=== PATIENT | female | born 2000 | race Caucasian/White ===

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

== ENCOUNTER → 2022-07-07 | Outpatient (CLI) | payer MEDICAID, SELFPAY ==
[2022-07-07 10:55] LABS: Absolute Lymphocyte Count 1.72 X10^3/uL (0.83-4.51); Absolute Neutrophil Count 7.2 X10^3/uL (2.0-7.7); Basophil# 0.02 X10^3/uL; Basophil% 0.2 % (0-1); Eosinophil# 0.03 X10^3/uL; Eosinophils% 0.3 % (0-5); Hematocrit 30.9 % (37-47); Hemoglobin 9.7 g/dL (12.0-15.0); Lymphocyte # 1.72 X10^3/ul (0.83-4.51); Lymphocyte % 18.3 % (19-41); Mean Corp Hgb Conc 31.4 g/dL (32-36); Mean Corpuscular Hgb 26.8 pg (27.0-32.0); Mean Corpuscular Volume 85.4 fL (81-99); Monocyte# 0.45 X10^3/uL; Monocyte% 4.8 % (0-10); NRBC Flagged by Analyzer 0 % (0-5); Neutrophil # 7.15 X10^3/uL (2.7-7.7); Platelet Count 220 K/mm3 (150-450); RBC Distribution Width CV 13.2 % (11.6-14.6); RBC Distribution Width SD 41.4 fl (35.1-43.9); Red Blood Count 3.62 M/mm3 (4.2-5.4); White Blood Count 9.4 K/mm3 (4.4-11.0)
[2022-07-07 11:41] LABS: HIV - WCH Non-Reactive (Nonreactive); Hepatitis B Surface Antigen Non-Reactive (Nonreactive); Hepatitis C Antibody Non-Reactive (Nonreactive); Rubella IgG Reactive (Nonreactive); Syphilis Antibodies Non-reactive
[2022-07-08 19:13] LABS: V-Zoster IgG (Immunity) < 135 index (Immune >165)
== END | disposition home or self-care (01) ==
PROVIDERS: PCP Family Medicine; Visit Provider Obstetrics & Gynecology
DX: Z34.83 Encounter for supervision of other normal pregnancy, third trimester (principal)
CPT/HCPCS: 36415; 85025; 86703; 86762; 86780; 86787; 86803; 87086; 87088; 87186; 87340

== ENCOUNTER → 2022-08-03 | Outpatient (CLI) | payer MEDICAID, SELFPAY ==
[2022-08-03 13:20] LABS: Absolute Lymphocyte Count 2.24 X10^3/uL (0.83-4.51); Absolute Neutrophil Count 7.6 X10^3/uL (2.0-7.7); Basophil# 0.01 X10^3/uL; Basophil% 0.1 % (0-1); Eosinophil# 0.09 X10^3/uL; Eosinophils% 0.8 % (0-5); Hematocrit 33.2 % (37-47); Lymphocyte # 2.24 X10^3/ul (0.83-4.51); Lymphocyte % 21.2 % (19-41); Mean Corp Hgb Conc 30.1 g/dL (32-36); Mean Corpuscular Hgb 25.7 pg (27.0-32.0); Mean Corpuscular Volume 85.3 fL (81-99); Mean Platelet Vol. 9.9 fl (6.2-12.0); Monocyte# 0.63 X10^3/uL; Monocyte% 5.9 % (0-10); NRBC Flagged by Analyzer 0 % (0-5); Neutrophil # 7.55 X10^3/uL (2.7-7.7); Neutrophil % 71.3 % (47-70); Platelet Count 216 K/mm3 (150-450); RBC Distribution Width CV 13.6 % (11.6-14.6); RBC Distribution Width SD 41.5 fl (35.1-43.9); Red Blood Count 3.89 M/mm3 (4.2-5.4); White Blood Count 10.6 K/mm3 (4.4-11.0)
[2022-08-03 14:36] LABS: Syphilis Antibodies Non-reactive
== END | disposition home or self-care (01) ==
LOC: WOBLAB 12:24
PROVIDERS: PCP Family Medicine; Visit Provider Obstetrics & Gynecology
DX: Z34.83 Encounter for supervision of other normal pregnancy, third trimester (principal); Z36.85 Encounter for antenatal screening for Streptococcus B
CPT/HCPCS: 36415; 85025; 86780; 87081

== ENCOUNTER 2022-08-19 15:16 | Inpatient (IN) | payer MEDICAID, SELFPAY ==
[2022-08-19] VITALS (41 sets, daily range): BP systolic 101–132; BP diastolic 56–81; PULSE 58–91; RESP 18; TEMP 36.6–37.2; O2SAT 93–100; BMI 27.2
[2022-08-19 11:48] LABS: ROM Internal Control Test YES-OK TO RESULT pt. (Internal QC); ROM Patient Test Negative (Negative)
[2022-08-19 12:47] LABS: ROM Internal Control Test YES-OK TO RESULT pt. (Internal QC); ROM Patient Test Negative (Negative)
[2022-08-19] MEDS: LACTATED RINGERS 500 ML 999 ML IV (15:40)
[2022-08-19] MEDS: Lactated Ringers 1,000 ML 200 ML IV (16:12)
[2022-08-19 16:15] LABS: Absolute Lymphocyte Count 2.31 X10^3/uL (0.83-4.51); Absolute Neutrophil Count 8.2 X10^3/uL (2.0-7.7); Basophil# 0.01 X10^3/uL; Basophil% 0.1 % (0-1); Eosinophil# 0.07 X10^3/uL; Eosinophils% 0.6 % (0-5); Hemoglobin 9.7 g/dL (12.0-15.0); Lymphocyte # 2.31 X10^3/ul (0.83-4.51); Lymphocyte % 20.5 % (19-41); Mean Corp Hgb Conc 31.3 g/dL (32-36); Mean Corpuscular Hgb 25.7 pg (27.0-32.0); Mean Corpuscular Volume 82.2 fL (81-99); Mean Platelet Vol. 10.2 fl (6.2-12.0); Monocyte# 0.67 X10^3/uL; NRBC Flagged by Analyzer 0 % (0-5); Neutrophil # 8.15 X10^3/uL (2.7-7.7); Neutrophil % 72.4 % (47-70); Platelet Count 197 K/mm3 (150-450); RBC Distribution Width CV 13.6 % (11.6-14.6); RBC Distribution Width SD 40.9 fl (35.1-43.9); Red Blood Count 3.77 M/mm3 (4.2-5.4); White Blood Count 11.3 K/mm3 (4.4-11.0)
[2022-08-19 16:46] LABS: Syphilis Antibodies Non-reactive
[2022-08-19] MEDS: Ondansetron 4 MG/2 ML Vial IV (16:50)
[2022-08-19] MEDS: fentaNYL-bupivacaine (epidural) 100 ML BAG EPIDURAL (17:00)
--- NOTE | 2022-08-19 17:30 | HP.PCM.OB_ITS ---
History and Physical Date of Admission: 08/19/22 Chief complaint: Contractions History present illness: 21-year-old at 38 weeks and 4 days with YESSENIA 08/29/2022 arrives with contractions and leakage of fluid. Denies headache, vision changes, chest pain, shortness of breath, nausea vomit, right upper quadrant pain. Patient states go od movement. Obstetric history: G1: SAB G2: 39-week male G3: 41-week female G4: Current Past medical history: None Medications: vitamin Allergies: Penicillin Past surgical history: Cholecystectomy, tonsils and adenoids Social history: 1 pack/day smoker, denies alcohol or drug use Family history: Denies history DVT or PE Review of systems: Besides above pertinent positives a full review of systems was performed and found to be negative Physical exam: Vitals: Blood pressure 125/81 pulse 78 SPO2 100% on room air General: Normal-appearing no acute distress HEENT: Normocephalic/atraumatic no cervical lymphadenopathy Cardiac/respiratory: No use accessory muscles, nonlabored breathing Abdomen: Soft, nontender, gravid Pelvic exam: Cervical exam 7-8/80/-1. AROM clear fluid Extremities: No peripheral edema normal peripheral pulses Psych: Normal affect and demeanor nonpressured speech Labs: White blood cell count 11.3 hemoglobin 9.7 hematocrit 31% platelets 197. RPR nonreactive. Blood type AB+ antibody negative. ROM negative Assessment and plan: 21-year-old G4, P2 at 38 weeks and 4 days called by nursing with leakage of fluid initial ROM negative. After ROM test came back called by nursing with again leakage of more fluid ROM test again sent and again negative. Intermittently was checked with cramping and contractions noted to have advanced cervical dilation to be in labor admitted to labor and delivery. Patient was seen and examined as above with above cervix and AROM for clear fluid Admit labor and delivery Routine orders GBS negative
[2022-08-19] MEDS: Oxytocin 15 Units/NS 250ml 15 UNITS/250 ML IV.SOLN 83 UNITS IV (18:03)
[2022-08-19] MEDS: Oxytocin 10 UNITS/ML Vial IM (18:06)
--- NOTE | 2022-08-19 18:17 | EX.PCM.OBRPT ---
Vaginal Delivery Findings Description of Procedure: Normal spontaneous vaginal delivery of a viable male , vertex FRANCIS. Head and shoulders delivered with ease. Cord clamped and cut. Baby handed off to patient. Placenta delivered via cord traction and fundal massage intact. First-degree midline perineal laceration noted and repaired in typical fashion. IM Pitocin and IV Pitocin given per protocol. EBL 250 cc Apgars 9/9
[2022-08-19] MEDS: Acetaminophen 500 MG Tablet 1000 MG PO (23:40)
[2022-08-20 04:52] VITALS: BP 107/66; PULSE 70; RESP 18
[2022-08-20 06:39] LABS: Chlamydia Trachomatis by PCR Negative (Negative); Neisserai gonorrhoeae by PCR Negative (Negative); Probe Check PASS; Sample Adequacy Control PASS; Specimen Processing Control PASS
--- NOTE | 2022-08-20 08:05 | PN.OBGYN_ITS ---
Subjective Subjective No overnight complaint Objective Data Objective Data Vital Signs: Vital Signs Temp Pulse Resp BP Pulse Ox O2 Del Method 98.9 F 70 18 107/66 99 Room Air 08/19/22 23:31 08/20/22 04:52 08/20/22 04:52 08/20/22 04:52 08/19/22 19:22 08/20/22 04:52 Oxygen Delivery Method Room Air Weight: 158 lb 11.725 oz Body Mass Index (BMI) 27.2 Intake & Output: Intake and Output for Last 24 Hours 08/18/22 08/19/22 08/20/22 23:59 23:59 23:59 Intake Total 1390 / 1390 Output Total 750 / 750 Balance 640 / 640 Lab / Micro Data Result Diagrams: 08/19/22 15:40 Labs: Laboratory Results - last 24 hr 08/19/22 11:15: Vag Amniotic Fld Detect Negative 08/19/22 12:20: Vag Amniotic Fld Detect Negative 08/19/22 15:40: WBC 11.3 H, RBC 3.77 L, Hgb 9.7 L, Hct 31.0 L, MCV 82.2, MCH 25.7 L, MCHC 31.3 L, RDW Std Deviation 40.9, RDW Coeff of Shoaib 13.6, Plt Count 197, MPV 10.2, Immature Gran % (Auto) 0.400, Neut % (Auto) 72.4 H, Lymph % (Auto) 20.5, [place] % (Auto) 6.0, Eos % (Auto) 0.6, Baso % (Auto) 0.1, Absolute Neuts (auto) 8.2 H, Absolute Lymphs (auto) 2.31, Nucleated RBC % 0 08/19/22 15:40: Blood Type AB POSITIVE, Antibody Screen NEGATIVE 08/19/22 15:40: Syphilis Total Ab Non-reactive 08/19/22 23:25: Chlam trachomat DNA PCR Negative, N.gonorrhoeae DNA (PCR) N egative Physical Exam Const alert, oriented x3, no apparent distress, average body habitus, healthy appearing and well nourished HEENT normocephalic and moist oral mucous membranes Eyes PERRL Neck full ROM Resp normal respiratory effort, no retractions and no use of accessory muscles GI GI Narrative: Soft, nontender, uterus firm and below umbilicus Extremity normal to inspection, full ROM and no clubbing, cyanosis or edema Neuro moves all extremities and no focal motor deficits Psych mental status grossly normal, affect normal, speech normal and activity/motor behavior normal Assessment & Plan (1) (spontaneous vaginal delivery): PLAN: day 1. Breast-feeding. Pain well controlled. 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
--- NOTE | 2022-08-20 08:05 | DCINST_ITS ---
Discharge Instructions Diet Discharge Diet: No restrictions Activity Discharge Activity: Return to Normal Activity, May Drive and May Shower May resume sexual activity in: 4-6 weeks Weight Bearing Status: Weight bearing as tolerated Dressing / Incision Call your doctor if your incision/area has: Continuous Slow Oozing and Foul Smelling Discharge Call your doctor if you observe: Fever of 101 or Higher, Shortness of breath and Chest pain Follow Up Care Please Follow Up With: Eduardo Mascorro MD When: 4 to 6 weeks Test Results: Test results from this visit will be discussed in further detail at your follow- up appointment, if applicable. Discharge Plan Admission Admit Date/Time: 08/19/22 15:16 Attending Provider: Eduardo Mascorro Primary Care Provider: Jerald Sierra Discharge Orders/Prescriptions Prescriptions: No Action ondansetron HCl 4 mg tablet 4 mg PO PRN PRN (Reason: Nausea) 1 tab PO/SL DAILY iron 325 mg PO/SL DAILY Referrals / Follow Up: Jerald Sierra MD [Primary Care Provider] - Disposition Discharge Orders: Discharge Patient (Routine); Ordered 08/20/22 Ordered By: Dr. Eduardo Mascorro
[2022-08-20] MEDS: Acetaminophen 500 MG Tablet 1000 MG PO (08:20)
[2022-08-20 09:00] VITALS: BP 118/72; PULSE 66; RESP 14; TEMP 36.8
[2022-08-20 12:30] VITALS: BP 120/69; PULSE 70; RESP 16; TEMP 37
[2022-08-20 18:00] VITALS: BP 130/70; PULSE 70; RESP 16; TEMP 36.6
--- NOTE | 2022-08-20 18:30 | CASEMGMT ---
Social Work Assessment Labor and Delivery Unit Date of Referral: 08.19.22 Time of Referral: 1912 Referred By: Dr. Eduardo Mascorro Date of Intervention: 08.20.22 Time of Intervention: 1829 Reason for Referral: 21 year old teen mom, resources, late PNC History obtained from: Medical records, mother of baby (MOB) Sugey Helm, and father of baby (FOB) Justyn Medina was present for part of conversation. Household composition: MOB and FOB report to live together, along with 2 older children. Infant will reside in this residence. Home is reported as safe and adequate. Patient's parent/guardian status: MOB is a 21 year old single female, involved with the FOB Justyn (7.29.97) for the las 7 years. During private conversation with MOB, the MOB denies any form of abuse in this relationship. MOB and FOB have 3 children: Nithin (age 2), Samara (age 1, 1.26.22), and Don (3.9.23). Medical History: LILI is G4, P2 to 3 after delivering Don. care was late, starting at 36 weeks. MOB reports late care due to not thinking was so far along, believing self to be in the early 20's when started care. MOB was in the first year of after Samara and had miscalculated her period. delivered fullterm at 7 pounds. Apgars 9 an d9. Educational Status: High school, no diploma. Denies any issues with reading, writing, or learning. Financial Status: MOB and FOB report both have jobs. 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 LILI works at an [employer] along with her father. MOB and FOB reports to be doing fine with finances at this time. Infant Supplies: MOB and FOB report to have all necessary supplies to care for Don including safe sleep space, car seat, clothing, diapers, wipes. Plan on breast feeding, but at home pumping and feeding with a bottle. Childcare/Caregiver(s): MOB, FOB, and then for babysitting MOB's mother. Transportation: MOB and FOB both reports to drive. and deny and concerns. Programs/Agencies Involved: Medicaid through [place]. Deny any WIC, HMG, or desire for such. Deny any needs for social service supports in the community. Children Services/Legal Issues: MOB denies and current or past CSB or legal involvement. Behavioral Health Issues: Mental Health History: LILI reports some PPD after her older children, but not much and nothing that stopped MOB from taking care of daily life. No medications or counseling. [place] screen completed with a score of 1 for not very often blaming self unnecessarily when things went wrong. Substance Use History: MOB denies any history. Family History: None reported. Drug Screens: No drug screens for mom. Due to late care at 36 weeks, per protocol, screening done on baby. Urine is negative and meconium is pending. Family/Social Stressors: Unplanned , with both MOB and FOB reporting initial shock and uncertainty on how felt about . Parent did come to accept that would be having a 3rd child and are intent on parenting. MOB and FOB reports to be happy about the baby now. MOB and FOB now have 3 children, 2 and under. Support Systems: MOB reports her mother if primary support to help with children, as well as MOB's primary emotional support. MOB's father and the FOB are also supports. Depression/Shaken Baby/Safe Sleeping: Information reviewed. MOB and FOB aware of safe sleeping and shaken baby syndrome. Reviewed depression and anxiety, risk and that both mothers and father are at risk. ASSESSMENT: Met with MOB and FOB in room, introducing to self and social work role. This scenario writer familiar with family from prior delivery at [facility]. MOB and FOB cooperative, pleasant, and willing to speak to social contact worker. Parents reports to have adequate housing, no concerns with utilities, food, transportation, or any interpersonal safety. Reports to have needed supplies to care for baby and support from MOB's parents. FOB does get to take some time off of work to help. MOB denies any current concerns with PPD or PPA and reports would speak to her mother if symptoms arise and/or become distressing. MOB declines referrals to HMG or WIC but accepted resource list of resources for [facility], as well as packet of information on depression and anxiety. PLAN: MOB and infant to discharge home when ready. Resources provided for home going. No other services requested or indicated. -ISAC Preciado, JACQUELIN
== END 2022-08-20 19:00 | disposition home or self-care (01) | DRG 560 ==
LOC: WPOUT 15:16 → WP 15:18
PROVIDERS: Admitting Provider Obstetrics & Gynecology; PCP Family Medicine; Referring Provider Obstetrics & Gynecology; Visit Provider Obstetrics & Gynecology
DX: O70.0 First degree perineal laceration during delivery (principal); Z37.0 Single live birth; F17.210 Nicotine dependence, cigarettes, uncomplicated; O99.334 Smoking (tobacco) complicating childbirth; Z3A.38 38 weeks gestation of pregnancy
CPT/HCPCS: 59025; 59050; 84112; 85025; 86780; 86850; 86900; 86901; 87491; 87591; 99221; 99406; J7120; G0378; J2405

== ENCOUNTER 2024-12-26 07:10 | Inpatient (IN) | payer MEDICAID, SELFPAY ==
[2024-12-26] VITALS (68 sets, daily range): BP systolic 99–146; BP diastolic 55–79; PULSE 67–97; RESP 15–18; TEMP 36.2–36.9; O2SAT 87–100; BMI 35.5
--- OUTSIDE RECORDS SUMMARY | 2024-12-26 07:01 | XMS RPT_ITS | CCD ---
Author Organization [facility] Care Team Providers Care Fermenter Name Role Phone JERALD SANCHEZ Consulting Unavailable JERALD SANCHEZ Referring Unavailable LUZ ELENA SAMUELS CNM Admitting Unavailable LUZ ELENA SAMUELS CNM Primary Care Unavailable LUZ ELENA SAMUELS CNM Attending Unavailable PROVIDER, UNKNOWN Consulting Unavailable PROVIDER, UNKNOWN Consulting Unavailable PROVIDER, UNKNOWN Consulting Unavailable Jerald Sanchez Primary Care Unavailable Eduardo Samuels Referring Unavailable Eduardo Samuels Attending Unavailable Eduardo Samuels Admitting Unavailable Jerald Sanchez Primary Care Unavailable Eduardo Samuels Attending Unavailable Jerald Sanchez Primary Care Unavailable Eduardo Samuels Attending Unavailable Jerald Sanchez MD Unavailable Psychology Provider Unavailable Unavailable Physical Therapy Provider Unavailable Shaka Sandoval MD, Sherrie Jhaveri Unavailable Jaylen PRICEN, Radha Unavailable Winston COLON, Ankur Marie Unavailable Manfred PRICEN, Michelle Jhaveri Unavailable Unavailable Waldo GALVEZ, Kitty C Unavailable Unavailable Gogoi (scribe), Hemanta Unavailable Unavaila jose Hernandez LPN, Maricruz Unavailable Unavailable Albert FAYE, Gerry Baldwin Unavailable Luz Elena Little PA-C Unavailable King TRISTONC, Ruben Norwood Unavailable [phone] Luz Elena Baltazar RN Unavailable Unavaila jose Walker LPN, Leelee Unavailable Unavailable Alma Samuels RN Unavailable Pineda SEAY, Fatuma Pelaez Unavailable Unavailable Filiberto PRICEN, Nicole K Unavailable Shaka Coley PA-C, Prema Marie Unavailable Mark (Scribe)Toan Unavailable Unavailab Khadra Mondragon Unavailable Richert INVESTMENT RECOVERY TECHNICIAN, Nusrat L Unavailable Unavailab le Isis INVESTMENT RECOVERY TECHNICIAN, Sherrie Forte Unavailable Unavailab le [place] INVESTMENT RECOVERY TECHNICIAN, Willow Genao Unavailable Unavailab le Vess INVESTMENT RECOVERY TECHNICIAN, Junshakila L Unavailable Unavailable Wedelvin INVESTMENT RECOVERY TECHNICIAN, Tana Unavailable Unavailabl e Unavailable Unavailable Jerald Sanchez MD Primary Care Provider JERALD SANCHEZ Primary Care Unavailable PARIS, GIN Referring Unavailable [facility] Primary Care Unavailable PARIS, GIN Referring Unavailable [facility] Primary Care Unavailable PARIS, GIN Referring Unavailable SHAILA BUTLER Attending Unavailable [facility] Primary Care Unavailable PARIS, GIN Attending Unavailable [facility] Primary Care Unavailable PARIS, GIN Attending Unavailable [facility] Primary Care Unavailable PARIS, GIN Referring Unavailable [facility] Primary Care Unavailable PARIS, GIN Referring Unavailable PARIS, GIN Attending Unavailable [facility] Primary Care Unavailable PARIS, GIN Attending Unavailable [facility] Primary Care Unavailable PARIS, GIN Referring Unavailable [facility] Primary Care Unavailable ROSIE HENLEY Attending Unavailable [facility] Primary Care Unavailable [facility] Primary Care Unavailable PARIS, GIN Referring Unavailable [facility] Primary Care Unavailable PARIS, GIN Referring Unavailable [facility] Primary Care [facility]available [facility] Primary Care Unavailable [facility] Primary Care Unavailable PARIS, GIN Referring Unavailable [facility] Primary Care Unavailable PARIS, GIN Referring Unavailable MALA KINGSTON Attending Unavailable [facility] Primary Care Unavailable PARIS, GIN Referring Unavailable PARIS, GIN Attending Unavailable [facility] Primary Care Unavailable ROSIE HENLEY Referring Unavailable [facility] Primary Care Unavailable TANA KRAMER Attending Unavailable [facility] Primary Care Unavailable BROOKEADELAIDA CARR Referring Unavailable JESSE HERNANDEZ Attending Unavail able [facility] Primary Care Unavailable BROOKE, ADELAIDA Referring Unavailable [facility] Primary Care Unavailable MIR DE JESUS Attending Unavailable [facility] Primary Care Unavailable MIR DE JESUS Attending Unavailable Allergies Allergy Classification Reported Allergen(s) Allergy Type Date of Onset Reaction(s) Facility (20 sources) Ibuprofen; Translations: [IBUPROFEN] Drug Allergy 0 Hives, Swelling, Anaphylaxis [facility] (7 sources) Penicillins; Translations: [PENICILLINS] Allergy to substance 0 Diarrhea [facility] (1 source) Ibuprofen Drug Allergy 2 [facility] (1 source) Penicillins Drug allergy (disorder) 3 [facility] (5 sources) Penicillin V Drug Allergy Vomiting [facility] (3 sources) Penicillins Drug Intolerance 0 Diarrhea [facility] (20 sources) traMADol; Translations: [TRAMADOL] Drug Allergy 0 Mental Status Change [facility] (20 sources) Penicillins Drug Intolerance 0 Diarrhea [facility] Medications Current Medications Medication Drug Class(es) Dates Sig (Normalized) Sig (Original) acetaminophen 500 mg oral tablet (20 sources) acetaminophen (TYLENOL ORAL) Take 500 mg by mouth as needed. Active aspirin 81 mg delayed release oral tablet (20 sources) Platelet Aggregation Inhibitor, Nonsteroidal Anti-inflammatory Drug Start: 07-16-2024 take 2 tablets by mouth once daily aspirin, enteric coated (ASPIRIN, ENTERIC COATED) 81 mg EC tablet Take 2 tablets by mouth once daily. 60 tablet 5 07/16/2024 Active End: 07-16-2024 take 1 tablet by mouth once daily BABY ASPIRIN ORAL Take 1 tablet by mouth once daily. 07/16/2024 Discontinued Blood-Glucose Meter (2 sources) Start: 10-15-2024 End: 10-16-2024 Blood-Glucose Meter Use as directed to check glucose levels up to seven times daily. 1 each 10/15/2024 10/16/2024 Active ferrous sulfate 325 mg delayed release oral tablet (9 sources) take 1 tablet by mouth every other day ferrous sulfate 325 mg (65 mg iron) EC tablet Take 325 mg by mouth every other day. Active Iron (1 source) Start: 08-19-2022 take 325 mg by mouth once daily iron Active 325 MG SL/PO DAILY August 19, 2022 12:00am ondansetron 4 mg oral tablet (2 sources) Serotonin-3 Receptor Antagonist Start: 07-08-2021 Ondansetron Hcl Active 4 MG PO NEEDED July 08, 2021 12:00am (2 sources) Start: 07-08-2021 take 1 tablet by mouth once daily Active 1 TABLET SL/PO DAILY July 08, 2021 12:00am vit/iron fum/folic ac ( PLUS/IRON ORAL) (20 sources) vit/iro n fum/folic ac ( PLUS/IRON ORAL) Take by mouth once daily. Active Completed/Discontinued Medications Medication Drug Class(es) Dates Sig (Normalized) Sig (Original) amoxicillin 500 mg oral tablet (15 sources) Penicillin-class Antibacterial Start: 03-02-2016 End: 03-12-2016 take 1 tablet by mouth three times daily Amoxicillin 500 MG Oral Tablet ; 1 Tab three times daily for 10 days Quantity: 30 {Tablet} Refills: 0 Ordered: 02-Apr-2016 MD Jerald Sanchez Start: 02-Mar-2016 End: 12-Mar-2016 Status: Inactive Start: 05-29-2012 End: 06-08-2012 take 1 capsule by mouth three times daily AMOXICILLIN, 500MG (Oral Capsule) ; 1 (one) Capsule three times daily for 10 days Quantity: 30 {Capsule} Refills: 0 Ordered: 29-May-2012 MD Sherrie Sandoval Start: 29-May-2012 End: 08-Jun-2012 Status: Inactive Start: 10-15-2011 End: 10-25-2011 take 5 mL by mouth three times daily AMOXICILLIN, 400MG/5ML (Oral Suspension Reconstituted) ; 5 Milliliter three times daily for 10 days Quantity: 150 {Milliliter} Refills: 0 Ordered: 15-Oct-2011 MD Sherrie Sandoval Start: 15-Oct-2011 End: 25-Oct-2011 Status: Inactive Comments: please include measuring device Comment on above: please include measu ring device amoxicillin 875 mg / clavulanate 125 mg oral tablet (5 sources) Penicillin-class Antibacterial Start: 08-10-19 19 End: 08-21-19 19 take 1 tablet by mouth twice daily at mealtime Augmentin 875-125 MG Oral Tablet ; 1 Tab two times daily for 10 days Quantity: 20 {Tablet} Refills: 0 Ordered: 10-Aug-2018 DARLENE Little Start: 10-Aug-2018 End: 20-Aug-2018 Status: Inactive Comments: Take with food Comment on above: Take with food azithromycin 40 mg/ml oral suspension (5 sources) Macrolide Antimicrobial Start: 08-15-19 13 End: 08-20-19 13 AZITHROMYCIN, 200MG/5ML (Oral Suspension Reconstituted) ; 12 Milliliter today, then 6 milliliters daily for 4 days for 5 days Quantity: 36 {Milliliter} Refills: 0 Ordered: 14-Aug-2012 MD Sherrie Sandoval Start: 14-Aug-2012 End: 19-Aug-2012 Status: Inactive Comments: please include measuring device Comment on above: please include measu ring device cephalexin 500 mg oral capsule (20 sources) Cephalosporin Antibacterial Start: 02-15-20 End: 02-29-20 take 2 capsules by mouth twice daily Cephalexin 500 MG Oral Capsule ; 2 (two) Capsule bid for 14 days Quantity: 28 {Capsule} Refills: 0 Ordered: 14-Feb-2019 MD Jerald Sanchez Start: 14-Feb-2019 End: 28-Feb-2019 Status: Inactive Start: 04-21-2015 End: 04-28-2015 take 1 capsule by mouth three times daily CEPHALEXIN, 500MG (Oral Capsule) ; 1 (one) Capsule three times daily for 7 days Quantity: 21 {Capsule} Refills: 0 Ordered: 21-Apr-2015 MD Sherrie Sandoval Start: 21-Apr-2015 End: 28-Apr-2015 Status: Inactive Start: 04-21-2010 End: 05-01-2010 CEPHALEXIN, 250MG/5ML (Oral Suspension Reconstituted) ; 2 (two) teaspoon(s) three times daily for 10 days Quantity: 300 {Milliliter} Refills: 0 Ordered: 21-Apr-2010 MD Sherrie Sandoval Start: 21-Apr-2010 End: 01-May-2010 Status: Inactive take 1 capsule by [facility] twice daily KEFLEX, 500MG (Oral Capsule) ; 1 two times daily (500 MG) Status: Inactive Comments: given at ER on 04/20/15 Comment on above: given at ER on cetirizine hydrochloride 10 mg oral tablet (10 sources) Histamine-1 Receptor Antagonist Start: 03-02-2017 End: 04-12-2018 take 1 tablet by mouth once daily as needed ZyrTEC Allergy 10 MG Oral Tablet ; 1 (one) Tablet Tablet qd for 0 days Quantity: 30 {Tablet} Refills: 3 Ordered: 12-Apr-2018 LENNY York Start: 02-Mar-2017 End: 12-Apr-2018 Status: Inactive Comments: takes as needed Start: 02-25-2016 End: 05-20-2016 take 1 tablet by mouth once daily Cetirizine HCl 10 MG Oral Tablet ; 1 (one) Tablet Tablet daily for 0 days Quantity: 30 {Tablet} Refills: 0 Ordered: 20-May-2016 DAWOOD Baltazar Start: 25-Feb-2016 End: 20-May-2016 Status: Inactive Comment on above: takes as needed FLUoxetine 10 mg oral capsule (5 sources) Serotonin Reuptake Inhibitor Start: 10-10-19 14 End: 03-29-20 14 take 1 capsule by mouth once daily FLUOXETINE HCL, 10MG (Oral Capsule) ; 1 (one) Capsule daily for 0 days Quantity: 30 {Capsule} Refills: 2 Ordered: 29-Mar-2014 LENNY York Start: 09-Oct-2013 End: 29-Mar-2014 Status: Discontinued fluticasone propionate 0.05 mg/actuat metered dose nasal spray (5 sources) Corticosteroid Start: 07-15-19 End: 08-15-19 Fluticasone Propionate 50 MCG/ACT Nasal Suspension ; 2 (two) sprays each nostril daily, no longer than 2 months for 30 days Quantity: 1 {Bottle} Refills: 0 Ordered: 15-Jul-2016 DAYNE Espinoza Start: 15-Jul-2016 End: 14-Aug-2016 Status: Inactive 10 ml iron sucrose 20 mg/ml injection (2 sources) Parenteral Iron Replacement Start: 10-27-19 End: 10-27-19 200 mg, INTRAVENOUS, ONCE, 1 dose, On Tue10/26/24 at 1100, May administer up to 200 mg via IV push over 5-10 minutes. Please conduct a 30 minute post-dose observation. Start: 10-24-2024 End: 10-24-2024 200 mg, INTRAVENOUS, ONCE, 1 dose, On Tue10/24/24 at 1530, May administer up to 200 mg via IV push over 5-10 minutes. Please conduct a 30 minute post-dose observation. 1 ml medroxyPROGESTERone acetate 150 mg/ml injection (6 sources) Progestin Start: 04-23-2020 End: 07-16-2024 medroxyPROGESTERone (DEPO-PROVERA) 150 mg/mL injection Inject 1 mL intramuscularly every 12 weeks. 1 Vial 3 04/23/2020 07/16/2024 Discontinued (Course of therapy completed) Start: 12-15-2016 End: 03-02-2017 Depo-Provera 150 MG/ML Intra muscular Suspension ; 1 (one) dose IM for 0 days Quantity: 1 {Dose_Pack} Refills: 0 Ordered: 02-Mar-2017 LENNY Hernandez Start: 15-Dec-2016 End: 02-Mar-2017 Status: Inactive ofloxacin 3 mg/ml otic solution (5 sources) Quinolone Antimicrobial Start: 12-22-2014 End: 12-29-2014 OFLOXACIN, 0.3% (Otic Solution) ; 10 drops once daily to affected ear for 7 days Quantity: 5 {Milliliter} Refills: 0 Ordered: 22-Dec-2014 MD Gerry Price Start: 22-Dec-2014 End: 29-Dec-2014 Status: Inactive oseltamivir 75 mg oral capsule (5 sources) Neuraminidase Inhibitor Start: 09-03-2016 End: 09-08-2016 take 1 capsule by mouth twice daily Tamiflu 75 MG Oral Capsule ; 1 (one) Capsule twice daily for 5 days Quantity: 10 {Capsule} Refills: 0 Ordered: 03-Sep-2016 MD Jerald Sanchez Start: 03-Sep-2016 End: 08-Sep-2016 Status: Inactive penicillin v potassium 500 mg oral tablet (5 sources) Start: 06-01-2018 End: 06-11-2018 take 1 tablet by mouth twice daily Penicillin V Potassium 500 MG Oral Tablet ; 1 (one) Tablet two times daily for 10 days Quantity: 20 {Tablet} Refills: 0 Ordered: 01-Jun-2018 LENNY De Los Santos Start: 01-Jun-2018 End: 11-Jun-2018 Status: Inactive raNITIdine 150 mg oral capsule (10 sources) Histamine-2 Receptor Antagonist Start: 04-19-2013 End: 05-21-2013 take 1 capsule by mouth once daily RANITIDINE HCL, 150MG (Oral Capsule) ; 1 Capsule daily for 0 days Quantity: 30 {Capsule} Refills: 1 Ordered: 19-Apr-2013 MD Sherrie Sandoval Start: 19-Apr-2013 End: 21-May-2013 Status: Discontinued Start: 07-10-2010 End: 04-22-2011 RANITIDINE HCL, 75MG/5ML (Or al Syrup) ; 1 teaspoon(s) two times daily for 0 days Quantity: 300 {Milliliter} Refills: 0 Ordered: 22-Apr-2011 MD Sherrie Sandoval Start: 10-Jul-2010 End: 22-Apr-2011 Status: Inactive sulfacetamide sodium 100 mg/ml ophthalmic solution (5 sources) Sulfonamide Antibacterial Start: 04-02-2016 End: 05-20-2016 Bleph-10 10 % Ophthalmic Solution ; 1-2 drops four times daily to both eyes for 0 days Quantity: 5 {Milliliter} Refills: 0 Ordered: 20-May-2016 DAWOOD Baltazar Luz Elena A Start: 02-Apr-2016 End: 20-May-2016 Status: Inactive sulfamethoxazole 800 mg / trimethoprim 160 mg oral tablet (10 sources) Dihydrofolate Reductase Inhibitor Antibacterial, Sulfonamide Antimicrobial Start: 04-12-2018 End: 08-09-2018 take 1 tablet by mouth twice daily Sulfamethoxazole- Trimethoprim 800-160 MG Oral Tablet ; 1 (one) Tablet bid for 0 days Quantity: 10 {Tablet} Refills: 0 Ordered: 09-Aug-2018 DAWOOD Sung Fatuma Benigno Start: 12-Apr-2018 End: 09-Aug-2018 Status: Inactive Start: 06-18-2011 End: 06-25-2011 take 1 tablet by mouth twice daily SULFAMETHOXAZOLE-TMP DS, 800-160MG (Oral Tablet) ; 1 Tablet two times daily for 7 days Quantity: 14 {Tablet} Refills: 0 Ordered: 18-Jun-2011 DAWOOD Samuels Start: 18-Jun-2011 End: 25-Jun-2011 Status: Inactive Problems Active Problems Problem Classification Problem Date Documented Date Episodic/Chronic Abdominal pain (20 sources) Acute abdominal pain; Translations: [Unspecified abdominal pain] 09-07-2018 Episodic Acute bronchitis (15 sources) Acute bronchitis; Translations: [Acute bronchitis, unspecified] 08-14-2012 Episodic Adjustment disorders (20 sources) Mixed anxiety and depressive disorder; Translations: [Adjustment disorder with mixed anxiety and depressed mood] 03-18-2022 Chronic Administrative/social admission (5 sources) Issue of repeat prescriptions 05-23-2012 Episodic Allergic reactions (20 sources) Environmental allergy; Translations: [Other allergy status, other than to drugs and biological substances] Onset: 12-04-2024 03-18-2022 Episodic Anxiety disorders (5 sources) Irritability and anger; Translations: [Irritability and anger] 04-29-2011 Episodic Conditions associated with dizziness or vertigo (5 sources) Dizziness; Translations: [Dizziness and giddiness] 09-18-2015 Episodic Contraceptive and procreative management (16 sources) Patient encounter status; Translations: [Encounter for other general counseling and advice on contraception] 09-07-2018 Episodic Deficiency and other anemia (1 source) Iron deficiency anemia, unspecified; Translations: [Maternal iron deficiency anemia complicating , third trimester (HCC)] Onset: 10-09-2024 Episodic Diabetes or abnormal glucose tolerance complicating ; childbirth; or the puerperium (20 sources) Impaired glucose tolerance in ; Translations: [Abnormal glucose complicating ] Onset: 10-05-2024 Resolved: 10-19-2024 10-05-2024 Episodic Disorders of teeth and jaw (15 sources) Infection of tooth; Translations: [Periapical abscess without sinus] 02-14-2019 Episodic Comment on above: parents are trying t o get her in to a dentist but they ahve [place] and local dental care is very limited Esophageal disorders (10 sources) Gastroesophageal reflux disease; Translations: [Gastro-esophageal reflux disease without esophagitis] 03-18-2022 Chronic Gastritis and duodenitis (5 sources) Viral gastritis; Translations: [Gastritis, unspecified, without bleeding] 05-20-2016 Episodic Genitourinary symptoms and ill-defined conditions (10 sources) Dysuria; Translations: [Dysuria] 04-12-2018 Episodic Immunizations and screening for infectious disease (20 sources) Exposure to streptococcal pharyngitis; Translations: [Contact with and (suspected) exposure to other bacterial communicable diseases] Onset: 10-05-2024 08-10-2018 Episodic Inflammation; infection of eye (except that caused by tuberculosis or sexually transmitteddisease) (5 sources) Conjunctivitis; Translations: [Unspecified conjunctivitis] 04-02-2016 Episodic Influenza (5 sources) Influenza; Translations: [Influenza due to unidentified influenza virus with other respiratory manifestations] 09-03-2016 Episodic Intestinal infection (10 sources) Viral gastroenteritis; Translations: [Viral intestinal infection, unspecified] 03-29-2014 Episodic Mood disorders (5 sources) Depressive disorder; Translations: [Depressive disorder, not elsewhere classified] 10-04-2011 Chronic Noninfectious gastroenteritis (5 sources) Gastroenteritis; Translations: [Noninfective gastroenteritis and colitis, unspecified] 04-13-2013 Episodic Other aftercare (5 sources) Drug indicated; Translations: [Other manager intermediate (current) drug therapy] 10-15-2011 Episodic Other complications of ; puerperium affecting management of mother (1 source) Central nervous system malformation in fetus affecting obstetrical care; Translations: [Choroid plexus cyst of fetus affecting care of mother, antepartum, single or unspecified fetus] 08-06-2024 Episodic Other complications of (20 sources) Anemia in mother complicating , childbirth AND/OR puerperium; Translations: [Anemia complicating , third trimester] Onset: 10-09-2024 10-09-2024 Chronic Other complications of (20 sources) Anemia of ; Translations: [Anemia complicating , third trimester] Onset: 10-05-2024 10-09-2024 Chronic Other complications of (2 sources) Anemia complicating , third trimester; Translations: [Anemia during in third trimester (HCC)] Onset: 10-09-2024 Chronic Other complications of (1 source) A/N care: poor obstetric history; Translations: [Supervision of with other poor reproductive or obstetric history, third trimester] 12-04-2024 Episodic Other complications of (2 sources) Supervision of high risk , unspecified, third trimester; Translations: [Encounter for supervision of high risk in third trimester, antepartum (HCC)] Onset: 10-19-2024 Episodic Other complications of (1 source) Supervision of high risk , unspecified, second trimester; Translations: [Supervision of high risk in second trimester (HCC)] Onset: 10-05-2024 Episodic Other complications of (1 source) Supervision of elderly multigravida, second trimester; Translations: [Multigravida of advanced maternal age in second trimester (HCC)] Onset: 10-05-2024 Episodic Other connective tissue disease (10 sources) Pain in left lower limb; Translations: [Pain in left leg] 03-18-2022 Episodic Other ear and sense organ disorders (5 sources) Otitis externa; Translations: [Unspecified otitis externa, unspecified ear] 12-22-2014 Chronic Other injuries and conditions due to external causes (5 sources) Shoulder and upper arm injury 04-22-2011 Episodic Other nutritional; endocrine; and metabolic disorders (10 sources) Overweight in childhood; Translations: [Body mass index (BMI) pediatric, 85th percentile to less than 95th percentile for age] 09-07-2018 Episodic Other nutritional; endocrine; and metabolic disorders (20 sources) Childhood obesity; Translations: [Body Mass Index, pediatric, greater than or equal to 95th percentile for age] 03-18-2022 Episodic Other screening for suspected conditions (not mental disorders or infectious disease) (4 sources) Cancer cervix screening status; Translations: [Encounter for screening for malignant neoplasm of cervix] Onset: 09-07-2024 07-16-2024 Episodic Other upper respiratory infections (5 sources) Sinusitis; Translations: [Chronic sinusitis, unspecified] 07-15-2016 Chronic Other upper respiratory infections (20 sources) Acute pharyngitis; Translations: [Acute pharyngitis, unspecified] 04-02-2016 Episodic Otitis media and related conditions (10 sources) Acute suppurative otitis media without spontaneous rupture of ear drum; Translations: [Acute suppurative otitis media without spontaneous rupture of ear drum, bilateral] 08-10-2018 Episodic Prolonged (2 sources) Gestation period, 41 weeks; Translations: [Post-term ] 07-08-2021 Episodic Residual codes; unclassified (10 sources) Tobacco user; Translations: [Tobacco use] 03-18-2022 Episodic Residual codes; unclassified (10 sources) Influenza vaccination declined; Translations: [Immunization not carried out because of patient refusal] 09-07-2018 Episodic Residual codes; unclassified (5 sources) Color finding; Translations: [Pallor] 02-25-2016 Episodic Residual codes; unclassified (1 source) Gestation period, 19 weeks; Translations: [19 weeks gestation of ] 08-06-2024 Episodic Residual codes; unclassified (1 source) Gestation period, 20 weeks; Translations: [20 weeks gestation of ] 08-09-2024 Episodic Residual codes; unclassified (2 sources) Gestation period, 23 weeks; Translations: [23 weeks gestation of ] 09-07-2024 Episodic Residual codes; unclassified (1 source) Gestation period, 29 weeks; Translations: [29 weeks gestation of ] 10-19-2024 Episodic Residual codes; unclassified (1 source) Gestation period, 32 weeks; Translations: [32 weeks gestation of ] 11-06-2024 Episodic Residual codes; unclassified (1 source) Gestation period, 33 weeks; Translations: [33 weeks gestation of ] 11-14-2024 Episodic Residual codes; unclassified (1 source) Gestation period, 36 weeks; Translations: [36 weeks gestation of ] 12-04-2024 Episodic Residual codes; unclassified (1 source) Gestation period, 37 weeks; Translations: [37 weeks gestation of ] 12-13-2024 Episodic Residual codes; unclassified (1 source) Gestation period, 38 weeks; Translations: [38 weeks gestation of ] 12-17-2024 Episodic Residual codes; unclassified (1 source) Gestation period, 39 weeks; Translations: [39 weeks gestation of ] 12-24-2024 Episodic Residual codes; unclassified (1 source) 39 weeks gestation of ; Translations: [39 weeks gestation of (HCC)] Onset: 12-24-2024 Episodic Residual codes; unclassified (1 source) 38 weeks gestation of ; Translations: [38 weeks gestation of (HCC)] Onset: 12-17-2024 Episodic Residual codes; unclassified (1 source) 37 weeks gestation of ; Translations: [37 weeks gestation of (HCC)] Onset: 12-13-2024 Episodic Residual codes; unclassified (1 source) 36 weeks gestation of ; Translations: [36 weeks gestation of (HCC)] Onset: 12-04-2024 Episodic Residual codes; unclassified (1 source) 33 weeks gestation of ; Translations: [33 weeks gestation of (HCC)] Onset: 11-14-2024 Episodic Residual codes; unclassified (1 source) 32 weeks gestation of ; Translations: [32 weeks gestation of (HCC)] Onset: 11-06-2024 Episodic Residual codes; unclassified (1 source) 31 weeks gestation of ; Translations: [31 weeks gestation of (HCC)] Onset: 11-02-2024 Episodic Residual codes; unclassified (1 source) 29 weeks gestation of ; Translations: [29 weeks gestation of (HCC)] Onset: 10-19-2024 Episodic Residual codes; unclassified (1 source) 23 weeks gestation of ; Translations: [23 weeks gestation of (HCC)] Onset: 10-05-2024 Episodic Residual codes; unclassified (1 source) 27 weeks gestation of ; Translations: [27 weeks gestation of ([facility])] Onset: 10-05-2024 Episodic Skin and subcutaneous tissue infections (5 sources) Cellulitis of right ankle; Translations: [Cellulitis of right lower limb] 04-21-2015 Episodic Sprains and strains (10 sources) Shoulder strain; Translations: [Strain of unspecified muscle, fascia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 History of gestational hypertension [Z87.59] 07/16/2024 Abnormal glucose in , antepartum (HCC)*10/05/2024 10/19/2024 Anemia during in third trimester (HCC*10/05/2024 Maternal iron deficiency anemia complicating pr*10/09/2024 Diet controlled gestational diabetes mellitus (*10/15/2024 Encounter Status:Closed by TAMRA MUNOZ on 10/25/24 [facility] Nurse Visit (DEMBHT) SUGEY HELM ([id number]) 4 F Date Time Provider Department 10/18/24 8:00 AM FRANCISCA GROVE During your visit today, we recorded the following information about you: Francisca Grove, RN 10/18/2024 9:01 AM Signed DIABETES SELF-MANAGEMENT EDUCATION AND SUPPORT Location: [place] Type of visit: Virtual (with video) individual I have communicated my name and active licensure. The patient's identity and physical location were verified at the time of this visit. Either the patient or their legal advertising representative has been informed of the risks and benefits of -- and alternatives to -- treatment through a remote evaluation and consents to proceed with the evaluation remotely. 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 Patient states he/she is located at home/work and is the [facility] for duration of this visit. Types of DSMES: Initial/Comprehensive (add to or update ADA spreadsheet) PATIENT'S MAIN CONCERN TODAY: gestational diabetes new diagnosis Support person present for education today: none Cognitive ability: Alert and oriented Motivation to learn: Interested Learning barriers identified by educator: none Method of instruction: written, verbal, and demonstration INTERVENTIONS/TOPICS COVERED: -Diabetes Pathophysiology: gestational diabetes basics -Monitoring: A1c meaning and target <7%, BG targets, rationale for HGM, sharps disposal, testing frequency, and using a home glucose monitor -Healthy Eating: impact of carbs on BG, Plate Method, basic carb counting, foods with carbs, portion sizes, fiber, reading food labels, recommendation for 15-30mg snacks, 30 carb breakfast, 45-60 carbs lunch/dinner, eating out, and carb counting tools (books, Internet, smartphone apps) Patient does not read food labels or count carbs. Focused on plate method, more non starchy veggies, always a protein at meals and snacks with carbs, limit carbs to serving sizes per gestational diabetes booklet. See sample menus and snack list for ideas. 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 Suggested switch to decaf and/or eliminating caffeine for remainder of due to possible impact on elevating blood sugars -Medications: medication safety/timing, medication side effects, insulin storage, site selection/rotation, pen injection instruction, sharps disposal, reviewed home DM meds, taught new DM meds as noted, basal insulin, and injectable insulin discussed: NPH Insulin -Physical Activity: benefits of exercise, impact of exercise on BG, and types of exercise -Acute Complications: hypoglycemia s/sx/tx, hyperglycemia s/sx/tx, and traveling with diabetes -Chronic Complications: importance of BG control to reduce risks and risks to mom and baby with elevated blood sugars during -Healthy Coping and Support: impact of stress on BG, stress management techniques, and benefits of a support system, types of support (ex:family, friends, support groups, diabetes groups on social media) DIABETES ASSESSMENT: Referring Physician: Adelaida Castillo Previous Diabetes Education? No What are you hoping to gain from this visit? What to eat for diabetes in In your words, what is gestational diabetes? Diabetes in and leaves after What concerns you about having gestational diabetes? How to follow diet and size of baby Diabetes History: Type of Diabetes: Gestational ( diabetes in ) How far along is your ? Weeks: 29 Does anyone in your family have diabetes? 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 never How often does someone help you read your pill bottles? never How often does someone have to help you take care of your diabetes? 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 Walk outside Do any of the following things get in the way of managing your diabetes? No self-identified issues Health History: Do you use tobacco? Yes, How much? 6 cigarettes per day Patient aware of risks of smoking during Do you use alcohol? No In the past 12 months have you had any: Hospital Admissions: No ER Visits: No Primary Care Visits: No What are your general feelings about you overall health? Good Medical Issues/Complications: see below To whom are (more content not included)... Normal [facility] GLUCOSE GESTATIONAL, 1 HOURo n 10-12-2024 Glucose 1 Hr post Unsp challenge [Mass/Vol] 196 mg/dL High 74-179 [facility] Comment on above: Order Comment: Ronni alfaro Type: BLOOD SPECIMEN [facility] Address: [address] [place] [address] Result Comment: [facility] Congress of Obstetricians and Gynecologists (Janay/Jeremiah) guidelines state gestational diabetes mellitus is present when 2 or more of the plasma glucose concentrations meet or exceed the following levels: fastin mg/dl, 1 hr: 180 mg/dl, 2 hr: 155 mg/dl, and 3 hr: 140 mg/dl. Performed By: #### 5 0190-8, 2276-4 #### [facility] CLIA [id number] [address] [place] [address] [place] GLUCOSE GESTATIONAL, 2 HOURo n 10-12-2024 Glucose 2 Hr post Unsp challenge [Mass/Vol] 176 mg/dL High 74-154 [facility] Comment on above: Order Comment: Ronni alfaro Type: BLOOD SPECIMENOrdering Facility: [facility] Address: [address] [place] [address] Result Comment: [facility] Congress of Obstetricians and Gynecologists (Janay/Jeremiah) guidelines state gestational diabetes mellitus is present when 2 or more of the plasma glucose concentrations meet or exceed the following levels: fastin mg/dl, 1 hr: 180 mg/dl, 2 hr: 155 mg/dl, and 3 hr: 140 mg/dl. Performed By: #### G TGST2 ####[facility] [id number] [place] [address] [place] GLUCOSE GESTATIONAL, 3 HOURo n 10-12-2024 Glucose 3 Hr post Unsp challenge [Mass/Vol] 113 mg/dL Normal 74-139 [facility] Comment on above: Order Comment: Ronni alfaro Type: BLOOD SPECIMEN [facility] Address: [address] [place] [address] Result Comment: [facility] Congress of Obstetricians and Gynecologists (Gustafson/Jeremiah) guidelines state gestational diabetes mellitus is present when 2 or more of the plasma glucose concentrations meet or exceed the following levels: fastin mg/dl, 1 hr: 180 mg/dl, 2 hr: 155 mg/dl, and 3 hr: 140 mg/dl. Performed By: #### R UBIGG #### [facility] CLIA [id number] [address] [place] [address] GLUCOSE GESTATIONAL, FASTING on 10-12-2024 Glucose post fast [Mass/Vol] 83 mg/dL Normal 74-94 [facility] Comment on above: Order Comment: Ronni alfaro Type: BLOOD SPECIMEN [facility]: [facility] Address: [address] [place] [address] Result Comment: [facility] Congress of Obstetricians and Gynecologists ([facility]) guidelines state gestational diabetes mellitus is present when 2 or more of the plasma glucose concentrations meet or exceed the following levels: fastin mg/dl, 1 hr: 180 mg/dl, 2 hr: 155 mg/dl, and 3 hr: 140 mg/dl. Performed By: #### R UBIGG #### [facility] CLIA [id number] [address] [place] [address] OF [place] CNPEvelyn 10-11-2024 CNPN Telephone (INTMMN) SUGEY HELM ([id number]) 4 F Date Time Provider Department 10/11/24 ROBERTO IGLESIAS INTMANASA During your visit today, we recorded the following information about you: Roberto Iglesias, RN 10/11/2024 1:27 PM Signed Josué tx plan signed and PA approved. Trini Henriquez 10/11/2024 1:45 PM Signed Please review and advise Margoth Driver 10/11/2024 2:14 PM Signed Lvm for pt to call back ans schedule. Trini Gunn 10/11/2024 2:36 PM Signed Patient returned the call and scheduled. Start email sent. Trini Henriquez Allergies As of Date: 10/11/2024 Noted Allergy Reaction IBUPROFEN 03/07/2020 4 - Hives 7 - Swelling 10 - Anaphylaxis PENICILLINS 11/13/2019 6 - Diarrhea TRAMADOL 11/13/2019 1 - Mental Status Change Date Reviewed: 10/09/2024 Reviewed by: Trini Dover PA-C - Fully Assessed Reason for Visit: Hematology [Other] Prescriptions as of 10/11/2024 - aspirin, enteric coated (ASPIRIN, ENTERIC COATED) 81 mg EC tablet Take 2 tablets by mouth once daily. - vit/iron fum/folic ac ( PLUS/IRON ORAL) Take by mouth once daily. - acetaminophen (TYLENOL ORAL) Take 500 mg by mouth as needed. Problem List As Of Date 10/11/2024 Noted Resolved Supervision of other high risk pregnancies, uns*03/07/2020 Encounter for induction of labor [Z34.90] 03/07/2020 03/10/2020 Gestational hypertension [O13.9] 03/07/2020 07/16/2024 History of intrauterine , currently *03/07/2020 care insufficient [O09.30] 03/07/2020 Tobacco use during , antepartum [O99.3*07/16/2024 History of delivery of macrosomal infant [Z87.5*07/16/2024 Poor dental hygiene [Z91.89] 07/16/2024 Late care [O09.30] 07/16/2024 History of gestational hypertension [Z87.59] 07/16/2024 Abnormal glucose in , antepartum (HCC)*10/05/2024 Anemia during in third trimester (HCC*10/05/2024 Maternal iron deficiency anemia complicating pr*10/09/2024 Encounter Status:Closed by ROBERTO US on 10/11/24 Normal [facility] CBC W Auto Differential pane l (Bld)on 10-05-2024 Basophils (Bld) [#/Vol] 10*3/uL Normal <0.11 [facility] Comment on above: Order Comment: Speci men Type: BLOOD SPECIMENOrdering Facility: [facility] Address: [address] [place] [address] Performed By: #### 5 7021-8 ####[facility] MILLTOWNCLIA [id number] [place] [address] [place] Basophils/100 WBC (Bld) 0.2 % Normal C [facility] Comment on above: Order Comment: Speci men Type: BLOOD SPECIMENOrdering Facility: [facility] Address: [address] [place] [address] Performed By: #### 5 7021-8 ####[facility] BEACHANALIA [id number] [place] [address] [place] Differential cell count method Nom (Bld) Auto Normal [facility] Comment on above: Order Comment: Speci men Type: BLOOD SPECIMENOrdering Facility: [facility] Address: [address] [place] [address] Performed By: #### 5 7021-8 ####[facility] MILLTOWNCLIA [id number] [place] [address] [place] Eosinophils (Bld) [#/Vol] 0.08 10*3/uL Normal <0.46 [facility] Comment on above: Order Comment: Speci men Type: BLOOD SPECIMENOrdering Facility: [facility] Address: [address] [place] [address] Performed By: #### 5 7021-8 ####[facility] [id number] [place] [address] [place] Eosinophils/100 WBC (Bld) 0.7 % Normal [facility] Comment on above: Order Comment: Speci men Type: BLOOD SPECIMENOrdering Facility: [facility] Address: [address] [place] [address] Performed By: #### 5 7021-8 ####[facility] [id number] [place] [address] [place] Erythrocyte distribution width (RBC) [Ratio] 12.3 % Normal 11.5-15.0 [facility] Comment on above: Order Comment: Speci men Type: BLOOD SPECIMENOrdering Facility: [facility] Address: [address] [place] [address] Performed By: #### 5 7021-8 ####[facility] [id number] [place] [address] [place] Hematocrit (Bld) [Volume fraction] 29.9 % Low 36.0-46.0 [facility] Comment on above: Order Comment: Speci men Type: BLOOD SPECIMENOrdering Facility: [facility] Address: [address] [place] [address] Performed By: #### 5 7021-8 ####[facility] [id number] [place] [address] [place] Hemoglobin (Bld) [Mass/Vol] 9.8 g/dL Low 11.5-15.5 [facility] Comment on above: Order Comment: Speci men Type: BLOOD SPECIMENOrdering Facility: [facility] Address: [address] [place] [address] Performed By: #### 5 7021-8 ####[facility] BEACHNCLI [id number] [place] [address] [place] Immature granulocytes (Bld) [#/Vol] 0.06 10*3/uL Normal <0.10 [facility] Comment on above: Order Comment: Speci men Type: BLOOD SPECIMENOrdering Facility: [facility] Address: [address] [place] [address] Performed By: #### 5 7021-8 ####[facility]NCINTER[facility] [id number] [place] [address] [place] Immature granulocytes/100 WBC (Bld) 0.6 % Normal [facility] Comment on above: Order Comment: Speci men Type: BLOOD SPECIMENOrdering Facility: [facility] Address: [address] [place] [address] Performed By: #### 5 7021-8 ####[facility] [id number] [place] [address] [place] Lymphocytes (Bld) [#/Vol] 1.67 10*3/uL Normal 1.00-4.00 [facility] Comment on above: Order Comment: Speci men Type: BLOOD SPECIMENOrdering Facility: [facility] Address: [address] [place] [address] Performed By: #### 5 7021-8 ####[facility] [id number] [address] [place] Lymphocytes/100 WBC (Bld) 15.5 % Normal [facility] Comment on above: Order Comment: Speci men Type: BLOOD SPECIMENOrdering Facility: [facility] Address: [address] [place] [address] Performed By: #### 5 7021-8 ####[facility] [id number] [place] [address] [place] MCH (RBC) [Entitic mass] 27.7 pg Normal 26.0-34.0 [facility] Comment on above: Order Comment: Speci men Type: BLOOD SPECIMENOrdering Facility: [facility] Address: [address] [place] [address] Performed By: #### 5 7021-8 ####[facility] TACONCLIA [id number] [place] [address] [place] MCHC (RBC) [Mass/Vol] 32.8 g/dL Normal 30.5-36.0 [facility] Comment on above: Order Comment: Speci men Type: BLOOD SPECIMENOrdering Facility: [facility] Address: [address] [place] [address] Performed By: #### 5 7021-8 ####[facility] ESEQUIELMOUNT JACKSONNCLIA [id number] [place] [address] [place] MCV (RBC) [Entitic vol] 84.5 fL Normal 80.0-100.0 C [facility] Comment on above: Order Comment: Speci men Type: BLOOD SPECIMENOrdering Facility: [facility] Address: [address] [place] [address] Performed By: #### 5 7021-8 ####[facility] ESEQUIELMOUNT JACKSONNCLAYLAA [id number] [place] [address] [place] Monocytes (Bld) [#/Vol] 0.52 10*3/uL Normal <0.87 [facility] Comment on above: Order Comment: Speci men Type: BLOOD SPECIMENOrdering Facility: [facility] Address: [address] [place] [address] Performed By: #### 5 7021-8 ####[facility] ESEQUIELMOUNT JACKSONNCLIA [id number] [place] [address] [place] Monocytes/100 WBC (Bld) 4.8 % Normal C [facility] Comment on above: Order Comment: Speci men Type: BLOOD SPECIMENOrdering Facility: [facility] Address: [address] [place] [address] Performed By: #### 5 7021-8 ####[facility] BEACHNCLIA [id number] [place] [address] [place] Neutrophils (Bld) [#/Vol] 8.41 10*3/uL High 1.45-7.50 [facility] Comment on above: Order Comment: Speci men Type: BLOOD SPECIMENOrdering Facility: [facility] Address: [address] [place] [address] Performed By: #### 5 7021-8 ####[facility] [id number] [place] [address] [place] Neutrophils/100 WBC (Bld) 78.2 % Normal [facility] Comment on above: Order Comment: Speci men Type: BLOOD SPECIMENOrdering Facility: [facility] Address: [address] [place] [address] Performed By: #### 5 7021-8 ####[facility] [id number] [place] [address] [place] Nucleated RBC (Bld) [#/Vol] 10*3/uL Normal <0.01 [facility] Comment on above: Order Comment: Speci men Type: BLOOD SPECIMENOrdering Facility: [facility] Address: [address] [place] [address] Performed By: #### 5 7021-8 ####[facility] [id number] [place] [address] [place] Nucleated RBC/100 WBC (Bld) [Ratio] 0.0 /100 WBC Normal [facility] Comment on above: Order Comment: Speci men Type: BLOOD SPECIMENOrdering Facility: [facility] Address: [address] [place] [address] Performed By: #### 5 7021-8 ####[facility] BEACHNCLI [id number] [place] [address] [place] Platelet mean volume (Bld) [Entitic vol] 9.7 fL Normal 9.0-12.7 [facility] Comment on above: Order Comment: Speci men Type: BLOOD SPECIMENOrdering Facility: [facility] Address: [address] [place] [address] Performed By: #### 5 7021-8 ####[facility] BEACHNCLIA [id number] [place] [address] [place] Platelets (Bld) [#/Vol] 220 10*3/uL Normal 150-400 [facility] Comment on above: Order Comment: Speci men Type: BLOOD SPECIMENOrdering Facility: [facility] Address: [address] [place] [address] Performed By: #### 5 7021-8 ####[facility] BEACHNCA [id number] [place] [address] [place] RBC (Bld) [#/Vol] 3.54 10*6/uL Low 3.90-5.20 [facility] Comment on above: Order Comment: Speci men Type: BLOOD SPECIMENOrdering Facility: [facility] Address: [address] [place] [address] Performed By: #### 5 7021-8 ####[facility] BEACHNCA [id number] [place] [address] [place] WBC (Bld) [#/Vol] 10.76 10*3/uL Normal 3.70-11.00 [facility] Comment on above: Order Comment: Speci men Type: BLOOD SPECIMENOrdering Facility: [facility] Address: [address] [place] [address] Performed By: #### 5 7021-8 ####[facility] BEACHNCLIA [id number] [place] [address] [place] Ferritin SerPl-mCncon 2024 Ferritin [Mass/Vol] 8.9 ng/mL Low 14.7-205.1 [facility] Comment on above: Order Comment: Speci men Type: BLOOD SPECIMENOrdering Facility: [facility] [facility] Address: [address] [place] [address] Performed By: #### 5 0190-8, 2275-09 ####[facility] LABCLIA [id number] [address] [address] [place] GESTATIONAL GLUCOSE SCREEN, 1-HOUR, 50 GRAM, NON-FASTINGon 10-05-2024 Glucose [Mass/Vol] 137 mg/dL High 74-134 [facility] Comment on above: Order Comment: Speci men Type: BLOOD SPECIMENOrdering Facility: [facility] Address: [address] [place] [address] Result Comment: [facility] Congress of Obstetricians and Gynecologists (Janay/Jeremiah) guidelines state a gestational diabetes mellitus positive screen is made, in women not previously diagnosed with overt diabetes, when the 1 hr plasma glucose level is equal to or above 140 mg/dL. The [facility] Casualty Underwriter and [facility] [place] recommends a 135 mg/dL cutoff. Performed By: #### G LTGST ####[facility] [id number] [place] [address] [place] Iron and Iron binding capaci ty panelon 10-05-2024 Iron [Mass/Vol] 30 ug/dL Low 41-186 [facility] Comment on above: Order Comment: Speci men Type: BLOOD SPECIMENOrdering Facility: [facility] Address: [address] [place] [address] Performed By: #### 5 0190-8, 2275-09 ####[facility] LABCLIA [id number] [place] [id number] [place] Iron binding capacity [Mass/Vol] >530 High 232-386 [facility] Comment on above: Order Comment: Speci men Type: BLOOD SPECIMENOrdering Facility: [facility] Address: [address] [place] [address] Performed By: #### 5 0190-8, 4 ####[facility] LABIA [id number] [place] [address] [place] Iron/TIBC [Molar ratio] <5.7 Low 15.0-57.0 C [facility] Comment on above: Order Comment: Speci men Type: BLOOD SPECIMENOrdering Facility: [facility] Address: [address] [place] [address] Performed By: #### 5 0190-8, 2276-4 ####[facility] LABIA [id number] [address] [place] Reagin and Treponema pallidu m IgG and IgM [Interp]on 10-05-2024 T. pallidum IgG+IgM IA Ql (S) Non-Reactive Normal Nonreactive [facility] Comment on above: Order Comment: [facility] Type: BLOOD SPECIMENOrdering Facility: [facility] Address: [address] [place] [address] Performed By: #### 7 3752-8 ####[facility] [id number] [address] [place] Reagin+T pallidum IgG+IgM Se rPl-Impon 10-05-2024 Reagin and Treponema pallidum IgG and IgM [Interp] Cannot exclude recent Treponemal infection if specimen collected within 7-10 days after appearance of suspect lesions or 2-3 weeks after an exposure. Clinical correlation is required. Normal [facility] Comment on above: Order Comment: Speci men Type: BLOOD SPECIMENOrdering Facility: [facility] Address: [address] [place] [address] Performed By: #### 7 3752-8 ####[facility] [id number] [place] [id number] [place] CNPEvelyn 09-14-2024 CNPN Telephone ([id number]) VOLODYMYRSUGEY Reanna ([id number]) 4 F Date Time Provider Department 09/14/24 TANA SAEED [id number] During your visit today, we recorded the following information about you: Tana Saeed RN 09/14/2024 9:34 AM Signed 2nd risk assessment form submitted 09/14/2024. Tana Saeed RN Allergies As of Date: 09/14/2024 Noted Allergy Reaction IBUPROFEN 03/07/2020 4 - Hives 7 - Swelling 10 - Anaphylaxis PENICILLINS 11/13/2019 6 - Diarrhea TRAMADOL 11/13/2019 1 - Mental Status Change Date Reviewed: 09/07/2024 Reviewed by: Monty Carolina MA - Fully Assessed Reason for Visit: [employer] - Other [3602] Cmt: REGINA Prescriptions as of 09/14/2024 - aspirin, enteric coated (ASPIRIN, ENTERIC COATED) 81 mg EC tablet Take 2 tablets by mouth once daily. - vit/iron fum/folic ac ( PLUS/IRON ORAL) Take by mouth once daily. - acetaminophen (TYLENOL ORAL) Take 500 mg by mouth as needed. Problem List As Of Date 09/14/2024 Noted Resolved Supervision of other high risk pregnancies, uns*03/07/2020 Encounter for induction of labor [Z34.90] 03/07/2020 03/10/2020 Gestational hypertension [O13.9] 03/07/2020 07/16/2024 History of intrauterine , currently *03/07/2020 care insufficient [O09.30] 03/07/2020 Tobacco use during , antepartum [O99.3*07/16/2024 History of delivery of macrosomal infant [Z87.5*07/16/2024 Poor dental hygiene [Z91.89] 07/16/2024 Late care [O09.30] 07/16/2024 History of gestational hypertension [Z87.59] 07/16/2024 Encounter Status:Closed by TANA SAEED on 09/14/24 Normal [facility] Examination level ultrasound on 09-07-2024 [facility] Radiology Study observation (narrative) Frankieromy gabriella [facility] Sgaar 08-06-2024 [place] Telephone (OBGYWM) SUGEY HELM ([id number]) 4 F Date Time Provider Department 08/06/24 [place] During your visit today, we recorded the following information about you: Tamra Munoz RN 08/06/2024 9:05 AM Signed Breast pump order received from dakick. To CHIN to sign. DAWOOD Vance Jennifer, RN 08/09/2024 2:32 PM Signed Faxed. Tana Garcia RN Allergies As of Date: 08/06/2024 Noted Allergy Reaction IBUPROFEN 03/07/2020 4 - Hives 7 - Swelling 10 - Anaphylaxis PENICILLINS 11/13/2019 6 - Diarrhea TRAMADOL 11/13/2019 1 - Mental Status Change Date Reviewed: 08/06/2024 Reviewed by: Leelee Navarrete MA - Fully Assessed Reason for Visit: Breast Pump [Other] Prescriptions as of 08/09/2024 - aspirin, enteric coated (ASPIRIN, ENTERIC COATED) 81 mg EC tablet Take 2 tablets by mouth once daily. - vit/iron fum/folic ac ( PLUS/IRON ORAL) Take by mouth once daily. - acetaminophen (TYLENOL ORAL) Take 500 mg by mouth as needed. Problem List As Of Date 08/06/2024 Noted Resolved Supervision of other high risk pregnancies, uns*03/07/2020 Encounter for induction of labor [Z34.90] 03/07/2020 03/10/2020 Gestational hypertension [O13.9] 03/07/2020 07/16/2024 History of intrauterine , currently *03/07/2020 care insufficient [O09.30] 03/07/2020 Tobacco use during , antepartum [O99.3*07/16/2024 History of delivery of macrosomal infant [Z87.5*07/16/2024 Poor dental hygiene [Z91.89] 07/16/2024 Late care [O09.30] 07/16/2024 History of gestational hypertension [Z87.59] 07/16/2024 Encounter Status:Closed by TANA GARCIA on 08/09/24 [facility] Examination level ultrasound on 08-06-2024 Indication Detailed anatomic survey. Estimation of gestational age Impression REMOTE READ The patient is referred for a detailed anatomic survey in the setting of incidentally noted choroid plexus cysts. - Single, live, intrauterine . - biometry is consistent with YESSENIA 12/30/24. - No malformations were visualized on a detailed anatomic survey, although some anatomical structures were suboptimally seen as detailed below. - The amniotic fluid volume is normal amount. - The placenta is posterior, fundal. - The Transabdominal cervical length measures 40.8 mm with no evidence of funneling or other dynamic changes. - Not all structural malformations can be detected by ultrasound examination. Ultrasound Consultation choroid plexus cysts were identified. While choroid plexus cysts have been associated with aneuploidy, predominantly trisomy 18, in the absence of additional sonographic findings, this is considered a normal variant and does not increase the risk of trisomy 18 above the maternal age or serum screen related risk. Choroid plexus cysts are present in up to 3.6% of all fetuses in the second trimester. Choroid plexus cysts have no clinical significance related to brain development or function. In the context of negative NIPT and normal ultrasound no specific follow up is indicated. Recommendations Return in 2-4 weeks to complete anatomic survey Recommend repeating biometry in 4 weeks due to late assignment of YESSENIA Maternal Assessment Height 160 cm Height (ft) 5 ft Height (in) 3 in Physical Exam Initial weight (lb) 150 lb Initial BMI 26.57 kg/m Method Transabdominal ultrasound examination. View: Suboptimal view: limited by position Do . Number of fetuses: 1 Dating LMP on: 03/16/2024 Cycle: LMP date uncertain GA by LMP 20 w + 3 d YESSENIA by LMP: 12/21/2024 Ultrasound examination on: 08/06/2024 GA by U/S based upon: AC, BPD, Femur, HC GA by U/S 19 w + 1 d YESSENIA by U/S: 12/30/2024 Assigned: based on ultrasound (AC, BPD, Femur, HC), selected on 08/06/2024 Assigned GA 19 w + 1 d Assigned YESSENIA: 12/30/2024 General Evaluation Cardiac activity present. FHR 146 bpm. movements: present. Presentation: breech Placenta: Placental site: posterior, fundal. Umbilical cord: Cord vessels: 3 vessel cord. Insertion site: normal insertion Amniotic fluid: Amount of AF: normal amount. MVP 4.8 cm Growth Overview Exam date GA BPD (mm) HC (mm) AC (mm) FL (mm) HL (mm) EFW (g) 08/06/2024 19w 1d 41 21% 155.2 27% 163.6 97% 26.5 22% 26.4 22% 306 75% Biometry Standard BPD 41.0 mm 18w 3d 21% Hadlock OFD 55.5 mm 18w 3d 33% Nicolaides HC 155.2 mm 18w 2d 27% Daniel Cerebellum tr 19.1 mm 18w 4d 20% Hill Nuchal fold 5.2 mm AC 163.6 mm 21w 3d 97% Hadlock Femur 26.5 mm 18w 1d 22% Daniel Humerus 26.4 mm 18w 2d 22% Daniel EFW 306 g 19w 4d 75% Hadlock EFW (lb) 0 lb EFW (oz) 11 oz EFW by: Hadlock (HC-AC-FL) Extended Tibia 24.0 mm 18w 4d 30% Daniel Fibula 23.3 mm 18w 1d 24% Daniel Radius 23.9 mm 19w 0d 44% Daniel Ulna 24.5 mm 26% Ramirez Resource Manager 4.6 mm CM 6.3 mm 90% Nicolaides Extremities / Bony Struc FL / HC 0.17 13% Hadlock Other Structures FHR 146 bpm Anatomy Cranium: normal Lateral ventricles: normal Choroid plexus: abnormal Midline falx: normal Cavum septi pellucidi: normal Cerebellum: normal Cisterna magna: normal Head / Neck Rt choroid plexus: abnormal Rt choroid plexus: cyst Lt choroid plexus: abnormal Lt choroid plexus: cyst Vermis: normal Neck: suboptimally visualized Nuchal fold: normal Lips: normal Profile: suboptimally visualized Nose: normal Face Maxilla: suboptimally visualized Mandible: suboptimally visualized Orbits: normal Lens: suboptimally visualized 4-chamber view: normal RVOT view: suboptimally visualized LVOT view: suboptimally visualized 3-vessel view: normal 2-matyrb-ttoxbja view: suboptimally visualized Heart / Thorax Situs: situs solitus (normal) Aortic arch view: normal SVC: normal IVC: normal Cardiac axis: normal Rt lung: normal Lt lung: normal Diaphragm: normal Cord insertion: normal Stomach: normal Kidneys: normal Bladder: normal Genitals: normal Abdomen Abdom. wall: normal Cervical spine: normal Thoracic spine: normal Lumbar spine: normal Sacral spine: normal Arms: normal Legs: normal Rt upper arm: normal Rt forearm: normal Rt hand: normal Rt fingers: normal Lt upper arm: normal Lt forearm: normal Lt hand: normal Lt fingers: normal Rt upper leg: normal Rt lower leg: normal Rt foot: normal Lt upper leg: normal Lt lower leg: normal Lt foot: normal sex: male sex: normal W (more content not included)... MATERNAL MEDICINE [facility] Radiology Study observation (narrative) [facility] CNCOon 07-25-2024 CNCO Letter Text Normal [facility] CNPNon 07-18-2024 CNPN Telephone ([facility]) SUGEY HELM ([id number]) 4 F Date Time Provider Department 07/18/24 [place] [facility] During your visit today, we recorded the following information about you: Maya Mejia RN 07/18/2024 9:22 AM Signed 1st risk assessment form submitted 07/18/24 Maya Mejia RN Allergies As of Date: 07/18/2024 Noted Allergy Reaction IBUPROFEN 03/07/2020 4 - Hives 7 - Swelling 10 - Anaphylaxis PENICILLINS 11/13/2019 6 - Diarrhea TRAMADOL 11/13/2019 1 - Mental Status Change Date Reviewed: 07/16/2024 Reviewed by: Monty Carolina MA - Fully Assessed Reason for Visit: PRAF [4193] Prescriptions as of 07/18/2024 - aspirin, enteric coated (ASPIRIN, ENTERIC COATED) 81 mg EC tablet Take 2 tablets by mouth once daily. - vit/iron fum/folic ac ( PLUS/IRON ORAL) Take by mouth once daily. - acetaminophen (TYLENOL ORAL) Take 500 mg by mouth as needed. Problem List As Of Date 07/18/2024 Noted Resolved Supervision of other high risk pregnancies, uns*03/07/2020 Encounter for induction of labor [Z34.90] 03/07/2020 03/10/2020 Gestational hypertension [O13.9] 03/07/2020 07/16/2024 History of intrauterine , currently *03/07/2020 care insufficient [O09.30] 03/07/2020 Tobacco use during , antepartum [O99.3*07/16/2024 History of delivery of macrosomal infant [Z87.5*07/16/2024 Poor dental hygiene [Z91.89] 07/16/2024 Late care [O09.30] 07/16/2024 History of gestational hypertension [Z87.59] 07/16/2024 Encounter Status:Closed by MAYA MEJIA on 07/18/24 Normal [facility] BACTERIAL VAGINOSIS NAATon 0 07-16-2024 Lactobacillus crispatus+gasseri+queen ii + Gardnerella vaginalis + Atopobium vaginae rRNA DEANNA+probe Ql (Vag fld) Not detected Normal Not detected [facility] Comment on above: Order Comment: Speci men Type: BLOOD SPECIMEN [facility] Address: [address] [place] [address] Performed By: #### 5 0190-8, 2276-4 #### [facility] CLIA [id number] [address] [place] [address] [place] [address] [place] Bacteria Ur Culton 5 Bacteria identified Cx Nom (U) ORGANISM ID: 1 50,000-<100,000 CFU/ml Normal urogenital linda Normal [facility] Comment on above: Performed By: #### 6 30-4 ####[facility] LABCLIA [id number] [place] [address] [place] C. trachomatis+N. gonorrhoea e DNA DEANNA+probe Ql (Unsp spec)on 07-16-2024 C. trachomatis rRNA DEANNA+probe Ql (Unsp spec) Not detected Normal Not detected [facility] Comment on above: Order Comment: Speci men Type: BLOOD SPECIMEN [facility] Address: [address] [place] [address] Performed By: #### 5 0190-8, 2276-4 #### [facility] CLIA [id number] [address] [place] [address] [place] N. gonorrhoeae rRNA DEANNA+probe Ql (Unsp spec) Not detected Normal Not detected [facility] Comment on above: Order Comment: Speci men Type: BLOOD SPECIMEN [facility] Address: [address] [place] [address] Performed By: #### 5 0190-8, 2276-4 #### [facility] CLIA [id number] [address] [place] [address] [place] HARMAN/TRICHOMONAS NAATon 0 07-16-2024 C. glabrata RNA DEANNA+probe Ql (Vag fld) Not detected Normal Not detected [facility] Comment on above: Order Comment: Speci men Type: BLOOD SPECIMEN [facility] Address: [address] [place] [address] Performed By: #### 5 0190-8, 2276-4 #### [facility] CLIA [id number] [address] [place] [address] [place] Harman sp DNA DEANNA+probe Ql (Vag fld) Not detected Normal Not detected [facility] Comment on above: Order Comment: Speci men Type: BLOOD SPECIMEN [facility] Address: [address] [place] [address] Result Comment: The Harman species group target includes C. albicans, C. tropicalis, C. parapsilosis, and C. dubliniensis. Performed By: #### 5 0190-8, 2275-4 #### [facility] CLIA [id number] [address] [place] [address] [place] T. vaginalis DNA DEANNA+probe Ql (Unsp spec) Not detected Normal Not detected [facility] Comment on above: Order Comment: Speci men Type: BLOOD SPECIMEN [facility] Address: [address] [place] [address] Performed By: #### 5 0190-8, 2275-09 #### [facility] CLIA [id number] [address] [place] [address] [place] CBC W Auto Differential pane l (Bld)on 07-16-2024 Basophils (Bld) [#/Vol] 10*3/uL Normal <0.11 C [facility] Comment on above: Order Comment: Speci men Type: BLOOD SPECIMEN [facility] Address: [address] [place] [address] Performed By: #### 5 0190-8, 2275-09 #### [facility] CLIA [id number] [address] [place] [address] [place] Basophils/100 WBC (Bld) 0.2 % Normal C [facility] Comment on above: Order Comment: Speci men Type: BLOOD SPECIMEN [facility] Address: [address] [place] [address] Performed By: #### 5 0190-8, 2275-09 #### [facility] CLIA [id number] [address] [place] [address] [place] Differential cell count method Nom (Bld) Auto Normal [facility] Comment on above: Order Comment: Speci men Type: BLOOD SPECIMEN [facility] Address: [address] [place] [address] Performed By: #### 5 0190-8, 2275- #### [facility] CLIA [id number] [address] [place] [address] [place] Eosinophils (Bld) [#/Vol] 0.09 10*3/uL Normal <0.46 [facility] Comment on above: Order Comment: Speci men Type: BLOOD SPECIMEN [facility] Address: [address] [place] [address] Performed By: #### 5 0190-8, 2275-09 #### [facility] CLIA [id number] [address] [place] [address] [place] Eosinophils/100 WBC (Bld) 1.0 % Normal [facility] Comment on above: Order Comment: Speci men Type: BLOOD SPECIMEN [facility] Address: [address] [place] [address] Performed By: #### 5 0190-8, 2275-09 #### [facility] CLIA [id number] [address] [place] [address] [place] Erythrocyte distribution width (RBC) [Ratio] 11.7 % Normal 11.5-15.0 [facility] Comment on above: Order Comment: Speci men Type: BLOOD SPECIMEN [facility] Address: [address] [place] [address] Performed By: #### 5 0190-8, 2275-09 #### [facility] CLIA [id number] [address] [place] [address] [place] Hematocrit (Bld) [Volume fraction] 34.9 % Low 36.0-46.0 [facility] Comment on above: Order Comment: Speci men Type: BLOOD SPECIMEN [facility] Address: [address] [place] [address] Performed By: #### 5 0190-8, 2275- #### [facility] CLIA [id number] [address] [place] [address] [place] Hemoglobin (Bld) [Mass/Vol] 12.0 g/dL Normal 11.5-15.5 [facility] Comment on above: Order Comment: Speci men Type: BLOOD SPECIMEN [facility] Address: [address] [place] [address] Performed By: #### 5 0190-8, 2275-4 #### [facility] CLIA [id number] [address] [place] [address] [place] Immature granulocytes (Bld) [#/Vol] 0.03 10*3/uL Normal <0.10 [facility] Comment on above: Order Comment: Speci men Type: BLOOD SPECIMEN [facility] Address: [address] [place] [address] Performed By: #### 5 0190-8, 2275-4 #### [facility] CLIA [id number] [address] [place] [address] [place] Immature granulocytes/100 WBC (Bld) 0.3 % Normal [facility] Comment on above: Order Comment: Speci men Type: BLOOD SPECIMEN [facility] Address: [address] [place] [address] Performed By: #### 5 0190-8, 2275-4 #### [facility] CLIA [id number] [address] [place] [address] [place] Lymphocytes (Bld) [#/Vol] 1.74 10*3/uL Normal 1.00-4.00 [facility] Comment on above: Order Comment: Speci men Type: BLOOD SPECIMEN [facility] Address: [address] [place] [address] Performed By: #### 5 0190-8, 2275- #### [facility] CLIA [id number] [address] [place] [address] [place] Lymphocytes/100 WBC (Bld) 20.0 % Normal [facility] Comment on above: Order Comment: Speci men Type: BLOOD SPECIMEN [facility] Address: [address] [place] [address] Performed By: #### 5 0190-8, 2275-09 #### [facility] CLIA [id number] [address] [place] [address] [place] MCH (RBC) [Entitic mass] 30.0 pg Normal 26.0-34.0 [facility] Comment on above: Order Comment: Speci men Type: BLOOD SPECIMEN [facility] Address: [address] [place] [address] Performed By: #### 5 0190-8, 2275-09 #### [facility] CLIA [id number] [address] [place] [address] [place] MCHC (RBC) [Mass/Vol] 34.4 g/dL Normal 30.5-36.0 [facility] Comment on above: Order Comment: Speci men Type: BLOOD SPECIMEN [facility] Address: [address] [place] [address] Performed By: #### 5 0190-8, 2275-09 #### [facility] CLIA [id number] [address] [place] [address] [place] MCV (RBC) [Entitic vol] 87.3 fL Normal 80.0-100.0 C [facility] Comment on above: Order Comment: Speci men Type: BLOOD SPECIMEN [facility] Address: [address] [place] [address] Performed By: #### 5 0190-8, 2275-09 #### [facility] CLIA [id number] [address] [place] [address] [place] Monocytes (Bld) [#/Vol] 0.51 10*3/uL Normal <0.87 [facility] Comment on above: Order Comment: Speci men Type: BLOOD SPECIMEN [facility] Address: [address] [place] [address] Performed By: #### 5 0190-8, 2275-4 #### [facility] CLIA [id number] [address] [place] [address] [place] Monocytes/100 WBC (Bld) 5.9 % Normal [facility] Comment on above: Order Comment: Speci men Type: BLOOD SPECIMEN [facility] Address: [address] [place] [address] Performed By: #### 5 0190-8, 2275- #### [facility] CLIA [id number] [address] [place] [address] [place] Neutrophils (Bld) [#/Vol] 6.31 10*3/uL Normal 1.45-7.50 [facility] Comment on above: Order Comment: Speci men Type: BLOOD SPECIMEN [facility] Address: [address] [place] [address] Performed By: #### 5 0190-8, 2275-09 #### [facility] CLIA [id number] [address] [place] [address] [place] Neutrophils/100 WBC (Bld) 72.6 % Normal [facility] Comment on above: Order Comment: Speci men Type: BLOOD SPECIMEN [facility] Address: [address] [place] [address] Performed By: #### 5 0190-8, 2275-09 #### [facility] CLIA [id number] [address] [place] [address] [place] Nucleated RBC (Bld) [#/Vol] 10*3/uL Normal <0.01 [facility] Comment on above: Order Comment: Speci men Type: BLOOD SPECIMEN [facility] Address: [address] [place] [address] Performed By: #### 5 0190-8, 2275- #### [facility] CLIA [id number] [address] [place] [address] [place] Nucleated RBC/100 WBC (Bld) [Ratio] 0.0 /100 WBC Normal [facility] Comment on above: Order Comment: Speci men Type: BLOOD SPECIMEN [facility] Address: [address] [place] [address] Performed By: #### 5 0190-8, 2275-09 #### [facility] CLIA [id number] [address] [place] [address] [place] Platelet mean volume (Bld) [Entitic vol] 9.1 fL Normal 9.0-12.7 [facility] Comment on above: Order Comment: Speci men Type: BLOOD SPECIMEN Ordering Facility: [facility] Address: [address] [place] [address] Performed By: #### 5 0190-8, 2275-09 #### [facility] CLIA [id number] [address] [place] [address] [place] Platelets (Bld) [#/Vol] 206 10*3/uL Normal 150-400 [facility] Comment on above: Order Comment: Speci men Type: BLOOD SPECIMEN Ordering Facility: [facility] Address: [address] [place] [address] Performed By: #### 5 0190-8, 2275-09 #### [facility] CLIA [id number] [address] [place] [address] [place] RBC (Bld) [#/Vol] 4.00 10*6/uL Normal 3.90-5.20 [facility] Comment on above: Order Comment: Speci men Type: BLOOD SPECIMEN Ordering Facility: [facility] Address: [address] [place] [address] Performed By: #### 5 0190-8, 2275- #### [facility] CLIA [id number] [address] [place] [address] [place] WBC (Bld) [#/Vol] 8.70 10*3/uL Normal 3.70-11.00 [facility] Comment on above: Order Comment: Speci men Type: BLOOD SPECIMEN [facility]ing Facility: [facility] Address: [address] [place] [address] Performed By: #### 5 0190-8, 2276-4 #### [facility] CLIA [id number] [address] [place] [address] OF [facility] Comprehensive metabolic 2000 panelOrdered By: Tenisha Arreaga on 07-16-2024 Albumin [Mass/Vol] 4.0 g/dL 3.9 - 4.9 g/dL [facility] ALP [Catalytic activity/Vol] 55 U/L 34 - 123 U/L [facility] ALT [Catalytic activity/Vol] 7 U/L 7 - 38 U/L [facility] Anion gap [Moles/Vol] 7 mmol/L Low 8 - 15 mmol/L [facility] AST [Catalytic activity/Vol] 10 U/L Low 13 - 35 U/L [facility] Bilirubin [Mass/Vol] mg/dL Low 0.2 - 1 .3 mg/dL [facility] Calcium [Mass/Vol] 8.9 mg/dL 8.5 - 10. 2 mg/dL [facility] Chloride [Moles/Vol] 104 mmol/L 98 - 10 7 mmol/L [facility] CO2 [Moles/Vol] 24 mmol/L 22 - 30 mmol/L [facility] Creatinine [Mass/Vol] 0.42 mg/dL Low 0.58 - 0.96 mg/dL [facility] GFR/1.73 sq M.predicted among non-blacks MDRD (S/P/Bld) [Vol rate/Area] 143 mL/min/{1.73_m2} - PINF [facility] Comment on above: Estimated Glomerular Filtration Rate (eGFR) is calculated using the 2020 CKD-EPI creatinine equation. This equation utilizes serum creatinine, sex, and age as parameters. The creatinine assay has traceable calibration to isotope dilution-mass spectrometry. Refer to KDIGO guidelines for clinical interpretation. In patients with unstable renal function, e.g. those with acute kidney injury, the eGFR may not accurately reflect actual GFR. Glucose [Mass/Vol] 85 mg/dL 74 - 99 mg/dL [facility] Comment on above: The [place] Diabete s Association (ADA) provides guidance for cutoff values for fasting glucose and random glucose. The ADA defines fasting as no caloric intake for at least 8 hours. Fasting plasma glucose results between 100 to 125 mg/dL indicate increased risk for diabetes (prediabetes). Fasting plasma glucose results greater than or equal to 126 mg/dL meet the criteria for diagnosis of diabetes. In the absence of unequivocal hyperglycemia, results should be confirmed by repeat testing. In a patient with classic symptoms of hyperglycemia or hyperglycemic crisis, random plasma glucose results greater than or equal to 200 mg/dL meet the criteria for diagnosis of diabetes. Reference: Standards of Medical Care in Diabetes 2016, [place] Diabetes Association. Diabetes Care. 2016.39(Suppl 1). Interpretation and review of laboratory results Abnormal [facility] Potassium [Moles/Vol] 4.0 mmol/L 3.7 - 5.1 mmol/L [facility] Protein [Mass/Vol] 6.5 g/dL 6.3 - 8.0 g/dL [facility] Sodium [Moles/Vol] 135 mmol/L Low 136 - 144 mmol/L [facility] Urea nitrogen [Mass/Vol] 4 mg/dL Low 7 - 21 mg/d L [facility] Comprehensive metabolic 2000 panelon 07-16-2024 Albumin [Mass/Vol] 4.0 g/dL Normal 3.9-4.9 [facility] Comment on above: Order Comment: Ronni alfaro Type: BLOOD SPECIMEN Ordering [facility]: [facility] Address: [address] [place] [address] Performed By: #### R UBIGG #### [facility] CLIA [id number] [address] [place] [address] [place] ALP [Catalytic activity/Vol] 55 U/L Normal 34-123 [facility] Comment on above: Order Comment: Sabrinai angelina Type: BLOOD SPECIMEN Ordering Facility: [facility] Address: [address] [place] [address] Performed By: #### R UBIGG #### [facility] CLIA [id number] [address] [place] [address] [place] ALT [Catalytic activity/Vol] 7 U/L Normal 7-38 [facility] Comment on above: Order Comment: Speci men Type: BLOOD SPECIMEN Ordering Facility: [facility] Address: [address] [place] [address] Performed By: #### R UBIGG #### [facility] CLIA [id number] [address] [place] [address] [place] Anion gap [Moles/Vol] 7 mmol/L Low 8-15 [facility] Comment on above: Order Comment: Speci men Type: BLOOD SPECIMEN [facility]ing [facility] Address: [address] [place] [address] Performed By: #### R UBIGG #### [facility] CLIA [id number] [address] [place] [address] [place] AST [Catalytic activity/Vol] 10 U/L Low 13-35 [facility] Comment on above: Order Comment: Speci men Type: BLOOD SPECIMEN Ordering Facility: [facility] Address: [address] [place] [address] Performed By: #### R UBIGG #### [facility] CLIA [id number] [address] [place] [address] [place] Bilirubin [Mass/Vol] mg/dL Low 0.2-1.3 [facility] Comment on above: Order Comment: Speci men Type: BLOOD SPECIMEN Ordering [facility] Address: [address] [place] [address] Performed By: #### R UBIGG #### [facility] CLIA [id number] [address] [place] [address] [place] Calcium [Mass/Vol] 8.9 mg/dL Normal 8.5-10.2 [facility] Comment on above: Order Comment: Speci men Type: BLOOD SPECIMEN Ordering [facility] Address: [address] [place] [address] Performed By: #### R UBIGG #### [facility] CLIA [id number] [address] [place] [address] [place] Chloride [Moles/Vol] 104 mmol/L Normal 98-107 [facility] Comment on above: Order Comment: Speci men Type: BLOOD SPECIMEN [facility]ing [facility] Address: [address] [place] [address] Performed By: #### R UBIGG #### [facility] CLIA [id number] [address] [place] [address] [place] CO2 [Moles/Vol] 24 mmol/L Normal 22-30 [facility] Comment on above: Order Comment: Speci men Type: BLOOD SPECIMEN Ordering Facility: [facility] Address: [address] [place] [address] Performed By: #### R UBIGG #### [facility] CLIA [id number] [address] [place] [address] [place] Creatinine [Mass/Vol] 0.42 mg/dL Low 0.58-0.96 [facility] Comment on above: Order Comment: Speci men Type: BLOOD SPECIMEN Ordering [facility] Address: [address] [place] [address] Performed By: #### R UBIGG #### [facility] CLIA [id number] [address] [place] [address] [place] Creatinine and Glomerular filtration rate.predicted panel (S/P/Bld) 143 mL/min/1.73m??? Normal >=60 [facility] Comment on above: Order Comment: Speci men Type: BLOOD SPECIMEN Ordering Facility: [facility] Address: [address] [place] [address] Result Comment: Nancy mated Glomerular Filtration Rate (eGFR) is calculated using the 2020 CKD-EPI creatinine equation. This equation utilizes serum creatinine, sex, and age as parameters. The creatinine assay has traceable calibration to isotope dilution-mass spectrometry. Refer to KDIGO guidelines for clinical interpretation. In patients with unstable renal function, e.g. those with acute kidney injury, the eGFR may not accurately reflect actual GFR. Performed By: #### R UBIGG #### [facility] CLIA [id number] [address] [place] [address] [place] Glucose [Mass/Vol] 85 mg/dL Normal 74-99 [facility] Comment on above: Order Comment: Ronni alfaro Type: BLOOD SPECIMEN Ordering Facility: [facility] Address: [address] [place] [address] Result Comment: The [place] Diabetes Association (ADA) provides guidance for cutoff values for fasting glucose and random glucose. The ADA defines fasting as no caloric intake for at least 8 hours. Fasting plasma glucose results between 100 to 125 mg/dL indicate increased risk for diabetes (prediabetes). Fasting plasma glucose results greater than or equal to 126 mg/dL meet the criteria for diagnosis of diabetes. In the absence of unequivocal hyperglycemia, results should be confirmed by repeat testing. In a patient with classic symptoms of hyperglycemia or hyperglycemic crisis, random plasma glucose results greater than or equal to 200 mg/dL meet the criteria for diagnosis of diabetes. Reference: Standards of Medical Care in Diabetes 2016, [place] Diabetes Association. Diabetes Care. 2016.39(Suppl 1). Performed By: #### R UBIGG #### [facility] CLIA [id number] [address] [place] [address] [place] Potassium [Moles/Vol] 4.0 mmol/L Normal 3.7-5.1 [facility] Comment on above: Order Comment: Ronni alfaro Type: BLOOD SPECIMEN Ordering Facility: [facility] Address: [address] [place] [address] Performed By: #### R UBIGG #### [facility] CLIA [id number] [address] [place] [address] [place] Protein [Mass/Vol] 6.5 g/dL Normal 6.3-8.0 [facility] Comment on above: Order Comment: Speci men Type: BLOOD SPECIMEN [facility]ing [facility] Address: [address] [place] [address] Performed By: #### R UBIGG #### [facility] CLIA [id number] [address] [place] [address] [place] Sodium [Moles/Vol] 135 mmol/L Low 136-144 [facility] Comment on above: Order Comment: Speci men Type: BLOOD SPECIMEN [facility] Address: [address] [place] [address] Performed By: #### R UBIGG #### [facility] CLIA [id number] [address] [place] [address] [place] Urea nitrogen [Mass/Vol] 4 mg/dL Low 7-21 [facility] Comment on above: Order Comment: Speci men Type: BLOOD SPECIMEN [facility] Address: [address] [place] [address] Performed By: #### R UBIGG #### [facility] CLIA [id number] [address] [place] [address] [place] HBV surface Ag Ql (S)on Interpretation and review of laboratory results Normal [facility] HBV surface Ag Ser Qlon HBV surface Ag Ql (S) Negative Normal Negative [facility] Comment on above: Order Comment: Speci men Type: BLOOD SPECIMENOrdering Facility: [facility] Address: [address] [place] [address] Performed By: #### 3 1201-7, 85229-8, 5195-3 ####[facility] [id number] [place] [address] [place] HCV Ab Ql (S)on 07-16-2024 Interpretation and review of laboratory results Normal [facility] HCV Ab Ser Qlon 07-16-2024 HCV Ab Ql (S) Negative Normal Negative [facility] Comment on above: Order Comment: Speci men Type: BLOOD SPECIMEN [facility] Address: [address] [place] [address] Result Comment: The result suggests no evidence of active infection with Hepatitis C virus. Should recent infection be suspected, repeat testing may be considered 4-6 weeks after this draw. Performed By: #### 5 0190-8, 2276-4 #### [facility] CLIA [id number] [address] [place] [address] [place] HEPATITIS B SURFACE ANTIGENo n 07-16-2024 HBV surface Ag Ql (S) Negative Negative [facility] HEPATITIS C ANTIBODY IA WITH CONFIRMATIONon 07-16-2024 HCV Ab Ql (S) Negative Negative [facility] Comment on above: The result suggests no evidence of active infection with Hepatitis C virus. Should recent infection be suspected, repeat testing may be considered 4-6 weeks after this draw. HIGH RISK HUMAN PAPILLOMA SHEREEN (HPV), PCR FOR DETECTION AND GENOTYPINGon 07-16-2024 HPV 16 Ag Ql (Unsp spec) Not detected Normal Not detec lesly [facility] Comment on above: Order Comment: Speci men Type: FLUID SPECIMENOrdering Facility: [facility] Address: [address] [place] [address] Performed By: #### H PVHRT ####[facility] [id number] [place] [address] [place] HPV 18 Ag Ql (Unsp spec) Not detected Normal Not detec lesly [facility] Comment on above: Order Comment: Speci men Type: FLUID SPECIMENOrdering Facility: [facility] Address: [address] [place] [address] Performed By: #### H PVHRT ####[facility] [id number] [place] [address] [place] HPV 31+33+35+39+45+51+52+56+ 58+59+66+68 DNA DEANNA+probe Ql (Cvx) Not detected Normal Not detected [facility] Comment on above: Order Comment: Speci men Type: FLUID SPECIMENOrdering Facility: [facility] Address: [address] [place] [address] Result Comment: High Risk HPV Other Type includes HPV types 31, 33, 35, 39, 45, 51, 52, 56, 58, 59, 66 and 68. Performed By: #### H PVHRT ####[facility] [id number] [place] [address] [place] HIV 1+2 Ab IA Qlon 5 HIV 1 and 2 Ab IA.rapid Nom (S/P/Bld) [facility] Comment on above: Test not indicated. HIV 1+2 Ab+HIV1 p24 Ag IA Ql Non-Reactive Nonreactive [facility] HIV immunoassay testing algorithm interpretation (S/P/Bld) [Interp] [facility] Comment on above: No evidence of HIV-1 or HIV-2 infection. Should recent infection be suspected, repeat testing may be considered 2-3 weeks after this draw. [place] Rev. Code 3701.243(E): This information has been disclosed to you from confidential records protected from disclosure by state law. You shall make no further disclosure of this information without the specific, written, and informed release of the individual to whom it pertains or as otherwise permitted by state law. A general authorization for the release of medical or other information is not sufficient for the purpose of the release of HIV test results or diagnoses. [facility] HIV 1 and 2 Ab IA.rapid Nom (S/P/Bld) Normal [facility] Comment on above: Order Comment: Speci men Type: BLOOD SPECIMENOrdering Facility: [facility] Address: [address] [place] [address] Result Comment: Test not indicated. Performed By: #### 3 1201-7, 63770-5, 5195-3 ####[facility] [id number] [place] [address] [place] HIV 1+2 Ab+HIV1 p24 Ag IA Ql Non-Reactive Normal Nonreactive [facility] Comment on above: Order Comment: Speci men Type: BLOOD SPECIMENOrdering Facility: [facility] Address: [address] [place] [address] Performed By: #### 3 1201-7, 34769-6, 5195-3 ####[facility] [id number] [place] [address] [place] HIV immunoassay testing algorithm interpretation (S/P/Bld) [Interp] Normal [facility] Comment on above: Order Comment: Speci men Type: BLOOD SPECIMENOrdering Facility: [facility] Address: [address] [place] [address] Result Comment: No e vidence of HIV-1 or HIV-2 infection. Should recent infection be suspected, repeat testing may be considered 2-3 weeks after this draw. [place] Rev. Code 3701.243(E): This information has been disclosed to you from confidential records protected from disclosure by state law. ???You shall make no further disclosure of this information without the specific, written, and informed release of the individual to whom it pertains or as otherwise permitted by state law. A general authorization for the release of medical or other information is not sufficient for the purpose of the release of HIV test results or diagnoses. Performed By: #### 3 1201-7, 84362-7, 5195-3 ####[facility] [id number] [place] [address] [place] HbA1c (Bld)on 07-16-2024 Average glucose Estimated from glycated hemoglobin (Bld) [Mass/Vol] 91 mg/dL Normal [facility] Comment on above: Order Comment: Speci men Type: BLOOD SPECIMEN [facility] Address: [address] [place] [address] Result Comment: eAG: (Estimated average glucose) is a calculated value from HgbA1c and is advertising representative of the average blood glucose level in the last 2-3 month period. Performed By: #### 5 0190-8, 2276-4 #### [facility] CLIA [id number] [address] [place] [address] [place] HbA1c (Bld) [Mass fraction] 4.8 % Normal 4.3-5.6 [facility] Comment on above: Order Comment: Speci angelina Type: BLOOD SPECIMEN [facility] Address: [address] [place] [address] Result Comment: Tasha [place] Diabetes Association guidelines indicate that patients with HgbA1c in the range 5.7-6.4% are at increased risk for development of diabetes, and intervention by lifestyle modification may be beneficial. HgbA1c greater or equal to 6.5% is considered diagnostic of diabetes. Performed By: #### 5 0190-8, 2276-4 #### [facility] CLIA [id number] [address] [place] [address] [place] [id number] PLUSon 07-16-2024 Cell-free DNA./Cell-free DNA.total Dosage of chromosome-specific cfDNA (cfDNA) [Molar fraction] 21% Normal [facility] Comment on above: Order Comment: Ronni men Type: BLOOD SPECIMENOrdering Facility: [facility] Address: [address] [place] [address] Performed By: #### M AT21 ####[facility] [id number] [place] [address] Chr 13+18+21+X+Y aneuploidy Dosage of chromosome-specific cfDNA Ql (cfDNA) Negative Normal [facility] Comment on above: Order Comment: Ronni alfaro Type: BLOOD SPECIMENOrdering Facility: [facility] Address: [address] [place] [address] Performed By: #### M AT21 ####[facility] [id number] [place] [address] Chr 21 trisomy Dosage of chromosome-specific cfDNA Ql (cfDNA) Negative Normal [facility] Comment on above: Order Comment: Ronni alfaro Type: BLOOD SPECIMENOrdering Facility: [facility] Address: [address] [place] [address] Performed By: #### M AT21 ####[facility] [id number] [place] [address] Chr X and Y aneuploidy risk Sequencing Ql (cfDNA) [Interp] Not detected Normal [facility] Comment on above: Order Comment: Speci men Type: BLOOD SPECIMENOrdering Facility: [facility] Address: [address] [place] [address] Result Comment: Not Detected Not Detected Performed By: #### M AT21 ####[facility] [id number] [place] [id number] Citation Joe (Reference lab test) Comment Normal [facility] Comment on above: Order Comment: Speci men Type: BLOOD SPECIMENOrdering Facility: [facility] Address: [address] [place] [address] Result Comment: 1. P adry FINNEY, et al. Betty Med. 2012;14(3):296-305. 2. Jackie MARS et al. Prenat Diag. 2013;33(6):591-597. 3. Sigifredo C, et al. Clin Chem. 2015 Apr;61(4):608-616. 4. Amelie FINNEY et al. Betty Med. 2011;13(11):913-920. 5. ACOG/SM[facility] Practice Bulletin No. 226, Mar 2020. Performed By: #### M AT21 ####[facility] [id number] [place] [address] Gestational age Estimated from conception date Do Normal [facility] Comment on above: Order Comment: Speci men Type: BLOOD SPECIMENOrdering Facility: [facility] Address: [address] [place] [address] Performed By: #### M AT21 ####[facility] [id number] [place] [address] GESTATIONALAGE AGE > OR = 9W Yes Normal [facility] Comment on above: Order Comment: Speci men Type: BLOOD SPECIMENOrdering Facility: [facility] Address: [address] [place] [address] Performed By: #### M AT21 ####[facility] [id number] [place] [address] Laboratory comment Joe (Report) Comment Normal [facility] Comment on above: Order Comment: Ronni alfaro Type: BLOOD SPECIMENOrdering Facility: [facility] Address: [address] [place] [address] Result Comment: The MaterniT(R) 21 PLUS laboratory-developed test (LDT) analyzes circulating cell-free DNA from a maternal blood sample. This test is used for screening purposes and not diagnostic. Clinical correlation is recommended. Validation data on twin pregnancies is limited and the ability of this test to detect aneuploidy in higher multiple gestations has not yet been validated. Performed By: #### M AT21 ####[facility] [id number] [place] [address] community service organization director name Nom (Provider) Comment Normal [facility] Comment on above: Order Comment: Ronni alfaro Type: BLOOD SPECIMENOrdering Facility: [facility] Address: [address] [place] [address] Result Comment: This specimen showed an expected representation of chromosome 21, 18 and 13 material. Clinical correlation is suggested. Comment Aime Pradhan MD, PhD, Director, [facility] Performed By: #### M AT21 ####[facility] [id number] [place] [address] LIMITATIONS OF THE TEST Comment Normal [facility] Comment on above: Order Comment: Ronni alfaro Type: BLOOD SPECIMENOrdering Facility: [facility] Address: [address] [place] [address] Result Comment: Genoveva jhaveri the results of these tests are highly reliable, discordant results, including inaccurate sex prediction, may occur due to placental, maternal, or mosaicism or neoplasm; vanishing twin; prior maternal organ transplant; or other causes. These tests are screening tests and not diagnostic; they do not replace the accuracy and precision of diagnosis with CVS or amniocentesis. A patient with a positive test result should be referred for genetic counseling and offered invasive diagnosis for confirmation of test results.[5] The results of this testing, including the benefits and limitations, should be discussed with a qualified healthcare provider. management decisions, including termination of the , should not be based on the results of these tests alone. The healthcare provider is responsible for the use of this information in the management of their patient. Sex chromosomal aneuploidies are not reportable for known multiple gestations. A negative result does not ensure an unaffected nor does it exclude the possibility of other chromosomal abnormalities or defects which are not a part of these tests. An uninformative result may be reported, the causes of which may include, but are not limited to, insufficient sequencing coverage, noise or artifacts in the region, amplification or sequencing bias, or insufficient fraction. These tests are not intended to identify pregnancies at risk for neural tube defects or ventral wall defects. Testing for whole chromosome abnormalities (including sex chromosomes) and for subchromosomal abnormalities could lead to the potential discovery of both and maternal genomic abnormalities that could have major, minor, or no, clinical significance. Evaluating the significance of a positive or a non-reportable result may involve both invasive testing and additional studies on the mother. Such investigations may lead to a diagnosis of maternal chromosomal or subchromosomal abnormalities, which on occasion may be associated with benign or malignant maternal neoplasms. These tests may not accurately identify triploidy, balanced rearrangements, or the precise location of subchromosomal duplications or deletions; these may be detected by diagnosis with CVS or amniocentesis. The ability to report results may be impacted by maternal BMI, maternal weight, maternal systemic lupus erythematosus (SLE) and/or by certain pharmaceutical agents such as low molecular weight heparin (for example: Lovenox(R), Xaparin(R), Clexane(R) and Fragmin(R)). Performed By: #### M AT21 ####Diagnostic Bioch[employer]IA [id number] [place] [address] Monosomy X risk Dosage of chromosome-specific cfDNA Ql (Plasma cell-free+WBC DNA) [Interp] Not detected Normal [facility] Comment on above: Order Comment: Speci men Type: BLOOD SPECIMENOrdering Facility: [facility] Address: [address] [place] [address] Performed By: #### M AT21 ####[employer] LABCLIA [id number] [place] [address] NEGATIVE PREDICTIVE VALUE Note Normal [facility] Comment on above: Order Comment: Speci men Type: BLOOD SPECIMENOrdering Facility: [facility] Address: [address] [place] [address] Result Comment: The Negative Predictive Value (NPV) for trisomy 21, 18, and 13 is greater than 99%. The NPV for SCA and ESS cannot be calculated as SCA and ESS are only reported when an abnormality is detected. Performed By: #### M AT21 ####[facility] [id number] [place] [address] PERFORMANCE CHARACTERISTICS Note Normal [facility] Comment on above: Order Comment: Ronni alfaro Type: BLOOD SPECIMENOrdering Facility: [facility] Address: [address] [place] [address] Result Comment: ! Sex ! Accuracy: 99.4% ! ! ! ! Region (associated syndrome) ! Est. Sens# ! Est. Spec ! ! ! ! Trisomy 21 (Down Syndrome) ! 99.1% ! 99.9% ! ! ! ! Trisomy 18 (Baptiste Syndrome) ! >99.9% ! 99.6% ! ! ! ! Trisomy 13 (Patau Syndrome) ! 91.7% ! 99.7% ! ! ! ! Sex Chromosome Aneuploidies## ! 96.2% ! 99.7% ! ! ! * As reported in [facility] database nstd37 [https://www.ncbi.nlm.nih.gov/dbvar/studies/nstd37/ ] # Estimated Sensitivity. Sensitivity estimated across the observed size distribution of each syndrome [per [facility] database nstd37] and across the range of fractions observed in routine clinical NIPT. Actual sensitivity can also be influenced by other factors such as the size of the event, total sequence counts, amplification bias, or sequence bias. ## Do gestation only. Performed By: #### M AT21 ####[facility] [employer] [id number] [place] [address] POSITIVE PREDICTIVE VALUE N/A Normal [facility] Comment on above: Order Comment: Ronni alfaro Type: BLOOD SPECIMENOrdering Facility: [facility] Address: [address] [place] [address] Performed By: #### M AT21 ####[employer] LABCLIA [id number] [place] [address] Reference Lab Test Method Comment Normal [facility] Comment on above: Order Comment: Ronni alfaro Type: BLOOD SPECIMENOrdering Facility: [facility] Address: [address] [place] [address] Result Comment: See Notes Circulating cell-free DNA was purified from the plasma component of maternal blood. The extracted DNA was then converted into a genomic DNA library for aneuploidy analysis of chromosomes 21, 18, and 13 via next generation sequencing.[1] Optional findings based on the test order include sex chromosome aneuploidy (SCA)[2], and enhanced sequencing series (ESS)[3], which will only be reported on as an additional finding when an abnormality is detected. SCA testing includes information on X and Y representation, while ESS testing includes deletions in selected regions (22q, 15q, 11q, 8q, 5p, 4p, 1p) and trisomy of chromosomes 16 and 22. Performed By: #### M AT21 ####[employer] LABCLIA [id number] [place] [address] Service comment (Unsp spec) [Interp] Comment Normal [facility] Comment on above: Order Comment: Speci men Type: BLOOD SPECIMENOrdering Facility: [facility] Address: [address] [place] [address] Result Comment: See Notes [employer]. is a subsidiary of [employer], using the brand [facility] [facility]. This test was developed and its performance characteristics determined by [facility]. It has not been cleared or approved by the Food and Drug Administration. This laboratory is certified under the Clinical Laboratory Improvement Amendments (CLIA) as qualified to perform high complexity clinical laboratory testing and accredited by the [employer] ([employer]). If there is future clinical need for adding MaterniT GENOME testing, this specimen will be available until term. [facility] samples will not be retained beyond 60 days. [facility] patients will have to send a new sample for re-sequencing ([facility] Test Code: 132446). Performed By: #### M AT21 ####[employer] LABCLIA [id number] [place] [address] Sex Dosage of chromosome-specific cfDNA Nom (cfDNA) Comment Normal [facility] Comment on above: Order Comment: Speci men Type: BLOOD SPECIMENOrdering Facility: [facility] Address: [address] [place] [address] Result Comment: Cons istent with Male Performed By: #### M AT21 ####[employer] LABCLIA [id number] [place] [address] Test performance information Joe (Unsp spec) Comment Normal [facility] Comment on above: Order Comment: Sabrinai angelina Type: BLOOD SPECIMENOrdering Facility: [facility] Address: [address] [place] [address] Result Comment: The performance characteristics of the MaterniT(R) 21 PLUS laboratory-developed test (LDT) have been determined in a clinical validation study with women at increased risk for chromosomal aneuploidy.[1-4] Performed By: #### M AT21 ####[employer] LABCLIA [id number] [place] [address] Trisomy 13 risk Dosage of chromosome-specific cfDNA Ql (cfDNA) [Interp] Negative Normal [facility] Comment on above: Order Comment: Sabrinai angelina Type: BLOOD SPECIMENOrdering Facility: [facility] Address: [address] [place] [address] Performed By: #### M AT21 ####[employer] LABCLIA [id number] [place] [address] Trisomy 18 risk Dosage of chromosome-specific cfDNA Ql (Plasma cell-free+WBC DNA) [Interp] Negative Normal [facility] Comment on above: Order Comment: Ronni alfaro Type: BLOOD SPECIMENOrdering Facility: [facility] Address: [address] [place] [address] Performed By: #### M AT21 ####[employer] LABCLIA [id number] [place] [address] No Panel InformationOrdered By: Tenisha Arreaga on 07-16-2024 [facility] PAP TESTon 07-16-2024 ADEQUACY Satisfactory for interpretation. Normal [facility] Comment on above: Order Comment: Sabrinai angelina Type: BLOOD SPECIMEN [facility] Address: [address] [place] [address] Performed By: #### R UBIGG #### [facility] CLIA [id number] [address] [place] [address] [place] [address] [place] CASE REPORT Normal [facility] Comment on above: Order Comment: Speci men Type: BLOOD SPECIMEN [facility] Address: [address] [place] [address] Result Comment: Gyne cologic Cytology Report Case: [id number] Authorizing Provider: Gin Paris APRN.CNM Collected: 07/16/2024 09:43 AM Ordering Location: OB/Gynecology Received: 07/16/2024 12:00 PM First Screen: Clement, [place], [place], ASCP Pathologist: Marisa Ambrosio MD Specimen: Pap Test, ThinPrep, Cervix Performed By: #### R UBIGG #### [facility] CLIA [id number] [address] [place] [address] [place] CLINICAL HISTORY, CYTOLOGY, PRINCIPAL ARCHAEOLOGIST Routine Exam Normal [facility] Comment on above: Order Comment: Speci men Type: BLOOD SPECIMEN [facility] Address: [address] [place] [address] Performed By: #### R UBIGG #### [facility] CLIA [id number] [address] [place] [address] [place] FINAL PERFORMING LAB Normal [facility] Comment on above: Order Comment: Speci men Type: BLOOD SPECIMEN [facility] Address: [address] [place] [address] Result Comment: Tech nical component, elevated work platform operator screening performed at [facility], [address] [place] [address] CLIA# [id number] Diagnostic interpretation performed at [facility], [address] [place] [address] CLIA# [id number] Leather Currier: Khushbu Leonard M.D. Performed By: #### R UBIGG #### [facility] CLIA [id number] [address] [place] [address] [place] INTERPRETATION, CYTOLOGY, PRINCIPAL ARCHAEOLOGIST Abnormal [facility] Comment on above: Order Comment: Speci men Type: BLOOD SPECIMEN [facility] Address: [address] [place] [address] Result Comment: Atyp ical squamous cells of undetermined significance (ASC-US). at 0907 EST Performed By: #### R UBIGG #### [facility] CLIA [id number] [address] [place] [address] [place] LMP 03/16/2024 Normal [facility] Comment on above: Order Comment: Speci men Type: BLOOD SPECIMEN [facility] Address: [address] [place] [address] Performed By: #### R UBIGG #### [facility] CLIA [id number] [address] [place] [address] [place] PAP DISCLAIMER COMMENT The Pap Smear is a screening test for cervical cancer. False negative results occur with all screening tests, emphasizing the need for rescreening at recommended intervals, and clinical correlation. Normal [facility] Comment on above: Order Comment: Speci men Type: BLOOD SPECIMEN [facility] Address: [address] [place] [address] Performed By: #### R UBIGG #### [facility] CLIA [id number] [address] [place] [address] [place] PAP GENERAL CATEGORIZATION Epithelial Cell Abnormality Normal [facility] Comment on above: Order Comment: Speci men Type: BLOOD SPECIMEN [facility] Address: [address] [place] [address] Performed By: #### R UBIGG #### [facility] CLIA [id number] [address] [place] [address] [place] PAP PROMOTIONS FIRM ACCOUNTS MANAGER COMMENT This specimen has be en analyzed by the ThinPrep Imaging System, an automated imaging and review system, which assists the laboratory in evaluating cells on ThinPrep Pap tests. Following automated imaging, selected sharma from every slide are reviewed by a elevated work platform operator. Normal [facility] Comment on above: Order Comment: Speci men Type: BLOOD SPECIMEN [facility] Address: [address] [place] [address] Performed By: #### R UBIGG #### [facility] CLIA [id number] [address] [place] [address] [place] Prot/Creat Uron 07-16-2024 Protein/Creatinine (U) [Mass ratio] 0.13 mg/mg Normal <0.15 [facility] Comment on above: Order Comment: Speci men Type: URINE SPECIMENOrdering Facility: [facility] Address: [address] [place] [address] Result Comment: Adul t Proteinuria Categories: <0.15 mg/mg is considered normal to mildly increased 0.15 - 0.50 mg/mg is considered moderately increased >0.50 mg/mg is considered severely increased KDIGO. (2013). KDIGO 2012 Clinical Practice Guideline for the Evaluation and Management of Chronic Kidney Disease. Official Journal of the International Society of Nephrology, 3(1), 1-150. Performed By: #### 2 890-2 ####[facility] LABCLIA [id number] [place] [address] [place] Protein/Creatinine (U) [Mass ratio]on 07-16-2024 Creatinine (U) [Mass/Vol] 162.2 mg/dL Normal 20.0-300.0 [facility] Comment on above: Order Comment: Speci men Type: URINE SPECIMENOrdering Facility: [facility] Address: [address] [place] [address] Performed By: #### 2 890-2 ####[facility] LABCLIA [id number] [place] [address] [place] Protein (U) [Mass/Vol] 21 mg/dL High 0-20 [facility] Comment on above: Order Comment: Speci men Type: URINE SPECIMENOrdering Facility: [facility] Address: [address] [place] [address] Performed By: #### 2 890-2 ####[facility] LABCLIA [id number] [place] [address] [place] RUBELLA IGG ANTIBODYon 07-16 RUBELLA IGG AB, QUAL Positive Normal Positive [facility] Comment on above: Order Comment: Speci men Type: BLOOD SPECIMEN [facility] Address: [address] [place] [address] Result Comment: The result suggests recent or past exposure to Rubella virus or history of Rubella vaccination. Positive result may also be seen due to presence of passively-transferred antibodies. Please correlate with patient's history. Performed By: #### R UBIGG #### [facility] CLIA [id number] [address] [place] [address] [place] Reagin and Treponema pallidu m IgG and IgM [Interp]on 07-16-2024 T. pallidum IgG+IgM IA Ql (S) Non-Reactive Nonreactive [facility] T. pallidum IgG+IgM IA Ql (S) Non-Reactive Normal Nonreactive [facility] Comment on above: Order Comment: Speci men Type: BLOOD SPECIMENOrdering Facility: [facility] Address: [address] [place] [address] Performed By: #### 3 1201-7, 67681-2, 5195-3 ####[facility] LABCLIA [id number] [place] [address] [place] Reagin+T pallidum IgG+IgM Se rPl-Impon 07-16-2024 Reagin and Treponema pallidum IgG and IgM [Interp] Cannot exclude recent Treponemal infection if specimen collected within 7-10 days after appearance of suspect lesions or 2-3 weeks after an exposure. Clinical correlation is required. Normal [facility] Comment on above: Order Comment: Speci men Type: BLOOD SPECIMENOrdering Facility: [facility] Address: [address] [place] [address] Performed By: #### 3 1201-7, 10093-9, 5195-3 ####[facility] LABCLIA [id number] [place] [address] [place] SYPHILIS TREPONEMAL W/REFLEX on 07-16-2024 Reagin and Treponema pallidum IgG and IgM [Interp] Cannot exclude recent Treponemal infection if specimen collected within 7-10 days after appearance of suspect lesions or 2-3 weeks after an exposure. Clinical correlation is required. [facility] TYPE + SCREEN PRENATALon ABO AB Normal [facility] Comment on above: Order Comment: Speci men Type: BLOOD SPECIMEN [facility] Address: [address] [place] [address] Performed By: #### R UBIGG #### [facility] CLIA [id number] [address] [place] [address] [place] Rh Nom (Bld) Positive Normal [facility] Comment on above: Order Comment: Speci men Type: BLOOD SPECIMEN [facility] Address: [address] [place] [address] Performed By: #### R UBIGG #### [facility] CLIA [id number] [address] [place] [address] [place] TYPE AND SCREEN EXPIRATION 07/19/2024 23:59 Normal [facility] Comment on above: Order Comment: Speci men Type: BLOOD SPECIMEN [facility] Address: [address] [place] [address] Performed By: #### R UBIGG #### [facility] CLIA [id number] [address] [place] [address] [place] URIC ACIDon 07-16-2024 Urate [Mass/Vol] 3.0 mg/dL 2.5 - 6.6 mg/dL [facility] Urate SerPl-mCncon Urate [Mass/Vol] 3.0 mg/dL Normal 2.5-6.6 [facility] Comment on above: Order Comment: Speci men Type: BLOOD SPECIMEN [facility] Address: [address] [place] [address] Performed By: #### R UBIGG #### [facility] CLIA [id number] [address] [facility] [place] [address] [place] Urate [Mass/Vol]on 5 Interpretation and review of laboratory results Normal [facility] CT/NG [facility] BY PCRon 3 CT by PCR Negative Normal Negative [facility] Comment on above: Performed By: #### L 8200.1999 ####[facility] [address] [facility] [place], [place], [address] NG by PCR Negative Normal Negative [facility] Comment on above: Performed By: #### L 8200.1999 ####[facility] [address] [facility] [place], [place], [address] Discharge Instructionon 08-11 Discharge Instruction [facility] Medical Records Department [address] [place] [address] Instructions for Home/Discharge Instructions 08/20/22 0805 MR#: [id number] Acct: [id number] Name: SUGEY HELM Rep #: [id number] : 2000 21 From: Eduardo Samuels MD PCP: Dr. Jerald Sanchez MD Status:ADM IN Discharge Instructions Diet Discharge Diet: No restrictions Activity Discharge Activity: Return to Normal Activity, May Drive and May Shower May resume sexual activity in: 4-6 weeks Weight Bearing Status: Weight bearing as tolerated Dressing / Incision Call your doctor if your incision/area has: Continuous Slow Oozing and Foul Smelling Discharge Call your doctor if you observe: Fever of 101 or Higher, Shortness of breath and Chest pain Follow Up Care Please Follow Up With: Eduardo Samuels MD When: 4 to 6 weeks Test Results: Test results from this visit will be discussed in further detail at your follow-up appointment, if applicable. Discharge Plan Admission Admit Date/Time: 08/19/22 15:16 Attending Provider: Eduardo Samuels Primary Care Provider: Jerald Sanchez Discharge Orders/Prescriptions Prescriptions: No Action ondansetron HCl 4 mg tablet 4 mg PO PRN PRN (Reason: Nausea) 1 tab PO/SL DAILY iron 325 mg PO/SL DAILY Referrals / Follow Up: Jerald Sanchez MD [Primary Care Provider] - Disposition Discharge Orders: Discharge Patient (Routine); Ordered 08/20/22 Ordered By: Dr. Eduardo Samuels 08/20/22 0805 Eduardo Samuels MD CC: Dr. Jerald Sanchez MD Signed Normal [facility] (ROM) Rupture Of Membraneson 08-19-2022 ROM Negative Normal Negative [facility] Comment on above: Result Comment: Amni otic fluid not present indicates No Rupture of Membranes at time of specimen collection. Performed By: #### L 205.1000 ####[facility] [address] [facility]. [place], [place], [id number] ROM Negative Normal Negative [facility] Comment on above: Result Comment: Amni otic fluid not present indicates No Rupture of Membranes at time of specimen collection. Performed By: #### L 205.1000 ####[facility] [address] [place], [place], [id number] Absolute lymphocyte countOrd ered By: Dr. Samuels on 08-19-2022 Lymphocytes Auto (Unsp spec) [#/Vol] 2.31 10*3/uL 0.83-4.51 [facility] Basophil percentageOrdered B y: Dr. Samuels on 08-19-2022 C. trachomatis DNA DEANNA+probe Ql (Unsp spec) Negative Negative [facility] Basophils/100 WBC (Bld) 0.1 % 0-1 [facility] Eosinophils/100 WBC (Bld) 0.6 % 0-5 [facility] Neutrophils (Bld) [#/Vol] 8.2 10*3/uL 2.0-7.7 [facility] Neutrophils/100 WBC (Bld) 72.4 % 47-70 [facility] WBC (Bld) [#/Vol] 11.3 10*3/uL 4.4-11.0 [facility] Blood erythrocytes count (nu mber/volume)Ordered By: Dr. Samuels on 08-19-2022 RBC (Bld) [#/Vol] 3.77 10*6/uL 4.2-5.4 [facility] Blood hemoglobin measurement (mass/volume)Ordered By: Dr. Samuels on 08-19-2022 Hemoglobin (Bld) [Mass/Vol] 9.7 g/dL 12.0-15.0 [facility] Blood lymphocytes/100 leukoc ytesOrdered By: Dr. Samuels on 08-19-2022 Lymphocytes/100 WBC (Bld) 20.5 % 19-41 [facility] Blood monocytes/100 leukocyt esOrdered By: Dr. Samuels on 08-19-2022 Monocytes/100 WBC (Bld) 6.0 % 0-10 [facility] Blood platelet mean volumeOr dered By: Dr. Samuels on 08-19-2022 Platelet mean volume (Bld) [Entitic vol] 10.2 fL 6.2-12.0 [facility] CBC W/Diff, Automatedon 03-0 Absolute Lymph 2.31 X10 3/uL Normal 0.83-4.51 [facility] Comment on above: Performed By: #### Maritza TS, L100.0100 ####[facility] [address] [place], [address] Absolute Neut 8.2 X10 3/uL High 2.0-7.7 [facility] Comment on above: Performed By: #### Maritza TS, L100.0100 ####[facility] [address] [place], [address] Basophils/100 WBC (Bld) 0.1 % Normal 0-1 [facility] Comment on above: Performed By: #### Maritza TS, L100.0100 ####[facility] [address] [place], [address] Eosinophils/100 WBC (Bld) 0.6 % Normal 0-5 [facility] Comment on above: Performed By: #### Maritza TS, L100.0100 ####[facility] [address] [place], [address] Erythrocyte distribution width (RBC) [Ratio] 13.6 % Normal 11.6-14.6 [facility] Comment on above: Performed By: #### Maritza LANDIN, L100.0100 ####[facility] [address] [place], [address] Hematocrit (Bld) [Volume fraction] 31.0 % Low 37-47 [facility] Comment on above: Performed By: #### Maritza LANDIN, L100.0100 ####[facility] [address] [place], [address] Hemoglobin (Bld) [Mass/Vol] 9.7 g/dL Low 12.0-15.0 [facility] Comment on above: Performed By: #### Maritza LANDIN, L100.0100 ####[facility] [address] [place], [address] IG% 0.400 Normal 0.0-0.9 [facility] Comment on above: Result Comment: IG% - Immature Granulocytes (promyelocytes, myelocytes and metamyelocytes) > 1% indicates that a LEFT SHIFT is Present. Performed By: #### Maritza LANDIN, L100.0100 ####[facility] [address] [place], [address] Lymphocytes/100 WBC (Bld) 20.5 % Normal 19-41 [facility] Comment on above: Performed By: #### Maritza LANDIN, L100.0100 ####[facility] [address] [place], [address] MCH (RBC) [Entitic mass] 25.7 pg Low 27.0-32.0 [facility] Comment on above: Performed By: #### Maritza LANDIN, L100.0100 ####[facility] [address] [place], [address] MCHC (RBC) [Mass/Vol] 31.3 g/dL Low 32-36 [facility] Comment on above: Performed By: #### Maritza LANDIN, L100.0100 ####[facility] [address] [place], [address] MCV (RBC) [Entitic vol] 82.2 fL Normal 81-99 [facility] Comment on above: Performed By: #### Maritza LANDIN, L100.0100 ####[facility] [address] [place], [address] Monocytes/100 WBC (Bld) 6.0 % Normal 0-10 [facility] Comment on above: Performed By: #### Maritza LANDIN, L100.0100 ####[facility] [address] [place], [address] Neutrophils/100 WBC (Bld) 72.4 % High 47-70 [facility] Comment on above: Performed By: #### Maritza LANDIN, L100.0100 ####[facility] [address] [place], [address] Nucleated RBC (Bld) [#/Vol] 0 10*3/uL Normal 0-5 [facility] Comment on above: Performed By: #### Maritza LANDIN, L100.0100 ####[facility] [address] [place], [address] Platelet mean volume (Bld) [Entitic vol] 10.2 fL Normal 6.2-12.0 [facility] Comment on above: Performed By: #### Maritza LANDIN, L100.0100 ####[facility] [address] [place], [address] Platelets (Bld) [#/Vol] 197 10*3/uL Normal 150-450 [facility] Comment on above: Performed By: #### Maritza LANDIN, L100.0100 ####[facility] [address] [place], [address] RBC (Bld) [#/Vol] 3.77 10*6/uL Low 4.2-5.4 [facility] Comment on above: Performed By: #### B TS, L100.0100 ####[facility] [address] [place], [address] RDW SD 40.9 fl Normal 35.1-43.9 [facility] Comment on above: Performed By: #### B TS, L100.0100 ####[facility] [address] [place], [address] WBC (Bld) [#/Vol] 11.3 10*3/uL High 4.4-11.0 [facility] Comment on above: Performed By: #### B TS, L100.0100 ####[facility] [address] [place], [address] Determination of erythrocyte mean corpuscular volume (MCV)Ordered By: Dr. Samuels on 08-19-2022 MCV (RBC) [Entitic vol] 82.2 fL 81-99 [facility] H AND P Exam - OB/GYNon 03-0 H&P Exam - DICTAPHONE TECHNICIAN [facility] Medical Records Department [address] [facility] [place] [address] H P Exam - DICTAPHONE TECHNICIAN 08/19/22 1730 MR#: [id number] Acct: [id number] Name: SUGEY HELM Rep #: [id number] : 2000 21 From: Eduardo Samuels MD PCP: Dr. Jerald Sanchez MD Status:ADM IN Location: KL815-0 History and Physical Date of Admission: 08/19/22 Chief complaint: Contractions History present illness: 21-year-old at 38 weeks and 4 days with YESSENIA 08/29/2022 arrives with contractions and leakage of fluid. Denies headache, vision changes, chest pain, shortness of breath, nausea vomit, right upper quadrant pain. Patient states good movement. Obstetric history: G1: SAB G2: 39-week male G3: 41-week female G4: Current Past medical history: None Medications: vitamin Allergies: Penicillin Past surgical history: Cholecystectomy, tonsils and adenoids Social history: 1 pack/day smoker, denies alcohol or drug use Family history: Denies history DVT or PE Review of systems: Besides above pertinent positives a full review of systems was performed and found to be negative Physical exam: Vitals: Blood pressure 125/81 pulse 78 SPO2 100% on room air General: Normal-appearing no acute distress HEENT: Normocephalic/atraumat ic no cervical lymphadenopathy Cardiac/respiratory: No use accessory muscles, nonlabored breathing Abdomen: Soft, nontender, gravid Pelvic exam: Cervical exam 7-8//-1. AROM clear fluid Extremities: No peripheral edema normal peripheral pulses Psych: Normal affect and demeanor nonpressured speech Labs: White blood cell count 11.3 hemoglobin 9.7 hematocrit 31% platelets 197. RPR nonreactive. Blood type AB+ antibody negative. ROM negative Assessment and plan: 21-year-old G4, P2 at 38 weeks and 4 days called by nursing with leakage of fluid initial ROM negative. After ROM test came back called by nursing with again leakage of more fluid ROM test again sent and again negative. Intermittently was checked with cramping and contractions noted to have advanced cervical dilation to be in labor admitted to labor and delivery. Patient was seen and examined as above with above cervix and AROM for clear fluid Admit labor and delivery Routine orders GBS negative 08/19/221733 Cosigner Signature (if applicable): CC: Dr. Eduardo Samuels MD; Dr. Jerald Sanchez MD Signed Normal [facility] Hematocrit Auto (Bld) [Volum e fraction]Ordered By: Dr. Samuels on 08-19-2022 Hematocrit (Bld) [Volume fraction] 31.0 % 37-47 [facility] L509.8000on 08-19-2022 Syphilis Abs Non-Reactive Normal [facility] Comment on above: Performed By: #### L 509.8000 #### [facility] [place], [address] Laboratory - Hematology and Cell countsOrdered By: Dr. Samuels on 08-19-2022 Erythrocyte distribution width (RBC) [Entitic vol] 40.9 fL 35.1-43.9 [facility] Erythrocyte distribution width (RBC) [Ratio] 13.6 % 11.6-14.6 [facility] Immature granulocytes/100 WBC (Bld) 0.400 % 0.0-0.9 [facility] Comment on above: IG% - Immature Granu locytes (promyelocytes, myelocytes and metamyelocytes) > 1% indicates that a LEFT SHIFT is Present. MCH (RBC) [Entitic mass] 25.7 pg 27.0-32.0 [facility] Nucleated RBC/100 WBC (Bld) [Ratio] 0 % 0-5 [facility] MCHC Auto (RBC) [Mass/Vol]Or dered By: Dr. Samuels on 08-19-2022 MCHC (RBC) [Mass/Vol] 31.3 g/dL 32-36 [facility] Neisseria gonorrhoeae detect ion by PCROrdered By: Dr. Samuels on 08-19-2022 N. gonorrhoeae DNA DEANNA+probe Ql (Cervical mucus) Negative Negative [facility] No Panel InformationOrdered By: Dr. Samuels on 08-19-2022 Vaginal Amniotic Fluid Detection Negative Negative [facility] Comment on above: Amniotic fluid not p resent indicates No Rupture of FetalMembranes at time of specimen collection. Operative Reporton Operative Report [facility] Medical Records Department [address] [place] [address] Operative Report 08/19/22 181 MR#: [id number] Acct: [id number] Name: SUGEY HELM Rep #: [id number] : 2000 21 From: Eduardo Samuels MD PCP: Dr. Jerald Sanchez MD Status:ADM IN Location: [id number] Vaginal Delivery Findings Description of Procedure: Normal spontaneous vaginal delivery of a viable male , vertex FRANCIS. Head and shoulders delivered with ease. Cord clamped and cut. Baby handed off to patient. Placenta delivered via cord traction and fundal massage intact. First-degree midline perineal laceration noted and repaired in typical fashion. IM Pitocin and IV Pitocin given per protocol. EBL 250 cc Apgars 9/9 08/19/22 1818 Cosigner Signature (if applicable): CC: Dr. Eduardo Samuels MD; Dr. Jerald Sanchez MD Signed Normal [facility] Platelets bldOrdered By: Dr. Samuels on 08-19-2022 Platelets (Bld) [#/Vol] 197 10*3/uL 150-450 [facility] Serum Treponema species anti body detectionOrdered By: Dr. Samuels on 08-19-2022 Treponema sp Ab Ql (S) Non-Reactive [facility] Type AND Screenon 08-19-2022 Ab SCREEN GEL Negative Normal [facility] Comment on above: Order Comment: Labor Performed By: #### B TS, L100.0100 ####[facility] [address] [place], [address] ABO and Rh group Nom (Bld) Blood group AB Rh(D) positive Normal [facility] Comment on above: Order Comment: Labor Performed By: #### B TS, L100.0100 ####[facility] [address] [place], [address] No Panel InformationOrdered By: Dr. Samuels on 08-05-2022 Group B Streptococcus Culture Group B Beta Streptococcus is not isolated. [facility] Rule out Beta Strep (Grp. B) on 08-05-2022 MILY Group B Beta Streptococcus is not isolated. Normal [facility] Comment on above: Performed By: #### M 100.3400 #### [facility] [address] [place], [address] Absolute lymphocyte countOrd ered By: Dr. Samuels on 08-03-2022 Lymphocytes Auto (Unsp spec) [#/Vol] 2.24 10*3/uL 0.83-4.51 [facility] Basophil percentageOrdered B y: Dr. Samuels on 08-03-2022 Basophils/100 WBC (Bld) 0.1 % 0-1 [facility] Eosinophils/100 WBC (Bld) 0.8 % 0-5 [facility] Neutrophils (Bld) [#/Vol] 7.6 10*3/uL 2.0-7.7 [facility] Neutrophils/100 WBC (Bld) 71.3 % 47-70 [facility] WBC (Bld) [#/Vol] 10.6 10*3/uL 4.4-11.0 [facility] Blood erythrocytes count (nu mber/volume)Ordered By: Dr. Samuels on 08-03-2022 RBC (Bld) [#/Vol] 3.89 10*6/uL 4.2-5.4 [facility] Blood hemoglobin measurement (mass/volume)Ordered By: Dr. Samuels on 08-03-2022 Hemoglobin (Bld) [Mass/Vol] 10.0 g/dL 12.0-15.0 [facility] Blood lymphocytes/100 leukoc ytesOrdered By: Dr. Samuels on 08-03-2022 Lymphocytes/100 WBC (Bld) 21.2 % 19-41 [facility] Blood monocytes/100 leukocyt esOrdered By: Dr. Samuels on 08-03-2022 Monocytes/100 WBC (Bld) 5.9 % 0-10 [facility] Blood platelet mean volumeOr dered By: Dr. Samuels on 08-03-2022 Platelet mean volume (Bld) [Entitic vol] 9.9 fL 6.2-12.0 [facility] CBC W/Diff, Automatedon - Absolute Lymph 2.24 X10 3/uL Normal 0.83-4.51 [facility] Comment on above: Performed By: #### L 509.8000, L100.0100 ####[facility] [address] [facility] [place], [address] Absolute Neut 7.6 X10 3/uL Normal 2.0-7.7 [facility] Comment on above: Performed By: #### L 509.8000, L100.0100 ####[facility] [address] [place], [address] Basophils/100 WBC (Bld) 0.1 % Normal 0-1 [facility] Comment on above: Performed By: #### L 509.8000, L100.0100 ####[facility] [address] [place], [address] Eosinophils/100 WBC (Bld) 0.8 % Normal 0-5 [facility] Comment on above: Performed By: #### L 509.8000, L100.0100 ####[facility] [address] [place], [address] Erythrocyte distribution width (RBC) [Ratio] 13.6 % Normal 11.6-14.6 [facility] Comment on above: Performed By: #### L 509.8000, L100.0100 ####[facility] [address] [place], [address] Hematocrit (Bld) [Volume fraction] 33.2 % Low 37-47 [facility] Comment on above: Performed By: #### L 509.8000, L100.0100 ####[facility] [address] [place], [address] Hemoglobin (Bld) [Mass/Vol] 10.0 g/dL Low 12.0-15.0 [facility] Comment on above: Performed By: #### L 509.8000, L100.0100 ####[facility] [address] [place], [address] IG% 0.700 Normal 0.0-0.9 [facility] Comment on above: Result Comment: IG% - Immature Granulocytes (promyelocytes, myelocytes and metamyelocytes) > 1% indicates that a LEFT SHIFT is Present. Performed By: #### L 509.8000, L100.0100 ####[facility] [address] [place], [address] Lymphocytes/100 WBC (Bld) 21.2 % Normal 19-41 [facility] Comment on above: Performed By: #### L 509.8000, L100.0100 ####[facility] [address] [place], [address] MCH (RBC) [Entitic mass] 25.7 pg Low 27.0-32.0 [facility] Comment on above: Performed By: #### L 509.8000, L100.0100 ####[facility] [address] [place], [address] MCHC (RBC) [Mass/Vol] 30.1 g/dL Low 32-36 [facility] Comment on above: Performed By: #### L 509.8000, L100.0100 ####[facility] [address] [place], [address] MCV (RBC) [Entitic vol] 85.3 fL Normal 81-99 [facility] Comment on above: Performed By: #### L 509.8000, L100.0100 ####[facility] [address] [place], [address] Monocytes/100 WBC (Bld) 5.9 % Normal 0-10 [facility] Comment on above: Performed By: #### L 509.8000, L100.0100 ####[facility] [address] [place], [address] Neutrophils/100 WBC (Bld) 71.3 % High 47-70 [facility] Comment on above: Performed By: #### L 509.8000, L100.0100 ####[facility] [address] [place], [address] Nucleated RBC (Bld) [#/Vol] 0 10*3/uL Normal 0-5 [facility] Comment on above: Performed By: #### L 509.8000, L100.0100 ####[facility] [address] [place], [address] Platelet mean volume (Bld) [Entitic vol] 9.9 fL Normal 6.2-12.0 [facility] Comment on above: Performed By: #### L 509.8000, L100.0100 ####[facility] [address] [place], [address] Platelets (Bld) [#/Vol] 216 10*3/uL Normal 150-450 [facility] Comment on above: Performed By: #### L 509.8000, L100.0100 ####[facility] [address] [place], [address] RBC (Bld) [#/Vol] 3.89 10*6/uL Low 4.2-5.4 [facility] Comment on above: Performed By: #### L 509.8000, L100.0100 ####[facility] [address] [place], [address] RDW SD 41.5 fl Normal 35.1-43.9 [facility] Comment on above: Performed By: #### L 509.8000, L100.0100 ####[facility] [address] [place], [address] WBC (Bld) [#/Vol] 10.6 10*3/uL Normal 4.4-11.0 [facility] Comment on above: Performed By: #### L 509.8000, L100.0100 ####[facility] [address] [place], [address] Determination of erythrocyte mean corpuscular volume (MCV)Ordered By: Dr. Samuels on 08-03-2022 MCV (RBC) [Entitic vol] 85.3 fL 81-99 [facility] Hematocrit Auto (Bld) [Volum e fraction]Ordered By: Dr. Samuels on 08-03-2022 Hematocrit (Bld) [Volume fraction] 33.2 % 37-47 [facility] L509.8000on 08-03-2022 Syphilis Abs Non-Reactive Normal [facility] Comment on above: Performed By: #### L 509.8000, L100.0100 ####[facility] [address] [place], [address] Laboratory - Hematology and Cell countsOrdered By: Dr. Samuels on 08-03-2022 Erythrocyte distribution width (RBC) [Entitic vol] 41.5 fL 35.1-43.9 [facility] Erythrocyte distribution width (RBC) [Ratio] 13.6 % 11.6-14.6 [facility] Immature granulocytes/100 WBC (Bld) 0.700 % 0.0-0.9 [facility] Comment on above: IG% - Immature Granu locytes (promyelocytes, myelocytes and metamyelocytes) > 1% indicates that a LEFT SHIFT is Present. MCH (RBC) [Entitic mass] 25.7 pg 27.0-32.0 [facility] Nucleated RBC/100 WBC (Bld) [Ratio] 0 % 0-5 [facility] MCHC Auto (RBC) [Mass/Vol]Or dered By: Dr. Samuels on 08-03-2022 MCHC (RBC) [Mass/Vol] 30.1 g/dL 32-36 [facility] Platelets bldOrdered By: Dr. Samuels on 08-03-2022 Platelets (Bld) [#/Vol] 216 10*3/uL 150-450 [facility] Serum Treponema species anti body detectionOrdered By: Dr. Samuels on 08-03-2022 Treponema sp Ab Ql (S) Non-Reactive [facility] Culture, urineOrdered By: Dr Ashlee Samuels on 07-09-2022 Bacteria identified Cx Nom (U) Presumptive E. coli [facility] Urine Cultureon 07-09-2022 URC Presumptive E. coli Thatcher Count >100,000 Presumptive E. coli: REACTION Ampicillin Islt FELICIA <=2 S Ampicillin+Sulbac Islt FELICIA <=2 S ceFAZolin Islt FELICIA <=4 S Cefepime Islt FELICIA <=0.12 S cefTRIAXone Islt FELICIA <=0.25 S Ciprofloxacin Islt FELICIA <=0.25 S Ertapenem Islt FELICIA <=0.12 S B-Lactamase Extended Susc Islt NEG Gentamicin Islt FELICIA <=1 S Imipenem Islt FELICIA <=0.25 S levoFLOXacin Islt FELICIA <=0.12 S Nitrofurantoin Islt FELICIA <=16 S Pip+Tazo Islt FELICIA <=4 S Tobramycin Islt FELICIA <=1 S TMP SMX Islt FELICIA <=20 S Normal [facility] Comment on above: Performed By: #### M 100.2200, L100.0100, L3400.0000, L509.4005, BPNTSNC, L3890.6100, L3890.6300, L509.8000, L3890.6005 ####[facility] [address] [facility] [place], [place], [id number] V-Zoster IgG (Immunity)on V ZOSTER IgG < 135 Low Immune >165 [facility] Comment on above: Result Comment: Nega tive <135 Equivocal 135 - 165 Positive >165 A positive result generally indicates exposure to the pathogen or administration of specific immunoglobulins, but it is not indication of active infection or stage of disease. Performed at: [facility] [id number] [employer] Teacher: Moses Portillo PhD, Phone: [phone] Performed By: #### M 100.2200, L100.0100, L3400.0000, L509.4005, BPNTSNC, L3890.6100, L3890.6300, L509.8000, L3890.6005 ####[facility] [address] [facility] [place], [place], [id number] Absolute lymphocyte countOrd ered By: Dr. Samuels on 07-07-2022 Lymphocytes Auto (Unsp spec) [#/Vol] 1.72 10*3/uL 0.83-4.51 [facility] Basophil percentageOrdered B y: Dr. Samuels on 07-07-2022 Basophils/100 WBC (Bld) 0.2 % 0-1 [facility] Eosinophils/100 WBC (Bld) 0.3 % 0-5 [facility] Neutrophils (Bld) [#/Vol] 7.2 10*3/uL 2.0-7.7 [facility] Neutrophils/100 WBC (Bld) 76.0 % 47-70 [facility] WBC (Bld) [#/Vol] 9.4 10*3/uL 4.4-11.[address] [facility] Blood erythrocytes count (nu mber/volume)Ordered By: Dr. Samuels on 07-07-2022 RBC (Bld) [#/Vol] 3.62 10*6/uL 4.2-5.4 [facility] Blood hemoglobin measurement (mass/volume)Ordered By: Dr. Samuels on 07-07-2022 Hemoglobin (Bld) [Mass/Vol] 9.7 g/dL 12.0-15.0 [facility] Blood lymphocytes/100 leukoc ytesOrdered By: Dr. Samuels on 07-07-2022 Lymphocytes/100 WBC (Bld) 18.3 % 19-41 [facility] Blood monocytes/100 leukocyt esOrdered By: Dr. Samuels on 07-07-2022 Monocytes/100 WBC (Bld) 4.8 % 0-10 [facility] Blood platelet mean volumeOr dered By: Dr. Samuels on 07-07-2022 Platelet mean volume (Bld) [Entitic vol] 10.0 fL 6.2-12.0 [facility] CBC W/Diff, Automatedon 06-14 Absolute Lymph 1.72 X10 3/uL Normal 0.83-4.51 [facility] Comment on above: Performed By: #### M 100.2200, L100.0100, L3400.0000, L509.4005, BPNTSNC, L3890.6100, L3890.6300, L509.8000, L3890.6005 #### [facility] [address] [place], [address] Absolute Neut 7.2 X10 3/uL Normal 2.0-7.7 [facility] Comment on above: Performed By: #### M 100.2200, L100.0100, L3400.0000, L509.4005, BPNTSNC, L3890.6100, L3890.6300, L509.8000, L3890.6005 #### [facility] [address] [place], [address] Basophils/100 WBC (Bld) 0.2 % Normal 0-1 [facility] Comment on above: Performed By: #### M 100.2200, L100.0100, L3400.0000, L509.4005, BPNTSNC, L3890.6100, L3890.6300, L509.8000, L3890.6005 #### [facility] [address] [place], [address] Eosinophils/100 WBC (Bld) 0.3 % Normal 0-5 [facility] Comment on above: Performed By: #### M 100.2200, L100.0100, L3400.0000, L509.4005, BPNTSNC, L3890.6100, L3890.6300, L509.8000, L3890.6005 #### [facility] [address] [place], [address] Erythrocyte distribution width (RBC) [Ratio] 13.2 % Normal 11.6-14.6 [facility] Comment on above: Performed By: #### M 100.2200, L100.0100, L3400.0000, L509.4005, BPNTSNC, L3890.6100, L3890.6300, L509.8000, L3890.6005 #### [facility] [address] [place], [address] Hematocrit (Bld) [Volume fraction] 30.9 % Low 37-47 [facility] Comment on above: Performed By: #### M 100.2200, L100.0100, L3400.0000, L509.4005, BPNTSNC, L3890.6100, L3890.6300, L509.8000, L3890.6005 #### [facility] [address] [place], [address] Hemoglobin (Bld) [Mass/Vol] 9.7 g/dL Low 12.0-15.0 [facility] Comment on above: Performed By: #### M 100.2200, L100.0100, L3400.0000, L509.4005, BPNTSNC, L3890.6100, L3890.6300, L509.8000, L3890.6005 #### [facility] [address] [place], [address] IG% 0.400 Normal 0.0-0.9 [facility] Comment on above: Result Comment: IG% - Immature Granulocytes (promyelocytes, myelocytes and metamyelocytes) > 1% indicates that a LEFT SHIFT is Present. Performed By: #### M 100.2200, L100.0100, L3400.0000, L509.4005, BPNTSNC, L3890.6100, L3890.6300, L509.8000, L3890.6005 #### [facility] [address] [place], [address] Lymphocytes/100 WBC (Bld) 18.3 % Low 19-41 [facility] Comment on above: Performed By: #### M 100.2200, L100.0100, L3400.0000, L509.4005, BPNTSNC, L3890.6100, L3890.6300, L509.8000, L3890.6005 #### [facility] [address] [place], [address] MCH (RBC) [Entitic mass] 26.8 pg Low 27.0-32.0 [facility] Comment on above: Performed By: #### M 100.2200, L100.0100, L3400.0000, L509.4005, BPNTSNC, L3890.6100, L3890.6300, L509.8000, L3890.6005 #### [facility] [address] [place], [address] MCHC (RBC) [Mass/Vol] 31.4 g/dL Low 32-36 [facility] Comment on above: Performed By: #### M 100.2200, L100.0100, L3400.0000, L509.4005, BPNTSNC, L3890.6100, L3890.6300, L509.8000, L3890.6005 #### [facility] [address] [place], [address] MCV (RBC) [Entitic vol] 85.4 fL Normal 81-99 [facility] Comment on above: Performed By: #### M 100.2200, L100.0100, L3400.0000, L509.4005, BPNTSNC, L3890.6100, L3890.6300, L509.8000, L3890.6005 #### [facility] [address] [place], [address] Monocytes/100 WBC (Bld) 4.8 % Normal 0-10 [facility] Comment on above: Performed By: #### M 100.2200, L100.0100, L3400.0000, L509.4005, BPNTSNC, L3890.6100, L3890.6300, L509.8000, L3890.6005 #### [facility] [address] [place], [address] Neutrophils/100 WBC (Bld) 76.0 % High 47-70 [facility] Comment on above: Performed By: #### M 100.2200, L100.0100, L3400.0000, L509.4005, BPNTSNC, L3890.6100, L3890.6300, L509.8000, L3890.6005 #### [facility] [address] [place], [address] Nucleated RBC (Bld) [#/Vol] 0 10*3/uL Normal 0-5 [facility] Comment on above: Performed By: #### M 100.2200, L100.0100, L3400.0000, L509.4005, BPNTSNC, L3890.6100, L3890.6300, L509.8000, L3890.6005 #### [facility] [address] [place], [address] Platelet mean volume (Bld) [Entitic vol] 10.0 fL Normal 6.2-12.0 [facility] Comment on above: Performed By: #### M 100.2200, L100.0100, L3400.0000, L509.4005, BPNTSNC, L3890.6100, L3890.6300, L509.8000, L3890.6005 #### [facility] [address] [place], [address] Platelets (Bld) [#/Vol] 220 10*3/uL Normal 150-450 [facility] Comment on above: Performed By: #### M 100.2200, L100.0100, L3400.0000, L509.4005, BPNTSNC, L3890.6100, L3890.6300, L509.8000, L3890.6005 #### [facility] [address] [place], [address] RBC (Bld) [#/Vol] 3.62 10*6/uL Low 4.2-5.4 [facility] Comment on above: Performed By: #### M 100.2200, L100.0100, L3400.0000, L509.4005, BPNTSNC, L3890.6100, L3890.6300, L509.8000, L3890.6005 #### [facility] [address] [place], [address] RDW SD 41.4 fl Normal 35.1-43.9 [facility] Comment on above: Performed By: #### M 100.2200, L100.0100, L3400.0000, L509.4005, BPNTSNC, L3890.6100, L3890.6300, L509.8000, L3890.6005 #### [facility] [address] [place], [address] WBC (Bld) [#/Vol] 9.4 10*3/uL Normal 4.4-11.[address] [facility] Comment on above: Performed By: #### M 100.2200, L100.0100, L3400.0000, L509.4005, BPNTSNC, L3890.6100, L3890.6300, L509.8000, L3890.6005 #### [facility] [address] [place], [address] Determination of erythrocyte mean corpuscular volume (MCV)Ordered By: Dr. Samuels on 07-07-2022 MCV (RBC) [Entitic vol] 85.4 fL 81-99 [facility] HIV - WCHon 07-07-2022 HIV Non-Reactive Normal Nonreactive [facility] Comment on above: Performed By: #### M 100.2200, L100.0100, L3400.0000, L509.4005, BPNTSNC, L3890.6100, L3890.6300, L509.8000, L3890.6005 #### [facility] [address] [facility] [place], [place], [id number] HIV 1 and HIV-2 antibody ass ay with HIV-1 p24 antigen detectionOrdered By: Dr. Samuels on 07-07-2022 HIV 1+2 Ab+HIV1 p24 Ag IA Ql Non-[facility] Hematocrit Auto (Bld) [Volum e fraction]Ordered By: Dr. Samuels on 07-07-2022 Hematocrit (Bld) [Volume fraction] 30.9 % 37-47 [facility] Hepatitis B Surface Antigeno n 07-07-2022 HEP B Surf Ag Non-Reactive Normal [facility] Comment on above: Performed By: #### M 100.2200, L100.0100, L3400.0000, L509.4005, BPNTSNC, L3890.6100, L3890.6300, L509.8000, L3890.6005 #### [facility] [address] [place], [address] Hepatitis C Antibodyon 07-07 Hepatitis C Ab Non-Reactive Normal Nonreactive [facility] Comment on above: Result Comment: Non Reactive: < 0.8 Equivocal: >/= 0.8 to < 1.0 Reactive: >/= 1.0 The CDC recommends that a reactive/equivocal HCV antibody result be followed up by the HCV Nucleic Acid Amplification test (296596) Performed By: #### M 100.2200, L100.0100, L3400.0000, L509.4005, BPNTSNC, L3890.6100, L3890.6300, L509.8000, L3890.6005 ####[facility] [address] [facility] [place], [address] L509.8000on 07-07-2022 Syphilis Abs Non-Reactive Normal [facility] Comment on above: Performed By: #### M 100.2200, L100.0100, L3400.0000, L509.4005, BPNTSNC, L3890.6100, L3890.6300, L509.8000, L3890.6005 #### [facility] [address] [facility] [place], [address] Laboratory - Hematology and Cell countsOrdered By: Dr. Samuels on 07-07-2022 Erythrocyte distribution width (RBC) [Entitic vol] 41.4 fL 35.1-43.9 [facility] Erythrocyte distribution width (RBC) [Ratio] 13.2 % 11.6-14.6 [facility] Immature granulocytes/100 WBC (Bld) 0.400 % 0.0-0.9 [facility] Comment on above: IG% - Immature Granu locytes (promyelocytes, myelocytes and metamyelocytes) > 1% indicates that a LEFT SHIFT is Present. MCH (RBC) [Entitic mass] 26.8 pg 27.0-32.0 [facility] Nucleated RBC/100 WBC (Bld) [Ratio] 0 % 0-5 [facility] MCHC Auto (RBC) [Mass/Vol]Or dered By: Dr. Samuels on 07-07-2022 MCHC (RBC) [Mass/Vol] 31.4 g/dL 32-36 [facility] No Panel InformationOrdered By: Dr. Samuels on 07-07-2022 Hepatitis B Surface Antigen Non-Reactive Nonreactive [facility] Hepatitis C Antibody Non-Reactive Nonreactive [facility] Comment on above: Non Reactive: < 0.8 Equivocal: >/= 0.8 to < 1.0 Reactive: >/= 1.0The CDC recommends that a reactive/equivocal HCV antibody result be followed up by the HCV Nucleic Acid Amplificationtest (451280) Rubella IgG Antibody Reactive Nonreactive [facility] Comment on above: Antibody Results Int erpretation of Immune Status Non Reactive Presumed Non-Immune Equivocal Equivocal Reactive Presumed Immune Platelets bldOrdered By: Dr. Samuels on 07-07-2022 Platelets (Bld) [#/Vol] 220 10*3/uL 150-450 [facility] T AND S-No Charge w /PNPon 07-07-2022 Ab SCREEN GEL Negative Normal [facility] Comment on above: Order Comment: PNN Performed By: #### M 100.2200, L100.0100, L3400.0000, L509.4005, BPNTSNC, L3890.6100, L3890.6300, L509.8000, L3890.6005 ####[facility] [address] [place], [place], [id number] ABO and Rh group Nom (Bld) Blood group AB Rh(D) positive Normal [facility] Comment on above: Order Comment: PNN Performed By: #### M 100.2200, L100.0100, L3400.0000, L509.4005, BPNTSNC, L3890.6100, L3890.6300, L509.8000, L3890.6005 ####[facility] [address] [place], [address] Rubella IgGon 07-07-2022 Rubella IgG Reactive Normal [facility] Comment on above: Result Comment: Anti body Results Interpretation of Immune Status Non Reactive Presumed Non-Immune Equivocal Equivocal Reactive Presumed Immune Performed By: #### M 100.2200, L100.0100, L3400.0000, L509.4005, BPNTSNC, L3890.6100, L3890.6300, L509.8000, L3890.6005 #### [facility] [place], [address] Serum Treponema species anti body detectionOrdered By: Dr. Samuels on 07-07-2022 Treponema sp Ab Ql (S) Non-Reactive [facility] Serum Varicella zoster virus IgG antibody assay by immunoassay (units/volume)Ordered By: Dr. Samuels on 07-07-2022 VZV IgG IA Qn (S) < 135 index Immune >165 [facility] Comment on above: Negative <135 Equivo rose mary 135 - 165 Positive >165A positive result generally indicates exposure to thepathogen or administration of specific immunoglobulins,but it is not indication of active infection or stageof disease.Performed at: [address] [id number] Director: Moses Portillo PhD, Phone: [phone] [facility] 05-26-2020 [facility] HNO ID: [id number] Author: Jerome Bekc (Rt) Service: Radiology Author Type: Toddler Caregiver Type: Allied Health Filed: 05/26/2020 6:56 PM Note Text: Radiology Service Progress Note PATIENT NAME: Sugey Helm DATE OF SERVICE: May 26, 2020 TIME: 6:56 PM PATIENT IDENTITY VERIFICATION COMPLETED USING TWO (2) IDENTIFIERS: Name and Date of confirmed by patient verbally and Name and Date of confirmed by identification band. FALL SCREENING: Has the patient had 2 falls in the last year or 1 fall with injury or currently using an Ambulatory Assistive Device (Walker, Cane, Wheelchair, Crutches, etc.)? Emergency Room Patient: Screened in ED PATIENT GENDER DATA: Female. status: Unknown status: N/A PATIENT RELEVANT IMPLANT DATA REVIEWED: Not Applicable RADIOLOGY DEPARTMENT: Ultrasound PERIPHERAL IV DATA: Not applicable SIGNED BY: Madonna Arshad RDMS May 26, 2020 6:56 PM [facility] APTTon 05-26-2020 aPTT Coag (Bld) [Time] 24.2 s Normal 23.0-32.4 [facility] Comment on above: Result Comment: Unfr actionated Heparin Therapeutic Ranges: Standard Heparin Nomogram: 53 to 78 seconds (anti-Xa level of 0.3 to 0.7 U/ml) Low Dose/ACS Nomogram: 49 to 67 seconds (anti-Xa level of 0.2 to 0.5 U/ml) Stroke Treatment Nomogram: 49 to 67 seconds (anti-Xa level of 0.2 to 0.5 U/ml) Note: The APTT therapeutic range has been determined for the current lot of laboratory APTT reagent in use throughout the [facility]. Performed By: #### A CETM, PTT, PT, CMP, LIPA, CBCDIF #### [facility] [address] [facility] [phone] Acetaminophenon 05-26-2020 Acetaminophen [Mass/Vol] <5 Low 10-30 [facility] Comment on above: Result Comment: Toxi c > 150 ug/mL 4 hours post ingestion The Farhat Aldana nomogram can be used to estimate the probability of hepatotoxicity via the relationship of plasma acetaminophen concentration to the post ingestion interval. (Marina. Pediatrics. 1975. 55:871 to 876 and Farhat et al. Arch Mathematical Engineering Technician Med. 1981. 141:380 to 385). Reference ranges and high/low indicator flags are provided as general guidelines only. The treating physician must determine appropriate target levels/dosing based on the specific clinical situation. Performed By: #### A CETM, PTT, PT, CMP, LIPA, CBCDIF #### [facility] [address] [place] [address] CBC W Auto Diff Bld[place] 2019 Basophils (Bld) [#/Vol] 10*3/uL Normal <0.11 [facility] Comment on above: Order Comment: Speci men Type: BLOOD SPECIMEN Performed By: #### 5 7021-8 ####[facility] [place] LABCLIA [id number] [place] [address] [place] [facility] Basophils/100 WBC (Bld) 0.2 % Normal [facility] Comment on above: Order Comment: Speci men Type: BLOOD SPECIMEN Performed By: #### 5 7021-8 ####[facility] LABCLIA [id number] [place] [address] [facility] Differential cell count method Nom (Bld) Auto Normal [facility] Comment on above: Order Comment: Speci men Type: BLOOD SPECIMEN Performed By: #### 5 7021-8 ####[facility] [place] LABCLIA [id number] [place] [address] [place] [address] [facility] Eosinophils (Bld) [#/Vol] 10*3/uL Normal <0.46 [facility] Comment on above: Order Comment: Speci men Type: BLOOD SPECIMEN Performed By: #### 5 7021-8 ####[facility] [place] LABCLIA [id number] [place] [address] [place] [address] [facility] Eosinophils/100 WBC (Bld) 0.2 % Normal [facility] Comment on above: Order Comment: Speci men Type: BLOOD SPECIMEN Performed By: #### 5 7021-8 ####[facility] [place] [facility]IA [id number] [place] [address] [facility] Erythrocyte distribution width (RBC) [Ratio] 16.4 % High 11.5-15.0 [facility] Comment on above: Order Comment: Speci men Type: BLOOD SPECIMEN Performed By: #### 5 7021-8 ####[facility] [place] LABCLIA [id number] [place] [address] [facility] Hematocrit (Bld) [Volume fraction] 39.0 % Normal 36.0-46.0 [facility] Comment on above: Order Comment: Speci men Type: BLOOD SPECIMEN Performed By: #### 5 7021-8 ####[facility] [place] LABCLIA [id number] [place] [address] [place] Hemoglobin (Bld) [Mass/Vol] 13.0 g/dL Normal 11.5-15.5 [facility] Comment on above: Order Comment: Speci men Type: BLOOD SPECIMEN Performed By: #### 5 7021-8 ####[facility] [place] LABCLIA [id number] [place] [address] [place] Lymphocytes (Bld) [#/Vol] 1.06 10*3/uL Normal 1.00-4.00 [facility] Comment on above: Order Comment: Speci men Type: BLOOD SPECIMEN Performed By: #### 5 7021-8 ####[facility] [place] LABCLIA [id number] [place] [address] [facility] Lymphocytes/100 WBC (Bld) 10.7 % Normal [facility] Comment on above: Order Comment: Speci men Type: BLOOD SPECIMEN Performed By: #### 5 7021-8 ####[facility] [place] LABCLIA [id number] [place] [address] [facility] MCH (RBC) [Entitic mass] 27.4 pg Normal 26.0-34.0 [facility] Comment on above: Order Comment: Speci men Type: BLOOD SPECIMEN Performed By: #### 5 7021-8 ####[facility] [place] LABCLIA [id number] [place] [address] [facility] MCHC (RBC) [Mass/Vol] 33.3 g/dL Normal 30.5-36.0 [facility] Comment on above: Order Comment: Speci men Type: BLOOD SPECIMEN Performed By: #### 5 7021-8 ####[facility] [place] LABCLIA [id number] [place] [address] [facility] [place] MCV (RBC) [Entitic vol] 82.3 fL Normal 80.0-100.0 [facility] Comment on above: Order Comment: Speci men Type: BLOOD SPECIMEN Performed By: #### 5 7021-8 ####[facility] [place] LABCLIA [id number] [place] [address] [facility] [place] Monocytes (Bld) [#/Vol] 0.68 10*3/uL Normal <0.87 [facility] Comment on above: Order Comment: Speci men Type: BLOOD SPECIMEN Performed By: #### 5 7021-8 ####[facility] [place] LABCLIA [id number] [place] [address] [place] Monocytes/100 WBC (Bld) 6.9 % Normal [facility] Comment on above: Order Comment: Speci men Type: BLOOD SPECIMEN Performed By: #### 5 7021-8 ####[facility] [place] [facility]IA [id number] [place] [address] [place] Neutrophils (Bld) [#/Vol] 8.10 10*3/uL High 1.45-7.50 [facility] Comment on above: Order Comment: Speci men Type: BLOOD SPECIMEN Performed By: #### 5 7021-8 ####[facility] [place] [facility]IA [id number] [place] [address] [place] Neutrophils/100 WBC (Bld) 82.0 % Normal [facility] Comment on above: Order Comment: Speci men Type: BLOOD SPECIMEN Performed By: #### 5 7021-8 ####[facility] [place] LABCLIA [id number] [place] [address] [place] Platelet mean volume (Bld) [Entitic vol] 9.7 fL Normal 9.0-12.7 [facility] Comment on above: Order Comment: Speci men Type: BLOOD SPECIMEN Performed By: #### 5 7021-8 ####[facility] [place] [facility]CLIA [id number] [place] [address] [place] Platelets (Bld) [#/Vol] 311 10*3/uL Normal 150-400 [facility] Comment on above: Order Comment: Speci men Type: BLOOD SPECIMEN Performed By: #### 5 7021-8 ####[facility] [place] LABCLIA [id number] [place] [address] [place] RBC (Bld) [#/Vol] 4.74 10*6/uL Normal 3.90-5.20 [facility] Comment on above: Order Comment: Speci men Type: BLOOD SPECIMEN Performed By: #### 5 7021-8 ####[facility] [place] LABCLIA [id number] [place] [address] [place] WBC (Bld) [#/Vol] 9.88 10*3/uL Normal 3.70-11.00 [facility] Comment on above: Order Comment: Speci men Type: BLOOD SPECIMEN Performed By: #### 5 7021-8 ####[facility] [id number] [place] [address] [place] CBC and Differentialon 05-26 Abs Baso 0.03 k/uL Normal <0.11 [facility] Comment on above: Performed By: #### A CETM, PTT, PT, CMP, LIPA, CBCDIF #### [facility] [address] [place] [address] Abs Telfair 0.99 k/uL High <0.87 [facility] Comment on above: Performed By: #### A CETM, PTT, PT, CMP, LIPA, CBCDIF #### [facility] [address] [place] [address] Abs Neut 7.82 k/uL High 1.45-7.50 [facility] Comment on above: Performed By: #### A CETM, PTT, PT, CMP, LIPA, CBCDIF #### [facility] [address] [place] [address] Absolute nRBC <0.01 Normal <0.01 [facility] Comment on above: Performed By: #### A CETM, PTT, PT, CMP, LIPA, CBCDIF #### [facility] [address] [place] [address] Basophils/100 WBC (Bld) 0.3 % Normal [facility] Comment on above: Performed By: #### A CETM, PTT, PT, CMP, LIPA, CBCDIF #### [facility] [address] [place] [address] DTYPE Auto Diff Normal [facility] Comment on above: Performed By: #### A CETM, PTT, PT, CMP, LIPA, CBCDIF #### [facility] [address] [place] [address] Eosinophils (Bld) [#/Vol] 0.05 10*3/uL Normal <0.46 [facility] Comment on above: Performed By: #### A CETM, PTT, PT, CMP, LIPA, CBCDIF #### [facility] [address] [address] Eosinophils/100 WBC (Bld) 0.4 % Normal [facility] Comment on above: Performed By: #### A CETM, PTT, PT, CMP, LIPA, CBCDIF #### [facility] [address] [place] [address] Erythrocyte distribution width (RBC) [Ratio] 16.4 % High 11.5-15.0 [facility] Comment on above: Performed By: #### A CETM, PTT, PT, CMP, LIPA, CBCDIF #### [facility] [address] [place] [address] Hematocrit (Bld) [Volume fraction] 39.7 % Normal 36.0-46.0 [facility] Comment on above: Performed By: #### A CETM, PTT, PT, CMP, LIPA, CBCDIF #### [facility] [address] [place] [address] Hemoglobin (Bld) [Mass/Vol] 12.9 g/dL Normal 11.5-15.5 [facility] Comment on above: Performed By: #### A CETM, PTT, PT, CMP, LIPA, CBCDIF #### [facility] [address] [place], [place] [address] Lymphocytes (Bld) [#/Vol] 2.53 10*3/uL Normal 1.00-4.00 [facility] Comment on above: Performed By: #### A CETM, PTT, PT, CMP, LIPA, CBCDIF #### [facility] [address] [place], [place] [id number] Lymphocytes/100 WBC (Bld) 22.2 % Normal [facility] Comment on above: Performed By: #### A CETM, PTT, PT, CMP, LIPA, CBCDIF #### [facility] [address] [place] [address] MCH (RBC) [Entitic mass] 27.4 pG Normal 26.0-34.0 [facility] Comment on above: Performed By: #### A CETM, PTT, PT, CMP, LIPA, CBCDIF #### [facility] [address] [address] MCHC (RBC) [Mass/Vol] 32.5 g/dL Normal 30.5-36.0 [facility] Comment on above: Performed By: #### A CETM, PTT, PT, CMP, LIPA, CBCDIF #### [facility] [address] [address] MCV (RBC) [Entitic vol] 84.3 fL Normal 80.0-100.0 [facility] Comment on above: Performed By: #### A CETM, PTT, PT, CMP, LIPA, CBCDIF #### [facility] [address] [place] [address] Monocytes/100 WBC (Bld) 8.7 % Normal [facility] Comment on above: Performed By: #### A CETM, PTT, PT, CMP, LIPA, CBCDIF #### [facility] [address] [place] [address] Neutrophils/100 WBC (Bld) 68.4 % Normal [facility] Comment on above: Performed By: #### A CETM, PTT, PT, CMP, LIPA, CBCDIF #### [facility] [address] [place] [address] NRBCs 0.0 /100 WBC Normal 0 [facility] Comment on above: Performed By: #### A CETM, PTT, PT, CMP, LIPA, CBCDIF #### [facility] [address] [address] Platelet mean volume (Bld) [Entitic vol] 9.0 fL Normal 9.0-12.7 [facility] Comment on above: Performed By: #### A CETM, PTT, PT, CMP, LIPA, CBCDIF #### [facility] [address] [place] [address] Platelets (Bld) [#/Vol] 326 10*3/uL Normal 150-400 [facility] Comment on above: Performed By: #### A CETM, PTT, PT, CMP, LIPA, CBCDIF #### [facility] [address] [facility] [phone] RBC (Bld) [#/Vol] 4.71 10*6/uL Normal 3.90-5.20 [facility] Comment on above: Performed By: #### A CETM, PTT, PT, CMP, LIPA, CBCDIF #### [facility] [address] [facility] [phone] WBC (Bld) [#/Vol] 11.42 10*3/uL High 3.70-11.00 [facility] Comment on above: Performed By: #### A CETM, PTT, PT, CMP, LIPA, CBCDIF #### [facility] [address] [facility] [phone] Comp Metab 2000 Pnl SerPlon 05-26-2020 Albumin [Mass/Vol] 4.7 g/dL High 3.2-4.5 [facility] Comment on above: Order Comment: Speci men Type: BLOOD SPECIMEN Result Comment: Refe rence ranges for this patient's age group have not been established. These reference ranges reflect verified or established ranges for the adult population. Interpret these ranges with caution using the clinical context and additional reference resources. Performed By: #### 2 4323-8, 3040-3 #### [facility] CLIA [id number] [address] [place] [address] [place] ALP [Catalytic activity/Vol] 196 U/L High 45-87 [facility] Comment on above: Order Comment: Speci men Type: BLOOD SPECIMEN Result Comment: Refe rence ranges were not locally established for this patient's age group. The normal values are based on the following source: Rosa MP, Tita AH, et al. CLSI based transference of the CALIPER database of pediatric reference intervals from [place] to [place], Ortho, Romel, and Siemens Clinical Chemistry Assays: Direct validation using reference samples from the CALIPER cohort. Clin Biochem. Performed By: #### 2 4323-8, 3040-3 #### [facility] CLIA [id number] [address] [place] [address] [place] ALT With P-5'-P [Catalytic activity/Vol] 632 U/L High 7-38 [facility] Comment on above: Order Comment: Speci men Type: BLOOD SPECIMEN Result Comment: Refe rence ranges for this patient's age group have not been established. These reference ranges reflect verified or established ranges for the adult population. Interpret these ranges with caution using the clinical context and additional reference resources. Performed By: #### 2 4323-8, 3040-3 #### [facility] CLIA [id number] [address] [place] [address] [place] [facility] Anion gap [Moles/Vol] 11 mmol/L Normal 9-18 [facility] Comment on above: Order Comment: Speci men Type: BLOOD SPECIMEN Result Comment: Refe rence ranges for this patient's age group have not been established. These reference ranges reflect verified or established ranges for the adult population. Interpret these ranges with caution using the clinical context and additional reference resources. Performed By: #### 2 4323-8, 3039-3 #### [facility] CLIA [id number] [address] [place] [address] [place] [facility] AST With P-5'-P [Catalytic activity/Vol] 93 U/L High 13-35 [facility] Comment on above: Order Comment: Speci men Type: BLOOD SPECIMEN Result Comment: Refe rence ranges for this patient's age group have not been established. These reference ranges reflect verified or established ranges for the adult population. Interpret these ranges with caution using the clinical context and additional reference resources. Performed By: #### 2 4323-8, 0-3 #### [facility] [place] [facility] CLIA [id number] [address] [place] [address] [place] Bilirubin [Mass/Vol] 3.2 mg/dL High 0.2-1.3 [facility] Comment on above: Order Comment: Speci men Type: BLOOD SPECIMEN Result Comment: Refe rence ranges for this patient's age group have not been established. These reference ranges reflect verified or established ranges for the adult population. Interpret these ranges with caution using the clinical context and additional reference resources. Performed By: #### 2 4323-8, 0-3 #### [facility] CLIA [id number] [address] [place] [address] [place] Calcium [Mass/Vol] 9.7 mg/dL Normal 8.4-10.2 [facility] Comment on above: Order Comment: Speci men Type: BLOOD SPECIMEN Performed By: #### 2 4323-8, 3040-3 #### [facility] CLIA [id number] [address] [place] [address] [place] Chloride [Moles/Vol] 104 mmol/L Normal 97-105 [facility] Comment on above: Order Comment: Speci men Type: BLOOD SPECIMEN Result Comment: Refe rence ranges for this patient's age group have not been established. These reference ranges reflect verified or established ranges for the adult population. Interpret these ranges with caution using the clinical context and additional reference resources. Performed By: #### 2 4323-8, 0-3 #### [facility] CLIA [id number] [address] [place] [address] [place] CO2 [Moles/Vol] 23 mmol/L Normal 22-30 [facility] Comment on above: Order Comment: Speci men Type: BLOOD SPECIMEN Result Comment: Refe rence ranges for this patient's age group have not been established. These reference ranges reflect verified or established ranges for the adult population. Interpret these ranges with caution using the clinical context and additional reference resources. Performed By: #### 2 4323-8, 0-3 #### [facility] CLIA [id number] [address] [place] [address] [place] Creatinine [Mass/Vol] 0.67 mg/dL Normal 0.58-0.96 [facility] Comment on above: Order Comment: Speci men Type: BLOOD SPECIMEN Result Comment: Refe rence ranges for this patient's age group have not been established. These reference ranges reflect verified or established ranges for the adult population. Interpret these ranges with caution using the clinical context and additional reference resources. Performed By: #### 2 4323-8, 3040-3 #### [facility] CLIA [id number] [address] [place] [address] [place] GFR/1.73 sq M predicted among non-blacks MDRD (S/P/Bld) [Vol rate/Area] 0.62 mL/min/{1.73_m2} Normal [facility] Comment on above: Order Comment: Ronni alfaro Type: BLOOD SPECIMEN Result Comment: GFR (Estimated GFR) Units of measure: mL/min/1.73 meters squared eGFR in pediatric patients is derived from the 4 variable Grove equation for glomerular filtration rate (GFR) based on a stable serum creatinine, gender, age, and height. The creatinine assay has been calibrated to be traceable to IDMS. TO CALCULATE THE PATIENT'S ESTIMATED GFR: Multiply the GFR Pediatric Factor by the patient's height (centimeters). An eGFR <60 mL/min/1.73m2 for >3 months is consistent with chronic kidney disease. Refer to KDOQI guidelines for clinical interpretation. Performed By: #### 2 4323-8, 3040-3 #### [facility] CLIA [id number] [address] [place] [address] [place] Glucose [Mass/Vol] 99 mg/dL Normal 74-99 [facility] Comment on above: Order Comment: Ronni alfaro Type: BLOOD SPECIMEN Result Comment: The [place] Diabetes Association (ADA) provides guidance for cutoff values for fasting glucose and random glucose. The ADA defines fasting as no caloric intake for at least 8 hours. Fasting plasma glucose results between 100 to 125 mg/dL indicate increased risk for diabetes (prediabetes). Fasting plasma glucose results greater than or equal to 126 mg/dL meet the criteria for diagnosis of diabetes. In the absence of unequivocal hyperglycemia, results should be confirmed by repeat testing. In a patient with classic symptoms of hyperglycemia or hyperglycemic crisis, random plasma glucose results greater than or equal to 200 mg/dL meet the criteria for diagnosis of diabetes. Reference: Standards of Medical Care in Diabetes 2016, [place] Diabetes Association. Diabetes Care. 2016.39(Suppl 1). Reference ranges for this patient's age group have not been established. These reference ranges reflect verified or established ranges for the adult population. Interpret these ranges with caution using the clinical context and additional reference resources. Performed By: #### 2 4323-8, 3040-3 #### [facility] CLIA [id number] [address] [place] [address] [place] Potassium [Moles/Vol] 3.9 mmol/L Normal 3.7-5.1 [facility] Comment on above: Order Comment: Speci men Type: BLOOD SPECIMEN Result Comment: Refe rence ranges for this patient's age group have not been established. These reference ranges reflect verified or established ranges for the adult population. Interpret these ranges with caution using the clinical context and additional reference resources. Performed By: #### 2 4323-8, 3040-3 #### [facility] CLIA [id number] [address] [place] [address] [place] Protein [Mass/Vol] 7.4 g/dL Normal 6.4-8.3 [facility] Comment on above: Order Comment: Speci men Type: BLOOD SPECIMEN Result Comment: Note that results are flagged as abnormal based on ADULT reference ranges, rather than age-specific ranges for the pediatric population. Lab-specific normal ranges have not been determined for this patient's age group. Published reference range data, shown in the table below, may contribute to proper clinical interpretation. Age Reference Range Units 0-12 months 4.9-7.3 g/dL 1-5 years 6.2-8.0 g/dL 6-10 years 6.6-8.6 g/dL 11-14 years 6.4-8.5 g/dL 15-17 years 6.4-8.3 g/dL Reference: Jim BARAKAT, [place] I, Jun M, et al. [facility] Initiative on Reference Interval Database(CALIPER): pediatric reference intervals for an integrated clinical chemistry and immunoassay analyzer, [place] AQUARIUM TANK ATTENDANT [id number]. Clin Biochem 2009;42:885-891. Performed By: #### 2 4323-8, 0-3 #### [facility] CLIA [id number] [address] [place] [address] [place] Sodium [Moles/Vol] 138 mmol/L Normal 136-144 [facility] Comment on above: Order Comment: Speci men Type: BLOOD SPECIMEN Result Comment: Refe rence ranges for this patient's age group have not been established. These reference ranges reflect verified or established ranges for the adult population. Interpret these ranges with caution using the clinical context and additional reference resources. Performed By: #### 2 4323-8, 3040-3 #### [facility] CLIA [id number] [address] [place] [address] [facility] Urea nitrogen [Mass/Vol] 5 mg/dL Normal 5-18 [facility] Comment on above: Order Comment: Speci men Type: BLOOD SPECIMEN Performed By: #### 2 4323-8, 3040-3 #### [facility] CLIA [id number] [address] [place] [address] [facility] Comp Metabolic Panelon 05-26 Albumin [Mass/Vol] 4.9 g/dL High 3.2-4.5 [facility] Comment on above: Result Comment: Refe rence ranges were not locally established for this patient's age group. The normal values are based on the following source: Albumin (Gen. 2) (package insert v 10.0 Latvian). [facility], [place], [place], August 2014. Performed By: #### A CETM, PTT, PT, CMP, LIPA, CBCDIF #### [facility] [address] [place] [address] ALP [Catalytic activity/Vol] 194 U/L High 45-87 [facility] Comment on above: Result Comment: Refe rence ranges were not locally established for this patient's age group. The normal values are based on the following source: Rosa MP, Tita AH, et al. CLSI based transference of the CALIPER database of pediatric reference intervals from [place] to [place], [facility], [facility], and [employer] Clinical Chemistry Assays: Direct validation using reference samples from the CALIPER cohort. Clin Biochem. Performed By: #### A CETM, PTT, PT, CMP, LIPA, CBCDIF #### [facility] [address] [facility] [phone] ALT [Catalytic activity/Vol] 626 U/L High 7-38 [facility] Comment on above: Performed By: #### A CETM, PTT, PT, CMP, LIPA, CBCDIF #### [facility] [address] [facility] [phone] Anion gap [Moles/Vol] 14 mmol/L Normal 9-18 [facility] Comment on above: Performed By: #### A CETM, PTT, PT, CMP, LIPA, CBCDIF #### [facility] [address] [facility] [phone] AST [Catalytic activity/Vol] 92 U/L High 13-35 [facility] Comment on above: Performed By: #### A CETM, PTT, PT, CMP, LIPA, CBCDIF #### [facility] [address] [facility] [phone] Bilirubin [Mass/Vol] 3.7 mg/dL High 0.2-1.3 [facility] Comment on above: Result Comment: (NOT E) Reference ranges for this patient's age group have not been established. These reference ranges reflect verified or established ranges for the adult population. Interpret these ranges with caution using the clinical context and additional reference resources. Performed By: #### A CETM, PTT, PT, CMP, LIPA, CBCDIF #### [facility] [address] [facility] [phone] Calcium [Mass/Vol] 9.8 mg/dL Normal 8.4-10.2 [facility] Comment on above: Result Comment: Refe rence ranges were not locally established for this patient's age group. The normal values are based on the following source: Calcium (Gen. 2) (package insert v3.0 [place]ian). [facility], [place], [place], March 2013. Performed By: #### A CETM, PTT, PT, CMP, LIPA, CBCDIF #### [facility] [address] [facility] [phone] Chloride [Moles/Vol] 103 mmol/L Normal 97-105 [facility] Comment on above: Performed By: #### A CETM, PTT, PT, CMP, LIPA, CBCDIF #### [facility] [address] [facility] [phone] CO2 [Moles/Vol] 23 mmol/L Normal 22-30 [facility] Comment on above: Performed By: #### A CETM, PTT, PT, CMP, LIPA, CBCDIF #### [facility] [address] [facility] [phone] Creatinine [Mass/Vol] 0.69 mg/dL Normal 0.58-0.96 [facility] Comment on above: Performed By: #### A CETM, PTT, PT, CMP, LIPA, CBCDIF #### [facility] [address] [facility] [phone] Glucose [Mass/Vol] 95 mg/dL Normal 74-99 [facility] Comment on above: Result Comment: Refe rence ranges for this patient's age group have not been established. These reference ranges reflect verified or established ranges for the adult population. Interpret these ranges with caution using the clinical context and additional reference resources. The [place] Diabetes Association (ADA) provides guidance for cutoff values for fasting glucose and random glucose. The ADA defines fasting as no caloric intake for at least 8 hours. Fasting plasma glucose results between 100 to 125 mg/dL indicate increased risk for diabetes (prediabetes). Fasting plasma glucose results greater than or equal to 126 mg/dL meet the criteria for diagnosis of diabetes. In the absence of unequivocal hyperglycemia, results should be confirmed by repeat testing. In a patient with classic symptoms of hyperglycemia or hyperglycemic crisis, random plasma glucose results greater than or equal to 200 mg/dL meet the criteria for diagnosis of diabetes. Reference: Standards of Medical Care in Diabetes 2016, [place] Diabetes Association. Diabetes Care. 2016.39(Suppl 1). Performed By: #### A CETM, PTT, PT, CMP, LIPA, CBCDIF #### [facility] [address] [facility] [phone] Potassium [Moles/Vol] 3.8 mmol/L Normal 3.7-5.1 [facility] Comment on above: Performed By: #### A CETM, PTT, PT, CMP, LIPA, CBCDIF #### [facility] [address] [facility] [phone] Protein [Mass/Vol] 7.7 g/dL Normal 6.3-8.0 [facility] Comment on above: Result Comment: Refe rence ranges for this patient's age group have not been established. These reference ranges reflect verified or established ranges for the adult population. Interpret these ranges with caution using the clinical context and additional reference resources. Performed By: #### A CETM, PTT, PT, CMP, LIPA, CBCDIF #### [facility] [address] [facility] [phone] Sodium [Moles/Vol] 140 mmol/L Normal 136-144 [facility] Comment on above: Performed By: #### A CETM, PTT, PT, CMP, LIPA, CBCDIF #### [facility] [address] [facility] [phone] Urea nitrogen [Mass/Vol] 5 mg/dL Normal 5-18 [facility] Comment on above: Result Comment: Refe rence ranges were not locally established for this patient's age group. The normal values are based on the following source: Urea/BUN (package insert v7.0 Latvian). [facility], [place], [place], May 2015. Performed By: #### A CETM, PTT, PT, CMP, LIPA, CBCDIF #### [facility] [address] [facility] [phone] ED NOTEon 05-26-2020 ED NOTE HNO ID: [id number] Author: Jovan EwingRn) DAWOOD Acuna Service: Nursing Author Type: Registered Nurse Type: ED Notes Filed: 05/27/2020 1:21 AM Note Text: Report called to DAWOOD Tapia at [facility] at this time. Discussed patients pain with Dr. Almeida. Patient to be medicated for pain with morphine and for nausea with zofran IV prior to discharge. [facility] ED NOTE HNO ID: [id number] Author: Tiera EwingRn) DAWOOD Izquierdo Service: ? Author Type: Registered Nurse Type: ED Notes Filed: 05/26/2020 6:29 PM Note Text: Ultrasound at bedside [facility] ED NOTE HNO ID: [id number] Author: Maritza EwingRn) Ayden RN Service: Nursing Author Type: Registered Nurse Type: ED Notes Filed: 05/26/2020 6:23 PM Note Text: Changed into gown. [facility] ED NOTE HNO ID: [id number] Author: Maritza EwingRn) Ayden RN Service: Nursing Author Type: Registered Nurse Type: ED Notes Filed: 05/26/2020 6:18 PM Note Text: JAMES Licona at . [facility] ED NOTE HNO ID: [id number] Author: Maritza EwingRn) DAWOOD Hensley Service: Nursing Author Type: Registered Nurse Type: ED Notes Filed: 05/26/2020 6:05 PM Note Text: Patient was seen at [place] today for worsening RUQ pain. Needing to be ruled out for gallbladder. Ultrasound is needed. Pain is controlled at 3/10 since she rec'd dilaudid at [place]. [facility] ED PROV NOTEon 05-26-2020 ED PROV NOTE HNO ID: [id number] Author: Prema Almeida MD Service: ? Author Type: Physician Type: ED Provider Notes Filed: 05/26/2020 11:31 PM Note Text: ED Provider Note Patient Name: Sugey Helm SERVICE DATE: 05/26/20 History Patient presents with: Abdominal Pain: ruq pain, seen at [place], needs ultrasound 19 year old female, with a history of HTN, presents with RUQ abdominal pain and back pain. States for the last 3 weeks she has been having RUQ abd pain, back pain. associated nausea and vomiting. It is worsened with eating. Without diarrhea. Without bloody emesis. Denies fever or chills. No history of abdominal problems or surgeries. She had vaginal delivery 3 months ago without complication. History provided by: Patient and relative PAST MEDICAL HISTORY Diagnosis Date - Hypertension PAST SURGICAL HISTORY Procedure Laterality Date - DENTAL SURGERY HX around 4-5 years of age - TONSILLECTOMY HX FAMILY HISTORY Problem Relation Age of Onset - None No Family History no mental retardation or defects Social History Tobacco Use - Smoking status: Current Every Day Smoker Packs/day: 0.50 - Smokeless tobacco: Never Used Substance and Sexual Activity - Alcohol use: Not Currently - Drug use: Not Currently - Sexual activity: Yes Partners: Male control/protection: Injection ALLERGIES Allergen Reactions - Ibuprofen Hives, Swelling, Anaphylaxis - Penicillins Diarrhea - Tramadol Mental Status Change Review of Systems Constitutional: Negative for chills and fever. HENT: Negative. Eyes: Negative for photophobia and visual disturbance. Respiratory: Negative for cough and shortness of breath. Cardiovascular: Negative for chest pain. Gastrointestinal: Positive for abdominal pain, nausea and vomiting. Negative for constipation and diarrhea. Genitourinary: Negative for difficulty urinating and dysuria. Musculoskeletal: Positive for back pain. Skin: Negative for rash and wound. Neurological: Negative for dizziness, weakness, light-headedness, numbness and headaches. Hematological: Negative. Psychiatric/Behavioral : Negative. Physical Exam BP 128/77 Pulse 89 Temp (Src) 98.3 (Oral) Resp 16 Wt 179 lb (81.2kg) SpO2 100% LMP 05/17/2020 O2 Therapy: Room Air Physical Exam Vitals and nursing note reviewed. Constitutional: General: She is not in acute distress. Appearance: Normal appearance. She is not ill-appearing or toxic-appearing. Comments: Pleasant female in NAD HENT: Head: Normocephalic and atraumatic. Nose: Nose normal. Mouth/Throat: Mouth: Mucous membranes are moist. Pharynx: Oropharynx is clear. Eyes: General: Scleral icterus present. Extraocular Movements: Extraocular movements intact. Cardiovascular: Rate and Rhythm: Normal rate and regular rhythm. Pulmonary: Effort: Pulmonary effort is normal. No respiratory distress. Breath sounds: Normal breath sounds. No wheezing. Abdominal: Palpations: Abdomen is soft. Tenderness: There is abdominal tenderness (RUQ). There is guarding. Musculoskeletal: General: Normal range of motion. Cervical back: Normal range of motion and neck supple. Skin: General: Skin is warm. Neurological: General: No focal deficit present. Mental Status: She is alert and oriented to person, place, and time. Cranial Nerves: No cranial nerve deficit. Psychiatric: Mood and Affect: Mood normal. Diagnostic Testing ED Labs Ordered and Reviewed ACETAMINOPHEN/TYLENO - Abnormal; Notable for the following components: Result Value Ref Range Acetaminophen <5 (*) 10 - 30 ug/mL All other components within normal limits CBC + DIFF - Abnormal; Notable for the following components: WBC 11.42 (*) 3.70 - 11.00 k/uL RDW-CV 16.4 (*) 11.5 - 15.0 % Abs Neut (ANC) 7.82 (*) 1.45 - 7.50 k/uL Abs [place]air 0.99 (*) <0.87 k/uL All other components within normal limits COMP METABOLIC PANEL - Abnormal; Notable for the following components: Albumin 4.9 (*) 3.2 - 4.5 g/dL Bilirubin, Total 3.7 (*) 0.2 - 1.3 mg/dL Alkaline Phosphatase 194 (*) 45 - 87 U/L AST 92 (*) 13 - 35 U/L ALT 626 (*) 7 - 38 U/L All other components within normal limits PROTHROMBIN TIME/PT ACTIVATED PTT LIPASE BLD US ABD RT UPPER QUADRANT Final Result IMPRESSION: Cholelithiasis with mildly distended gallbladder. Dilated common bile duct, measures 10 mm. MRCP is recommended to rule out distal common bile duct stones. Cloth Grader: NADIYA Transcribe Date/Time: May 26 2020 7:02P Dictated by : VENKATA ASHRAF DO This examination was interpreted and the report reviewed and electronically signed by: JENNY SMITH MD on May 26 2020 7:10PM EST Procedures ED Course / Clinical Impression Clinical Impressions as of May 26 1929 Elevated LFTs RUQ abdominal pain Scleral icterus MDM / Disposition / Plan Patient presents to the ED with RUQ abdominal pain and elevated LFTs noted at [facility]. On exam, she appears to not feel well. Abdomen tender to RUQ. Noted to have scleral icterus. VS stable. White count of 11, elevated LFTs diffusely. US is concerning for cholelithiasis with distended gallbladder and CBD of 1.0 cm. Radiologist recommending MRCP for CBD stone. She will be transferred to [facility] (family choice). I spoke with Dr. Lanier at [facility] ED who will accept patient and decide where to go from there, Gen Surg vs GI. She is stable at this time and updated on plan. She is wanting to smoke, I explained she cannot. Offered nicotine patch which she declines. The patient was TRANSFERRED to: [facility] Condition at time of disposition: stable SIGNATURE: DARLENE Cole (Pa) 05/26/202040 Attending Note I have personally performed a face to face assessment of the patient and have reviewed the PA/[employer]IA FOOD SERVER note. My wood findings include: History is patient is a 19-year-old female coming in with right upper quadrant abdominal pain. Patient had a vaginal delivery 3 months ago. She states she has had pain on and off since. She has some nausea and vomiting and the pain she does feel is worse after eating. She was seen in [facility] emergency department found to have elevated LFTs recommend to come here for ultrasound. Patient states she does take Tylenol for pain usually 2 at a time occasionally does take it at 4 5 hours but then there is days where she does not take any Tylenol. Exam is patient is sitting in the bed moderately uncomfortable. Right upper quadrant tenderness no rebounding or guarding Assessment/Plan are patient had basic labs white blood cell count was 11 bilirubin is elevated 3.7 AST is 92 ALT 626 and alk phos is 194. Ultrasound of the right upper quadrant was obtained showing cholelithiasis with mildly distended gallbladder and dilated common bile duct measures 10 mm. MRCP is recommended to rule out distal common bile duct stone. Since the patient is 19 family is requesting transfer to [facility] with [facility] for transfer. Other additions or changes: None Signature: Prema Almeida MD Date: 05/26/2020 Time: 11:29 PM Prema Almeida MD 05/26/20 8851 Normal [facility] HCG Preg Ur Qlon 05-26-2020 HCG ( test) Ql (U) Negative Normal Negative [facility] Comment on above: Order Comment: Speci men Type: URINE SPECIMEN Result Comment: This test is intended to aid in the early detection of . Very dilute urine samples, as indicated by a low specific gravity, may not contain advertising representative levels of hCG. This test detects intact hCG only. This test does not reliably detect hCG degradation products, including free-beta subunit and beta-core fragment. Therefore, this test may show reduced reactivity in urine after 8 weeks gestation. A number of conditions other than , including trophoblastic disease and certain non-trophoblastic neoplasms cause elevated levels of hCG. As with any assay employing mouse antibodies, the possibility exists for interference by human anti-mouse antibodies (HAMA) in the specimen. The test provides a presumptive diagnosis for . Performed By: #### 2 106-3 #### [facility] CLIA [id number] [address] [place] [address] [place] Lipaseon 05-26-2020 Lipase [Catalytic activity/Vol] 32 U/L Normal [facility] Comment on above: Performed By: #### A CETM, PTT, PT, CMP, LIPA, CBCDIF #### [facility] [address] [facility] [phone] Lipase SerPl-cCncon 05-26-20 20 Lipase [Catalytic activity/Vol] 24 U/L Normal [facility] Comment on above: Order Comment: Speci men Type: BLOOD SPECIMEN Result Comment: Refe rence ranges for this patient's age group have not been established. These reference ranges reflect verified or established ranges for the adult population. Interpret these ranges with caution using the clinical context and additional reference resources. Performed By: #### 2 4323-8, 3040-3 #### [facility] CLIA [id number] [address] [place] [address] [facility] Protimeon 05-26-2020 PT Coag (PPP) [Time] 10.9 s Normal 9.7-13.0 [facility] Comment on above: Performed By: #### A CETM, PTT, PT, CMP, LIPA, CBCDIF #### [facility] [address] [place] [address] PT Coag (PPP) [Time] 1.0 s Normal 0.9-1.3 [facility] Comment on above: Result Comment: Juli min K Antagonist (VKA) Therapeutic Range: INR 2 to 3 (Target INR of 2.5) Note: For patients treated with VKA drugs, such as warfarin, the [place] [employer] 2012 Guideline recommends a therapeutic INR range of 2 to 3 (target INR of 2.5). This recommendation includes high-risk patients with antiphospholipid syndrome with previous arterial or venous thromboembolism, current-generation mechanical or bioprosthetic aortic heart valve replacement. Note: Patients with mechanical aortic valve replacement and additional risk factors for thromboembolic events (atrial fibrillation, previous thromboembolism, LV dysfunction, hypercoagulable conditions) or an older generation mechanical AVR (i.e., ball in-Cage) or any mechanical MVR should have a INR therapeutic range of 2.5 to 3.5 (target INR of 3). Prudence GH, et al. Chest 2012, 141:7S-47S Guido RA, et al. JAC 2017, 70: 252-289 Performed By: #### A CETM, PTT, PT, CMP, LIPA, CBCDIF #### [facility] [address] [facility] [phone] SARS-CoV-2 RNA Resp Ql DEANNA+p robeon 05-26-2020 SARS-CoV-2 RNA Resp Ql DEANNA+probe COVID 19 RESULT: SARS-CoV-2 (Agent of COVID-19) Not Detected by PCR. candice SARS-CoV-2 AND Influenza A/B Nucleic Acid Test for use on the candice Eufemia System*_[employer]EUA This test has been authorized by the FDA under an Emergency Use Authorization (EUA). Normal [facility] Comment on above: Performed By: #### 9 4500-6 ####[facility] [place] LABCLIA [id number] [place] [address] [place] US ABD RIGHT UPPER QUADRANTo n 05-26-2020 US ABD RIGHT UPPER QUADRANT * * *Final Report* * * DATE OF EXAM: May 26 2020 6:59PM HAILE 1032 - US ABD RIGHT UPPER QUADRANT / PROCEDURE REASON: RUQ abdominal pain * * * * Physician Interpretation * * * * EXAMINATION: RIGHT UPPER QUADRANT ULTRASOUND CLINICAL HISTORY: Right upper quadrant pain TECHNIQUE: Sonography of the right upper quadrant was performed. Images were obtained and stored in a permanent archive. MQ: URUQ_2 COMPARISON: None. RESULT: Pancreas: Normal sonographic appearance. Portions obscured: tail Liver: Echotexture: Normal, homogeneous. Echogenicity: Normal Surface contour: Smooth Lesions: None. Biliary: No intrahepatic biliary duct dilation. CBD: 1.0 cm at the hilum and 0.7 cm distally. No stones are identified. Gallbladder: Appears distended measuring 14 x 3 x 3.1 cm -Contents: Cholelithiasis -Wall: Gallbladder wall thickening present -Other: No pericholecystic fluid. Right Kidney: No hydronephrosis. Ascites: None. IMPRESSION: Cholelithiasis with mildly distended gallbladder. Dilated common bile duct, measures 10 mm. MRCP is recommended to rule out distal common bile duct stones. Cloth Grader: PSCB Transcribe Date/Time: May 26 2020 7:02P Dictated by : VENKATA ASHRAF DO This examination was interpreted and the report reviewed and electronically signed by: JENNY SMITH MD on May 26 2020 7:10PM EST [id number] Normal [facility] Urinalysis complete pnl Uron 05-26-2020 Bilirubin Ql (U) 3+ Abnormal Negative [facility] Comment on above: Order Comment: Speci men Type: URINE SPECIMEN Result Comment: Sugg est correlation with clinical findings and serum bilirubin if clinically indicated. Performed By: #### 2 4356-8 ####[facility] [place] LABCLIA [id number] [place] [address] [facility] Clarity (Unsp spec) Slightly Cloudy Abnormal Clear [facility] Comment on above: Order Comment: Speci men Type: URINE SPECIMEN Performed By: #### 2 4356-8 ####[facility] [place] LABCLIA [id number] [place] [address] [facility] Color (U) Yellow Normal Yellow [facility] Comment on above: Order Comment: Speci men Type: URINE SPECIMEN Result Comment: Dark Performed By: #### 2 4356-8 ####[facility] [place] [facility]CLIA [id number] [place] [address] [facility] Epithelial cells LM.HPF (Urine sed) [#/Area] Few Normal [facility] Comment on above: Order Comment: Speci men Type: URINE SPECIMEN Performed By: #### 2 4356-8 ####[facility] [place] LABCLIA [id number] [place] [address] [facility] Glucose Test strip (U) [Mass/Vol] Negative Normal Negative [facility] Comment on above: Order Comment: Speci men Type: URINE SPECIMEN Performed By: #### 2 4356-8 ####[facility] [place] [facility]CLIA [id number] [place] [address] [place] Hemoglobin Ql (U) Negative Normal Negative [facility] Comment on above: Order Comment: Speci men Type: URINE SPECIMEN Performed By: #### 2 4356-8 ####[facility] [place] LABCLIA [id number] [place] [address] [facility] Ketones Ql (U) Trace Abnormal Negative [facility] Comment on above: Order Comment: Speci men Type: URINE SPECIMEN Performed By: #### 2 4356-8 ####[facility] [place] [facility]CLIA [id number] [place] [address] [place] Leukocyte esterase Test strip Ql (U) Negative Normal Negative [facility] Comment on above: Order Comment: Speci men Type: URINE SPECIMEN Performed By: #### 2 4356-8 ####[facility] [place] LABCLIA [id number] [place] [address] [facility] Nitrite Ql (U) Negative Normal Negative [facility] Comment on above: Order Comment: Speci men Type: URINE SPECIMEN Performed By: #### 2 4356-8 ####[facility] [place] LABCLIA [id number] [place] [address] [place] [facility] pH (U) 7.0 [pH] Normal 5.0-8.0 [facility] Comment on above: Order Comment: Speci men Type: URINE SPECIMEN Performed By: #### 2 4356-8 ####[facility] [place] LABCLIA [id number] [place] [address] [place] Protein (U) [Mass/Vol] Negative Normal Negative [facility] Comment on above: Order Comment: Speci men Type: URINE SPECIMEN Performed By: #### 2 4356-8 ####[facility] [place] [facility]CLIA [id number] [place] [address] [place] RBC LM.HPF (Urine sed) [#/Area] 0-3 /HPF Normal 0-3 /HPF [facility] Comment on above: Order Comment: Speci men Type: URINE SPECIMEN Performed By: #### 2 4356-8 ####[facility] [place] LABCLIA [id number] [place] [address] [place] Specific gravity (U) [Rel density] 1.015 Normal 1.005-1.030 [facility] Comment on above: Order Comment: Speci men Type: URINE SPECIMEN Performed By: #### 2 4356-8 ####[facility] [place] LABCLIA [id number] [place] [address] [facility] Urobilinogen Test strip Ql (U) 0.2 EU/dL Normal 0.2-1.0 EU/dL [facility] Comment on above: Order Comment: Speci men Type: URINE SPECIMEN Performed By: #### 2 4356-8 ####[facility] [place] LABCLIA [id number] [place] [address] [facility] WBC LM.HPF (Urine sed) [#/Area] 0-5 /HPF Normal 0-5 /HPF [facility] Comment on above: Order Comment: Speci men Type: URINE SPECIMEN Performed By: #### 2 4356-8 ####[facility] [place] LABCLIA [id number] [place] [address] [facility] PROGRESSon 03-10-2020 PROGRESS HNO ID: [id number] Author: [facility]) [place] Ángel Tang Service: Obstetrics Author Type: Operations Recruiter Type: Progress Notes Filed: 03/10/2020 9:21 AM Note Text: OBSTETRICS PROGRESS NOTE SERVICE DATE: March 10, 2020 SERVICE TIME: 919 ASSESSMENT: 19 year old female who is Day #2 status post Vaginal, Spontaneous delivery with male . Doing well. Discharge home today. All questions addressed and answered. Will continue with home BP monitoring PLAN: Routine care. Encourage patient to use pain meds. . Control: Depoprovera Discharge today. Discharge instructions given to patient regarding pelvic rest, bathing, stairs, walking, lifting, driving, and follow-up. Patient expresses understanding. Plan of care discussed with: Provider, Patient and Family/Significant Other: fob. From resident note PPBC: declines ? Tobacco use disorder - smokes between 1/2 PPD to 1 PPD - not experiencing sx of withdrawal - smoking cessation provided again and pt remains motivated to quit ? GHTN - diagnosed prior to admission - denies DUBON, visual changes, CP, SOB, RUQ pain - normotensive overnight ? Teen - pt 19, FOB 23 - reports partner is supportive and that she feels safe at home - SW reached out to [facility] and the current plan is that they will follow family at home after discharge SUBJECTIVE: Patient has no current complaints. Tolerating PO intake. Urinating without difficulty. Passing flatus. Pain well controlled with current regimen. Lochia decreasing. Ambulating without difficulty. OBJECTIVE: PHYSICAL EXAM: Heart: RR Lungs: clear to auscultation Breasts: Nipples intact Abdomen: Soft Bowel sounds present Non-distended Perineum: healing Extremities: No calf tenderness and No edema LAST VITALS: Pulse BP Resp O2 Sat Temp Pain 96 130/76 18 100 % 36.7 ?C (98.1 ?F) 1 Avg Min Max Vitals (last 12 hours) Flowsheet Row Name Average Min Max BP: Systolic 130 130 130 BP: Diastolic 76 76 76 Temp 36.7 ?C (98.1 ?F) 36.7 ?C (98.1 ?F) 36.7 ?C (98.1 ?F) Pulse 96 96 96 Resp 18 18 18 SpO2 100 % 100 % 100 % HT/WT/BMI: Height Weight BMI 162.6 cm (5' 4) 89.4 kg (197 lb) 33.81 LABS ABO/RH: 11/13/2019: AB POSTIVE 03/07/2020: AB; Positive RUBELLA: 11/13/2019: 21.60 Index Value 01/09/2020: Immune HANDH: Hematocrit (%) Date Value 03/07/2020 34.3 HGB (g/dL) Date Value 03/07/2020 11.3 Diagnostic tests reviewed for today's visit: Most recent labs SIGNATURE: Fatuma Dunbar APRN.CNM PATIENT NAME: Sugey Helm DATE: March 10, 2020 TIME: 9:17 AM Normal [facility] PROGRESS HNO ID: [id number] Author: Araceli Talbot Service: Obstetrics Author Type: Resident Type: Progress Notes Filed: 03/10/2020 6:38 AM Note Text: OBSTETRICS PROGRESS NOTE SERVICE DATE: March 10, 2020 SERVICE TIME: 6:37 AM ASSESSMENT: 19 year old female who is Day #2 status post Vaginal, Spontaneous delivery with male . PLAN: 1. Routine Care - baby boy, circ complete - patient now supplementing with formula and taking a break from pumpin/breast feeding due to breast discomfort, saw pt yesterday, pt states at home she might try to breast feed/pump, education provided - Rh +, Rhogam not indicated - PPBC: declines 2. Tobacco use disorder - smokes between 1/2 PPD to 1 PPD - not experiencing sx of withdrawal - smoking cessation provided again and pt remains motivated to quit 3. GHTN - diagnosed prior to admission - denies DUBON, visual changes, CP, SOB, RUQ pain - normotensive overnight 4. Teen - pt 19, FOB 23 - reports partner is supportive and that she feels safe at home - SW reached out to [facility] and the current plan is that they will follow family at home after discharge 5. Dispo: D/C per attending SUBJECTIVE: Patient has no current complaints. Tolerating PO intake. Urinating without difficulty. Passing flatus. Pain well controlled with current regimen. Lochia decreasing. Ambulating without difficulty. OBJECTIVE: PHYSICAL EXAM: Heart: RR, S1, S2 Lungs: clear to auscultation Abdomen: Soft Fundus firm below umbilicus Non-distended Extremities: Edema equal bilaterally LAST VITALS: Pulse BP Resp O2 Sat Temp Pain 96 130/76 18 100 % 36.7 ?C (98.1 ?F) 0 Avg Min Max Vitals (last 12 hours) Flowsheet Row Name Average Min Max BP: Systolic 130 130 130 BP: Diastolic 76 76 76 Temp 36.7 ?C (98.1 ?F) 36.7 ?C (98.1 ?F) 36.7 ?C (98.1 ?F) Pulse 96 96 96 Resp 18 18 18 SpO2 100 % 100 % 100 % HT/WT/BMI: Height Weight BMI 162.6 cm (5' 4) 89.4 kg (197 lb) 33.81 LABS ABO/RH: 11/13/2019: AB POSTIVE 03/07/2020: AB; Positive RUBELLA: 11/13/2019: 21.60 Index Value 01/09/2020: Immune HANDH: Hematocrit (%) Date Value 03/07/2020 34.3 HGB (g/dL) Date Value 03/07/2020 11.3 Diagnostic tests reviewed for today's visit: Most recent labs and imaging results. SIGNATURE: Araceli Talbot DO PATIENT NAME: Sugey Helm DATE: March 10, 2020 TIME: 4:59 AM Normal [facility] ANES INTRAOPon 03-09-2020 ANES INTRAOP HNO ID: [id number] Author: Herbert Pyle Crna) Matt Service: Anesthesiology Author Type: Nurse Veneer Manufacturer Type: Anesthesia IntraOp Filed: 03/09/2020 6:34 AM Note Text: Attestation signed by Steve Whitfield at 03/12/2020 10:11 AM This note reviewed. Concur with cessation of peripartum epidural analgesia. Findings noted. ANALGESIA PROGRESS RECORD CATHETER REMOVAL/END OF CASE SERVICE DATE: 03/09/2020 REMOVAL DATE AND TIME: see nursing note DELIVERY DATE AND TIME: 03/08/2020 at 12:45 PM CATHETER REMOVAL: Catheter Removal: Epidural catheter pulled intact, no apparent complications. SIGNATURE: Vincent Gutierrez APRN.CRNA PATIENT NAME: Sugey Helm DATE: March 09, 2020 TIME: 6:33 AM PAGER/CONTACT #: [facility] ANES Jabari 03-09-2020 ANES POST HNO ID: [id number] Author: Luz Elena Ramos (Aprn Crna) Service: Anesthesiology Author Type: Nurse Veneer Manufacturer Type: Anesthesia PostOp Filed: 03/09/2020 7:16 AM Note Text: POST ANESTHESIA EVALUATION NOTE SERVICE DATE: 03/09/2020 SERVICE TIME: 7:16 AM : 2002 Vitals: 03/07/20 2204 03/08/20 0903 03/08/20 1605 03/08/20 2325 Temp: 36.6 ?C (97.9 ?F) 36.8 ?C (98.2 ?F) 36.8 ?C (98.2 ?F) 36.9 ?C (98.4 ?F) 03/08/20 1502 03/08/20 1517 03/08/20 1605 03/08/20 232 BP: 121/58 118/62 105/64 113/62 03/08/20 1502 03/08/20 1517 03/08/20 1605 03/08/20 232 Pulse: 99 97 75 100 03/07/20 2204 03/07/20 2251 03/08/20 1605 03/08/20 232 Resp: 16 16 18 20 03/07/20 1805 03/08/20 0126 03/08/20 16003/08/20 232 SpO2: 99% 98% 96% 97% Validated Vital Signs: Yes POST ANES STATUS: No apparent anesthetic complications. The patient is appropriately hydrated with stable respiratory and cardiovascular status. Patient has safe and adequate airway control. The patient has appropriate pain relief and no significant post operative nausea or vomiting. The patient has achieved baseline mental status. Intra-Operative Events: No Significant Anesthesia Events Further assessment by Anesthesia Service: None Other Remarks: SIGNATURE: Luz Elena Ramos APRN.CRNA PATIENT NAME: Sugey Helm DATE: March 09, 2020 TIME: 7:16 AM PAGER/CONTACT #: [facility] CASE MANAGEMon 03-09-2020 CASE MANAGEM HNO ID: [id number] Author: VISHNU López (Lisw) Service: Social Work Author Type: Pigment Supplier Type: Care Mgt Progress Note Filed: 03/09/2020 2:07 PM Note Text: CARE MANAGEMENT PROGRESS NOTE SERVICE DATE: 03/09/2020 SERVICE TIME: 2:05 PM LOS: 2 days ... Followed up with [facility]'s [facility]. Plan is that [facility] will follow family at home.Notified of intended Discharge. SIGNATURE: VISHNU López PATIENT NAME: Sugey Helm DATE: March 09, 2020 TIME: 2:05 PM PAGER/CONTACT #: [phone] [facility] PROGRESSon 03-09-2020 PROGRESS HNO ID: [id number] Author: Araceli Talbot Service: Obstetrics Author Type: Resident Type: Progress Notes Filed: 03/09/2020 7:30 AM Note Text: Attestation signed by José Miguel Hernandez at 03/09/2020 7:34 AM Attending Note I personally saw and examined the patient. I reviewed the resident's note. I agree with the resident's assessment and plan unless otherwise noted. Signature: José Miguel Hernandez, DO OBSTETRICS PROGRESS NOTE SERVICE DATE: March 09, 2020 SERVICE TIME: 439 ASSESSMENT: 19 year old female who is Day #1 status post Vaginal, Spontaneous delivery with male . PLAN: 1. Routine Care - baby boy, desires circ today - patient attempting to breast feed/pump but is feeling frustrated, discouraged, and experiencing breast tenderness, she is requesting formula supplementation at this time - Rh +, Rhogam not indicated - PPBC: declines 2. Tobacco use disorder - pt smokes 1/2 PPD- 1 PPD during - denies current withdrawal symptoms, denies desire for nicotine patch - has tried nicotine patch in the past and resulted in rash - smoking cessation counseling provided and patient motivated to quit 3. GHTN - diagnosed prior to admission - CBC: Hgb 11.3, Plt: 325 - CMP: not ordered on admission - asymptomatic overnight 4. Teen - reports partner supportive, and at bedside - social work assessment: Due to the patient being 19 years old and her significant other being 23 a referral was made to [facility] who reports they will be up to hospital in morning to see the patient due to her age to see if they can assist with resources 5. Dispo: D/C per attending SUBJECTIVE: Patient has no current complaints. Tolerating PO intake. Urinating without difficulty. Has not yet passed flatus. Pain well controlled with current regimen. Lochia decreasing. Ambulating without difficulty. OBJECTIVE: PHYSICAL EXAM: Heart: RR, S1, S2 Lungs: clear to auscultation Abdomen: Soft Fundus firm below umbilicus Non-distended Extremities: Edema equal bilaterally LAST VITALS: Pulse BP Resp O2 Sat Temp Pain 100 113/62 20 97 % 36.9 ?C (98.4 ?F) 3 Avg Min Max Vitals (last 12 hours) Flowsheet Row Name Average Min Max BP: Systolic 113 113 113 BP: Diastolic 62 62 62 Temp 36.9 ?C (98.4 ?F) 36.9 ?C (98.4 ?F) 36.9 ?C (98.4 ?F) Pulse 100 100 100 Resp 20 20 20 SpO2 97 % 97 % 97 % HT/WT/BMI: Height Weight BMI 162.6 cm (5' 4) 89.4 kg (197 lb) 33.81 LABS ABO/RH: 11/13/2019: AB POSTIVE 03/07/2020: AB; Positive RUBELLA: 11/13/2019: 21.60 Index Value 01/09/2020: Immune HANDH: Hematocrit (%) Date Value 03/07/2020 34.3 HGB (g/dL) Date Value 03/07/2020 11.3 Diagnostic tests reviewed for today's visit: Most recent labs and imaging results. SIGNATURE: Araceli Talbot DO PATIENT NAME: Sugey Helm DATE: March 09, 2020 TIME: 4:35 AM Normal [facility] ANES INTRAOPon 03-08-2020 ANES INTRAOP HNO ID: [id number] Author: Herbert Gutierrez (Aprn Crna) Service: Anesthesiology Author Type: Nurse Veneer Manufacturer Type: Anesthesia IntraOp Filed: 03/08/2020 7:48 AM Note Text: Attestation signed by Steve Whitfield at 03/12/2020 10:14 AM This note reviewed. Findings noted. Concur with intervention. 8 ml .25% bupiv via epidural for pain. [facility] ANES PREOPon 03-08-2020 ANES PREOP HNO ID: [id number] Author: Cornelius Connell (Aprn Crna) Service: Anesthesiology Author Type: Nurse Veneer Manufacturer Type: Anesthesia PreOp Filed: 03/08/2020 1:51 AM Note Text: Attestation signed by Raffaele Snyder at 03/10/2020 10:26 AM Agree OB ANESTHESIA PRE-PROCEDURE ASSESSMENT SERVICE DATE: 03/08/2020 SERVICE TIME: 1:50 AM Estimated body mass index is 33.81 kg/m? as calculated from the following: Height as of this encounter: 162.6 cm (5' 4). Weight as of this encounter: 89.4 kg (197 lb). ASA Class: 2 Adequate NPO Status: Yes ALLERGIES Allergen Reactions - Ibuprofen Hives, Swelling, Anaphylaxis - Penicillins Diarrhea - Tramadol Mental Status Change Airway Assessment: MP 2; Neck ROM: Full ROM without neurologic symptoms; Airway Evaluation: No significant abnormalities Dentition: Teeth intact Symptoms of Sleep Apnea: Denies Hematocrit Date Value Ref Range Status 03/07/2020 34.3 34.1 - 44.9 % Final Platelet Count Date Value Ref Range Status 03/07/2020 325 150 - 400 thou/cmm Final Vitals: 03/08/20 0129 03/08/20 0131 03/08/20 0133 03/08/20 0135 BP: 116/73 121/70 105/63 101/58 Pulse: 81 90 80 76 Resp: Temp: TempSrc: SpO2: Weight: Height: Previous Anesthesia: No history of adverse event Family history of anesthetic problems: None Additional Physical Exam: Lungs: Clear to auscultation. Breath Sounds Equal: Yes Cardiac: Regular rhythm Additional Pertinent Findings: None OBSTETRIC HISTORY: ACTIVE PROBLEM LIST Teen Encounter for Induction of Labor Gestational Hypertension History of Intrauterine , Currently Care Insufficient Previous OB Anesthetic: None Past Obstetric History: None Current Obstetric Problems/ Important Considerations: None GERD: GERD well controlled with no positional symptoms Anesthetic Risks, Benefits, Alternatives, Personnel and Consent Discussed. Separate Consent Signed at this Interview: Yes Blood Products: Not anticipated for this procedure ANESTHETIC PLAN: Neuraxial Block for Labor Pain Management Plan: Parenteral or Oral [facility] Chart Review ACTIVE PROBLEM LIST Teen Encounter for Induction of Labor Gestational Hypertension History of Intrauterine , Currently Care Insufficient PAST MEDICAL HISTORY Diagnosis Date - Hypertension No past surgical history on file. FAMILY HISTORY Problem Relation Age of Onset - None No Family History no mental retardation or defects Social History Tobacco Use - Smoking status: Current Every Day Smoker - Smokeless tobacco: Never Used Substance Use Topics - Alcohol use: Not Currently - Drug use: Not Currently - BABY ASPIRIN ORAL, Take 1 tablet by mouth once daily., Disp: , Rfl: , Unknown at Unknown time - Miscellaneous Medical Supply (BLOOD PRESSURE CUFF), 1 Each once daily., Disp: 1 Each, Rfl: 0, Unknown at Unknown time - vit/iron fum/folic ac ( PLUS/IRON ORAL), Take by mouth once daily., Disp: , Rfl: , Unknown at Unknown time - acetaminophen (TYLENOL ORAL), Take 500 mg by mouth as needed., Disp: , Rfl: , Unknown at Unknown time Inpatient medications reviewed in [facility]. I have interviewed and examined the patient. I have reviewed the medical record , pertinent consults and/or the pre-anesthesia evaluation, pertinent labs, and test results. Significant changes in the patient's condition since the History and Physical, not otherwise documented in primary service progress notes: No This contains updated information obtained within 48 hours of Surgery/Procedure. SIGNATURE: Cornelius Connell APRN.CRNA PATIENT NAME: Sugey Helm DATE: March 08, 2020 TIME: 1:49 AM : 2000 Normal [facility] Blood Gas Cord (venous)on Base Excess -2.7 mmol/L Normal -6.0-2.[address] [facility] Comment on above: Performed By: #### C BGV #### [place] [address] HCO3 Cord Blood 22.7 mmol/L Normal 20.0-28.[address] [facility] Comment on above: Performed By: #### C BGV #### [place] [address] O2% Sat Cord Blood 63.70 % Normal 16.40-83.[address] [facility] Comment on above: Performed By: #### C BGV #### [facility] [address] [place] [address] PCO2 Cord Blood 43.6 mm Hg Normal 30.0-63.[address] [facility] Comment on above: Performed By: #### C BGV #### [facility] [address] [place], [place] [address] pH Cord Blood 7.337 Normal 7.220-7.[address] [facility] Comment on above: Performed By: #### C BGV #### [facility] [address] [place], [place] [address] PO2 Cord Blood 30.2 mm Hg Normal 12.0-43.[address] [facility] Comment on above: Performed By: #### C BGV #### [place] [address] CASE MANAGEMon 03-08-2020 CASE MANAGEM HNO ID: [id number] Author: Gurjit Posada (Sw) Service: Care Management Author Type: Pigment Supplier Type: Care Mgt Progress Note Filed: 03/08/2020 11:28 PM Note Text: SOCIAL WORK INITIAL ASSESSMENT SERVICE DATE: 03/08/2020 SERVICE TIME: 9:01 PM : 2000 Delivery Mode: Vaginal Weight: 8 lb 2.7 oz Gestational Age: 39w0d MOTHER Name: Sugey Helm Age: 17 Marital Status: Significant Other Name: Justyn Medina , Involved: Yes, MOTHER'S MEDICAL HISTORY Care: late care after 20 weeks Control Discussed: Encouraged patient to discuss with Provider. MENTAL HEALTH/SUBSTANCE ABUSE HISTORY None LIVING SITUATION Home: Lives with Significant Other in a two bedroom apartment Social Supports: Family Support Insurance/Community Resources Currently in Place: Medicaid, WIC (Women, Infants AND Children) Employment/School: n/a Youth Services Librarian Arrangements: No additional Youth Services Librarian needed PLAN/REFERRALS/INFORMA TION PROVIDED: Refer to Department of Children AND Family Services. Social Work to remain available as needed. This worker's name and phone number given and resources given as needed. SIGNATURE: SANTANA Ramirez PATIENT NAME: Sugey Helm DATE: March 08, 2020 TIME: 11:25 PM PAGER/CONTACT #: [phone] [facility] CASE MGT INIT Janie 2019 CASE MGT INIT SREEDHAR HNO ID: [id number] Author: Gurjit Posada (Sw) Service: Care Management Author Type: Pigment Supplier Type: Care Mgt Initial Assessment Filed: 03/08/2020 11:22 PM Note Text: CARE MANAGEMENT: ASSESSMENT AND DISCHARGE PLAN SERVICE DATE: March 08, 2020 SERVICE TIME: 9:00 Pm PRIMARY CARE PHYSICIAN: Jerald Sanchez MD ADMISSION STATUS: Inpatient Needs Prior to Discharge: Ready for Discharge MEDICAL: [facility] MEDICAID Patient/Space Planner Stated Goals: Other Goal Health Insurance: [facility];Medicaid Health Issues Impacting Discharge Plan: None Last Discharge Date: N/A Is this Within the Past 30 days? Last discharge within 30 days: No Advance Directive: Current Advance Directive: None Server Administrator Attempted to Assist with AD Completion: Yes Action: Education Provided Health LiteracyHow often do you need to have someone help you when you read instructions, pamphlets, or other written material from your doctor or pharmacy? : 1 - Never How confident are you filling out medical forms by yourself?: 1 - Extremely If Patient scores > 3 on either question, the following interventions were put into place:: Use of plain language and active listening with Patient and family;Teach back methods employed to ensure comprehension;Patient did not score > 3 on either question.;Sit with Patient;Use concrete and specific phrases, avoid medical jargon;Gave Patient the opportunity to ask questions Baseline Mental Status Prior to this Illness what was the patient's Baseline Mental Status?: Alert AND Oriented Prior to this illness, has anyone described the patient having any of the following behaviors?: Not Applicable Relationship of the informant to the patient:: Self Functional Status: Independent Does Patient Currently Receive Any Community Services or Home Care?: None Equipment Prior to Admission: None SOCIAL: Living Arrangements: Home Lives With: Other: See Comment(significant other) Financial Resources: Not ApplicablePrimary Contact: No emergency contact information on file. Supportive Patient Contact:: Yes Social Needs Food insecurity Worry: Never true Inability: Never true Resources Needed: No Social Needs Financial resource strain: Not hard at all Social Needs Transportation needs Medical: No Non-medical: No Caregiver AssessmentCaregiver is ready, willing and able to meet the patient's needs as recommended by the inter-professional team:: No Caregiver needed Does the patient have an acute stroke diagnosis, or has the patient had a stroke during this admission?: No Patient's transition needs and plan for meeting these needs: home with self care Patient's perception of need for this admission: give Medication Adherance I am convinced of the importance of my prescription medication: 0 - Agree Completely I worry that my prescription medication will do more harm than good to me : 0 - Disagree Completely I feel financially burdened by my [id number] expenses for my prescription medication:: 0 - Disagree Completely Risk Score: 0 Patient is categorized as: Low risk < 2 Are you interested in bedside delivery of your medications? No Is Patient Psychosocially Complex?: Yes, refer to Social Work ASSESSMENT AND PLAN: Medical Needs: Medical Needs: None Psychosocial Needs: Psychosocial Needs: None FREEDOM OF CHOICE EXPLAINED: [place] of Choice Given: No Reason Not Given: No placements necessary POTENTIAL TRANSITION PLANS Help Me Grow;Home pending medical team recommendation Functional Status: Baseline resides with her significant other Justyn Medina (23) in an [address] ([address] [place] [address] [place] [address]) for last couple of weeks. The patient and her significant other report no needs and concerns at this time. DME: none AD: none ER: Significant other- Justyn Medina ([phone]) and mother- Dinah Helm Pharmacy: none yet PCP: Jerald Sanchez The patient got care at 20 weeks and had late care due to COVID19. The patient reports she has no concerns and feels safe at home. Due to the patient being 19 years old and her significant other being 23 a referral was made to [facility] who reports they will be up to hospital in morning to see the patient due to her age to see if they can assist with resources. The patient reports this is her second and first child. The patient keep reporting they have everything needed. Social work will follow appropriately. SIGNATURE: SANTANA Ramirez PATIENT NAME: Sugey Helm DATE: March 08, 2020 TIME: 11:15 PM PAGER/CONTACT #: [phone] [facility] LD NOTEon 03-08-2020 LD NOTE HNO ID: [id number] Author: Araceli Talbot Service: Obstetrics Author Type: Resident Type: LANDD Delivery Note Filed: 03/08/2020 1:38 PM Note Text: Attestation signed by Vasu Pacheco at 03/08/2020 3:12 PM I was present for the critical and wood portions of the surgery and I was immediately available to provide assistance. OBSTETRICS DELIVERY SUMMARY - VAGINAL DELIVERY Gestational Age at Delivery: 39w1d Service Date: 03/08/2020 Service Time: 1:19 PM Rashel Helm [[id number]] Labor Events Rupture Date: 03/08/20 Rupture Time: 409 Rupture Type: AROM Fluid Color: Clear Fluid Odor: No Odor Induction: Yes Induction Method: Cervical Ripening Balloon (CRB), Oxytocin, AROM Episiotomy/Laceration: Episiotomy: None Lacerations: 2nd Perineal Repair Completed: Yes Sutures Used: 3-0 Rapid Absorbable Delivery Blood Loss: Calculated Blood Loss (mL): 155 Total Delivery Blood Loss (mL): 155 Date and Time of : Date of : 03/08/20 Time of : 1245 Delivery Information: Primary Reason for Delivery : Hypertension Additional Clinicial Indicator(s) for delivery: N/A Delivery type: Vaginal, Spontaneous Presentation: Vertex Shoulder Dystocia Present: Yes Anterior Shoulder: right Gentle Attempt at Traction, Assisted by Maternal Expulsive Forces: Yes First Maneuver: Walter maneuver, suprapubic pressure Time Performed: 03/08/2020 12:44 PM Performed By: Sands Vacuum Used: No Forceps Used: No Presentation AND Position Presentation: Vertex Position: FRANCIS Cord: Complications: None Delayed Cord Clamping: Less than 30 sec Placenta: Delivered: 03/08/2020 12:49 PM Removal: Spontaneous Appearance: Intact Anesthesia: Method: Epidural Measurements, Apgars: Weight: 8 lb 2.7 oz Weight (gms): 3705 g One Minute : 8 Five Minute : 9 Code Callaway Called: No Clinical Course: ? Sugey Helm is a 19 year old year old female who presented to [facility] with Estimated Date of Delivery: 03/14/20 at 39w0d for IOL for GHTN. Her course was complicated by teen status, late to care, hx of IUFD at 37 weeks, tobacco use disorder. The patient was GBS negative. ? Labor Course: ? At the time of presentation the patient was found to be 1.5cm dilated, 70% effaced, and at -2 station. She had a christianson balloon placed and was started on pitocin for induction. She then received an epidural for maternal analgesia and amniotomy was performed for clear fluid. She then progressed to complete cervical dilation with the vertex at +1 station. She then began to push. ? As the vertex was , the patient was prepped and draped in a normal sterile fashion in the dorsal lithotomy position. The vertex delivered over an intact perineum from the occiput anterior position which restituted to the maternal left. After delivery of the head, an anterior shoulder dystocia was noted. The team was alerted and the patient was placed into Walter position. Suprapubic pressure was applied while the patient was pushing and gentle downward traction was applied to the vertex. The anterior shoulder then delivered without difficulty and the posterior shoulder was then delivered without difficulty followed by the remainder of the infant's body. The was not crying immediately after delivery and the cord was then doubly clamped and cut and the infant was brought to the warmer. The baby shortly after stimulation was vigorously crying and moving both arms without difficulty. APGARs were 8 and 9 at 1 and 5 minutes. The baby was then passed over to mom for skin to skin. The placenta delivered spontaneously. pitocin was then started. ? Vaginal exploration revealed second degree laceration that was repaired in the usual fashion with 3-0 Vicryl Rapide. Cervical exploration revealed no lacerations. Excellent hemostasis was noted. The patient tolerated the procedure well without complications. All needle, sponge and instrument counts were correct x2. A digital sweep of the vaginal canal was performed by the Attending and it was ascertained that no instruments or other foreign bodies are retained within the cavity. Sponge, lap, and needle counts were correct times two. Mother and baby are stable and bonding and skin to skin. Baby is in mother's arms. SIGNATURE: Araceli Talbot DO PATIENT NAME: Sugey Helm DATE: March 08, 2020 TIME: 1:19 PM 0832 Normal [facility] PROCEDUREon 03-08-2020 PROCEDURE HNO ID: [id number] Author: Cornelius Connell (Aprn Crna) Service: Anesthesiology Author Type: Nurse Veneer Manufacturer Type: Procedures Filed: 03/08/2020 1:54 AM Note Text: Attestation signed by Raffaele Snyder at 03/10/2020 10:25 AM Agree with procedure OB ANESTHESIA PROCEDURE: EPIDURAL LABOR PCEA ANALGESIA PROCEDURE DATE: 03/08/2020 PROCEDURE START TIME: 119 The patient was placed in a sitting position. Timeout was performed and informed consent confirmed (see nurse's documentation). Using sterile technique, the patient's back was prepped and draped. Skin site was infiltrated with local anesthetic. Beginning Pain Score: 9 out of 10 VItals: Last Pulse 03/08/20 : 76 Last BP 03/08/20 : 101/58 Needle: 17 gauge Tuohy Depth of Needle: 7 cm Depth of Catheter at Skin: 12 cm Cm of Catheter in Epidural Space: 5 cm Interspace: approximately L4-L5 Number of Attempts: 2 Wet Tap Complication: No Dural Puncture Epidural: No Loss of Resistance: Saline Parasthesias: None Time Amt Medication Pulse B.P. Comments Catheter TEST 0126 3 cc 1.5% Lidocaine with 1:200,000 Epinephrine 77 119/74 Negative Catheter BOLUS 0128 10 cc 0.125% Bupivacaine and 5mcg/ml Fentanyl plus 1.25 mcg/ml Epinephrine INFUSION 0132 Continous Infusion 10 mL/hr PCEA: Bolus 5 mL, Lockout 15 mins 0.0625% Bupivacaine and 2 mcg/mL Fentanyl plus 1.25 mcg/ml Epinephrine 80 105/63 Patient comfortable able to flex knees Patient comfortable able to move legs Bolus Fluids Pain Score After Treatment: 1 out of 10 See nurses' documentation for additional vitals. SIGNATURE: Cornelius Connell APRN.CRNA PATIENT NAME: Sugey Helm DATE: March 08, 2020 TIME: 1:51 AM PAGER/CONTACT #: [phone] [facility] PROGRESSon 03-08-2020 PROGRESS HNO ID: [id number] Author: Jocelyn Hartmann MD Service: Obstetrics Author Type: Resident Type: Progress Notes Filed: 03/08/2020 11:43 AM Note Text: Pt feeling more pressure. Cervix 10/100/0. Dr. Sands updated and on LANDD. Will start pushing. SIGNATURE: Jocelyn Hartmann MD, PGY2 PATIENT NAME: Sugey Helm DATE: March 08, 2020 TIME: 11:43 AM PAGER/CONTACT #: [phone] [facility] PROGRESS HNO ID: [id number] Author: Araceli Talbot Service: Obstetrics Author Type: Resident Type: Progress Notes Filed: 03/08/2020 11:41 AM Note Text: S: patient without complaints O: BP 100/59 Pulse 76 Temp 36.8 ?C (98.2 ?F) (Temporal) Resp 16 Ht 162.6 cm (5' 4) Wt 89.4 kg (197 lb) LMP 07/02/2019 SpO2 98% BMI 33.81 kg/m? FHT: 120/moderate/+accels/i solated prolonged decel Albert Lea: ctx q1-3 mins Cat II FHT, overall reassuring with moderate variability and accelerations A/P: 19 year old @?39w1d?IOL GHTN vs CHTN, IUFD ? Active Hospital Problems Diagnosis Date Noted - Encounter for induction of labor 03/07/2020 Overview Note: -IOL GHTN vs CHTN, h/o IUFD -GBS neg -s/p FB (in for <1 hour) -Pit per protocol -Epi in place -AROM at 0410 clear fluid -Growth US at 33w3d EFW 5lb, 66% - Teen 03/07/2020 Overview Note: -Consent done over the phone with patient's mother, Dinah Helm -Care management consult placed - Gestational hypertension 03/07/2020 Overview Note: -Had a history of gestational hypertension in previous -Pressures in the office have been normal to mild range -Was on baby ASA -BP on admission normal -If BP persistently mild, consider labs - History of intrauterine , currently 03/07/2020 Overview Note: -History of IUFD at 37 weeks, delivered vaginally -No autopsy per patient - care insufficient 03/07/2020 Overview Note: -Late to care -First OB appointment after 20 weeks SIGNATURE: Araceli Talbot DO PATIENT NAME: Sugey Helm DATE: 03/08/2020 TIME: 11:39 AM PAGER/CONTACT #: [phone] [facility] PROGRESS HNO ID: [id number] Author: Patricia Sharpe MD Service: Obstetrics Author Type: Resident Type: Progress Notes Filed: 03/08/2020 9:53 AM Note Text: In to examine patient for recurrent late decelerations for 25 minutes. She has been repositioned, IVF bolus has been given. SVE now . Patient making cervical change, and so category II FHT protocol has been reset. Acceleration with scalp stimulation. Overall with moderate variability. Discussed with Dr. Sands. Patricia Sharpe, Casualty Underwriter PGY-3 PG #: [id number] 03/08/2020 9:52 AM [facility] PROGRESS HNO ID: [id number] Author: Araceli Talbot Service: Obstetrics Author Type: Resident Type: Progress Notes Filed: 03/08/2020 9:25 AM Note Text: S: patient without complaints O: BP 120/72 Pulse 83 Temp 36.6 ?C (97.9 ?F) (Oral) Resp 16 Ht 162.6 cm (5' 4) Wt 89.4 kg (197 lb) LMP 07/02/2019 SpO2 98% BMI 33.81 kg/m? FHT: 125/moderate/+accels/+ recurrent late decels Albert Lea: ctx q1-3mins Cat II FHT, overall reassuring with moderate variability and accelerations A/P: 19 year old @?39w1d?IOL GHTN vs CHTN, IUFD Active Hospital Problems Diagnosis Date Noted - Encounter for induction of labor 03/07/2020 Overview Note: -IOL GHTN vs CHTN, h/o IUFD -GBS neg -s/p FB (in for <1 hour) -Pit per protocol -Epi in place -AROM at 0410 clear fluid -Growth US at 33w3d EFW 5lb, 66% - Teen 03/07/2020 Overview Note: -Consent done over the phone with patient's mother, Dinah Helm -Care management consult placed - Gestational hypertension 03/07/2020 Overview Note: -Had a history of gestational hypertension in previous -Pressures in the office have been normal to mild range -Was on baby ASA -BP on admission normal -If BP persistently mild, consider labs - History of intrauterine , currently 03/07/2020 Overview Note: -History of IUFD at 37 weeks, delivered vaginally -No autopsy per patient - care insufficient 03/07/2020 Overview Note: -Late to care -First OB appointment after 20 weeks SIGNATURE: Araceli Talbot DO PATIENT NAME: Sugey Helm DATE: 03/08/2020 TIME: 9:23 AM PAGER/CONTACT #: [phone] [facility] PROGRESS HNO ID: [id number] Author: Jocelyn Hartmann MD Service: Obstetrics Author Type: Resident Type: Progress Notes Filed: 03/08/2020 8:58 AM Note Text: OB Progress Note Service Date: March 08, 2020 Service Time: 8:52 AM S: comfortable with epidural O: Vitals: Status: 03/08/20 0732 03/08/20 0747 03/08/20 0803 03/08/20 0818 BP: 106/54 101/55 100/53 110/67 Pulse: 75 74 77 82 Resp: Temp: TempSrc: SpO2: Weight: Height: CERVICAL EXAM: Last Exam Notes: Dilation: 4.5 (03/08/20 0809 : Araceli Talbot) Effacement (%): 70 (03/08/20 08 : Araceli (Yuniel Talbot) Station: -2 (03/08/20808 : Araceli Talbot) Presentation: (not recorded) MEMBRANES: Status: Membrane Status: Artificial (03/08/20414 : Radha (Res) Esme) Rupture Date: 03/08/20 (03/08/20414 : Radha (Res) Esme) Rupture Time: 041 (03/08/20414 : Radha (Res) Esme) Amniotic Fluid Color: Clear (03/08/20 0415 : Radha (Res) Esme) Amniotic Fluid Amount: Large (03/08/20 0415 : Radha (Res) Victoria) FHT: 120-130/mod shoaib/+accels/+ recurrent late decels for 30 min TOCO: q1-3min Cat II FHT: pt being repositioned and IVF bolus running A/P: 19 year old EGA:39w1d. Admitted for IOL for h/o IUFD. Active Hospital Problems Diagnosis Date Noted - Encounter for induction of labor 03/07/2020 -IOL GHTN vs CHTN, h/o IUFD -GBS neg -s/p FB (in for <1 hour) -Pit per protocol -Epi in place -AROM at 0410 clear fluid -Growth US at 33w3d EFW 5lb, 66% - Gestational hypertension 03/07/2020 -Had a history of gestational hypertension in previous -Pressures in the office have been normal to mild range -Was on baby ASA -BP on admission normal -If BP persistently mild, consider labs -last BP 110/67 SIGNATURE: Jocelyn Hartmann MD PATIENT NAME: Sugey Helm DATE: March 08, 2020 TIME: 8:52 AM PAGER/CONTACT #: [phone] [facility] PROGRESS HNO ID: [id number] Author: Araceli Talbot Service: Obstetrics Author Type: Resident Type: Progress Notes Filed: 03/08/2020 6:54 AM Note Text: S: patient without complaints O: BP 124/73 Pulse 94 Temp 36.6 ?C (97.9 ?F) (Oral) Resp 16 Ht 162.6 cm (5' 4) Wt 89.4 kg (197 lb) LMP 07/02/2019 SpO2 98% BMI 33.81 kg/m? FHT: 120/moderate/+accels Albert Lea: ctx q1-4mins Cat I FHT A/P: 19 year old @ 39w1d IOL GHTN vs CHTN, IUFD Active Hospital Problems Diagnosis Date Noted - Encounter for induction of labor 03/07/2020 Overview Note: -IOL GHTN vs CHTN, h/o IUFD -GBS neg -s/p FB (in for <1 hour) -Pit per protocol -Epi in place -AROM at 0410 clear fluid -Growth US at 33w3d EFW 5lb, 66% - Teen 03/07/2020 Overview Note: -Consent done over the phone with patient's mother, Dinah Helm -Care management consult placed - Gestational hypertension 03/07/2020 Overview Note: -Had a history of gestational hypertension in previous -Pressures in the office have been normal to mild range -Was on baby ASA -BP on admission normal -If BP persistently mild, consider labs - History of intrauterine , currently 03/07/2020 Overview Note: -History of IUFD at 37 weeks, delivered vaginally -No autopsy per patient - care insufficient 03/07/2020 Overview Note: -Late to care -First OB appointment after 20 weeks SIGNATURE: Araceli Talbot DO PATIENT NAME: Sugey Helm DATE: 03/08/2020 TIME: 6:53 AM PAGER/CONTACT #: [phone] [facility] PROGRESS HNO ID: [id number] Author: Roberto Verdin) Kody Service: Obstetrics Author Type: Resident Type: Progress Notes Filed: 03/08/2020 4:48 AM Note Text: S: Patient is comfortable with epidural. O: BP 120/60 Pulse 74 Temp 36.6 ?C (97.9 ?F) (Oral) Resp 16 Ht 162.6 cm (5' 4) Wt 89.4 kg (197 lb) LMP 07/02/2019 SpO2 98% BMI 33.81 kg/m? FHT: 125-130/mod/+accels/-d ecels Albert Lea: q2-5min Cat I 03/07/20195303/07/20203303/07/20 2326 03/08/20 0415 Dilation: 1.5 3 3 4 Effacement (%): 70 70 70 70 Station: -2 -2 -2 -2 A/P: 19 year old @ 39w1d IOL GHTN vs CHTN, IUFD Active Hospital Problems Diagnosis Date Noted - Encounter for induction of labor 03/07/2020 Overview Note: -IOL GHTN vs CHTN, h/o IUFD -GBS neg -s/p FB (in for <1 hour) -Pit per protocol -Epi in place -AROM at 0410 clear fluid -Growth US at 33w3d EFW 5lb, 66% - Teen 03/07/2020 Overview Note: -Consent done over the phone with patient's mother, Dinah Helm -Care management consult placed - Gestational hypertension 03/07/2020 Overview Note: -Had a history of gestational hypertension in previous -Pressures in the office have been normal to mild range -Was on baby ASA -BP on admission normal -If BP persistently mild, consider labs - History of intrauterine , currently 03/07/2020 Overview Note: -History of IUFD at 37 weeks, delivered vaginally -No autopsy per patient - care insufficient 03/07/2020 Overview Note: -Late to care -First OB appointment after 20 weeks Robreto Gates DO DICTAPHONE TECHNICIAN PGY-1 Pager #: [phone] March 08, 2020 4:47 AM Normal [facility] PROGRESS HNO ID: [id number] Author: Radha Victoria Service: Obstetrics Author Type: Resident Type: Progress Notes Filed: 03/08/2020 4:17 AM Note Text: Pt comfortable with epidural. BP 103/53 Pulse 73 Temp 36.6 ?C (97.9 ?F) (Oral) Resp 16 Ht 162.6 cm (5' 4) Wt 89.4 kg (197 lb) LMP 07/02/2019 SpO2 98% BMI 33.81 kg/m? FHT: 125/mod/+accels/neg decels Albert Lea: q3-5 mins Cat I FHT 19 yo @ 39+1 IOL h/o IUFD Active Hospital Problems Diagnosis Date Noted - Encounter for induction of labor 03/07/2020 -IOL GHTN vs CHTN, h/o IUFD -GBS neg -s/p FB (in for <1 hour) -Pit per protocol -Epi in place -AROM at 0410 clear fluid -Growth US at 33w3d EFW 5lb, 66% - Teen 03/07/2020 -Consent done over the phone with patient's mother, Dinah Volodymyr -Care management consult placed - Gestational hypertension 03/07/2020 -Had a history of gestational hypertension in previous -Pressures in the office have been normal to mild range -Was on baby ASA -BP on admission normal -If BP persistently mild, consider labs - History of intrauterine , currently 03/07/2020 -History of IUFD at 37 weeks, delivered vaginally -No autopsy per patient - care insufficient 03/07/2020 -Late to care -First OB appointment after 20 weeks AROM Performed this exam for large volume of clear fluid at 0410. Pt tolerated well. Cat I FHT prior to and following procedure. vertex well engaged prior to and following procedure. SVE: /-2. Dr. Sands updated. Radha Victoria, PGY-4 Obstetrics and Gynecology Pager 03/08/2020 4:17 AM Normal [facility] PROGRESS HNO ID: [id number] Author: Roberto Verdin) Kody Service: Obstetrics Author Type: Resident Type: Progress Notes Filed: 03/08/2020 2:32 AM Note Text: S: Patient is comfortable with epidural. O: BP 102/65 Pulse 70 Temp 36.6 ?C (97.9 ?F) (Oral) Resp 16 Ht 162.6 cm (5' 4) Wt 89.4 kg (197 lb) LMP 07/02/2019 SpO2 98% BMI 33.81 kg/m? FHT: 125-130/mod/+accels/-d ecels Albert Lea: q2-4min Cat I 03/07/20 1852 03/07/204 03/07/204 03/07/20 2326 Dilation: 1.5 1.5 3 3 Effacement (%): 70 70 70 70 Station: -2 -2 -2 -2 A/P: 19 year old @ 39w1d IOL GHTN vs CHTN, h/o IUFD Active Hospital Problems Diagnosis Date Noted - Encounter for induction of labor 03/07/2020 Overview Note: -IOL GHTN vs CHTN, h/o IUFD -GBS neg -s/p FB (in for <1 hour) -Pit per protocol -Epi in place -AROM prn -Growth US at 33w3d EFW 5lb, 66% - Teen 03/07/2020 Overview Note: -Consent done over the phone with patient's mother, Dinahricha Helm -Care management consult placed - Gestational hypertension 03/07/2020 Overview Note: -Had a history of gestational hypertension in previous -Pressures in the office have been normal to mild range -Was on baby ASA -BP on admission normal -If BP persistently mild, consider labs - History of intrauterine , currently 03/07/2020 Overview Note: -History of IUFD at 37 weeks, delivered vaginally -No autopsy per patient - care insufficient 03/07/2020 Overview Note: -Late to care -First OB appointment after 20 weeks Roberto Gates DO DICTAPHONE TECHNICIAN PGY-1 Pager #: [phone] March 08, 2020 2:29 AM Normal [facility] PROGRESS HNO ID: [id number] Author: Roberto (Eze) Kody Service: Obstetrics Author Type: Resident Type: Progress Notes Filed: 03/08/2020 12:07 AM Note Text: S: Patient is tolerating contractions. O: BP 119/74 Pulse 80 Temp 36.6 ?C (97.9 ?F) (Oral) Resp 16 Ht 162.6 cm (5' 4) Wt 89.4 kg (197 lb) LMP 07/02/2019 SpO2 99% BMI 33.81 kg/m? FHT: 120/mod/+accels/-decel s Albert Lea: q2min Cat I 03/07/20 1852 03/07/204 03/07/20203303/07/20 2326 Dilation: 1.5 1.5 3 3 Effacement (%): 70 70 70 70 Station: -2 -2 -2 -2 A/P: 19 year old @ 39w1d IOL CHTN vs GHTN Active Hospital Problems Diagnosis Date Noted - Encounter for induction of labor 03/07/2020 Overview Note: -IOL GHTN -GBS neg -s/p FB (in for <1 hour) -Pit per protocol -Epi prn -AROM prn -Growth US at 33w3d EFW 5lb, 66% - Gestational hypertension 03/07/2020 Overview Note: -Had a history of gestational hypertension in previous -Pressures in the office have been normal to mild range -Was on baby ASA -BP on admission normal -If BP persistently mild, consider labs Roberto Gates DO DICTAPHONE TECHNICIAN PGY-1 Pager #: [phone] March 08, 2020 12:05 AM Normal [facility] PROGRESS HNO ID: [id number] Author: Radha Victoria Service: Obstetrics Author Type: Resident Type: Progress Notes Filed: 03/07/2020 11:27 PM Note Text: Pt resting. BP 119/74 Pulse 80 Temp 36.6 ?C (97.9 ?F) (Oral) Resp 16 Ht 162.6 cm (5' 4) Wt 89.4 kg (197 lb) LMP 07/02/2019 SpO2 99% BMI 33.81 kg/m? FHT: 110/min to mod/+accels/neg decels Albert Lea: q2 mins Cat I FHT SVE: 370/-2 19 yo @ 39+0 IOL suspect CHTN/H/o IUFD Active Hospital Problems Diagnosis Date Noted - Encounter for induction of labor 03/07/2020 -IOL GHTN -GBS neg -s/p FB (in for <1 hour) -Pit per protocol -Epi prn -AROM prn -Growth US at 33w3d EFW 5lb, 66% - Teen 03/07/2020 -Consent done over the phone with patient's mother, Dinah Helm -Care management consult placed - Gestational hypertension 03/07/2020 -Had a history of gestational hypertension in previous -Pressures in the office have been normal to mild range -Was on baby ASA -BP on admission normal -If BP persistently mild, consider labs - History of intrauterine , currently 03/07/2020 -History of IUFD at 37 weeks, delivered vaginally -No autopsy per patient - care insufficient 03/07/2020 -Late to care -First OB appointment at 26 weeks Cont current mgmt. Will cont pitocin. Radha Victoria, PGY-4 Obstetrics and Gynecology Pager 03/07/2020 11:23 PM [facility] HISTORY PHYSICALon 0 HISTORY PHYSICAL HNO ID: [id number] Author: Roberto Gates Service: Obstetrics Author Type: Resident Type: HANDP Filed: 03/07/2020 11:27 PM Note Text: Attestation signed by Vasu Pacheco at 03/08/2020 2:28 AM Attending Note I personally saw and examined the patient. I reviewed the resident's note. I agree with the resident's assessment and plan unless otherwise noted. Signature: Vasu Pacheco MD Date: 03/08/2020 Time: 2:28 AM OBSTETRICS HISTORY AND PHYSICAL SERVICE DATE: March 07, 2020 SERVICE TIME: 6:51 PM Subjective Patient's stated reason for arrival: induction of labor CHIEF COMPLAINT: Induction of Labor HISTORY OF THE PRESENT ILLNESS: The patient is a 19 year old female, , who is at 39w0d with an YESSENIA of 03/14/2020, by Ultrasound dating method. Patient is here for induction for gestational hypertension. She is GBS negative. For her gestational hypertension she was taking baby ASA. Other complications include this being a teen , late to care, and history of intrauterine demise at 37 weeks. She endorses good movements. She denies leakage of fluid or vaginal bleeding. She denies HSV or MRSA infection. She reports smoking 1/2 ppd. She denies alcohol or drug use. Growth at 33w3d showed EFW of 5lb, 66%. POST DELIVERY CONTRACEPTION: Discussed post-delivery contraception options. Patient received written information about post-delivery contraception options. Patient does not desire post-delivery contraception. HISTORY REVIEW PAST MEDICAL HISTORY Diagnosis Date - Hypertension No past surgical history on file. FAMILY HISTORY Problem Relation Age of Onset - None No Family History no mental retardation or defects Social History Tobacco Use - Smoking status: Current Every Day Smoker - Smokeless tobacco: Never Used Substance Use Topics - Alcohol use: Not Currently - Drug use: Not Currently Obstetric History T0 L0 SAB1 TAB0 Ectopic0 Multiple0 Live Births0 Comment: Chemical Name of Baby 1: Not recorded Date: Not recorded GA: Not recorded Delivery: Not recorded Apgar1: Not recorded Apgar5: Not recorded Living: Not recorded Name of Baby 2: Not recorded Date: Not recorded GA: Not recorded Delivery: Not recorded Apgar1: Not recorded Apgar5: Not recorded Living: Not recorded There are no active non-hospital problems to display for this patient. ALLERGIES Allergen Reactions - Ibuprofen Hives, Swelling, Anaphylaxis - Penicillins Diarrhea - Tramadol Mental Status Change Prior to Admission Medications Prescriptions Last Dose Informant Patient Reported? Taking? BABY ASPIRIN ORAL Unknown at Unknown time Patient Yes No Sig: Take 1 tablet by mouth once daily. Miscellaneous Medical Supply (BLOOD PRESSURE CUFF) Unknown at Unknown time No No Si Each once daily. acetaminophen (TYLENOL ORAL) Unknown at Unknown time Patient Yes No Sig: Take 500 mg by mouth as needed. vit/iron fum/folic ac ( PLUS/IRON ORAL) Unknown at Unknown time Patient Yes No Sig: Take by mouth once daily. Facility-Administered Medications: None REVIEW OF SYSTEMS: The remainder of the review of systems is negative. Objective LAST VITALS: Pulse BP Resp O2 Sat Temp Pain 89 111/73 18 99 % 36.5 ?C (97.7 ?F) 0 HT/WT/BMI: Height Weight BMI 162.6 cm (5' 4) 89.4 kg (197 lb) 33.81 PHYSICAL EXAM: General: WD, WN HEENT: NC/AT, sclera white Lungs: clear Heart: RR, S1, S2 Abdomen: soft, nontender Uterus: soft, NT Extremities: no edema DTRs: Not checked FHT: 130 bpm (03/07/201829 : Fanny (Rn) Jaxon RN)[address] Spec Exam: (not done) CERVICAL EXAM: Dilation: 1.5 (03/07/201851 : Roberto Gates) cm Station: -2 (03/07/201851 : Roberto Gates) Effacement: 70 (03/07/201851 : Roberto Gates) % Position: Mid Presentation: Cephalic Pelvimetry: Pelvimetry clinically assessed as adequate MONITORING/ASSESSMENT: Baseline: 135 Variability: Moderate (6-25 bpm) Accelerations: Present Decelerations: Early Contractions: Regular Frequency: Every 1-2 minutes NST Interpretation: Category I EFW: 33w3d EFW 5lb based on last ultrasound. ULTRASOUND: US findings: Head position: Cephalic, HR: 135, Placental location: Posterior fundal, Amniotic Fluid: DVP 5.1cm LABS Diagnostic tests reviewed for today's visit: Most recent labs and imaging results. Assessment/Plan 19 year old EGA:39w0d. IOL GHTN Active Hospital Problems Diagnosis Date Noted - Encounter for induction of labor 03/07/2020 Overview Note: -IOL GHTN -GBS neg -FB soon -Pit per protocol -Epi prn -AROM prn -Growth US at 33w3d EFW 5lb, 66% - Teen 03/07/2020 Overview Note: -Consent done over the phone with patient's mother, Dinah Helm -Care management consult placed - Gestational hypertension 03/07/2020 Overview Note: -Had a history of gestational hypertension in previous -Pressures in the office have been normal to mild range -Was on baby ASA -BP on admission normal - History of intrauterine , currently 03/07/2020 Overview Note: -History of IUFD at 37 weeks, delivered vaginally -No autopsy per patient - care insufficient 03/07/2020 Overview Note: -Late to care -First OB appointment after 20 weeks Plan of care discussed with Dr. Sands. SIGNATURE: Roberto Gates DO PATIENT NAME: Sugey Helm DATE: March 07, 2020 TIME: 6:51 PM PAGER/CONTACT #: [phone] Normal [facility] Hemogramon 03-07-2020 Erythrocyte distribution width (RBC) [Ratio] 13.7 % Normal 11.5-15.[address] [facility] Comment on above: Performed By: #### C BC1 #### [address] [address] Hematocrit (Bld) [Volume fraction] 34.3 % Normal 34.1-44.[address] [facility] Comment on above: Performed By: #### C BC1 #### [address] [address] Hemoglobin (Bld) [Mass/Vol] 11.3 g/dL Low 11.5-15.[address] [facility] Comment on above: Performed By: #### C BC1 #### [facility] [address] [address] MCH (RBC) [Entitic mass] 26.3 pg Normal 26.0-34.[address] [facility] Comment on above: Performed By: #### C BC1 #### [facility] [address] [address] MCHC (RBC) [Mass/Vol] 32.9 % Normal 30.5-36.0 [facility] Comment on above: Performed By: #### C BC1 #### [facility] [address] [address] MCV (RBC) [Entitic vol] 79.8 fL Low 80.0-100.0 [facility] Comment on above: Performed By: #### C BC1 #### [facility] [address] [address] Platelet mean volume (Bld) [Entitic vol] 11.6 fL Normal 9.0-12.[address] [facility] Comment on above: Performed By: #### C BC1 #### [facility] [address] [address] Platelets (Bld) [#/Vol] 325 thou/cmm Normal 150-[address] [facility] Comment on above: Performed By: #### C BC1 #### [facility] [address] [address] RBC (Bld) [#/Vol] 4.30 mil/cmm Normal 3.90-5.[address] [facility] Comment on above: Performed By: #### C BC1 #### [facility] [address] [address] RDW SD 39.5 fl Normal 37.0-50.[address] [facility] Comment on above: Performed By: #### C BC1 #### [facility] [address] [address] WBC (Bld) [#/Vol] 16.30 thou/cmm High 3.70-11.00 [facility] Comment on above: Performed By: #### C BC1 #### [facility] [address] [address] PROGRESSon 03-07-2020 PROGRESS HNO ID: [id number] Author: Roberto Gates Service: Obstetrics Author Type: Resident Type: Progress Notes Filed: 03/07/2020 10:00 PM Note Text: S: Patient is tolerating contractions better after removal of christianson balloon. O: BP 111/73 Pulse 89 Temp 36.5 ?C (97.7 ?F) (Temporal) Resp 18 Ht 162.6 cm (5' 4) Wt 89.4 kg (197 lb) LMP 07/02/2019 SpO2 99% BMI 33.81 kg/m? FHT: 135/mod/+accels/-decel s [place]: q2-4min Cat I 03/07/20 1852 03/07/20195303/07/202033 Dilation: 1.5 1.5 3 Effacement (%): 70 70 70 Station: -2 -2 -2 A/P: 19 year old @ 39w0d IOL GHTN Active Hospital Problems Diagnosis Date Noted - Encounter for induction of labor 03/07/2020 Overview Note: -IOL GHTN -GBS neg -Pit per protocol -Epi prn -AROM prn -s/p FB -Growth US at 33w3d EFW 5lb, 66% - Gestational hypertension 03/07/2020 Overview Note: -Had a history of gestational hypertension in previous -Pressures in the office have been normal to mild range -Was on baby ASA -BP on admission normal -If BP persistently mild, consider labs Roberto Gates, DO DICTAPHONE TECHNICIAN PGY-1 Pager #: [phone] March 07, 2020 9:58 PM Normal [facility] PROGRESS HNO ID: [id number] Author: Radha Victoria Service: Obstetrics Author Type: Resident Type: Progress Notes Filed: 03/07/2020 10:00 PM Note Text: In to evaluate patient for increased pain. Pt is requesting removal of FB. She requested pain medication and was given Tylenol and morphine. Allergies were confirmed with the patient and she requested to receive morphine for pain control. The patient reported uncontrolled pain with medication. The FB was removed per patient request. Prior to removal, pain was 10/10. Following FB removal, pt reports pain as 3-4/10. Cervix 3/70/-2. Cont pitocin. Radha Victoria, PGY-4 Obstetrics and Gynecology Pager 03/07/2020 10:00 PM Normal [facility] Rapid, COVID 19on 03-07-2020 Rapid, COVID 19 Negative Normal Negative [facility] Comment on above: Result Comment: This test has been authorized by the FDA under an Emergency Use Authorization (EUA). Performed By: #### R COVD #### [place] [address] Type and Screenon 03-07-2020 ABO group Nom (Bld) AB Normal [facility] Comment on above: Performed By: #### T &S #### [place] [address] Comment See Below [facility] Comment on above: Result Comment: Scre en &/or Xmatch expires in 3 days at 12 midnight. Redraw patient at that time. Performed By: #### T &S #### [place] [address] RH Type Positive Normal [facility] Comment on above: Performed By: #### T &S #### [place] [address] CNOVon 01-28-2020 CNOV Office Visit (AGMFM) SUGEY HELM ([id number]) 4 F Date Time Provider Department 01/28/20 2:45 PM US RM2 [employer] [facility] AGM[facility] During your visit today, we recorded the following information about you: Referring Provider: SANFORD YOST JR [[id number]] Allergies As of Date: 01/28/2020 Noted Allergy Reaction PENICILLINS 11/13/2019 6 - Diarrhea TRAMADOL 11/13/2019 1 - Mental Status Change Date Reviewed: 01/23/2020 Reviewed by: Trini Alba Ma - Fully Assessed Reason for Visit: Us Procedure [4086] Visit Diagnosis:Maternal hypertension in third trimester [O16.3] Prescriptions as of 01/28/2020 Sig: BLOOD PRESSURE CUFF 1 Each once daily. PLUS/IRON ORAL Take by mouth once daily. TYLENOL ORAL Take 500 mg by mouth as neede* Problem List As Of Date: 01/28/2020 (None) Encounter Status:Closed by ASHANTI BENSON RDMS on 01/28/20 Normal [facility] Type and Scr,Elli 11-12 ABO/RH(D) AB POSTIVE Normal [facility] Comment on above: Performed By: #### T SPN #### [facility] [address] [facility] [phone] Laboratory - Chemistry and C hemistry - challengeon 09-07-2018 Beta HCG ( test) Ql Negative Normal [employer]. Bilirubin Ql (U) Negative Normal [employer] Calcium [Mass/Vol] 10.1 mg/dL Normal 8.9 - 10. 4 mg/dL [employer], [employer] Chloride [Moles/Vol] 105 mmol/L Normal 98 - 11 0 mmol/L [employer], [employer] CO2 [Moles/Vol] 26 mmol/L Normal 20 - 32 mmol/L [employer], [employer]. Creatinine [Mass/Vol] 0.80 mg/dL Normal 0.40 - 1.00 mg/dL [employer], [employer] GFR/1.73 sq M.predicted among blacks MDRD (S/P/Bld) [Vol rate/Area] SEE NOTE Normal [employer] GFR/1.73 sq M.predicted MDRD (S/P/Bld) [Vol rate/Area] SEE NOTE Normal [facility].; [facility] Glucose [Mass/Vol] 78 mg/dL Normal 65 - 99 mg/dL [facility].; [facility] Ketones Ql (U) Negative Normal [facility].; [facility], [facility] pH (U) 7.0 [pH] Normal [facility].; [facility], [facility] Potassium [Moles/Vol] 4.0 mmol/L Normal 3.8 - 5.1 mmol/L [facility]; [facility], [facility] Sodium [Moles/Vol] 139 mmol/L Normal 135 - 146 mmol/L [facility]; [facility], [facility] Specific gravity (U) [Rel density] 1.015 Normal [facility]; [facility] Urea nitrogen [Mass/Vol] 8 mg/dL Normal 7 - 20 mg/d L [facility]; [facility], [facility] Urea nitrogen/Creatinine [Mass ratio] 10.4 mg/mg Normal [facility]; [place] [facility] Urobilinogen Qn (U) 0.2 mg/dL Normal [facility]; [facility] Laboratory - Hematology and Cell countson 09-07-2018 Basophils (Bld) [#/Vol] 20 {Cells}/uL Normal 0 - 200 {Cells}/uL [facility].; [facility] Basophils/100 WBC (Bld) 0 % Normal 0 - 1 % H [facility]; [facility] Eosinophils (Bld) [#/Vol] 90 {Cells}/uL Normal 15 - 500 {Cells}/uL [facility].; [facility] Eosinophils/100 WBC (Bld) 1 % Normal 0 - 4 % [facility]; [facility] Erythrocyte distribution width (RBC) [Ratio] 13.6 % Normal 11.0 - 15.0 % [facility].; [place] [facility] Hematocrit (Bld) [Volume fraction] 41.2 % Normal 34.0 - 46.0 % [facility].; [facility], [facility]. Hemoglobin (Bld) [Mass/Vol] 13.3 g/dL Normal 11.5 - 15.3 g/dL [facility].; [facility], [facility]. Hemoglobin Ql (U) Negative Normal [facility].; [facility], [facility] Lymphocytes (Bld) [#/Vol] 2240 {Cells}/uL Normal 1200 - 5200 {Cells}/uL [facility].; [facility], [facility]. Lymphocytes/100 WBC (Bld) 20 % Normal 16 - 53 % [facility].; [facility], [facility]. MCH (RBC) [Entitic mass] 26.8 pg Normal 25. 0 - 35.0 PG [facility].; [facility], [facility]. MCHC (RBC) [Mass/Vol] 32.2 g/dL Normal 31.0 - 36.0 g/dL [facility].; [place] [facility], [facility]. MCV (RBC) [Entitic vol] 83.2 fL Normal 78.0 - 98.0 fL [facility].; [facility], [facility]. Monocytes (Bld) [#/Vol] 650 {Cells}/uL Normal 20 0 - 900 {Cells}/uL [facility].; [place] [facility], [facility]. Monocytes/100 WBC (Bld) 6 % Normal 4 - 12 % H [facility].; [facility], [facility]. Neutrophils (Bld) [#/Vol] 8130 {Cells}/uL Abnormal 1800 - 8000 {Cells}/uL [facility].; [place] [facility], [facility]. Neutrophils/100 WBC (Bld) 73 % Normal 33 - 75 % [facility].; [place] [facility], [facility]. Platelet mean volume (Bld) [Entitic vol] 8.6 fL Normal 7.5 - 12.5 fL [facility].; [facility], [facility]. Platelets (Bld) [#/Vol] 315 10*3/uL Normal 140 - 400 10*3/uL [facility].; [place] [employer], [facility]. RBC (Bld) [#/Vol] 4.96 10*6/uL Normal 3.80 - 5.1 0 10*6/uL [employer] WBC (Bld) [#/Vol] 11.1 10*3/uL Normal 4.5 - 13.0 10*3/uL [employer] Laboratory - Microbiology an d Antimicrobial susceptibilityon 09-07-2018 Bacteria identified Cx Nom (U) SEE NOTE Normal [employer]. Laboratory - Specimen inform ationon 09-07-2018 Appearance (U) clear Normal [employer]; [employer]. Color (U) yellow Normal [employer]; [employer] Specimen source Nom (Unsp spec) URINE-CLEAN CATCH Normal [employer]; [employer]. Laboratory - Urinalysison Glucose Test strip (U) [Mass/Vol] Negative Normal [employer]. Leukocyte esterase Test strip Ql (U) Negative Normal [employer]. Nitrite Ql (U) Negative Normal [employer]. Protein Ql (U) Negative Normal [employer] [employer] Laboratory - Chemistry and C hemistry - challengeon 04-12-2018 Bilirubin Ql (U) Negative Normal [employer]. Ketones Ql (U) Negative Normal [employer] pH (U) 6.5 [pH] Normal [employer]. Specific gravity (U) [Rel density] 1.020 Normal [employer]; [employer] Urobilinogen Qn (U) 0.2 mg/dL Normal [place] [facility] [employer]. Laboratory - Hematology and Cell countson 04-12-2018 Hemoglobin Ql (U) large Abnormal [employer]. Laboratory - Microbiology an d Antimicrobial susceptibilityon 04-12-2018 Bacteria identified Cx Nom (Unsp spec) SEE NOTE Normal [employer]; [employer]. Laboratory - Specimen inform ationon 04-12-2018 Appearance (U) clear Normal [employer]; [employer]. Color (U) yellow Normal [employer]; [employer] Specimen source Nom (Unsp spec) URINE-NOT GIVEN Normal [employer]; [employer]. Laboratory - Urinalysison Glucose Test strip (U) [Mass/Vol] Negative Normal [employer]; [employer]. Leukocyte esterase Test strip Ql (U) large Abnormal [employer]; [employer]. Nitrite Ql (U) Negative Normal [employer]; [employer] Protein Ql (U) 100 mg/dL Abnormal [employer]; [employer]. Laboratory - Microbiology an d Antimicrobial susceptibilityon 07-15-2016 S. pyogenes Ag EIA Ql (Throat) Negative Normal [employer]; [employer]. Laboratory - Chemistry and C hemistry - challengeon 06-18-2016 Bilirubin Ql (U) Negative Normal [employer]; [employer]. Ketones Ql (U) Negative Normal [employer] pH (U) 5.5 [pH] Normal [employer]; [employer]. Specific gravity (U) [Rel density] >= 1.030 Normal [employer]; [employer]. Urobilinogen Qn (U) 0.2 mg/dL Normal [employer]; [employer] Laboratory - Hematology and Cell countson 06-18-2016 Hemoglobin Ql (U) Negative Normal [employer]; [employer]. Laboratory - Specimen inform ationon 06-18-2016 Appearance (U) Clear Normal [employer]; [employer] Color (U) Yellow Normal [employer]; [employer] Laboratory - Urinalysison Glucose Test strip (U) [Mass/Vol] Negative Normal [employer]. Leukocyte esterase Test strip Ql (U) Negative Normal [employer]. Nitrite Ql (U) Negative Normal [employer]. Protein Ql (U) 30 mg/dL Abnormal [employer]. Laboratory - Microbiology an d Antimicrobial susceptibilityon 04-02-2016 S. pyogenes Ag EIA Ql (Throat) Negative Normal [employer].; [employer]. Laboratory - Chemistry and C hemistry - challengeon 02-25-2016 Bilirubin Ql (U) Negative Normal [employer]. Ketones Ql (U) Negative Normal [employer] pH (U) 7.0 [pH] Normal [employer]. Specific gravity (U) [Rel density] 1.020 Normal [employer]; [employer] Urobilinogen Qn (U) 0.2 mg/dL Normal [facility] [employer] Laboratory - Hematology and Cell countson 02-25-2016 Hemoglobin (Bld) [Mass/Vol] 12.2 g/dL Normal 11.5 - 14.2 g/dL [employer].; [employer]. Hemoglobin Ql (U) Moderate Abnormal [employer]. Laboratory - Specimen inform ationon 02-25-2016 Appearance (U) clear Normal [employer]; [employer] Color (U) yellow Normal [employer] Laboratory - Urinalysison Glucose Test strip (U) [Mass/Vol] Negative Normal [employer]. Leukocyte esterase Test strip Ql (U) Negative Normal [employer] Nitrite Ql (U) Negative Normal [facility]; [facility] Protein Ql (U) Negative Normal [facility]; [facility] Laboratory - Microbiology an d Antimicrobial susceptibilityon 02-15-2014 S. pyogenes Ag EIA Ql (Throat) Negative Normal [facility]; [facility] Laboratory - Microbiology an d Antimicrobial susceptibilityon 10-09-2013 S. pyogenes Ag EIA Ql (Throat) Positive Abnormal [facility]; [facility] Laboratory - Chemistry and C hemistry - challengeon 04-19-2013 Albumin [Mass/Vol] 4.8 g/dL Abnormal 2.90 - 4. 20 g/dL [facility]; [facility], [facility] Albumin [Mass/Vol] 2.3 g/dL Abnormal 0.90 - 1.60 [facility]; [facility] ALP [Catalytic activity/Vol] 281 U/L Normal 51 - 332 U/L [facility]; [facility], [facility]. ALT [Catalytic activity/Vol] 40 U/L Abnormal 8 - 20 U/L [facility]; [facility], [facility]. AST [Catalytic activity/Vol] 26 U/L Normal 0 - 37 U/L [facility]; [facility], [facility]. Bilirubin [Mass/Vol] 0.1 mg/dL Normal 0.0 - 1 .50 mg/dL [facility].; [facility] Calcium [Mass/Vol] 9.5 mg/dL Normal 8.60 - 10 .20 mg/dL [facility].; [facility], [facility]. Chloride [Moles/Vol] 103 mmol/L Normal 102 - 1 12 mmol/L [facility].; [facility], [facility]. CO2 [Moles/Vol] 26.0 mmol/L Normal 13.0 - 29.0 mmol/L [facility].; [facility], [facility] Comprehensive metabolic 2000 panel CMP with eGFR Normal [facility]; [facility], [facility] Creatinine [Mass/Vol] 0.6 mg/dL Normal 0.60 - 1.0 mg/dL [facility].; [facility], [facility]. GFR/1.73 sq M.predicted among blacks MDRD (S/P/Bld) [Vol rate/Area] mL/min/{1.73_m2} Normal 60 - 999 {ML/MINUTE} [facility], [facility].; [facility], [facility]. GFR/1.73 sq M.predicted MDRD (S/P/Bld) [Vol rate/Area] mL/min/{1.73_m2} Normal 60 - 999 {ML/MINUTE} [facility], [facility].; [place] [employer] [facility], [facility]. Globulin (S) [Mass/Vol] 2.1 g/dL Normal 1.50 - 3.80 g/dL [facility].; [place] [employer] [facility], [facility]. Glucose [Mass/Vol] 79 mg/dL Normal 74 - 106 mg/dL [facility], [facility].; [place] [employer] [facility], [facility]. Potassium [Moles/Vol] 4.0 mmol/L Normal 3.30 - 4.60 mmol/L [facility].; [place] [employer] [facility], [facility]. Protein [Mass/Vol] 6.9 g/dL Normal 5.70 - 8. 0 g/dL [facility].; [place] [employer], [facility]. Sodium [Moles/Vol] 138 mmol/L Normal 136 - 145 mmol/L [facility], [facility].; [place] [employer], [facility]. Urea nitrogen [Mass/Vol] 13 mg/dL Normal 6 - 20 mg/d L [facility].; [place] [employer] [facility], [facility]. Urea nitrogen/Creatinine [Mass ratio] 22 {ratio} Normal 0 - 30 {ratio} [facility].; [place] [email or web address] [facility]. Laboratory - Hematology and Cell countson 04-19-2013 Basophils (Bld) [#/Vol] 0.00 {3/UL} Normal 0.00 - 0.10 {3/UL} [facility].; [place] [employer] Basophils/100 WBC (Bld) 0.2 % Normal 0.0 - 2.0 % [facility].; [place] [employer], [employer]. CBC W Auto Differential panel (Bld) CBC Normal [facility].; [facility], [facility]. Eosinophils (Bld) [#/Vol] 0.30 {3/UL} Normal 0.00 - 0.50 {3/UL} [facility], [facility].; [facility], [facility]. Eosinophils/100 WBC (Bld) 3.0 % Normal 0.0 - 7.0 % [facility], [facility].; [facility], [facility] Erythrocyte distribution width (RBC) [Ratio] 13.0 % Normal 12.0 - 15.60 % [facility].; [facility], [facility] Hematocrit (Bld) [Volume fraction] 39.9 % Normal 34.0 - 44.0 % [facility], [facility].; [facility], [facility] Hemoglobin (Bld) [Mass/Vol] 13.4 g/dL Normal 11.50 - 14.20 g/dL [facility], [facility].; [facility], [facility] Lymphocytes (Bld) [#/Vol] 3.60 {3/UL} Abnormal 0.80 - 2.80 {3/UL} [facility].; [facility], [facility]. Lymphocytes/100 WBC (Bld) 39.7 % Normal 20.0 - 45.0 % [facility], [facility].; [facility], [facility]. MCH (RBC) [Entitic mass] 28 pg Normal 27 - 33 pg [facility].; [facility], [facility]. MCHC (RBC) [Mass/Vol] 34 {X10_3} Normal 32 - 3 6 {X10_3} [facility], [facility].; [facility], [facility]. MCV (RBC) [Entitic vol] 84 fL Normal 80 - 99 fL H [facility].; [facility], [facility] Monocytes (Bld) [#/Vol] 0.70 {3/UL} Normal 0.20 - 1.00 {3/UL} [facility], [facility].; [facility], [facility]. Monocytes/100 WBC (Bld) 7.6 % Normal 0.0 - 10.0 % [facility], [facility].; [facility], [facility] Morphology Joe (Bld) [Interp] N/A Normal [employer].; [employer]. Neutrophils (Bld) [#/Vol] 4.50 {3/UL} Normal 1.50 - 7.10 {3/UL} [employer]. Neutrophils/100 WBC (Bld) 49.5 % Normal 46.0 - 76.0 % [employer].; [employer]. Platelet mean volume (Bld) [Entitic vol] 8.1 fL Normal 6.60 - 10.50 fL [employer].; [employer]. Platelets (Bld) [#/Vol] 271 {3/UL} Normal 150 - 450 {3/UL} [employer]. RBC (Bld) [#/Vol] 4.76 {6/UL} Normal 4.10 - 5.3 0 {6/UL} [employer]. WBC (Bld) [#/Vol] 9.2 {3/UL} Normal 4.50 - 10. 80 {3/UL} [employer]. No Panel Informationon 04-19 AGE 12 {years} Normal [employer]. MANUAL DIFF N/A Normal [employer] [employer]. Laboratory - Chemistry and C hemistry - challengeon 04-13-2013 Bilirubin Ql (U) Negative Normal [employer]. Ketones Ql (U) Negative Normal [employer] [employer]. pH (U) 6.5 [pH] Normal [employer]. Specific gravity (U) [Rel density] >=1.030 Normal [employer] [employer]. Laboratory - Hematology and Cell countson 04-13-2013 Hemoglobin Ql (U) Negative Normal [employer]. Laboratory - Specimen inform ationon 04-13-2013 Appearance (U) clear Normal [employer]. Color (U) yellow Normal [place] [employer].; [employer]. Laboratory - Urinalysison Glucose Test strip (U) [Mass/Vol] Negative Normal [place] [employer].; [employer]. Leukocyte esterase Test strip Ql (U) Negative Normal [place] [employer].; [employer], [employer]. Nitrite Ql (U) Negative Normal [employer].; [employer]. Protein Ql (U) Negative Normal [employer].; [employer]. No Panel Informationon 04-13 UA - UROBILINOGEN 0.2 mg/dL Normal [employer].; [employer]. Laboratory - Chemistry and C hemistry - challengeon 10-17-2012 Bilirubin Ql (U) Negative Normal [employer].; [employer]. Ketones Ql (U) Negative Normal [employer].; [employer]. pH (U) 5.5 [pH] Normal 4.6 - 8.0 [employer].; [employer]. Specific gravity (U) [Rel density] >1.030 Normal 1.001 - 1.025 [employer].; [employer]. Laboratory - Hematology and Cell countson 10-17-2012 Hemoglobin Ql (U) trace, non-hemolyzed Abnormal [employer].; [employer]. Laboratory - Specimen inform ationon 10-17-2012 Appearance (U) clear Normal [employer].; [employer]. Color (U) yellow Normal [employer].; [employer]. Laboratory - Urinalysison Glucose Test strip (U) [Mass/Vol] Negative Normal [employer].; [employer]. Leukocyte esterase Test strip Ql (U) trace Normal [employer], [employer]. Nitrite Ql (U) Negative Normal [employer].; [employer], [employer]. Protein Ql (U) Negative Normal [employer].; [employer]. No Panel Informationon 10-17 UA - UROBILINOGEN 0.2 mg/dL Normal [place] [employer]; [employer]. Laboratory - Chemistry and C hemistry - challengeon 10-04-2011 Bilirubin Ql (U) Negative Normal [employer].; [employer]. Ketones Ql (U) Negative Normal [employer].; [employer]. pH (U) 5.5 [pH] Normal 4.6 - 8.0 [employer]; [employer] Specific gravity (U) [Rel density] >1.030 Normal 1.001 - 1.025 [employer]; [employer]. Laboratory - Hematology and Cell countson 10-04-2011 Hemoglobin Ql (U) trace, non-hemolyzed Abnormal [employer]; [employer] Laboratory - Microbiology an d Antimicrobial susceptibilityon 10-04-2011 Bacteria identified Cx Nom (U) SEE NOTE Normal [employer]; [employer]. Laboratory - Specimen inform ationon 10-04-2011 Appearance (U) clear Normal [employer]; [employer] Color (U) yellow Normal [employer]; [employer]. Specimen source Nom (Unsp spec) URINE Normal [place] [employer]; [employer]. Laboratory - Urinalysison Glucose Test strip (U) [Mass/Vol] Negative Normal [employer]; [employer]. Leukocyte esterase Test strip Ql (U) small Abnormal [employer].; [employer]. Nitrite Ql (U) Negative Normal [employer]; [employer]. Protein Ql (U) Negative Normal [employer].; [employer]. No Panel Informationon 10-03 UA - UROBILINOGEN 0.2 mg/dL Normal [employer].; [employer]. Laboratory - Chemistry and C hemistry - challengeon 08-02-2011 Bilirubin Ql (U) Negative Normal [employer]; [employer]. Ketones Ql (U) Negative Normal [employer].; [employer]. pH (U) 7.0 [pH] Normal 4.6 - 8.0 [employer].; [employer]. Specific gravity (U) [Rel density] 1.020 Normal 1.001 - 1.025 [place] [employer].; [employer]. Laboratory - Hematology and Cell countson 08-02-2011 Hemoglobin Ql (U) Negative Normal [employer].; [employer]. Laboratory - Microbiology an d Antimicrobial susceptibilityon 08-02-2011 Bacteria identified Cx Nom (U) SEE NOTE Normal [employer].; [employer]. Laboratory - Specimen inform ationon 08-02-2011 Appearance (U) Clear Normal [place] [employer].; [employer] Color (U) yellow Normal [employer]; [employer] Specimen source Nom (Unsp spec) URINE Normal [employer].; [employer]. Laboratory - Urinalysison Glucose Test strip (U) [Mass/Vol] Negative Normal [employer].; [employer]. Leukocyte esterase Test strip Ql (U) small Abnormal [employer].; [employer]. Nitrite Ql (U) Negative Normal [employer].; [employer]. Protein Ql (U) 30mg/dl Normal [employer].; [employer]. No Panel Informationon 08-02 UA - UROBILINOGEN 0.2 mg/dL Normal [employer].; [employer]. Laboratory - Chemistry and C hemistry - challengeon 06-18-2011 Bilirubin Ql (U) Negative Normal [employer].; [employer]. Ketones Ql (U) Negative Normal [employer].; [employer]. pH (U) 5.0 [pH] Normal 4.6 - 8.0 [employer].; [employer]. Specific gravity (U) [Rel density] 1.030 Abnormal 1.001 - 1.025 [place] [employer].; [employer] Laboratory - Hematology and Cell countson 06-18-2011 Hemoglobin Ql (U) trace, non-hemolyzed Abnormal [employer]; [employer] Laboratory - Microbiology an d Antimicrobial susceptibilityon 06-18-2011 Bacteria identified Cx Nom (U) SEE NOTE Normal [place] [employer].; [employer] Laboratory - Specimen inform ationon 06-18-2011 Appearance (U) clear Normal [employer]; [employer] Color (U) yellow Normal [employer]; [employer] Specimen source Nom (Unsp spec) URINE-URINE Normal [employer]; [employer] Laboratory - Urinalysison Glucose Test strip (U) [Mass/Vol] Negative Normal [employer]; [employer]. Leukocyte esterase Test strip Ql (U) small Abnormal [employer]; [employer]. Nitrite Ql (U) Negative Normal [employer]; [employer] Protein Ql (U) Negative Normal [employer]; [employer] No Panel Informationon 06-18 UA - UROBILINOGEN 0.2 mg/dL Normal [employer]; [employer]. Laboratory - Chemistry and C hemistry - challengeon 06-15-2011 Albumin [Mass/Vol] 5.2 g/dL Abnormal 3.5 - 5.0 g/dL [place] [employer].; [employer] Albumin/Globulin [Mass ratio] 1.9 {ratio} Abnormal [employer].; [employer]. ALP [Catalytic activity/Vol] 213 U/L Abnormal 50 - 136 U/L [employer].; [employer], [employer]. ALT [Catalytic activity/Vol] 40 mmol/L Normal 12 - 49 mmol/L [employer].; [employer]. AST [Catalytic activity/Vol] 33 U/L Normal 15 - 37 U/L [facility]. Bilirubin [Mass/Vol] 0.2 mg/dL Abnormal 0.3 - 1 .0 mg/dL [facility].; [facility]. Bilirubin Ql (U) Negative Normal [facility].; [facility], [facility]. Calcium [Mass/Vol] 10.0 mg/dL Normal 8.4 - 10. 6 mg/dL [facility].; [facility]. Chloride [Moles/Vol] 102 mmol/L Normal 98 - 11 0 mmol/L [facility].; [facility], [facility]. CO2 [Moles/Vol] 28.0 {yuliya/L} Normal 22.0 - 32.0 {yuliya/L} [facility].; [facility], [facility]. Creatinine [Mass/Vol] 0.5 mg/dL Abnormal 0.6 - 1.4 mg/dL [facility].; [facility], [facility]. CRP [Mass/Vol] mg/L Normal [facility].; [facility]. Globulin (S) [Mass/Vol] 2.7 g/dL Normal 1.5 - 3.8 g/dL [facility].; [facility], [facility]. Glucose [Mass/Vol] 88 mg/dL Normal 75 - 105 mg/dL [facility], [facility].; [place] [employer] [facility], [facility]. Ketones Ql (U) Negative Normal [facility].; [facility], [facility] pH (U) 5.5 [pH] Normal 4.6 - 8.0 [facility].; [facility], [facility]. pH (U) 6.0 [pH] Normal 4.6 - 8.0 [facility].; [place] [employer] [facility], [facility]. Potassium [Moles/Vol] 3.9 mmol/L Normal 3.50 - 5.00 meq/L [facility].; [place] [employer] [facility], [facility]. Protein [Mass/Vol] 7.9 g/dL Normal 6.4 - 8.2 g/dL [facility].; [place] [employer] [facility], [facility]. Sodium [Moles/Vol] 139 mmol/L Normal 136 - 145 mmol/L [facility].; [facility] Specific gravity (U) [Rel density] >=1.030 Normal 1.001 - 1.025 [facility].; [facility], [facility] Specific gravity (U) [Rel density] 1.020 Normal 1.001 - 1.025 [facility].; [place] [employer] [facility], [facility] Urea nitrogen [Mass/Vol] 15 mg/dL Normal 7.0 - 20.0 mg/dL [facility].; [place] [employer] [facility], [facility] Urea nitrogen/Creatinine [Mass ratio] 30 mg/mg Normal 0 - 30 [facility].; [place] [employer] [facility] Laboratory - Hematology and Cell countson 06-15-2011 Basophils/100 WBC (Bld) 0.00 % Normal 0.00 - 0.10 [facility]; [facility], [facility] Basophils/100 WBC (Bld) 0.3 % Normal 0.0 - 2.0 % [facility].; [facility] Eosinophils/100 WBC (Bld) 0.10 % Normal 0.00 - 0.50 [facility].; [facility], [employer] Eosinophils/100 WBC (Bld) 1.3 % Normal 0.0 - 6.0 % [facility].; [place] [employer], [facility] Erythrocyte distribution width (RBC) [Ratio] 13.4 % Normal 12.0 - 15.6 % [facility].; [place] [employer], [facility] Hematocrit (Bld) [Volume fraction] 35.0 % Normal 34 - 44 % [facility].; [place] [email or web address] [facility] Hemoglobin (Bld) [Mass/Vol] 12.2 g/dL Normal 11.5 - 14.2 g/dL [facility].; [place] [employer] [facility], [facility]. Hemoglobin Ql (U) Negative Normal [facility].; [place] [employer], [facility] Lymphocytes/100 WBC (Bld) 3.40 % Abnormal [facility].; [place] [employer], [facility] Lymphocytes/100 WBC (Bld) 35.8 % Normal 20.0 - 45.0 % [facility].; [employer], [employer]. MCH (RBC) [Entitic mass] 29 pg Normal 27 - 33 pg [employer].; [employer], [employer]. MCHC (RBC) [Mass/Vol] 35 g/dL Normal 32 - 36 g/dL H [facility] [employer], [employer]. MCV (RBC) [Entitic vol] 82 fL Normal 80 - 99 fL H [facility] [employer], [employer]. Monocytes/100 WBC (Bld) 0.70 % Normal H [facility] [email or web address] [facility].; [employer], [employer]. Monocytes/100 WBC (Bld) 7.5 % Normal 2.0 - 13.0 % [place] [employer].; [employer], [employer]. Neutrophils/100 WBC (Bld) 55.1 % Normal 46 - 76 % [place] [employer], [employer].; [employer], [employer]. Platelet mean volume (Bld) [Entitic vol] 7.3 fL Normal 6.6 - 10.5 fL [employer].; [employer], [employer]. Platelets (Bld) [#/Vol] 319 10*9{Cells}/L Normal 150 - 450 10*9{Cells}/L [place] [employer].; [employer], [employer]. RBC (Bld) [#/Vol] 4.27 10*6/uL Normal 4.10 - 5.3 0 10*6/uL [employer].; [employer], [employer]. WBC (Bld) [#/Vol] 9.4 10*9{Cells}/L Normal 4.5 - 10.8 10*9{Cells}/L [employer].; [employer]. Laboratory - Specimen inform ationon 06-15-2011 Appearance (U) clear Normal [employer].; [employer]. Color (U) yellow Normal [employer].; [employer], [employer]. Laboratory - Urinalysison Glucose Test strip (U) [Mass/Vol] Negative Normal [employer].; [employer], [employer]. Glucose Test strip (U) [Mass/Vol] normal Normal [facility].; [facility]. Leukocyte esterase Test strip Ql (U) trace Normal [facility].; [place] [employer] [facility]. Leukocyte esterase Test strip Ql (U) Negative Normal [facility].; [place] [employer] [facility], [employer]. Nitrite Ql (U) Negative Normal [facility].; [employer]. Protein Ql (U) Negative Normal [facility].; [place] [employer] No Panel Informationon 06-15 NEUTROPHILS 5.20 10*6/uL Normal 1.5 - 7.1 10*6/uL [facility].; [facility] [facility]. UA - UROBILINOGEN 0.2 mg/dL Normal [facility]; [place] [employer] [facility] UA - UROBILINOGEN normal Normal [facility].; [employer] Laboratory - Microbiology an d Antimicrobial susceptibilityon 04-21-2010 S. pyogenes Org specific cx Ql (Throat) SEE NOTE Abnormal [facility].; [employer] [facility] Laboratory - Specimen inform ationon 04-21-2010 Specimen source Nom (Unsp spec) RESPIRATORY-Throat Normal [place] [employer] [facility]; [place] [employer] [facility] Laboratory - Microbiology an d Antimicrobial susceptibilityOrdered By: Kitty Haas on 04-10-2010 S. pyogenes Ag EIA Ql (Throat) Positive Abnormal [facility]; [place] [email or web address] [facility] Vital Signs Date Time Vital Sign Value Performing Clinician Facility 12-24-2024 11:52-0400 Body mass index (BMI) [Ratio] 34.49 kg/m2 Mir De Jesus MD Work Phone: [facility] 12-24-2024 11:52-0400 Body weight 89.72 kg Mir De Jesus MD Work Phone: [facility] 12-24-2024 11:52-0400 Diastolic blood pressure 68 mm[Hg] Mir De Jesus MD Work Phone: [facility] 12-24-2024 11:52-0400 Systolic blood pressure 120 mm[Hg] Mir De Jesus MD Work Phone: [facility] 12-17-2024 11:41-0400 Body mass index (BMI) [Ratio] 34.24 kg/m2 Mir De Jesus MD Work Phone: [facility] 12-17-2024 11:41-0400 Body weight 89.09 kg Mir De Jesus MD Work Phone: [facility] 12-17-2024 11:41-0400 Diastolic blood pressure 70 mm[Hg] Mir De Jesus MD Work Phone: [facility] 12-17-2024 11:41-0400 Systolic blood pressure 124 mm[Hg] Mir De Jesus MD Work Phone: [facility] 12-13-2024 13:52-0400 Body mass index (BMI) [Ratio] 34.35 kg/m2 Tana Kramer MD Work Phone: [facility] 12-13-2024 13:52-0400 Body weight 89.36 kg Tana Kramer MD Work Phone: [facility] 12-13-2024 13:52-0400 Diastolic blood pressure 62 mm[Hg] Tana Kramer MD Work Phone: [facility] 12-13-2024 13:52-0400 Systolic blood pressure 122 mm[Hg] Tana Kramer MD Work Phone: [facility] 12-04-2024 14:16-0400 Body mass index (BMI) [Ratio] 34 kg/m2 Gin Paris APRN.CNM Work Phone: [facility] 12-04-2024 14:16-0400 Body weight 88.45 kg Gin Paris APRN.CNM Work Phone: [facility] 12-04-2024 14:16-0400 Diastolic blood pressure 70 mm[Hg] Gin Paris APRN.CNM Work Phone: [facility] 12-04-2024 14:16-0400 Systolic blood pressure 112 mm[Hg] Gin Paris DATABASE MARKETING SPECIALIST.CNM Work Phone: [facility] 11-14-2024 08:41-0400 Body mass index (BMI) [Ratio] 33.58 kg/m2 Rosie Henley DATABASE MARKETING SPECIALIST.STEEL RULE INSPECTOR Work Phone: [facility] 11-14-2024 08:41-0400 Body weight 87.36 kg Rosie Lory DATABASE MARKETING SPECIALIST.STEEL RULE INSPECTOR Work Phone: [facility] 11-14-2024 08:41-0400 Diastolic blood pressure 68 mm[Hg] Rosie Henley DATABASE MARKETING SPECIALIST.STEEL RULE INSPECTOR Work Phone: [facility] 11-14-2024 08:41-0400 Systolic blood pressure 122 mm[Hg] Rosie Henley DATABASE MARKETING SPECIALIST.STEEL RULE INSPECTOR Work Phone: [facility] 11-06-2024 10:34-0400 Diastolic blood pressure 77 mm[Hg] [facility] 11-06-2024 10:34-0400 Systolic blood pressure 125 mm[Hg] [facility] 10-26-2024 10:00-0400 Body temperature 99.19 [degF] Treatment Wstr Work Phone: [facility] 10-26-2024 10:00-0400 Diastolic blood pressure 70 mm[Hg] Treatment Wstr Work Phone: [facility] 10-26-2024 10:00-0400 Heart rate 95 /min Treatment Wstr Work Phone: [facility] 10-26-2024 10:00-0400 SaO2% (BldA) [Mass fraction] 98 % Treatment Wstr Work Phone: [facility] 10-26-2024 10:00-0400 Systolic blood pressure 112 mm[Hg] Treatment Wstr Work Phone: [facility] 10-24-2024 15:29-0400 Body temperature 97.81 [degF] Treatment Wstr Work Phone: [facility] 10-24-2024 15:29-0400 Diastolic blood pressure 74 mm[Hg] Treatment Wstr Work Phone: [facility] 10-24-2024 15:29-0400 Heart rate 100 /min Treatment Wstr Work Phone: [facility] 10-24-2024 15:29-0400 Respiratory rate 16 /min Treatment Wstr Work Phone: [facility] 10-24-2024 15:29-0400 SaO2% (BldA) [Mass fraction] 98 % Treatment Wstr Work Phone: [facility] 10-24-2024 15:29-0400 Systolic blood pressure 118 mm[Hg] Treatment Wstr Work Phone: [facility] 10-19-2024 13:15-0400 Body mass index (BMI) [Ratio] 33.13 kg/m2 Gin Paris APRN.CNM Work Phone: [facility] 10-19-2024 13:15-0400 Body weight 86.18 kg Gin Paris APRN.CNM Work Phone: [facility] 10-19-2024 13:15-0400 Diastolic blood pressure 64 mm[Hg] Gin Paris APRN.CNM Work Phone: [facility] 10-19-2024 13:15-0400 Systolic blood pressure 110 mm[Hg] Gin Paris APRN.CNM Work Phone: [facility] 09-07-2024 09:13-0400 Body mass index (BMI) [Ratio] 32.08 kg/m2 Gin Paris APRN.CNM Work Phone: [facility] 09-07-2024 09:13-0400 Body weight 83.46 kg Gin Paris APRN.CNM Work Phone: [facility] 09-07-2024 09:13-0400 Diastolic blood pressure 66 mm[Hg] Gin Paris APRN.CNM Work Phone: [facility] 09-07-2024 09:13-0400 Systolic blood pressure 118 mm[Hg] Gin Paris APRN.CNM Work Phone: [facility] 08-06-2024 11:27-0500 Body mass index (BMI) [Ratio] 28.91 kg/m2 Mala Kingston MD Work Phone: [facility] 08-06-2024 11:27-0500 Body weight 75.21 kg Mala Kingston MD Work Phone: [facility] 08-06-2024 11:27-0500 Diastolic blood pressure 62 mm[Hg] Mala Kingston MD Work Phone: [facility] 08-06-2024 11:27-0500 Systolic blood pressure 108 mm[Hg] Mala Kingston MD Work Phone: [facility] 07-16-2024 08:43-0500 Body height 161.3 cm Gin Paris APRN.CNM Work Phone: [facility] 07-16-2024 08:43-0500 Body mass index (BMI) [Ratio] 29.47 kg/m2 Gin Paris DATABASE MARKETING SPECIALIST.CNM Work Phone: [facility] 07-16-2024 08:43-0500 Body weight 76.66 kg Gin Paris APRN.CNM Work Phone: [facility] 07-16-2024 08:43-0500 Diastolic blood pressure 62 mm[Hg] Gin Paris APRN.CNM Work Phone: [facility] 07-16-2024 08:43-0500 Systolic blood pressure 110 mm[Hg] Gin Paris APRN.CNM Work Phone: [facility] 08-20-2022 18:00-0500 Body temperature 98 [degF] [facility] 08-20-2022 18:00-0500 Diastolic blood pressure 70 mm[Hg] [facility] 08-20-2022 18:00-0500 Heart rate 70 /min [facility] 08-20-2022 18:00-0500 Respiratory rate 16 /min [facility] 08-20-2022 18:00-0500 Systolic blood pressure 130 mm[Hg] [facility] 08-19-2022 19:22-0500 SaO2% (BldA) [Mass fraction] 99 % [facility] 08-19-2022 11:00-0500 Body height 162.56 cm [facility] 08-19-2022 11:00-0500 Body mass index (BMI) [Percentile] Per age and sex 87.6 % [facility] 08-19-2022 11:00-0500 Body mass index (BMI) [Ratio] 27.2 kg/m2 [facility] 08-19-2022 11:00-0500 Body weight 72 kg [facility] 03-18-2022 10:37-0400 Body height 165.1 cm Leelee Walker LPN [facility], [facility] 03-18-2022 10:37-0400 Body mass index (BMI) [Percentile] Per age and sex 66 % Leelee Walker LPN [facility] 03-18-2022 10:37-0400 Body mass index (BMI) [Ratio] 23.13 kg/m2 Leelee Walker LPN [facility] 03-18-2022 10:37-0400 Body surface area Derived from formula 1.69 m2 Leelee Walker LPN [facility] 03-18-2022 10:37-0400 Body weight 63.05 kg Leelee Walker LPN [facility], [facility]. 03-18-2022 10:37-0400 Diastolic blood pressure 72 mm[Hg] Leelee Walker LPN [facility], [facility].; [facility], [employer]. Comment on above: Patient Position: Sitting; Cuff Location : Left Arm; Cuff Size: Standard 03-18-2022 10:37-0400 Heart rate 78 /min Leelee Walker LPN [facility] [employer] Comment on above: Pattern: Regular 03-18-2022 10:37-0400 Systolic blood pressure 110 mm[Hg] Leelee Walker [facility] [employer] Comment on above: Patient Position: Sitting; Cuff Location : Left Arm; Cuff Size: Standard 03-08-2020 [id number]:110400 Body temperature 37.0 Deg Елена [facility] Comment on above: Performed By: #### [facility] #### [address] [address] 02-14-2019 11:03-0400 Body temperature 98.9 [degF] Jerald Sanchez MD Work Phone: [employer] Comment on above: Method: Tympanic 02-14-2019 11:030400 Body weight 84.37 kg Jerald Sanchez MD Work Phone: [employer], [employer] 11-28-2018 13:20-0400 Body height 162.56 cm DanielleBirgit Miller LPN [facility], [facility] [employer] 11-28-2018 13:20-0400 Body mass index (BMI) [Percentile] Per age and sex 98 % DanielleBirgit Rayoey LENNY [employer] [employer] 11-28-2018 13:20-0400 Body mass index (BMI) [Ratio] 32.78 kg/m2 DanielleBirgit Miller LPN [facility], [facility] [employer] 11-28-2018 13:20-0400 Body surface area Derived from formula 1.92 m2 Willow Miller LPN [facility] [employer] 11-28-2018 13:20-0400 Body weight 86.64 kg DanielleBirgit Miller INVESTMENT RECOVERY TECHNICIAN [employer] [employer] 11-28-2018 13:20-0400 Diastolic blood pressure 77 mm[Hg] Willow Miller LPN [facility] [employer] Comment on above: Patient Position: Sitting; Cuff Location : Left Arm; Cuff Size: Large 11-28-2018 13:20-0400 Heart rate 90 /min Willow Miller LPN [employer] Comment on above: Pattern: Regular 11-28-2018 13:20-0400 Systolic blood pressure 119 mm[Hg] Willow Miller LENNY [employer] Comment on above: Patient Position: Sitting; Cuff Location : Left Arm; Cuff Size: Large 09-07-2018 14:23-0400 Body height 162.56 cm Luz Elena Baltazar RN [employer] 09-07-2018 14:23-0400 Body mass index (BMI) [Percentile] Per age and sex 98 % Luz Elena Baltazar RN [employer] 09-07-2018 14:23-0400 Body mass index (BMI) [Ratio] 32.1 kg/m2 Luz Elena Baltazar RN [employer] 09-07-2018 14:23-0400 Body surface area Derived from formula 1.9 m2 Luz Elena Baltazar RN [employer]. 09-07-2018 14:23-0400 Body temperature 99.5 [degF] Luz Elena Baltazar RN [employer] Comment on above: Method: Tympanic 09-07-2018 14:23-0400 Body weight 84.82 kg Luz Elena Baltazar RN [employer] 09-07-2018 14:23-0400 Diastolic blood pressure 81 mm[Hg] Luz Elena Baltazar RN [employer] Comment on above: Patient Position: Sitting; Cuff Location : Left Arm; Cuff Size: Standard 09-07-2018 14:23-0400 Heart rate 102 /min Luz Elena Baltazar RN [employer] [employer] Comment on above: Pattern: Regular 09-07-2018 14:23-0400 Systolic blood pressure 134 mm[Hg] Luz Elena Baltazar RN [employer] [employer] Comment on above: Patient Position: Sitting; Cuff Location : Left Arm; Cuff Size: Standard 08-10-2018 10:28-0500 Body height 162.56 cm Fatuma Sung RN [employer] 08-10-2018 10:28-0500 Body mass index (BMI) [Percentile] Per age and sex 97 % Fatuma Sung RN [employer] 08-10-2018 10:28-0500 Body mass index (BMI) [Ratio] 31.86 kg/m2 Fatuma Sung RN [employer] 08-10-2018 10:28-0500 Body surface area Derived from formula 1.9 m2 Fatuma Sung RN [employer] 08-10-2018 10:28-0500 Body temperature 99 [degF] Fatuma Sung RN [employer]. Comment on above: Method: Tympanic 08-10-2018 [id number] Body weight 84.19 kg Fatuma Sung RN [employer] 04-12-2018 16:43-0400 Body height 163.83 cm RadhaEcho it [facility] Work Phone: [employer] 04-12-2018 16:43-0400 Body mass index (BMI) [Percentile] Per age and sex 97 % [employer] [facility] Work Phone: [employer] 04-12-2018 16:43-0400 Body mass index (BMI) [Ratio] 31.1 kg/m2 [employer] [facility] Work Phone: [employer] 04-12-2018 16:43-0400 Body surface area Derived from formula 1.9 m2 [employer] [facility] Work Phone: [employer] 04-12-2018 16:43-0400 Body temperature 98.5 [degF] Radha York LPN Work Phone: [employer] Comment on above: Method: Tympanic 04-12-2018 16:43-0400 Body weight 83.46 kg Radha York LPN Work Phone: [employer] 09-23-2017 09:39-0400 Body height 163.83 cm Luz Elena Baltazar RN [employer] 09-23-2017 09:39-0400 Body mass index (BMI) [Percentile] Per age and sex 96 % Luz Elena Baltazar RN [employer] 09-23-2017 09:39-0400 Body mass index (BMI) [Ratio] 29.07 kg/m2 Luz Elena Baltazar RN [employer] 09-23-2017 09:39-0400 Body surface area Derived from formula 1.85 m2 Luz Elena Baltazar RN [employer] 09-23-2017 09:39-0400 Body temperature 99.5 [degF] Luz Elena Baltazar RN [employer]. Comment on above: Method: Tympanic 09-23-2017 09:39-0400 Body weight 78.02 kg Luz Elena Baltazar RN [employer] 09-07-2017 09:05-0400 Body height 163.83 cm Sherrie Marinelli LPN [employer] [employer] 09-07-2017 09:05-0400 Body mass index (BMI) [Percentile] Per age and sex 96 % Sherrie Marinelli LPN [employer] [employer] 09-07-2017 09:05-0400 Body mass index (BMI) [Ratio] 29.41 kg/m2 Sherrie Marinelli LPN [employer] [facility] [employer] 09-07-2017 09:05-0400 Body surface area Derived from formula 1.85 m2 Sherrie Forte Isis GALVEZ [place] [facility], [facility] [employer] 09-07-2017 09:05-0400 Body temperature 97.6 [degF] Sherrie [facility]abach [facility], [facility] [employer] Comment on above: Method: Tympanic 09-07-2017 09:05-0400 Body weight 78.93 kg Sherrie Forte Isis GALVEZ [employer] [employer] 03-02-2017 13:48-0400 Body height 157.48 cm Maricruz Hernandez LPN [place] [facility], [employer] 03-02-2017 13:48-0400 Body mass index (BMI) [Percentile] Per age and sex 96 % Maricruz Hernandez LPN [employer], [employer] 03-02-2017 13:48-0400 Body mass index (BMI) [Ratio] 28.72 kg/m2 [email or web address], [employer].; [employer] 03-02-2017 13:48-0400 Body surface area Derived from formula 1.72 m2 Maricruz Hernandez LPN [employer], [employer].; [employer] 03-02-2017 13:48-0400 Body temperature 98.4 [degF] Maricruz Hernandez LPN [employer].; [employer] 03-02-2017 13:48-0400 Body weight 71.22 kg Maricruz Hernandez LPN [employer], [employer] 03-02-2017 13:48-0400 Inhaled oxygen concentration 21 % Maricruz Hernandez LPN [employer], [employer].; [employer]. Comment on above: Room air 03-02-2017 13:48-0400 SaO2% (BldA) [Mass fraction] 98 % Maricruz Hernandez LPN [employer], [employer].; [employer] 12-15-2016 15:06-0400 Body height 157.48 cm Tana Huff LPN [facility] [employer] 12-15-2016 15:06-0400 Body mass index (BMI) [Percentile] Per age and sex 97 % Tanavaleriano Huff LPN [employer] 12-15-2016 15:06-0400 Body mass index (BMI) [Ratio] 29.08 kg/m2 Tana Huff LPN [employer] 12-15-2016 15:06-0400 Body surface area Derived from formula 1.73 m2 Tanavaleriano Huff LPN [employer] 12-15-2016 15:06-0400 Body weight 72.12 kg Tana Huff LPN [employer] 07-15-2016 09:06-0500 Body height 161.29 cm Luz Elena Baltazar RN [employer] 07-15-2016 09:06-0500 Body mass index (BMI) [Percentile] Per age and sex 97 % Luz Elena Baltazar RN [employer] 07-15-2016 09:06-0500 Body mass index (BMI) [Ratio] 28.6 kg/m2 Luz Elena Baltazar RN [employer] 07-15-2016 09:06-0500 Body surface area Derived from formula 1.79 m2 Luz Elena Baltazar RN [employer] 07-15-2016 09:06-0500 Body temperature 97.8 [degF] Luz Elena Baltazar RN [employer]. Comment on above: Method: Tympanic 07-15-2016 09:06-0500 Body weight 74.39 kg Luz Elena Baltazar RN [employer] 07-15-2016 09:06-0500 Inhaled oxygen concentration 21 % Luz Elena Baltazar RN [place] [facility] [employer]. Comment on above: Room air 07-15-2016 09:06-0500 SaO2% (BldA) [Mass fraction] 99 % Luz Elena Baltazar RN [facility] [employer] 06-18-2016 09:44-0500 Body height 161.29 cm Michelle Shearer LPN [place] [facility], [facility] [employer] 06-18-2016 09:44-0500 Body mass index (BMI) [Percentile] Per age and sex 96 % Michelle Shearer LPN [place] [facility], [facility] [employer], [employer]. 06-18-2016 09:44-0500 Body mass index (BMI) [Ratio] 28.25 kg/m2 Michelle Shearer LPN [place] [facility], [facility] [employer], [employer]. 06-18-2016 09:44-0500 Body surface area Derived from formula 1.78 m2 Michelle Shearer LPN [place] [facility], [facility] [employer], [employer]. 06-18-2016 09:44-0500 Body temperature 97.7 [degF] Michelle Shearer LPN [place] [facility] [employer], [employer]. 06-18-2016 09:44-0500 Body weight 73.48 kg Michelle Shearer LPN [place] [facility] [employer], [employer]. 06-18-2016 09:44-0500 Diastolic blood pressure 70 mm[Hg] Michelle Shearer LPN [place] [facility] [employer]. Comment on above: Patient Position: Sitting; Cuff Location : Left Arm; Cuff Size: Standard 06-18-2016 09:44-0500 Heart rate 81 /min Michelle Shearer LPN [place] [facility] [employer]. Comment on above: Pattern: Regular 06-18-2016 09:44-0500 Systolic blood pressure 113 mm[Hg] Michelle Shearer LPN [facility] [employer]. Comment on above: Patient Position: Sitting; Cuff Location : Left Arm; Cuff Size: Standard 05-20-2016 11:52-0500 Body temperature 98.6 [degF] Luz Elena Baltazar RN [employer], [employer]. Comment on above: Method: Tympanic 05-20-2016 11:52-0500 Body weight 72.58 kg Luz Elena Baltazar RN [employer], [employer].; [employer]. 05-20-2016 11:52-0500 Inhaled oxygen concentration 21 % Luz Elena Baltazar RN [employer], [employer].; [employer]. Comment on above: Room air 05-20-2016 11:52-0500 SaO2% (BldA) [Mass fraction] 99 % Luz Elena Baltazar RN [employer], [employer].; [employer]. 04-02-2016 10:35-0400 Body height 158.75 cm Radha Rizvi INVESTMENT RECOVERY TECHNICIAN [employer], [employer]. 04-02-2016 10:35-0400 Body mass index (BMI) [Percentile] Per age and sex 96 % Neilee L Belkys [facility], [employer].; [employer]. 04-02-2016 10:35-0400 Body mass index (BMI) [Ratio] 28.08 kg/m2 Neilee L Belkys INVESTMENT RECOVERY TECHNICIAN [employer], [employer], [employer]. 04-02-2016 10:35-0400 Body surface area Derived from formula 1.73 m2 Nemagane L Belkys INVESTMENT RECOVERY TECHNICIAN [employer], [employer], [employer]. 04-02-2016 10:35-0400 Body temperature 97.9 [degF] Neilee L Vess INVESTMENT RECOVERY TECHNICIAN [employer], [employer]. Comment on above: Method: Tympanic 04-02-2016 10:35-0400 Body weight 70.76 kg Nemagane L Belkys INVESTMENT RECOVERY TECHNICIAN [employer] [employer]. 03-02-2016 11:34-0400 Body height 158.75 cm Danielle Paul INVESTMENT RECOVERY TECHNICIAN [employer], [employer].; [employer]. 03-02-2016 11:34-0400 Body mass index (BMI) [Percentile] Per age and sex 98 % Willow Miller [facility] [employer] 03-02-2016 11:34-0400 Body mass index (BMI) [Ratio] 30.24 kg/m2 Willow Miller [facility] [employer] 03-02-2016 11:34-0400 Body surface area Derived from formula 1.79 m2 Willow Miller [facility] [employer] 03-02-2016 11:34-0400 Body temperature 98.5 [degF] [facility]le [facility] [employer] Comment on above: Method: Tympanic 03-02-2016 11:34-0400 Body weight 76.2 kg Willow Miller [facility] [employer] 02-25-2016 15:22-0400 Body height 158.75 cm Alma Samuels RN Work Phone: [employer], [employer] 02-25-2016 15:22-0400 Body mass index (BMI) [Percentile] Per age and sex 98 % Alma Samuels RN Work Phone: [employer] 02-25-2016 15:22-0400 Body mass index (BMI) [Ratio] 30.24 kg/m2 Alma Samuels RN Work Phone: [employer] 02-25-2016 15:22-0400 Body surface area Derived from formula 1.79 m2 Alma Samuels RN Work Phone: [employer] 02-25-2016 15:22-0400 Body temperature 98.1 [degF] Alma Samuels RN Work Phone: [employer].; [employer]. Comment on above: Method: Tympanic 02-25-2016 15:22-0400 Body weight 76.2 kg Alma Samuels RN Work Phone: [employer]; [employer] 09-18-2015 18:08-0400 Body height 158.75 cm Luz Elena Baltazar RN [employer] 09-18-2015 18:08-0400 Body mass index (BMI) [Percentile] Per age and sex 97 % Luz Elena Baltazar RN [employer] 09-18-2015 18:08-0400 Body mass index (BMI) [Ratio] 27.9 kg/m2 Luz Elena Baltazar RN [employer] 09-18-2015 18:08-0400 Body surface area Derived from formula 1.73 m2 Luz Elena Baltazar RN [employer] 09-18-2015 18:08-0400 Body temperature 98.6 [degF] Luz Elena Baltazar RN [employer] Comment on above: Method: Tympanic 09-18-2015 18:08-0400 Body weight 70.31 kg Luz Elena Baltazar RN [employer] [employer] 09-18-2015 18:08-0400 Diastolic blood pressure 70 mm[Hg] Luz Elena Baltazar RN [employer] [employer]. Comment on above: Patient Position: Sitting; Cuff Location : Right Arm; Cuff Size: Small 09-18-2015 18:08-0400 Heart rate 67 /min Luz Elena Baltazar RN [employer] [employer]. Comment on above: Pattern: Regular 09-18-2015 18:08-0400 Inhaled oxygen concentration 21 % Luz Elena Baltazar RN [employer] [employer]. Comment on above: Room air 09-18-2015 18:08-0400 SaO2% (BldA) [Mass fraction] 98 % Luz Elena Baltazar RN [employer] [employer] 09-18-2015 18:08-0400 Systolic blood pressure 122 mm[Hg] Luz Elena Baltazar RN [employer] [employer] Comment on above: Patient Position: Sitting; Cuff Location : Right Arm; Cuff Size: Small 04-21-2015 15:56-0500 Body height 157.48 cm Luz Elena Baltazar RN [employer] 04-21-2015 15:56-0500 Body mass index (BMI) [Percentile] Per age and sex 95 % Luz Elena Baltazar RN [employer] 04-21-2015 15:56-0500 Body mass index (BMI) [Ratio] 25.97 kg/m2 Luz Elena Baltazar RN [employer]. 04-21-2015 15:56-0500 Body surface area Derived from formula 1.65 m2 Luz Elena Baltazar RN [employer]. 04-21-2015 15:56-0500 Body temperature 99.8 [degF] Luz Elena Baltazar RN [employer] [employer]. Comment on above: Method: Tympanic 04-21-2015 15:56-0500 Body weight 64.41 kg Luz Elena Baltazar RN [employer] [employer] 04-21-2015 15:56-0500 Diastolic blood pressure 83 mm[Hg] Luz Elena Baltazar RN [employer] Comment on above: Patient Position: Sitting; Cuff Location : Left Arm; Cuff Size: Standard 04-21-2015 15:56-0500 Heart rate 110 /min Luz Elena Baltazar RN [employer] Comment on above: Pattern: Regular 04-21-2015 15:56-0500 Systolic blood pressure 120 mm[Hg] Luz Elena Baltazar RN [employer] [employer]. 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 Comment on above: Method: Tympanic 03-29-2014 14:55-0400 Body weight 61.24 kg Radha York INVESTMENT RECOVERY TECHNICIAN Work Phone: [employer] 02-15-2014 14:43-0400 Body height 148.59 cm Alma Samuels RN Work Phone: [employer] 02-15-2014 14:43-0400 Body mass index (BMI) [Percentile] Per age and sex 97 % Alma Samuels RN Work Phone: [employer] 02-15-2014 14:43-0400 Body mass index (BMI) [Ratio] 26.3 kg/m2 Alma Samuels RN Work Phone: [employer] 02-15-2014 14:43-0400 Body surface area Derived from formula 1.52 m2 Alma Samuels RN Work Phone: [employer] 02-15-2014 14:43-0400 Body temperature 99 [degF] Alma Samuels RN Work Phone: [employer] Comment on above: Method: Tympanic 02-15-2014 14:43-0400 Body weight 58.06 kg Alma Samuels RN Work Phone: [employer] 10-09-2013 16:06-0400 Body height 144.78 cm Alma Samuels RN Work Phone: [employer] 10-09-2013 16:06-0400 Body mass index (BMI) [Percentile] Per age and sex 98 % Alma Samuels RN Work Phone: [employer] 10-09-2013 16:06-0400 Body mass index (BMI) [Ratio] 27.05 kg/m2 Alma Samuels RN Work Phone: [employer] 10-09-2013 16:06-0400 Body surface area Derived from formula 1.47 m2 Alma Samuels RN Work Phone: [employer] 10-09-2013 16:06-0400 Body temperature 99.2 [degF] Alma Samuels RN Work Phone: [employer]. Comment on above: Method: Tympanic 10-09-2013 16:06-0400 Body weight 56.7 kg Alma Samuels RN Work Phone: [employer] 08-24-2013 11:18-0400 Body height 146.69 cm Alma Samuels RN Work Phone: [employer] 08-24-2013 11:18-0400 Body mass index (BMI) [Percentile] Per age and sex 97 % Alma Samuels RN Work Phone: [employer] 08-24-2013 11:18-0400 Body mass index (BMI) [Ratio] 25.72 kg/m2 Alma Samuels RN Work Phone: [employer] 08-24-2013 11:18-0400 Body surface area Derived from formula 1.47 m2 Alma Samuels RN Work Phone: [employer] 08-24-2013 11:18-0400 Body weight 55.34 kg Alma Samuels RN Work Phone: [employer] 08-24-2013 11:18-0400 Diastolic blood pressure 66 mm[Hg] Alma Samuels RN Work Phone: [employer]. Comment on above: Patient Position: Sitting; Cuff Location : Left Arm; Cuff Size: Standard 08-24-2013 11:18-0400 Heart rate 92 /min Alma Samuels RN Work Phone: [employer].; [employer]. Comment on above: Pattern: Regular 08-24-2013 11:18-0400 Systolic blood pressure 94 mm[Hg] Alma Samuels RN Work Phone: [employer].; [employer]. Comment on above: Patient Position: Sitting; Cuff Location : Left Arm; Cuff Size: Standard 05-21-2013 16:07-0500 Body height 144.78 cm Alma Samuels RN Work Phone: [employer] 05-21-2013 16:07-0500 Body mass index (BMI) [Percentile] Per age and sex 96 % Alma Samuels RN Work Phone: [employer] 05-21-2013 16:07-0500 Body mass index (BMI) [Ratio] 24.02 kg/m2 Alma Samuels RN Work Phone: [employer] 05-21-2013 16:07-0500 Body surface area Derived from formula 1.4 m2 Alma Samuels RN Work Phone: [employer] 05-21-2013 16:07-0500 Body temperature 98.1 [degF] Alma Samuels RN Work Phone: [employer] [employer] Comment on above: Method: Tympanic 05-21-2013 16:07-0500 Body weight 50.35 kg Alma Samuels RN Work Phone: [employer] [employer] 04-19-2013 15:35-0500 Body height 143.76 cm Radha York LPN Work Phone: [employer] 04-19-2013 15:35-0500 Body mass index (BMI) [Percentile] Per age and sex 96 % Radha York LPN Work Phone: [employer] 04-19-2013 15:35-0500 Body mass index (BMI) [Ratio] 24.48 kg/m2 Radha York LPN Work Phone: [employer] 04-19-2013 15:35-0500 Body surface area Derived from formula 1.4 m2 Radha York INVESTMENT RECOVERY TECHNICIAN Work Phone: [employer] 04-19-2013 15:35-0500 Body temperature 98.8 [degF] Radha York LPN Work Phone: [employer] Comment on above: Method: Tympanic 04-19-2013 15:35-0500 Body weight 50.6 kg Radha York LPN Work Phone: [employer] 04-13-2013 15:41-0400 Body height 143.76 cm Tana Huff LPN [employer] 04-13-2013 15:41-0400 Body mass index (BMI) [Percentile] Per age and sex 96 % Tana Huff INVESTMENT RECOVERY TECHNICIAN [employer] 04-13-2013 15:41-0400 Body mass index (BMI) [Ratio] 24.26 kg/m2 Tana Huff LPN [employer] 04-13-2013 15:41-0400 Body surface area Derived from formula 1.39 m2 Tana Huff LPN [employer] 04-13-2013 15:41-0400 Body temperature 98.1 [degF] Tana Refugio GALVEZ [facility] [employer] Comment on above: Method: Tympanic 04-13-2013 15:41-0400 Body weight 50.15 kg Tana Huff LPN [place] [email or web address] [facility].; [employer] 10-17-2012 11:20-0400 Body height 140.97 cm Alma Samuels RN Work Phone: [employer] 10-17-2012 11:20-0400 Body mass index (BMI) [Percentile] Per age and sex 96 % Alma Samuels RN Work Phone: [employer] 10-17-2012 11:20-0400 Body mass index (BMI) [Ratio] 23.97 kg/m2 Alma Samuels RN Work Phone: [employer] 10-17-2012 11:20-0400 Body surface area Derived from formula 1.34 m2 Alma Samuels RN Work Phone: [employer] 10-17-2012 11:20-0400 Body temperature 97.9 [degF] Alma Samuels RN Work Phone: [employer] Comment on above: Method: Tympanic 10-17-2012 11:20-0400 Body weight 47.63 kg Alma Samuels RN Work Phone: [employer] 08-14-2012 10:04-0500 Body height 138.43 cm Alma Samuels RN Work Phone: [employer] 08-14-2012 10:04-0500 Body mass index (BMI) [Percentile] Per age and sex 97 % Alma Samuels RN Work Phone: [employer] 08-14-2012 10:04-0500 Body mass index (BMI) [Ratio] 24.62 kg/m2 Alma Samuels RN Work Phone: [employer] [employer] 08-14-2012 10:04-0500 Body surface area Derived from formula 1.32 m2 Alma Samuels RN Work Phone: [employer] 08-14-2012 10:04-0500 Body temperature 98.1 [degF] Alma Samuels RN Work Phone: [employer] Comment on above: Method: Tympanic 08-14-2012 10:04-0500 Body weight 47.17 kg Alma Samuels RN Work Phone: [employer] 08-03-2012 16:46-0500 Body height 137.16 cm Radha Jaylen INVESTMENT RECOVERY TECHNICIAN Work Phone: [employer] 08-03-2012 16:46-0500 Body mass index (BMI) [Percentile] Per age and sex 98 % [facility] Work Phone: [employer] [employer] 08-03-2012 16:46-0500 Body mass index (BMI) [Ratio] 25.32 kg/m2 [facility] INVESTMENT RECOVERY TECHNICIAN Work Phone: [employer] [employer] 08-03-2012 16:46-0500 Body surface area Derived from formula 1.32 m2 [facility] INVESTMENT RECOVERY TECHNICIAN Work Phone: [employer] [employer] 08-03-2012 16:46-0500 Body temperature 100 [degF] [facility] INVESTMENT RECOVERY TECHNICIAN Work Phone: [employer] [facility] Comment on above: Method: Tympanic 08-03-2012 16:46-0500 Body weight 47.63 kg Radha York LENNY Work Phone: [employer] 05-29-2012 11:42-0500 Body height 135.89 cm Neilee L Vess INVESTMENT RECOVERY TECHNICIAN [employer] 05-29-2012 11:42-0500 Body mass index (BMI) [Percentile] Per age and sex 98 % Neilee L Vess INVESTMENT RECOVERY TECHNICIAN [employer] 05-29-2012 11:42-0500 Body mass index (BMI) [Ratio] 25.55 kg/m2 Neilee L Vess INVESTMENT RECOVERY TECHNICIAN [employer] 05-29-2012 11:42-0500 Body surface area Derived from formula 1.3 m2 Neilee L Vess INVESTMENT RECOVERY TECHNICIAN [employer] 05-29-2012 11:42-0500 Body temperature 98.1 [degF] Neilee L Vess INVESTMENT RECOVERY TECHNICIAN [employer] Comment on above: Method: Tympanic 05-29-2012 11:42-0500 Body weight 47.17 kg Nemagane Lawrence Vess INVESTMENT RECOVERY TECHNICIAN [employer] 10-04-2011 14:49-0400 Body height 133.35 cm Alma Samuels RN Work Phone: [employer] 10-04-2011 14:49-0400 Body mass index (BMI) [Percentile] Per age and sex 98 % Alma Samuels RN Work Phone: [employer] 10-04-2011 14:49-0400 Body mass index (BMI) [Ratio] 23.98 kg/m2 Alma Samuels RN Work Phone: [employer] 10-04-2011 14:49-0400 Body surface area Derived from formula 1.23 m2 Alma Samuels RN Work Phone: [employer] [facility].; [employer] 10-04-2011 14:49-0400 Body temperature 97.3 [degF] Alma Samuels RN Work Phone: [employer] [facility].; [employer] Comment on above: Method: Tympanic 10-04-2011 14:49-0400 Body weight 42.64 kg Alma Samuels RN Work Phone: [employer] [facility].; [employer] 09-13-2011 12:09-0400 Body height 132.08 cm Neilee L Vess INVESTMENT RECOVERY TECHNICIAN [employer] [facility].; [employer] 09-13-2011 12:09-0400 Body mass index (BMI) [Percentile] Per age and sex 98 % Neilee L Vess INVESTMENT RECOVERY TECHNICIAN [employer] 09-13-2011 12:09-0400 Body mass index (BMI) [Ratio] 23.92 kg/m2 Neilee L Vess INVESTMENT RECOVERY TECHNICIAN [employer] [facility].; [employer] 09-13-2011 12:09-0400 Body surface area Derived from formula 1.21 m2 Neilee L Vess INVESTMENT RECOVERY TECHNICIAN [employer] [facility].; [employer] 09-13-2011 12:09-0400 Body temperature 97.1 [degF] Neilee L Vess INVESTMENT RECOVERY TECHNICIAN [employer]. Comment on above: Method: Tympanic 09-13-2011 12:09-0400 Body weight 41.73 kg Neilee L Vess INVESTMENT RECOVERY TECHNICIAN [employer] 08-02-2011 13:45-0500 Body height 132.08 cm Alma Samuels RN Work Phone: [employer] 08-02-2011 13:45-0500 Body mass index (BMI) [Percentile] Per age and sex 98 % Alma Samuels RN Work Phone: [employer] 08-02-2011 13:45-0500 Body mass index (BMI) [Ratio] 23.66 kg/m2 Alma Samuels RN Work Phone: [employer] 08-02-2011 13:45-0500 Body surface area Derived from formula 1.2 m2 Alma Samuels RN Work Phone: [employer] 08-02-2011 13:45-0500 Body temperature 97.3 [degF] Alma Samuels RN Work Phone: [employer] [employer] Comment on above: Method: Tympanic 08-02-2011 13:45-0500 Body weight 41.28 kg Alma Samuels RN Work Phone: [employer] 06-24-2011 13:02-0500 Body height 132.08 cm Alma Samuels RN Work Phone: [employer] [employer] 06-24-2011 13:02-0500 Body mass index (BMI) [Percentile] Per age and sex 98 % Alma Samuels RN Work Phone: [employer] [employer] 06-24-2011 13:02-0500 Body mass index (BMI) [Ratio] 23.4 kg/m2 Alma Samuels RN Work Phone: [employer] 06-24-2011 13:02-0500 Body surface area Derived from formula 1.2 m2 Alma Samuels RN Work Phone: [employer] 06-24-2011 13:02-0500 Body temperature 97.6 [degF] Alma Samuels RN Work Phone: [employer]. Comment on above: Method: Tympanic 06-24-2011 13:02-0500 Body weight 40.82 kg Alma Samuels RN Work Phone: [employer] 06-18-2011 09:59-0500 Body height 132.08 cm Alma Samuels RN Work Phone: [employer]. 06-18-2011 09:59-0500 Body mass index (BMI) [Percentile] Per age and sex 97 % Alma Samuels RN Work Phone: [employer] 06-18-2011 09:59-0500 Body mass index (BMI) [Ratio] 23.14 kg/m2 Alma Samuels RN Work Phone: [employer] 06-18-2011 09:59-0500 Body surface area Derived from formula 1.19 m2 Alma Samuels RN Work Phone: [employer] 06-18-2011 09:59-0500 Body temperature 97.9 [degF] Alma Samuels RN Work Phone: [employer] [employer] Comment on above: Method: Tympanic 06-18-2011 09:59-0500 Body weight 40.37 kg Alma Samuels RN Work Phone: [employer] 06-15-2011 18:02-0500 Body height 129.54 cm Kitty Haas LPN [employer] 06-15-2011 18:02-0500 Body mass index (BMI) [Percentile] Per age and sex 98 % Kitty Haas LPN [employer] 06-15-2011 18:02-0500 Body mass index (BMI) [Ratio] 24.22 kg/m2 Kitty Haas LPN [employer] 06-15-2011 18:02-0500 Body surface area Derived from formula 1.18 m2 Kitty Haas LENNY [facility] [employer] 06-15-2011 18:02-0500 Body temperature 96.8 [degF] Kitty Haas LENNY [place] [facility] [facility] [employer]. Comment on above: Method: Tympanic 06-15-2011 18:02-0500 Body weight 40.64 kg Kitty Arroyohardy GALVEZ [employer] 04-22-2011 10:36-0500 Body height 131.44 cm Fatuma Sung RN [employer] 04-22-2011 10:36-0500 Body mass index (BMI) [Percentile] Per age and sex 97 % Fatuma Sung RN [employer] 04-22-2011 10:36-0500 Body mass index (BMI) [Ratio] 22.63 kg/m2 Fatuma Sung RN [employer] 04-22-2011 10:36-0500 Body surface area Derived from formula 1.17 m2 Fatuma Sung RN [employer] 04-22-2011 10:36-0500 Body temperature 97 [degF] Fatuma Sung RN [employer] Comment on above: Method: Tympanic 04-22-2011 10:36-0500 Body weight 39.1 kg Fatuma Sung RN [employer] 07-10-2010 10:22-0500 Body height 127 cm Alma Samuels RN Work Phone: [employer] 07-10-2010 10:22-0500 Body mass index (BMI) [Percentile] Per age and sex 96 % Alma Samuels RN Work Phone: [employer] 07-10-2010 10:22-0500 Body mass index (BMI) [Ratio] 20.81 kg/m2 Alma Samuels RN Work Phone: [employer] 07-10-2010 10:22-0500 Body surface area Derived from formula 1.07 m2 Alma Samuels RN Work Phone: [employer] 07-10-2010 10:22-0500 Body temperature 97.9 [degF] Alma Samuels RN Work Phone: [employer]. Comment on above: Method: Tympanic 07-10-2010 10:22-0500 Body weight 33.57 kg Alma Samuels RN Work Phone: [employer] 04-21-2010 14:50-0500 Body height 124.46 cm Alma Samuels RN Work Phone: [employer] 04-21-2010 14:50-0500 Body mass index (BMI) [Percentile] Per age and sex 97 % Alma Samuels RN Work Phone: [employer] [employer] 04-21-2010 14:50-0500 Body mass index (BMI) [Ratio] 21.08 kg/m2 Alma Samuels RN Work Phone: [employer]. 04-21-2010 14:50-0500 Body surface area Derived from formula 1.04 m2 Alma Samuels RN Work Phone: [employer]. 04-21-2010 14:50-0500 Body temperature 100.7 [degF] Alma Samuels RN Work Phone: [employer]. Comment on above: Method: Tympanic 04-21-2010 14:50-0500 Body weight 32.66 kg Alma Samuels RN Work Phone: [employer] [employer] 04-10-2010 08:12-0400 Body height 125.09 cm Kitty Melly Haas INVESTMENT RECOVERY TECHNICIAN [facility] [facility] [employer] 04-10-2010 08:12-0400 Body mass index (BMI) [Percentile] Per age and sex 96 % Kitty Melly ArroyoWaldo INVESTMENT RECOVERY TECHNICIAN [facility] [facility] [employer] 04-10-2010 08:12-0400 Body mass index (BMI) [Ratio] 20.75 kg/m2 Kitty Melly ArroyoTroy INVESTMENT RECOVERY TECHNICIAN [facility] [employer] 04-10-2010 08:12-0400 Body surface area Derived from formula 1.05 m2 Kitty Melly Haas [facility].; [employer] 04-10-2010 08:12-0400 Body temperature 97.1 [degF] Kitty GetBack[employer] [facility] [employer] Comment on above: Method: Tympanic 04-10-2010 08:120400 Body weight 32.48 kg Kitty Melly Haas INVESTMENT RECOVERY TECHNICIAN [facility] [employer] Encounters Encounter Date Encounter Type Care Provider Facility Start: 12-24-2024 End: 12-24-2024 Patient encounter procedure Mir De Jesus MD Work Phone: OB/Gynecology Comment on above: 39 weeks gestation o f (HCC) (Primary Dx); Gestational diabetes mellitus, class A1 ([facility]); Encounter for supervision of high risk in third trimester, antepartum ([facility]); History of intrauterine , currently ([facility]) Start: 12-24-2024 End: 12-24-2024 ambulatory [facility] Facility:[facility] Start: 12-18-2024 End: 12-18-2024 ambulatory Leelee Crenshaw MA [facility] Start: 12-18-2024 End: 12-18-2024 [facility] Health Na vigation Outreach ( to PCP/OB/) Start: 12-17-2024 End: 12-17-2024 Patient encounter procedure Mir De Jesus MD Work Phone: OB/Gynecology Comment on above: 38 weeks gestation o f (HCC) (Primary Dx); Encounter for supervision of high risk in third trimester, antepartum (HCC); Gestational diabetes mellitus, class A1 (HCC); History of intrauterine , currently (HCC) Start: 12-17-2024 End: 12-17-2024 [facility] Facility:[facility] Start: 12-13-2024 End: 12-13-2024 Office outpatient visit 15 minutes Tana Kramer MD Work Phone: OB/Gynecology Comment on above: Encounter for superv ision of high risk in third trimester, antepartum (HCC) (Primary Dx); Gestational diabetes mellitus, class A1 (HCC); Anemia during in third trimester (HCC); History of intrauterine , currently (HCC); 37 weeks gestation of (HCC) Start: 12-13-2024 End: 12-13-2024 [facility] Facility:[facility] Start: 12-05-2024 End: 12-05-2024 Telephone encounter Tana Saeed RN Maternal Medicine Comment on above: 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 [employer] ([employer]) Start: 12-04-2024 End: 12-25-2024 E-mail encounter from caregiver Gin Wellington JACOBSON Work Phone: OB/Gynecology Start: 12-04-2024 End: 12-04-2024 Patient encounter procedure Gin Paris APRN.CNM Work Phone: OB/Gynecology Comment on above: Encounter for superv ision of high risk in third trimester, antepartum (HCC) (Primary Dx); Gestational diabetes mellitus, class A1 (HCC); Anemia during in third trimester (HCC); Tobacco use during , antepartum (HCC); History of intrauterine , currently (HCC); History of delivery of macrosomal infant; 36 weeks gestation of (HCC); Penicillin allergy Prior poor obstetric al history in third trimester, antepartum (HCC) (Primary Dx) Start: 12-04-2024 End: 12-25-2024 [facility] Facility:[facility] Comment on above: Blood sugar log Start: 11-14-2024 End: 11-14-2024 Patient encounter procedure Rosie Henley JOSE Work Phone: OB/Gynecology Comment on above: Encounter for superv ision of high risk in third trimester, antepartum (HCC) (Primary Dx); 33 weeks gestation of (HCC); Gestational diabetes mellitus, class A1 (HCC); Late care (HCC); Anemia during in third trimester (HCC); Tobacco use during , antepartum (HCC); History of intrauterine , currently ([facility]); History of delivery of macrosomal infant Start: 11-14-2024 End: 11-14-2024 ambulatory [facility] Facility:[facility] Start: 11-06-2024 End: 11-06-2024 [facility] Facility:[facility] Start: 11-06-2024 End: 11-06-2024 Patient encounter procedure Whi Tech 2 [employer] S[employer] [facility] Maternal Medicine Comment on above: Encounter for ultras ound to check growth (HCC) (Primary Dx); 32 weeks gestation of (HCC); Diet controlled gestational diabetes mellitus (GDM) in third trimester (HCC) Start: 11-02-2024 End: 11-02-2024 ambulatory [facility] Facility:[facility] Start: 10-26-2024 End: 10-26-2024 ambulatory Treatment Rm 15 Anish [facility] Work Phone: Hematology/Oncology Comment on above: Maternal iron defici ency anemia complicating , third trimester (HCC) (Primary Dx) Start: 10-25-2024 End: 10-25-2024 Telephone encounter Ankur Colón MD Work Phone: OB/Gynecology Comment on above: No movement x3 days Start: 10-24-2024 End: 10-24-2024 ambulatory Treatment Rm 14 Anish [facility] Work Phone: Hematology/Oncology Comment on above: Maternal iron defici ency anemia complicating , third trimester (HCC) (Primary Dx) Start: 2024 End: 2024 ambulatory [facility] Facility:[facility] Start: 10-19-2024 End: 10-19-2024 Patient encounter procedure Gin Wellington JACOBSON Work Phone: OB/Gynecology Comment on above: Supervision of high risk in third trimester (HCC) (Primary Dx); 29 weeks gestation of ([facility]); Late care ([facility]); Insufficient care in third trimester ([facility]); History of intrauterine , currently ([facility]); Tobacco use during , antepartum ([facility]); History of delivery of macrosomal infant; Diet controlled gestational diabetes mellitus (GDM) in third trimester ([facility]); Anemia during in third trimester ([facility]); History of gestational hypertension Start: 10-19-2024 End: 10-19-2024 ambulatory [facility] Facility:[facility] Start: 10-18-2024 End: 10-18-2024 E-mail encounter from caregiver Francisca Grove RN [facility] Start: 10-18-2024 End: 10-18-2024 Follow-up encounter Francisca Grove RN [facility] Comment on above: gestational diabetes follow up Start: 10-18-2024 End: 10-18-2024 Nursing evaluation of patient and report Francisca Grove RN [facility] Comment on above: Diet controlled gest ational diabetes mellitus (GDM) in third trimester ([facility]) Start: 10-18-2024 End: 10-18-2024 [facility] Facility:[facility] Start: 10-16-2024 End: 10-16-[address] Jesse Hernandez RD Work Phone: Nutrition Therapy Comment on above: Dietary counseling a nd surveillance (Primary Dx); Diet controlled gestational diabetes mellitus (GDM) in third trimester ([facility]) Start: 10-16-2024 End: 10-16-2024 Telemedicine consultation with patient Jesse Hernandez RD Work Phone: Nutrition Therapy Start: 10-16-2024 End: 10-16-2024 [facility] Facility:[facility] Start: 10-15-2024 End: 12-15-2024 Refyasmin Colón MD Work Phone: OB/Gynecology Start: 10-12-2024 End: 10-12-2024 ambulatory [facility] Facility:[facility] Start: 10-11-2024 End: 10-11-2024 Telephone encounter Roberto Iglesias RNflame annealing machine setter [employer] Comment on above: Hematology Start: 10-09-2024 End: 10-09-2024 ambulatory Roberto Iglesias RNflame annealing machine setter [employer] Comment on above: Blood Management Start: 10-05-2024 End: 12-05-2024 Follow-up encounter Gin Paris APRN.CNM Work Phone: OB/Gynecology Start: 10-05-2024 End: 10-05-2024 ambulatory [facility] Facility:[facility] Start: 09-14-2024 End: 09-14-2024 Telephone encounter Tana Saeed RN Maternal Medicine Comment on above: 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 [employer] ([employer]) Start: 09-07-2024 End: 11-07-2024 Follow-up encounter Rosie Henley APRN.CNP Work Phone: OB/Gynecology Start: 09-07-2024 End: 09-07-2024 [facility] Facility:[facility] Start: 09-07-2024 End: 09-07-2024 Patient encounter procedure Whi Tech 1 Stacker And Sorter Operator [facility] Maternal Medicine Comment on above: 23 weeks gestation o f (Primary Dx); Encounter for follow-up ultrasound of anatomy Supervision of high risk in second trimester (Primary Dx); 23 weeks gestation of ; Late care; Insufficient antepartum care; History of intrauterine , currently ; Tobacco use during , antepartum; Screening for diabetes mellitus; History of delivery of macrosomal Start: 08-06-2024 End: 08-09-2024 Telephone encounter Gin Paris APRN.CNM Work Phone: OB/Gynecology Comment on above: Breast Pump Start: 08-06-2024 End: 08-06-2024 ambulatory [facility] Facility:[facility] Start: 08-06-2024 End: 08-06-2024 Patient encounter procedure Whi Tech 1 Stacker And Sorter Operator [facility] [facility] Maternal Medicine Comment on above: Encounter for anatomic survey (Primary Dx); with uncertain dates, antepartum; 19 weeks gestation of ; Choroid plexus cyst of fetus affecting care of mother, antepartum, single or unspecified fetus Supervision of other high risk pregnancies, unspecified trimester (Primary Dx); 20 weeks gestation of ; Tobacco use disorder; Late care Start: 07-25-2024 End: 09-24-2024 Follow-up encounter Gin Paris APRN.CNM Work Phone: OB/Gynecology Start: 07-18-2024 End: 07-18-2024 Telephone encounter Gin Paris APRN.CNM Work Phone: Obstetrics/Gynecology Comment on above: [employer] Start: 07-16-2024 End: 07-16-2024 ambulatory [facility] Facility:[facility] Start: 07-16-2024 End: 07-16-2024 ambulatory [facility] Facility:[facility] Start: 07-16-2024 End: 07-16-2024 Patient encounter procedure Gin Paris APRN.CNM Work Phone: OB/Gynecology Comment on above: with uncer tain dates, antepartum (Primary Dx); Screening for cervical cancer; Screening for human papillomavirus (HPV); Tobacco use during , antepartum; History of delivery of macrosomal ; Poor dental hygiene; History of gestational hypertension; Late care Start: 08-19-2022 End: 08-20-2022 Evaluation and management of inpatient [facility] Start: 08-19-2022 End: 08-20-2022 Evaluation and management of inpatient [facility] Start: 08-16-2022 End: 08-16-2022 ambulatory [facility] Start: 08-03-2022 End: 08-03-2022 ambulatory [facility] Start: 08-03-2022 End: 08-03-2022 Patient encounter procedure [facility]-Catia [employer]ine corrugator helper Off Start: 07-07-2022 End: 07-07-2022 ambulatory [facility] Work Phone: Start: 07-07-2022 End: 07-07-2022 Patient encounter procedure [facility]-Laboratory, Rhine corrugator helper Off Start: 03-18-2022 End: 03-18-2022 Office outpatient new 30 minutes Jerald Sanchez MD Work Phone: [facility] Start: 05-30-2020 End: 05-30-2020 Telephone follow-up Jerald Sanchez MD Work Phone: [facility] Start: 03-11-2020 End: 03-11-2020 Telephone follow-up Jerald Sanchez MD Work Phone: [employer] Start: 02-14-2019 End: 02-14-2019 Office outpatient visit 15 minutes Jerald Sanchez MD Work Phone: [employer] Start: 11-28-2018 End: 11-28-2018 Periodic preventive med est patient 12-17yrs Jerald Sanchez MD Work Phone: [employer] Start: 10-24-2018 End: 10-24-2018 Telephone follow-up Jerald Sanchez MD Work Phone: [employer] Start: 09-07-2018 End: 09-07-2018 Office outpatient visit 25 minutes Jerald Sanchez MD Work Phone: [employer] Start: 08-31-2018 End: 08-31-2018 Telephone follow-up Jerald Sanchez MD Work Phone: [employer] Start: 08-10-2018 End: 08-10-2018 Office outpatient visit 25 minutes Jerald Sanchez MD Work Phone: [employer] Start: 07-27-2018 End: 07-27-2018 Telephone follow-up Jerald Sanchez MD Work Phone: [employer] Start: 06-02-2018 End: 06-02-2018 Medication Jerald Sanchez MD Work Phone: [employer] Start: 06-01-2018 End: 06-01-2018 Medication Jerald Sanchez MD Work Phone: [employer] Start: 04-12-2018 End: 04-12-2018 Patient encounter procedure Jerald Sanchez MD Work Phone: [employer] Start: 10-28-2017 End: 10-28-2017 Telephone follow-up Jerald Sanchez MD Work Phone: [employer] Start: 09-23-2017 End: 09-23-2017 Office outpatient visit 15 minutes Jerald Sanchez MD Work Phone: [employer] Start: 09-07-2017 End: 09-07-2017 Office outpatient visit 15 minutes Jerald Sanchez MD Work Phone: [employer] Start: 07-15-2017 End: 07-15-2017 Telephone follow-up Jerald Sanchez MD Work Phone: [employer] Start: 03-16-2017 End: 03-16-2017 Telephone follow-up Jerald Sanchez MD Work Phone: [employer] Start: 03-02-2017 End: 03-02-2017 Office outpatient visit 15 minutes Jerald Sanchez MD Work Phone: [employer] Start: 12-15-2016 End: 12-16-2016 Periodic preventive med est patient 12-17yrs Jerald Sanchez MD Work Phone: [employer] Start: 09-03-2016 End: 09-03-2016 Medication Jerald Sanchez MD Work Phone: [employer] Start: 07-15-2016 End: 07-15-2016 Office outpatient visit 15 minutes Jerald Sanchez MD Work Phone: [employer] Start: 06-18-2016 End: 06-18-2016 Office outpatient visit 15 minutes Jerald Sanchez MD Work Phone: [employer] Start: 05-20-2016 End: 05-20-2016 Patient encounter procedure Jerald Sanchez MD Work Phone: [employer] Start: 04-02-2016 End: 04-02-2016 Patient encounter procedure Jerald Sanchez MD Work Phone: [employer] Start: 03-02-2016 End: 03-02-2016 Office outpatient visit 15 minutes Jerald Sanchez MD Work Phone: [employer] Start: 02-25-2016 End: 02-25-2016 Patient encounter procedure Jerald Sanchez MD Work Phone: [employer] Start: 01-29-2016 End: 01-29-2016 Nursing evaluation of patient and report Jerald Sanchez MD Work Phone: [employer] Start: 09-18-2015 End: 09-18-2015 Office outpatient visit 15 minutes Jerald Sanchez MD Work Phone: [employer] Start: 04-21-2015 End: 04-21-2015 Office outpatient visit 15 minutes Jerald Sanchez MD Work Phone: [employer] Start: 12-22-2014 End: 12-22-2014 Phone Encounter Jerald Sanchez MD Work Phone: [employer] Start: 03-29-2014 End: 03-29-2014 Office outpatient visit 15 minutes Jerald Sanchez MD Work Phone: [employer] Start: 02-15-2014 End: 02-15-2014 Office outpatient visit 10 minutes Jerald Sanchez MD Work Phone: [employer] Start: 10-09-2013 End: 10-09-2013 Patient encounter procedure Jerald Sanchez MD Work Phone: [employer] Start: 10-08-2013 End: 10-08-2013 Nursing evaluation of patient and report Jerald Sanchez MD Work Phone: [employer] Start: 08-24-2013 End: 08-24-2013 Patient encounter procedure Jreald Sanchez MD Work Phone: [employer] Start: 08-24-2013 End: 08-24-2013 Preoperative state Jerald Sanchez MD Work Phone: [employer]; [employer] Start: 05-21-2013 End: 05-21-2013 Patient encounter procedure Jerald Sanchez MD Work Phone: [employer] Start: 04-19-2013 End: 04-19-2013 Patient encounter procedure Jerald Sanchez MD Work Phone: [employer] Start: 04-13-2013 End: 04-13-2013 Patient encounter procedure Jerald Sanchez MD Work Phone: [employer] Start: 10-17-2012 End: 10-17-2012 Patient encounter procedure Jerald Sanchez MD Work Phone: [employer] Start: 08-14-2012 End: 08-14-2012 Patient encounter procedure Jerald Sanchez MD Work Phone: [employer] Start: 08-03-2012 End: 08-03-2012 Patient encounter procedure Jerald Sanchez MD Work Phone: [employer] Start: 05-29-2012 End: 05-29-2012 Patient encounter procedure Jerald Sanchez MD Work Phone: [employer] Start: 05-23-2012 End: 05-23-2012 Medication Jerald Sanchez MD Work Phone: [employer] Start: 04-25-2012 End: 04-25-2012 Patient encounter procedure Jerald Sanchez MD Work Phone: [employer] Start: 10-18-2011 End: 10-18-2011 Phone Encounter Jerald Sanchez MD Work Phone: [employer] Start: 10-15-2011 End: 10-15-2011 Medication Jerald Sanchez MD Work Phone: [employer] Start: 10-04-2011 End: 10-04-2011 Patient encounter procedure Jerald Sanchez MD Work Phone: [employer] Start: 09-13-2011 End: 09-13-2011 Patient encounter procedure Jerald Sanchez MD Work Phone: [employer] Start: 08-02-2011 End: 08-02-2011 Patient encounter procedure Jerald Sanchez MD Work Phone: [employer] Start: 06-24-2011 End: 06-24-2011 Patient encounter procedure Jerald Sanchez MD Work Phone: [employer] Start: 06-21-2011 End: 06-21-2011 Laboratory examination ordered as part of a routine general medical examination Jerald Sanchez MD Work Phone: [employer]; [employer] Start: 06-21-2011 End: 06-21-2011 Orders Jerald Sanchez MD Work Phone: [employer] Start: 06-18-2011 End: 06-18-2011 Patient encounter procedure Jerald Sanchez MD Work Phone: [employer] Start: 06-15-2011 End: 06-16-2011 Patient encounter procedure Jerald Sanchez MD Work Phone: [employer] Start: 04-29-2011 End: 04-29-2011 Patient encounter procedure Jerald Sanchez MD Work Phone: [employer] Start: 04-22-2011 End: 04-22-2011 Patient encounter procedure Jerald Sanchez MD Work Phone: [employer] Start: 07-10-2010 End: 07-10-2010 Patient encounter procedure Jerald Sanchez MD Work Phone: [employer] Start: 04-21-2010 End: 04-21-2010 Patient encounter procedure Jerald Sanchez MD Work Phone: [employer] Start: 04-10-2010 End: 04-10-2010 Patient encounter procedure Jerald Sanchez MD Work Phone: [employer] Procedures Date Procedure Procedure Detail Performing Clinician Start: 12-24-2024 Urnls dip stick/tabl et rgnt non-auto w/o micrscp Mir De Jesus MD Work Phone: Start: 12-13-2024 Urnls dip stick/tabl et rgnt non-auto w/o micrscp Tana Kramer MD Work Phone: Start: 12-04-2024 Us preg uterus after 1st trimest 1/1st gestation Gin Paris DATABASE MARKETING SPECIALIST.CNM Work Phone: Start: 11-06-2024 Us preg uterus after 1st trimest 1/1st gestation Gin Paris DATABASE MARKETING SPECIALIST.CNM Work Phone: Start: 09-07-2024 Us preg uterus after 1st trimest 1/ gestation Gin Paris DATABASE MARKETING SPECIALIST.CNM Work Phone: Start: 08-06-2024 Us preg uterus after 1st trimest 1/1st gestation Gin Paris DATABASE MARKETING SPECIALIST.CNM Work Phone: Start: 07-16-2024 Antibody screen JERALD DIXON Comment on above: Order Comment: Speci men Type: BLOOD SPECIMEN Ordering Facility: [facility] Address: [address] [place] [address] Performed By: #### R UBIGG #### [facility] CLIA [id number] [address] [place] [address] [place] Start: 03-07-2020 Antibody screen Comment on above: Performed By: #### T &S #### [place] [id number] Start: 11-13-2019 Antibody screen Comment on above: Performed By: #### T SPN #### [facility] [address] [place] [address] Start: 09-07-2018 End: 09-07-2018 Body mass index documented Jerald Sanchez MD Work Phone: Start: 08-10-2018 End: 08-10-2018 Body mass index documented Luz Elena rodriguez PA-C Work Phone: Start: 04-12-2018 End: 04-12-2018 Flu imm no admin doc erin lino MD Work Phone: Start: 09-23-2017 End: 09-23-2017 Body mass index documented Jerald Sanchez MD Work Phone: Start: 05-21-2013 End: 01-09-2014 Ct abdomen w/contrast material Sherrie Sandoval MD Work Phone: Comment on above: lower abdominal pain present for several weeks; localizes to just under umbilicus; normal cbc and cmp, normal u/a Start: 04-22-2011 End: 04-23-2011 Radex humerus minimum 2 views Sherrie Sandoval MD Work Phone: Comment on above: fell down stairs yes terday and is having pain on upper arm and shoulder, worse if abducts arm, no deformity or specific area of point tenderness Group B Streptococcu s Culture Teeth Extractions Willow Miller INVESTMENT RECOVERY TECHNICIAN Tonsillectomy Willow Slaughter wood INVESTMENT RECOVERY TECHNICIAN Comment on above: and adenoids Urine culture Plan of Treatment Date Care Activity Detail Author Start: 10-05-2034 Urine microalbumin profile DTaP,Tdap,Td Vaccine (9 - Td or Tdap) [facility] Start: 01-08-2030 Urine microalbumin profile DTaP,Tdap,Td Vaccine (8 - Td or Tdap) [facility] Start: 07-16-2025 GC (Gonorrhea) Scree uvaldo (18-24) GC (Gonorrhea) Screening (18-24) [facility] Start: 07-16-2025 Screening for Chlamy kinga trachomatis Chlamydia Screening () [facility] Start: 07-16-2025 Screening for malign ant neoplasm of cervix Cervical Cancer Screening [facility] Start: 02-11-2025 Influenza vaccination [facility] Start: 12-31-2024 End: 12-31-2024 Patient encounter procedure 12/31/2024 4:20 PM EDT Routine Office Visit OB/Gynecology [address] [place] [address] Nori Rivera MD [address] [place] [address] OB OB/Gynecology Comment on above: OB Start: 12-24-2024 End: 12-24-2024 Patient encounter procedure 12/24/2024 11:40 AM EDT Routine Office Visit OB/Gynecology [address] [place] [id number] Mir De Jesus MD [address] [place] [address] OB OB/Gynecology Comment on above: OB Start: 12-17-2024 End: 12-17-2024 Patient encounter procedure 12/17/2024 11:40 AM EDT Routine Office Visit OB/Gynecology [address] [place] [address] Mir De Jesus MD [address] [place] [address] OB OB/Gynecology Comment on above: OB Start: 12-13-2024 End: 12-13-2024 Patient encounter procedure 12/13/2024 2:00 PM EDT Routine Office Visit OB/Gynecology [address] [place] [address] Tana Kramer MD [address] [place] [address] OB OB/Gynecology Comment on above: OB Start: 12-04-2024 End: 12-04-2024 Patient encounter procedure [facility] Comment on above: Growth Growth /OB Start: 12-04-2024 End: 12-04-2024 ambulatory 12/04/2024 1:15 PM EDT Results Only [place] [facility] [address] [place] [address] Rhinejanie Summerswn [facility] Start: 11-14-2024 End: 02-13-2025 CBC W Auto Differential panel - Blood COMPLETE BLOOD COUNT AND DIFFERENTIAL Lab Routine Anemia during in third trimester (HCC) Expected: 11/14/2024, Expires: 02/13/2025 [facility] Comment on above: Expected: 11/14/2024 , Expires: 02/13/2025 Start: 11-14-2024 End: 02-13-2025 Ferritin [Mass/volume] in Serum or Plasma FERRITIN Lab Routine Anemia during in third trimester (HCC) Expected: 11/14/2024, Expires: 02/13/2025 [facility] Comment on above: Expected: 11/14/2024 , Expires: 02/13/2025 Start: 11-14-2024 End: 02-13-2025 Iron and Iron binding capacity panel - Serum or Plasma IRON AND TIBC Lab Routine Anemia during in third trimester (HCC) Expected: 11/14/2024, Expires: 02/13/2025 [facility] Comment on above: Expected: 11/14/2024 , Expires: 02/13/2025 Start: 11-14-2024 End: 11-14-2024 Patient encounter procedure 11/14/2024 8:45 AM EDT Routine Office Visit OB/Gynecology [address] [place] [address] Rosie Henley APRN.STEEL RULE INSPECTOR [address] [place] [address] OB OB/Gynecology Comment on above: OB Start: 11-06-2024 End: 11-06-2024 Patient encounter procedure 11/06/2024 10:30 AM EDT Routine Office Visit Maternal Medicine [address] [place] [address] Growth [facility] Comment on above: Growth Start: 11-02-2024 End: 11-02-2024 Patient encounter procedure 11/02/2024 11:20 AM EDT Routine Office Visit OB/Gynecology [address] [place] [address] Shaila Butler MD [address] [place] [address] OB OB/Gynecology Comment on above: OB Start: 10-29-2024 End: 10-29-2024 ambulatory 10/29/2024 3:00 PM EDT [facility] Hematology/Oncology [address] [place] [address] 2ND FLOOR Hematology/Oncology Comment on above: 2ND FLOOR Start: 10-26-2024 End: 10-26-2024 ambulatory 10/26/2024 10:30 AM EDT Infusion Center Hematology/Oncology [address] [place] [address] 2ND FLOOR Hematology/Oncology Comment on above: 2ND FLOOR Start: 10-24-2024 End: 10-24-2024 ambulatory 10/24/2024 3:30 PM EDT Infusion Center Hematology/Oncology [address] [place] [address] 2ND FLOOR Hematology/Oncology Comment on above: 2ND FLOOR Start: 10-23-2024 End: 10-23-2024 Patient encounter procedure 10/23/2024 3:00 PM EDT Routine Office Visit Maternal Medicine [address] [place] [address] Growth [facility] Comment on above: Growth Start: 2024 End: 2024 ambulatory 2024 9:00 AM EDT Infusion Center Hematology/Oncology [address] [place] [address] 2ND FLOOR Hematology/Oncology Comment on above: 2ND FLOOR Start: 10-19-2024 End: 10-19-2024 Patient encounter procedure 10/19/2024 1:15 PM EDT Routine Office Visit OB/Gynecology [address] [place] [address] Gin Paris APRN.CN [address] [place] [address] OB OB/Gynecology Comment on above: OB Start: 10-19-2024 End: 10-19-2024 Nursing evaluation of patient and report 10/19/2024 10:00 AM EDT Nurse Visit [facility] [address] [place] [address] Franc[place]a [place], [place] The basics [facility] Comment on above: The basics Start: 10-16-2024 End: 10-16-2024 Nutrition therapy 10/16/2024 1:00 PM EDT [facility] [address] [place] [address] [facility] [place] [place] [address] [address] [facility] Comment on above: The basics Start: 10-12-2024 End: 10-12-2024 ambulatory 10/12/2024 10:15 AM EDT Results Only [place] [facility] [address] [place] [address] Abnormal glucose in , antepartum [facility] Comment on above: Abnormal glucose in , antepartum Start: 10-05-2024 End: 10-05-2024 Patient encounter procedure 10/05/2024 9:45 AM EDT Routine Office Visit OB/Gynecology [address] [place] [address] Gin Paris APRN.CN [address] [place] [address] OB + glucose OB/Gynecology Comment on above: OB + glucose Start: 10-05-2024 End: 10-05-2024 ambulatory 10/05/2024 9:30 AM EDT Results Only [place] [facility] [address] [place] [address] glucose + labs [facility] Comment on above: glucose + labs Start: 09-07-2024 End: 12-07-2024 ANEMIA REFLEX PANEL ANEMIA REFLEX PANEL Lab Routine Late care 23 weeks gestation of Supervision of high risk in second trimester Insufficient antepartum care History of intrauterine , currently Tobacco use during , antepartum Expected: 09/07/2024, Expires: 12/07/2024 [facility] Comment on above: Expected: 09/07/2024 , Expires: 12/07/2024 Start: 09-07-2024 End: 09-07-2025 GESTATIONAL GLUCOSE SCREEN, 1-HOUR, 50 GRAM, NON-FASTING GESTATIONAL GLUCOSE SCREEN, 1-HOUR, 50 GRAM, NON-FASTING Lab Routine Late care 23 weeks gestation of Supervision of high risk in second trimester Insufficient antepartum care History of intrauterine , currently Tobacco use during , antepartum Screening for diabetes mellitus Expected: 09/07/2024, Expires: 09/07/2025 [facility] Work Phone: Comment on above: Expected: 09/07/2024 , Expires: 09/07/2025 Start: 09-07-2024 End: 09-07-2025 SYPHILIS TREPONEMAL W/REFLEX SYPHILIS TREPONEMAL W/REFLEX Lab Routine Late care 23 weeks gestation of Supervision of high risk in second trimester Insufficient antepartum care History of intrauterine , currently Tobacco use during , antepartum Expected: 09/07/2024, Expires: 09/07/2025 [facility] Comment on above: Expected: 09/07/2024 , Expires: 09/07/2025 Start: 09-07-2024 End: 09-07-2024 Patient encounter procedure OB/Gynecology Comment on above: OB Routine F/U anatomy & Growth Start: 08-06-2024 End: 08-06-2024 Patient encounter procedure [facility]aternal Medicine Comment on above: Anatomy Anatomy/OB Start: 07-16-2024 End: 10-15-2024 ANEMIA REFLEX PANEL [facility] Work Phone: Comment on above: Expected: 07/16/2024 , Expires: 10/15/2024 Start: 07-16-2024 End: 10-15-2024 Chromosome 21 trisomy [Presence] in Blood or Tissue by Cytogenetics [facility] Comment on above: Expected: 07/16/2024 , Expires: 10/15/2024 Start: 07-16-2024 End: 10-15-2024 Hemoglobin A1c in Blood [facility] Comment on above: Expected: 07/16/2024 , Expires: 10/15/2024 Start: 07-16-2024 End: 07-16-2025 OBSTETRIC ULTRASOUND WHI OBSTETRIC ULTRASOUND WHI Anc Imaging Routine with uncertain dates, antepartum Expected: 07/16/2024, Expires: 07/16/2025 [facility] Comment on above: Expected: 07/16/2024 , Expires: 07/16/2025 Start: 07-16-2024 End: 10-15-2024 Protein/Creatinine [Mass Ratio] in Urine [facility] Comment on above: Expected: 07/16/2024 , Expires: 10/15/2024 Start: 07-16-2024 End: 10-15-2024 RUBELLA IGG ANTIBODY [facility] Comment on above: Expected: 07/16/2024 , Expires: 10/15/2024 Start: 07-16-2024 End: 10-15-2024 TYPE + SCREEN [facility] Comment on above: Expected: 07/16/2024 , Expires: 10/15/2024 Start: 02-12-2024 Covid-19 Vaccine () Covid-19 Vaccine () [facility] Start: 02-12-2024 Influenza vaccination Influenza Vacc ine (#1) [facility] Start: 10-23-2023 Screening for malign ant neoplasm of cervix Cervical Cancer Screening [facility] Start: 08-20-2022 Patient discharge [facility] Start: 08-19-2022 Administration of medication [facility] Start: 08-19-2022 Application of ice collar, cap or bag [facility] Start: 08-19-2022 Catheterization of vein [facility] Start: 08-19-2022 Introduction of urin mohini catheter [facility] Start: 08-19-2022 Measuring intake and output [facility] Start: 08-19-2022 Notification of physician [facility] Start: 08-19-2022 Procedure discontinued [facility] Start: 08-19-2022 Provision of activit y privileges [facility] Start: 08-19-2022 Vital signs measurements [facility] Start: 08-19-2022 [facility] Start: 08-19-2022 Admission procedure [facility] Start: 08-19-2022 Consultation [facility] Start: 03-18-2022 Radex hip unilateral with pelvis 2-3 views Hip/pelvis x-ray, left (74803) Start: 18-Mar-2022 Intent [facility] Start: 03-18-2022 Radex spine lumbosac ral minimum 4 views Lumbar Spine x-ray ([id number]) Start: 18-Mar-2022 Intent [employer]; [facility] Start: 03-18-2022 Radiologic exam knee complete 4/more views Knee x-ray, Left Complete ([id number]) Start: 18-Mar-2022 Intent [facility] [employer] Start: 03-18-2022 Fibrin dgradj produc ts d-dimer quantitative D-Dimer([id number]) Start: 18-Mar-2022 10:54-04:00 Request [employer]; [facility] Start: 03-18-2022 Sedimentation rate r bc automated ESR (SED RATE) ([id number]) Start: 18-Mar-2022 10:54-04:00 Request [employer]; [facility] Start: 03-18-2022 C-reactive protein C-REACTIVE PROTEIN ([id number]) Start: 18-Mar-2022 10:54-04:00 Request [employer]; [facility] Start: 2021 Pneumococcal vaccination Pneum ococcal Vaccine (1 of 2 - PCV) [facility] Start: 01-08-2021 GC (Gonorrhea) Scree uvaldo (18-24) GC (Gonorrhea) Screening () [facility] Start: 01-08-2021 Screening for Chlamy kinga trachomatis Chlamydia Screening () [facility] Start: 2020 Anxiety Screening Anxiety Screening [facility] Start: 2020 Depression Screening Depression Scre ening [facility] Start: 2020 Hepatitis C screening Hepatitis C Sc reening [facility] Start: 2018 Meningococcal B Vacc ine (1 of 2 - Standard) Meningococcal B Vaccine (1 of 2 - Standard) [facility] Start: 2018 Meningococcal B Vacc ine: Consider Based On Risk (1 of 2 - Patient Seeks Protection) Meningococcal B Vaccine: Consider Based On Risk (1 of 2 - Patient Seeks Protection) [facility] Start: 09-07-2018 C-reactive protein C-REACTIVE PROTEIN ([id number]) Start: 07-Sep-2018 15:01-04:00 Request [employer]; [facility] Start: 2016 Peds To Adult Transi tion Annual Assessment Peds To Adult Transition Annual Assessment [facility] Start: 2014 Peds To Adult Transi tion Initial Discussion Peds To Adult Transition Initial Discussion [facility] Start: 07-10-2010 Provider Instruction s for Treatment LEB GERD Indication: Gastroesophageal reflux Start: 10-Jul-2010 Instruction Type: Provider Instructions for Treatment [facility] Bacteria identified in Urine by Culture BACTERIAL CULTURE, URINE Microbiology Routine with uncertain dates, antepartum 07/16/2024 9:43 AM [facility] BACTERIAL VAGINOSIS NAAT BACTERI AL VAGINOSIS NAAT Lab Routine with uncertain dates, antepartum 07/16/2024 9:43 AM [facility] HARMAN/TRICHOMONAS NAAT HARMAN /TRICHOMONAS NAAT Lab Routine with uncertain dates, antepartum 07/16/2024 9:43 AM [facility] Chlamydia trachomatis+Neisseria gonorrhoeae DNA [Presence] in Unspecified specimen by DEANNA with probe detection GONORRHEA/CHLAMYDIA NAAT Lab Routine with uncertain dates, antepartum 07/16/2024 9:43 AM [facility] PAP TEST PAP TEST Lab Rou palmira with uncertain dates, antepartum Screening for cervical cancer Screening for human papillomavirus (HPV) 07/16/2024 9:43 AM [facility] Patient Education After a Vaginal [facility] Work Phone: Patient referral [facility] Work Phone: ROUTINE, GR OUP B STREPTOCOCCUS BY PCR ROUTINE, GROUP B STREPTOCOCCUS BY PCR Microbiology Routine Encounter for supervision of high risk in third trimester, antepartum ([facility]) Gestational diabetes mellitus, class A1 ([facility]) Anemia during in third trimester ([facility]) Tobacco use during , antepartum ([facility]) History of intrauterine , currently ([facility]) History of delivery of macrosomal infant 36 weeks gestation of ([facility]) Penicillin allergy 12/04/2024 2:47 PM EDT [facility] URINE OB DIP B/O URINE OB DIP B/ O Lab Routine 33 weeks gestation of ([facility]) Gestational diabetes mellitus, class A1 ([facility]) Late care ([facility]) Anemia during in third trimester ([facility]) Ordered: 11/14/2024 [facility] Work Phone: Comment on above: Ordered: 11/14/2024 URINE OB DIP B/O URINE OB DIP B/ O Lab Routine Encounter for supervision of high risk in third trimester, antepartum (HCC) Gestational diabetes mellitus, class A1 (HCC) Anemia during in third trimester ([facility]) Tobacco use during , antepartum (HCC) History of intrauterine , currently ([facility]) History of delivery of macrosomal infant 36 weeks gestation of ([facility]) Ordered: 12/04/2024 [facility] Work Phone: Comment on above: Ordered: 12/04/2024 URINE OB DIP B/O URINE OB DIP B/ O Lab Routine 38 weeks gestation of ([facility]) Encounter for supervision of high risk in third trimester, antepartum (HCC) Gestational diabetes mellitus, class A1 (HCC) History of intrauterine , currently ([facility]) Ordered: 12/17/2024 [facility] Work Phone: Comment on above: Ordered: 12/17/2024 Immunizations Immunization Date Immunization Notes Care Provider Natali camacho 10-05-2024 tetanus toxoid, redu jovana diphtheria toxoid, and acellular pertussis vaccine, adsorbed Roberto Iglesias RN [facility] 01-09-2020 tetanus toxoid, redu jovana diphtheria toxoid, and acellular pertussis vaccine, adsorbed Gin Paris APRN.CNM Work Phone: [facility] 12-15-2016 Human Papillomavirus 9-valent vaccine Jerald Sanchez MD Work Phone: [facility]. Comment on above: Site: Deltoid (Left) VIS Given: * HPV-Gardasil 9 (09/11/2015) 01-29-2016 tetanus toxoid, redu jovana diphtheria toxoid, and acellular pertussis vaccine, adsorbed Jerald Sanchez MD Work Phone: [facility]. Comment on above: Site: Deltoid (Right )VIS Given: * Tdap (Tetanus, Diphtheria, Pertussis) (08/06/14) 01-29-2016 meningococcal oligosaccharide (groups A, C, Y and W-135) diphtheria toxoid conjugate vaccine (MCV4O) Jerald Sanchez MD Work Phone: [facility]; [facility] Comment on above: Site: Deltoid (Left) VIS Given: * Meningococcal Vaccine (09/11/2015) 01-29-2016 Meningococcal, MCV4, unspecified conjugate formulation(groups A, C, Y and W-135) Jerald Sanchez MD Work Phone: [facility]; [place] [facility] 10-08-2013 human papilloma viru s vaccine, quadrivalent Jerald Sanchez MD Work Phone: [facility]; [facility] Comment on above: Site: Deltoid (Left) VIS Given: * HPV (Gardisil) (10/27/2012) * Human Papilloma Virus Vaccine (10/13/10) * Human Papillomavirus Vaccine (HPV) (07/15/06) * Human Papillomavirus Vaccine (HPV) (09/09/09) 08-24-2013 human papilloma viru s vaccine, quadrivalent Jerald Sanchez MD Work Phone: [facility]; [place] [employer]. Comment on above: Site: Deltoid (Left) VIS Given: * HPV (Gardisil) (10/27/2012) * Human Papilloma Virus Vaccine (10/13/10) * Human Papillomavirus Vaccine (HPV) (07/15/06) * Human Papillomavirus Vaccine (HPV) (09/09/09) 02-01-2008 diphtheria, tetanus toxoids and acellular pertussis vaccine Jerald Sanchez MD Work Phone: [facility]; [place] [employer] 02-01-2008 measles, mumps and rubella virus vaccine Jerald Sanchez MD Work Phone: [facility]; [facility] 02-01-2008 poliovirus vaccine, inactivated Jerald Sanhcez MD Work Phone: [facility]; [facility] 02-01-2008 varicella virus vaccine Aly Sanchez MD Work Phone: [facility] 02-09-2005 diphtheria, tetanus toxoids and acellular pertussis vaccine Jerald Sanchez MD Work Phone: [facility].; [facility] 02-09-2005 poliovirus vaccine, inactivated Jerald Sanchez MD Work Phone: [facility].; [facility] 02-09-2005 varicella virus vaccine Aly Sanchez MD Work Phone: [facility].; [facility] 10-30-2003 measles, mumps and rubella virus vaccine Jerald Sanchez MD Work Phone: [facility].; [facility] 10-02-2003 diphtheria, tetanus toxoids and acellular pertussis vaccine Jerald Sanchez MD Work Phone: [facility].; [facility] 10-02-2003 haemophilus influenz ae type b vaccine, PRP-T conjugate Jerald Sanchez MD Work Phone: [facility].; [facility] 10-02-2003 hepatitis B vaccine, pediatric or pediatric/adolescent dosage Jerald Sanchez MD Work Phone: [facility].; [facility] 03-22-2003 diphtheria, tetanus toxoids and acellular pertussis vaccine Jerald Sanchez MD Work Phone: [facility].; [facility] 03-22-2003 haemophilus influenz ae type b vaccine, PRP-T conjugate Jerald Sanchez MD Work Phone: [facility].; [facility] 03-22-2003 hepatitis B vaccine, pediatric or pediatric/adolescent dosage Jerald Sanchez MD Work Phone: [facility].; [facility] 03-22-2003 poliovirus vaccine, inactivated Jerald Sanchez MD Work Phone: [facility] 02-12-2003 diphtheria, tetanus toxoids and acellular pertussis vaccine Jerald Sanchez MD Work Phone: [facility].; [facility] 02-12-2003 haemophilus influenz ae type b vaccine, PRP-T conjugate Jerald Sanchez MD Work Phone: [facility].; [facility] 02-12-2003 hepatitis B vaccine, pediatric or pediatric/adolescent dosage Jerald Sanchez MD Work Phone: [facility]. 02-12-2003 poliovirus vaccine, inactivated Jerald Sanchez MD Work Phone: [facility].; [facility] NEGATED: Highlighted row has not occurred!03-08-2020 influenza, injectable, quadrivalent, contains preservative Gin Paris APRN.CN Work Phone: [facility] Comment on above: Deferred: Patient Re fused Payers Date Payer Category Payer Self-pay [id number] 2021 Medicaid [id number] 2021 Unknown [id number] 2002 Unknown [id number] Unknown [id number] Unknown [id number] Unknown [id number] Unknown Social History Date Type Detail Facility Start: 07-08-2021 End: 08-19-2022 Tobacco smoking status NHIS Unknown if ever smoked [facility] Start: 2002 Sex Assigned At Female W [facility] Start: 04-23-2020 End: 07-16-2024 Parents Parents [employer]; [employer] Tobacco Use: Tobacco Use: ; C urrent every day smoker. [employer] Tobacco/Smoke Exposure: Tobacco/ Smoke Exposure: ; Minimal. [employer]; [employer] Minimal [employer]; [employer] Work Phone: Start: 07-16-2024 Smokes tobacco daily [facility] [employer]; [employer] Work Phone: None [employer]; [employer] Work Phone: History of tobacco use Cigarette Smoker [facility] Start: 07-16-2024 Tobacco use and exposure Smokeless tobacco non-user [facility] Start: 07-16-2024 End: 12-04-2024 Alcoholic beverage intake Ex-drinker (finding) [facility] Start: 04-23-2020 End: 07-16-2024 Tobacco use panel [facility] Work Phone: How hard is it for y ou to pay for the very basics like food, housing, medical care, and heating Not hard at all [facility] Work Phone: (I/We) worried wheth er (my/our) food would run out before (I/we) got money to buy more. Never true [facility] Start: 03-30-2024 [facility] Start: 07-13-2024 Gender identity Identifies as female gender (finding) [facility] Start: 07-13-2024 Sexual orientation Heterosexual (nabor bermudez) [facility] Medical Equipment Procedure Code Equipment Code Equipment Origin al Text Equipment Identifier Dates Use as directed to check glucose levels up to seven times daily. [id number] Start: 10-15-2024 Use as directed to check glucose levels up to seven times daily. [id number] Start: 10-15-2024 Goals Date Patient Goal Desired Activity /State Personal health goal Functional Status Date Assessment Result Facility 03-10-2020 Are you deaf, or do you have serious difficulty hearing No 03/10/2020 1:43 PM EDT Guillermo Leoanrd RN No [facility] 03-10-2020 Are you blind, or do you have serious difficulty seeing, even when wearing glasses No 03/10/2020 1:43 PM EDT Guillermo Leonard RN No [facility] 03-10-2020 Do you have serious difficulty walking or climbing stairs No 03/10/2020 1:43 PM EDT Guillermo Leonard RN No [facility] 03-10-2020 Do you have difficul ty dressing or bathing No 03/10/2020 1:43 PM EDT Guillermo Leonard RN No [facility] 03-10-2020 Because of a physica l, mental, or emotional condition, do you have difficulty doing errands alone such as visiting a physician's office or shopping No 03/10/2020 1:43 PM EDT Guillermo Leonard RN No [facility] Mental Status Date Assessment Result Facility 03-10-2020 Because of a physica l, mental, or emotional condition, do you have serious difficulty concentrating, remembering, or making decisions No 03/10/2020 1:43 PM EDT Guillermo Leonard RN No [facility] Clinical Notes 08-19-2022 to 12-25-2024 Telephone Encounter - Tamra Munoz RN - 12/25/2024 3:06 PM EDTTelephone Encounter - Tamra Munoz RN - 12/25/2024 3:06 PM EDTTelephone Encounter - Tamra Munoz RN - 12/25/2024 9:53 AM EDT Note Date & Type Note Facility 12-25-2024 Telephone encounter Note Induction papers signed by LUCIE and faxed to L&D. Tamra Munoz RN [facility] 12-25-2024 Miscellaneous Notes Induction papers signed by LUCIE and faxed to L&D. Tamra Munoz RN Induction pack to RR to complete. Tamra Munoz RN Scheduled for 7 am christianson/pit/arom on 12/26 am. Please give me induction packet today. L&D aware. Patient aware of time. Send instructions about calling registation on 12/25 to let them know she is coming in and call L&D 2 hrs before arrival. Ankur Colón MD 39w1d Patient saw AT today. Next visit 12/31 with DM. Should we schedule her another visit this week with another provider to [facility]? documented in this encounter [facility] 12-25-2024 Telephone encounter Note Induction pack to RR to complete. Tamra Munoz RN [facility] 12-24-2024 Telephone encounter Note Scheduled for 7 am christianson/pit/arom on 12/26 am. Please give me induction packet today. L&D aware. Patient aware of time. Send instructions about calling registation on 12/25 to let them know she is coming in and call L&D 2 hrs before arrival. Ankur Colón MD [facility] 12-24-2024 Telephone encounter Note 39w1d Patient saw AT today. Next visit 12/31 with DM. Should we schedule her another visit this week with another provider to [facility]? [facility] 12-24-2024 Progress note Formatting of t his note might be different from the original. Multip with GDM very wel controlled with diet at 39w1d presents w c/o increase pressure and desires exam. Occ. ctrx, no bleeding or egress of fluid ++FM Very good glycemic control this past week/log reviewed RTO 1 week monitor movement Mir De Jesus MD [facility] Work Phone: 12-24-2024 Miscellaneous Notes Multip with GDM very wel controlled with diet at 39w1d presents w c/o increase pressure and desires exam. Occ. ctrx, no bleeding or egress of fluid ++FM Very good glycemic control this past week/log reviewed RTO 1 week monitor movement Mir De Jesus MD documented in this encounter [facility] 12-24-2024 Instructions Ml Dhillon LPN - 12/24/2024 11:45 AM EDT SEQUENTIAL SCREENINGS The [facility] offers sequential screenings for women who are interested in screenings for chromosomal abnormalities and certain defects during a . The sequential screen combines ultrasound and blood tests to determine the risk of chromosomal abnormalities, including Down's Syndrome (Trisomy 21) and Trisomy 18, as well as open neural tube defects including spina bifida. Ultrasound examination is performed between 11 weeks and 13 weeks gestational age. Blood tests are drawn after the ultrasound and again later in the between 15 and 21 weeks gestational age. Please let your physician know if you are interested in this testing. It will require an appointment with our theater technician. This is not an ultrasound performed by a physician in our office during a routine visit. SIGNS AND SYMPTOMS OF LABOR 1. Contractions every 10 minutes or more often 2. Clear, pink, or brownish fluid (water) leaking from vagina 3. Feeling that baby is pushing down, pressure 4. Low, dull backache 5. Cramps that feel like a period 6. Cramps with or without diarrhea If you notice any of the above symptoms, contact our office at [phone] and ask to speak with a nurse. After hours, you can call doctors registry at [phone] OR call [facility] at [phone] and ask to have the doctor circulation man paged. If you consider this an emergency, dial 9--1 or go to your nearest emergency department. NEED HELP? Are you dealing with a violent or abusive relationship? Are you a victim of rape or sexual assult? Call [facility] ([place]) 24 hour Crisis Hotline: 338.714.7702 or 291-023-9512. MANUAL Your Guide to a Healthy manual is now on-line. Visit [email or web address] [email or web address] to download your free copy documented in this encounter [facility] 12-21-2024 Note HNO ID: [id number] Author: LEELEE CRENSHAW MA Service: ? Author Type: Chargemaster Analyst Type: Progress Notes Filed: 12/21/2024 09:27 Note Text: POPULATION HEALTH NAVIGATION OUTREACH Action/ 2nd attempt: Called and left message to call back . Reason for Outreach Medicaid OB/Peds Care Gaps due: to PCP Visit Patient Contacted: Unable or unnecessary to reach patient: Unable to reach patient Left message Navigation Signature: Leelee Villanueva MA December 21, 2024 9:26 AM [facility] 12-18-2024 Note HNO ID: [id number] Author: LEELEE CRENSHAW MA Service: ? Author Type: Chargemaster Analyst Type: Progress Notes Filed: 12/18/2024 09:57 Note Text: POPULATION HEALTH NAVIGATION OUTREACH Action/I 1st attempt: Called and left message to call back to discuss wellness program administrator. MC message sent. PPC to PCP by 03/18/25. Reason for Outreach Medicaid OB/Peds Care Gaps due: to PCP Visit Patient Contacted: Unable or unnecessary to reach patient: Unable to reach patient Left message MyChart message sent Navigation Signature: Leelee Villanueva MA December 18, 2024 9:56 AM [facility] 12-18-2024 History of Presen t illness Narrative POPULATION HEALTH NAVIGATION OUTREACH Action/ 1st attempt: Called and left message to call back to discuss wellness program administrator. MC message sent. PPC to PCP by 03/18/25. Reason for Outreach Medicaid OB/Peds Care Gaps due: to PCP Visit Patient Contacted: Unable or unnecessary to reach patient: Unable to reach patient Left message [employer] message sent Navigation Signature: Leelee Villanueva MA December 18, 2024 9:56 AM documented in this encounter [facility] 12-18-2024 Note Patient Outreach (KATE QUIÑONEZAV) SUGEY HELM ([id number]) 4 F Date Time Provider Department 12/18/24 LEELEE CRENSHAW During your visit today, we recorded the following information about you: Leelee Crenshaw MA 12/18/2024 9:57 AM Signed POPULATION HEALTH NAVIGATION OUTREACH Action/ 1st attempt: Called and left message to call back to discuss wellness program administrator. MC message sent. PPC to PCP by 03/18/25. Reason for Outreach Medicaid OB/Peds Care Gaps due: to PCP Visit Patient Contacted: Unable or unnecessary to reach patient: Unable to reach patient Left message [employer] message sent Navigation Signature: Leelee Villanueva MA December 18, 2024 9:56 AM Leelee Crenshaw MA 12/21/2024 9:27 AM Signed POPULATION HEALTH NAVIGATION OUTREACH Action/ 2nd attempt: Called and left message to call back . Reason for Outreach Medicaid OB/Peds Care Gaps due: to PCP Visit Patient Contacted: Unable or unnecessary to reach patient: Unable to reach patient Left message Navigation Signature: Leelee Villanueva MA December 21, 2024 9:26 AM Allergies As of Date: 12/18/2024 Noted Allergy Reaction IBUPROFEN 03/07/2020 4 - Hives 7 - Swelling 10 - Anaphylaxis PENICILLINS 11/13/2019 6 - Diarrhea TRAMADOL 11/13/2019 1 - Mental Status Change Date Reviewed: 12/17/2024 Reviewed by: Ml Dhillon LPN - Fully Assessed Reason for Visit: Population Health Navigation Outreach [3910] Cmt: to PCP/OB Prescriptions as of 12/21/2024 - ferrous sulfate 325 mg (65 mg iron) EC tablet Take 325 mg by mouth every other day. - blood sugar diagnostic test strip Use as directed to check glucose levels up to seven times daily. - Lancets Use as directed to check glucose levels up to seven times daily. - aspirin, enteric coated (ASPIRIN, ENTERIC COATED) 81 mg EC tablet Take 2 tablets by mouth once daily. - vit/iron fum/folic ac ( PLUS/IRON ORAL) Take by mouth once daily. - acetaminophen (TYLENOL ORAL) Take 500 mg by mouth as needed. Problem List As Of Date 12/18/2024 Noted Resolved Supervision of other high risk pregnancies, uns*03/07/2020 Encounter for induction of labor [Z34.90] 03/07/2020 03/10/2020 Gestational hypertension [O13.9] 03/07/2020 07/16/2024 History of intrauterine , currently *03/07/2020 care insufficient [O09.30] 03/07/2020 Tobacco use during , antepartum [O99.3*07/16/2024 History of delivery of macrosomal [Z87.5*07/16/2024 Poor dental hygiene [Z91.89] 07/16/2024 Late care [O09.30] 07/16/2024 History of gestational hypertension [Z87.59] 07/16/2024 Abnormal glucose in , antepartum (HCC)*10/05/2024 10/19/2024 Anemia during in third trimester (HCC*10/05/2024 Maternal iron deficiency anemia complicating pr*10/09/2024 Diet controlled gestational diabetes mellitus (*10/15/2024 Penicillin allergy [Z88.0] 12/04/2024 Encounter Status:Closed by LEELEE CRENSHAW on 12/18/24 [facility] 12-17-2024 Progress note Formatting of t his note might be different from the original. Multip at 38w 1d with preg comp by GDM. Very good / excellent glycemic control over the past two weeks. Denies contractions, lof or bleeding +++FM Doing well RTO 1 week Mir De Jesus MD [facility] Work Phone: 12-17-2024 Miscellaneous Notes Multip at 38w 1d with preg comp by GDM. Very good / excellent glycemic control over the past two weeks. Denies contractions, lof or bleeding +++FM Doing well RTO 1 week Mir De Jesus MD documented in this encounter [facility] 12-17-2024 Instructions Ml Dhillon LPN - 12/17/2024 11:35 AM EDT SEQUENTIAL SCREENINGS The [facility] offers sequential screenings for women who are interested in screenings for chromosomal abnormalities and certain defects during a . The sequential screen combines ultrasound and blood tests to determine the risk of chromosomal abnormalities, including Down's Syndrome (Trisomy 21) and Trisomy 18, as well as open neural tube defects including spina bifida. Ultrasound examination is performed between 11 weeks and 13 weeks gestational age. Blood tests are drawn after the ultrasound and again later in the between 15 and 21 weeks gestational age. Please let your physician know if you are interested in this testing. It will require an appointment with our theater technician. This is not an ultrasound performed by a physician in our office during a routine visit. SIGNS AND SYMPTOMS OF LABOR 1. Contractions every 10 minutes or more often 2. Clear, pink, or brownish fluid (water) leaking from vagina 3. Feeling that baby is pushing down, pressure 4. Low, dull backache 5. Cramps that feel like a period 6. Cramps with or without diarrhea If you notice any of the above symptoms, contact our office at [phone] and ask to speak with a nurse. After hours, you can call doctors registry at [phone] OR call [facility] at [phone] and ask to have the doctor circulation man paged. If you consider this an emergency, dial 8-1-3 or go to your nearest emergency department. NEED HELP? Are you dealing with a violent or abusive relationship? Are you a victim of rape or sexual assult? Call [facility] ([place]) 24 hour Crisis Hotline: 277.557.8988 or 927-337-6338. MANUAL Your Guide to a Healthy manual is now on-line. Visit [email or web address] ancyGuide to download your free copy documented in this encounter [facility] 12-13-2024 Progress note Formatting of t his note might be different from the original. S: Sugey Helm is a 24 year old female who presents at 12/30/2024, by Ultrasound for a routine visit. Denies headache, visual changes, chest pain, shortness of breath, vaginal bleeding, leakage of fluid, or dysuria. Feeling well, no complaints. Good movement, No contractions O: See flow sheet Gen: No apparent distress Abd: Gravid, nontender Glucose log reviewed Possible elective IOL at 39 weeks ASSESSMENT/PLAN: 1. Encounter for supervision of high risk in third trimester, antepartum ([facility]) - ICD9: V23.9, ICD10: O09.93 (primary diagnosis) - URINE OB DIP B/O 2. Gestational diabetes mellitus, class A1 ([facility]) - ICD9: 648.80, ICD10: O24.410 controlled - URINE OB DIP B/O 3. Anemia during in third trimester ([facility]) - ICD9: 648.23, ICD10: O99.013 Oral iron - URINE OB DIP B/O 4. History of intrauterine , currently ([facility]) - ICD9: V23.5, ICD10: O09.299 Declined testing - URINE OB DIP B/O 5. 37 weeks gestation of ([facility]) - ICD9: V22.2, ICD10: Z3A.37 - URINE OB DIP B/O Tana Kramer MD [facility] 12-13-2024 Miscellaneous Notes S: Sugey Helm is a 24 year old female who presents at 12/30/2024, by Ultrasound for a routine visit. Denies headache, visual changes, chest pain, shortness of breath, vaginal bleeding, leakage of fluid, or dysuria. Feeling well, no complaints. Good movement, No contractions O: See flow sheet Gen: No apparent distress Abd: Gravid, nontender Glucose log reviewed Possible elective IOL at 39 weeks ASSESSMENT/PLAN: 1. Encounter for supervision of high risk in third trimester, antepartum ([facility]) - ICD9: V23.9, ICD10: O09.93 (primary diagnosis) - URINE OB DIP B/O 2. Gestational diabetes mellitus, class A1 ([facility]) - ICD9: 648.80, ICD10: O24.410 controlled - URINE OB DIP B/O 3. Anemia during in third trimester ([facility]) - ICD9: 648.23, ICD10: O99.013 Oral iron - URINE OB DIP B/O 4. History of intrauterine , currently ([facility]) - ICD9: V23.5, ICD10: O09.299 Declined testing - URINE OB DIP B/O 5. 37 weeks gestation of ([facility]) - ICD9: V22.2, ICD10: Z3A.37 - URINE OB DIP B/O Tana Kramer MD documented in this encounter [facility] 12-13-2024 Instructions Abby Sharma MA - 12/13/2024 1:50 PM EDT SEQUENTIAL SCREENINGS The [facility] offers sequential screenings for women who are interested in screenings for chromosomal abnormalities and certain defects during a . The sequential screen combines ultrasound and blood tests to determine the risk of chromosomal abnormalities, including Down's Syndrome (Trisomy 21) and Trisomy 18, as well as open neural tube defects including spina bifida. Ultrasound examination is performed between 11 weeks and 13 weeks gestational age. Blood tests are drawn after the ultrasound and again later in the between 15 and 21 weeks gestational age. Please let your physician know if you are interested in this testing. It will require an appointment with our theater technician. This is not an ultrasound performed by a physician in our office during a routine visit. SIGNS AND SYMPTOMS OF LABOR 1. Contractions every 10 minutes or more often 2. Clear, pink, or brownish fluid (water) leaking from vagina 3. Feeling that baby is pushing down, pressure 4. Low, dull backache 5. Cramps that feel like a period 6. Cramps with or without diarrhea If you notice any of the above symptoms, contact our office at [phone] and ask to speak with a nurse. After hours, you can call [facility] at [phone] OR call [facility] at [phone] and ask to have the doctor circulation man paged. If you consider this an emergency, dial 6-6-7 or go to your nearest emergency department. NEED HELP? Are you dealing with a violent or abusive relationship? Are you a victim of rape or sexual assult? Call [facility] ([place]) 24 hour Crisis Hotline: 808.835.5497 or 865-477-3060. MANUAL Your Guide to a Healthy manual is now on-line. Visit [email or web address] to download your free copy documented in this encounter [facility] 12-05-2024 Telephone encounter Note 3rd risk assessment form submitted 12/05/2024. Tana Saeed RN [facility] 12-05-2024 Miscellaneous Notes 3rd risk assessment form submitted 12/05/2024. Tana Saeed RN documented in this encounter [facility] 12-04-2024 Note Indication Evaluation of growth. Gestational diabetes - diet controlled Impression REMOTE READ: Follow-up assessment of growth in a complicated by GDMA1, history of an LGA , history of gestational hypertension, and history of a term IUFD (declines surveillance). - Single, live, intrauterine . - presentation is cephalic. - The biometry is consistent with the assigned gestational dating. - The EFW is 3153 g, at the 77%. AC is at the 99%. - The amniotic fluid volume is normal amount with an MVP of 6.4 cm and an KAILEY of 20.4 cm. - The placenta is posterior. - No malformations visualized on a limited survey as detailed below. Serial assessment of growth (every 4 weeks) and weekly surveillance are recommended. Thank you for the referral. Recommendations As above Maternal Assessment Height 160 cm Height (ft) 5 ft Height (in) 3 in Physical Exam Initial weight (lb) 150 lb Initial BMI 26.57 kg/m Maternal assessment other: 5 Para 4 Method Transabdominal ultrasound examination. View: Adequate visualization Do . Number of fetuses: 1 Dating LMP on: 03/16/2024 Cycle: LMP date uncertain GA by LMP 37 w + 4 d YESSENIA by LMP: 12/21/2024 GA by prior assessment 36 w + 2 d YESSENIA by prior assessment: 12/30/2024 Ultrasound examination on: 12/04/2024 GA by U/S based upon: AC, BPD, Femur, HC GA by U/S 35 w + 5 d YESSENIA by U/S: 01/03/2025 Assigned: based on stated YESSENIA, selected on 09/07/2024 Assigned GA 36 w + 2 d Assigned YESSENIA: 12/30/2024 General Evaluation Cardiac activity present. FHR 138 bpm. movements: present. Presentation: cephalic Placenta: Placental site: posterior Umbilical cord: Cord vessels: 3 vessel cord Amniotic fluid: Amount of AF: normal amount. MVP 6.4 cm. KAILEY 20.4 cm. Q1 6.4 cm, Q2 5.3 cm, Q3 4.1 cm, Q4 4.6 cm Growth Overview Exam date GA BPD (mm) HC (mm) AC (mm) FL (mm) HL (mm) EFW (g) 08/06/2024 19w 1d 41 21% 155.2 27% 163.6 97% 26.5 22% 26.4 22% 306 75% 09/07/2024 23w 5d 55.4 17% 215.1 43% 207.6 87% 38.2 15% 646 53% 11/06/2024 32w 2d 77.9 15% 298 46% 294.3 81% 62.8 69% 2107 64% 12/04/2024 36w 2d 85.7 15% 316 24% 349.4 99% 69 56% 3153 77% Biometry Standard BPD 85.7 mm 34w 4d 15% Hadlock OFD 111.3 mm 33w 5d 28% Nicolaides HC 316.0 mm 34w 4d 24% Daniel AC 349.4 mm 38w 6d 99% Hadlock Femur 69.0 mm 35w 0d 56% Daniel EFW 3,153 g 37w 4d 77% Hadlock EFW (lb) 6 lb EFW (oz) 15 oz EFW by: Hadlock (HC-AC-FL) Extended Resource Manager 3.3 mm Extremities / Bony Struc FL / HC 0.22 Other Structures FHR 138 bpm Anatomy Lateral ventricles: normal Cavum septi pellucidi: normal Cerebellum: normal Cisterna magna: normal 4-chamber view: suboptimally visualized RVOT view: normal LVOT view: normal 3-vessel view: normal Heart / Thorax Situs: situs solitus (normal) Diaphragm: normal Stomach: normal Kidneys: normal Bladder: normal Performed By: Caron Singh RDMS Read By: Clovis Mott M.D. [facility] 12-04-2024 Progress note Formatting of t his note is different from the original. S: Sugey Helm is a 23 year old female who presents at 27w5d with YESSENIA:12/30/2024, by Ultrasound for a routine visit. Denies headache, visual changes, chest pain, shortness of breath, vaginal bleeding, leakage of fluid, or dysuria. Feeling well, no complaints. Smoking 5-10 cigerattes per day. O: See flow sheet Gen: No apparent distress Abd: Gravid, nontender Growth US today, 76th percentile, AC 98th percentile KAILEY 20 ASSESSMENT/PLAN: 1. Supervision of high risk in second trimester -Continue PNV and ASA -GBS today 2. 36 weeks gestation of 3. Late care 4. Insufficient antepartum care 5. History of intrauterine , currently -Would like IOL at 39 weeks -History of IUFD at 37 weeks, delivered vaginally -Growth US every 4 weeks starting at 32 weeks -Twice weekly testing starting at 32 weeks,declines testing and informed refusal. 6. Tobacco use during , antepartum -Reviewed recommendation for cessation. 7. Diet controlled gestational diabetes mellitus -Forgot log today, states most are normal. To send via [employer] 8. History of delivery of macrosomal infant Daughter was 9lb 13oz, uncomplicated. Growth US at 36wk 9. Need for vaccination - TDAP VACCINE, AGE 7+ YR (ADACEL, BOOSTRIX) 10. History of gestational hypertension -Recommend ASA 162mg PO once daily -Baseline labs normal PTL precautions reviewed RTO in 2 weeks Gin Paris APRN.CNM [facility] 12-04-2024 Miscellaneous Notes S: Sugey Helm is a 23 year old female who presents at 27w5d with YESSENIA:12/30/2024, by Ultrasound for a routine visit. Denies headache, visual changes, chest pain, shortness of breath, vaginal bleeding, leakage of fluid, or dysuria. Feeling well, no complaints. Smoking 5-10 cigerattes per day. O: See flow sheet Gen: No apparent distress Abd: Gravid, nontender Growth US today, 76th percentile, AC 98th percentile KAILEY 20 ASSESSMENT/PLAN: 1. Supervision of high risk in second trimester -Continue PNV and ASA -GBS today 2. 36 weeks gestation of 3. Late care 4. Insufficient antepartum care 5. History of intrauterine , currently -Would like IOL at 39 weeks -History of IUFD at 37 weeks, delivered vaginally -Growth US every 4 weeks starting at 32 weeks -Twice weekly testing starting at 32 weeks,declines testing and informed refusal. 6. Tobacco use during , antepartum -Reviewed recommendation for cessation. 7. Diet controlled gestational diabetes mellitus -Forgot log today, states most are normal. To send via [employer] 8. History of delivery of macrosomal Daughter was 9lb 13oz, uncomplicated. Growth US at 36wk 9. Need for vaccination - TDAP VACCINE, AGE 7+ YR (ADACEL, BOOSTRIX) 10. History of gestational hypertension -Recommend ASA 162mg PO once daily -Baseline labs normal PTL precautions reviewed RTO in 2 weeks Gin Paris APRN.CNM documented in this encounter [facility] 12-04-2024 Instructions Monty Carolina MA - 12/04/2024 2:11 PM EDT SEQUENTIAL SCREENINGS The [facility] offers sequential screenings for women who are interested in screenings for chromosomal abnormalities and certain defects during a . The sequential screen combines ultrasound and blood tests to determine the risk of chromosomal abnormalities, including Down's Syndrome (Trisomy 21) and Trisomy 18, as well as open neural tube defects including spina bifida. Ultrasound examination is performed between 11 weeks and 13 weeks gestational age. Blood tests are drawn after the ultrasound and again later in the between 15 and 21 weeks gestational age. Please let your physician know if you are interested in this testing. It will require an appointment with our theater technician. This is not an ultrasound performed by a physician in our office during a routine visit. SIGNS AND SYMPTOMS OF LABOR 1. Contractions every 10 minutes or more often 2. Clear, pink, or brownish fluid (water) leaking from vagina 3. Feeling that baby is pushing down, pressure 4. Low, dull backache 5. Cramps that feel like a period 6. Cramps with or without diarrhea If you notice any of the above symptoms, contact our office at [phone] and ask to speak with a nurse. After hours, you can call doctors registry at [phone] OR call [facility] at [phone] and ask to have the doctor circulation man paged. If you consider this an emergency, dial 2--9 or go to your nearest emergency department. NEED HELP? Are you dealing with a violent or abusive relationship? Are you a victim of rape or sexual assult? Call [facility] ([place]) 24 hour Crisis Hotline: 261.903.6482 or 668-528-4854. MANUAL Your Guide to a Healthy manual is now on-line. Visit [email or web address] ancyGuide to download your free copy documented in this encounter [facility] 11-14-2024 Note HNO ID: [id number] Author: ROSIE HENLEY APRN.STEEL RULE INSPECTOR Service: ? Author Type: Nurse Practitioner Type: Progress Notes Filed: 11/14/2024 09:01 Note Text: EH - S: Sugey is a 24 year old female who presents at 33w3d for a routine visit. Feeling movement. Denies headache, visual changes, chest pain, shortness of breath, vaginal bleeding, leakage of fluid, or dysuria. Feeling well, no complaints. O: See flow sheet Gen: No apparent distress Abd: Gravid, nontender, S>D, 42 lb TWG ASSESSMENT/PLAN: 1. Encounter for supervision of high risk in third trimester, antepartum ([facility]) - ICD9: V23.9, ICD10: O09.93 (primary diagnosis) - Continue PNV and LDA 2. 33 weeks gestation of ([facility]) - ICD9: V22.2, ICD10: Z3A.33 3. Gestational diabetes mellitus, class A1 ([facility]) - ICD9: 648.80, ICD10: O24.410 - Glucose log reviewed today, all fastings normal. 2 isolated abnormals after meals. Good control. 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 Late care ([facility]) - ICD9: V23.7, ICD10: O09.30 - 17 weeks for NOB 5. Anemia during in third trimester ([facility]) - ICD9: 648.23, ICD10: O99.013 - Received iron transfusions - Taking oral iron - Repeat CBC today 6. Tobacco use during , antepartum ([facility]) - ICD9: 649.03, ICD10: O99.330 - Recommend cessation, written risks and resources provided 7. History of intrauterine , currently ([facility]) - ICD9: V23.5, ICD10: O09.299 - 37 week IUFD, vaginal delivery - Had growth on 11/06, repeat in 4 weeks 8. History of delivery of macrosomal infant - ICD9: V13.29, ICD10: Z87.59 - Daughter was 9 lb,13 oz PTL precautions and kick counts reviewed. RTO in 2 weeks or sooner as needed. Rosie Henley APRN.STEEL RULE INSPECTOR [facility] 11-14-2024 History of Presen t illness Narrative EH - S: Sugey is a 24 year old female who presents at 33w3d for a routine visit. Feeling movement. Denies headache, visual changes, chest pain, shortness of breath, vaginal bleeding, leakage of fluid, or dysuria. Feeling well, no complaints. O: See flow sheet Gen: No apparent distress Abd: Gravid, nontender, S>D, 42 lb TWG ASSESSMENT/PLAN: 1. Encounter for supervision of high risk in third trimester, antepartum ([facility]) - ICD9: V23.9, ICD10: O09.93 (primary diagnosis) - Continue PNV and LDA 2. 33 weeks gestation of ([facility]) - ICD9: V22.2, ICD10: Z3A.33 3. Gestational diabetes mellitus, class A1 ([facility]) - ICD9: 648.80, ICD10: O24.410 - Glucose log reviewed today, all fastings normal. 2 isolated abnormals after meals. Good control. 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 Late care ([facility]) - ICD9: V23.7, ICD10: O09.30 - 17 weeks for NOB 5. Anemia during in third trimester ([facility]) - ICD9: 648.23, ICD10: O99.013 - Received iron transfusions - Taking oral iron - Repeat CBC today 6. Tobacco use during , antepartum ([facility]) - ICD9: 649.03, ICD10: O99.330 - Recommend cessation, written risks and resources provided 7. History of intrauterine , currently ([facility]) - ICD9: V23.5, ICD10: O09.299 - 37 week IUFD, vaginal delivery - Had growth on 11/06, repeat in 4 weeks 8. History of delivery of macrosomal - ICD9: V13.29, ICD10: Z87.59 - Daughter was 9 lb,13 oz PTL precautions and kick counts reviewed. RTO in 2 weeks or sooner as needed. Rosie Henley APRN.CNP documented in this encounter [facility] 11-14-2024 Instructions Rosie Henley APRN.CNP - 11/14/2024 8:27 AM EDT How SMOKING Affects Your and Your Baby During Smoking during affects you and your baby's health before, during and after your baby is born. The nicotine (the addictive substance in cigarettes), carbon monoxide and numerous other poisons you inhale from a cigarette are carried through your bloodstream and go directly to your baby. Smoking while will: Lower the amount of oxygen available to you and your growing baby Increase your baby's heart rate Increase the chances of miscarriage and stillbirth Increase the risk that your baby is born prematurely and/or born with low weight Increase your baby's risk of developing respiratory problems The more cigarettes you smoke per day, the greater your baby's chances of developing these and other health problems. There is no safe level of smoking for your baby's health. How does secondhand smoke affect me and my baby? Second-hand smoke (also called passive smoke or environmental tobacco smoke) is the combination of smoke from a burning cigarette and smoke exhaled by a smoker. The smoke that fritz off the end of a cigarette or cigar contains more harmful substances ( tar, carbon monoxide, nicotine and others) than the smoke inhaled by the smoker. If you are regularly exposed to second-hand smoke, you increase your and your baby's risk of developing lung cancer, heart disease, emphysema, allergies, asthma and other health problems. Babies exposed to second-hand smoke may also develop reduced lung capacity and are at higher risk for sudden infant syndrome (SIDS). What happens if I keep smoking after my baby is born? If you continue to smoke after your baby is born, you increase his or her chance of developing certain illnesses and problems, such as: Frequent colds Bronchitis and pneumonia Asthma Chronic coughs Ear infections High blood pressure Learning and behavior problems later in childhood Why should I quit smoking? Smoking is the leading cause of preventable in the [place] By quitting you can: Prolong your life Lower your risk of heart disease Lower your risk of developing lung, throat, mouth, pancreatic and bladder cancer Lower your risk of developing breathing problems such as chronic obstructive pulmonary disease (COPD), asthma and emphysema Lower your risk of developing allergies Raise your energy level Improve your appearance; your skin will wrinkle less and look better, and your fingers and teeth will not be yellow Improve your sense of smell and taste Feel healthier overall, with improved self-esteem Save a lot of money (the average smoker spends $740 a year for cigarettes!) How can I quit smoking? There is no one way to quit smoking that works for everyone, since each person has different smoking habits. Here are some tips: Hide your matches, lighters, and ashtrays. Take a deep breath and hold it for five to ten seconds whenever you get the urge to smoke. Designate your home a non-smoking area. Ask people who smoke not to smoke around you. Drink less caffeinated beverages; caffeine may stimulate your urge to smoke. Also avoid alcohol, as it also may increase your urge to smoke and can be harmful to your baby. Change your habits connected with smoking. If you smoked while driving or when feeling stressed, try other activities to replace smoking. Keep mints or gum (preferably sugarless) on hand for those times when you get the urge to smoke. Stay active to keep your mind off smoking and help relieve tension: take a walk, exercise, read a book or try a new a hobby. Look for support from others. Join a support group or smoking cessation program, such as the [facility] Smoking Cessation Program. For more information, please call . Do not go places where many people are smoking such as bars or clubs, and smoking sections of restaurants. Should I use a nicotine replacement to help me quit? Nicotine gum and patches release nicotine into the bloodstream of the smoker who is trying to quit. Although these products can reduce withdrawal symptoms and decrease cravings in smokers who are trying to quit, nicotine is quite toxic and potentially harmful to the fetus (as well as to the infant who is ). Therefore, these and any other products containing nicotine are not always ecommended for the woman who is trying to quit smoking. They may be prescribed in indivdual cases. How will I feel when I quit? The benefits of not smoking start within days of quitting. After you quit, you and your baby's heart beat will return to normal, and your baby will be less likely to develop breathing problems. You may have symptoms of withdrawal because your body is used to nicotine, the addictive substance in cigarettes. You may crave cigarettes, be irritable, feel very hungry, cough often, get headaches or have difficulty concentrating. The withdrawal symptoms are only temporary. They are strongest when you first quit but will go away within 10 to 14 days. When withdrawal symptoms occur, stay in control. Think about your reasons for quitting. Remind yourself that these are signs that your body is healing and getting used to being without cigarettes. Remember that withdrawal symptoms are easier to treat than the major diseases that smoking can cause. Even after the withdrawal is over, expect periodic urges to smoke. However, these cravings are generally short-lived and will go away whether you smoke or not. Don't Smoke! If you smoke again (called a relapse) do not lose hope. Seventy-five percent of those who quit relapse. Most smokers quit three times before they are successful. If you relapse, don't give up! Plan ahead and think about what you will do next time you get the urge to smoke. (This information is provided by the [facility] and is not intended to replace the medical advice of your doctor or health care provider. Please consult your health care provider for advice about a specific medical condition. For additional written health information, please call the Cancer Answer Line at [facility] Cancer [place] Tuesday - Tuesday 8-4:30 for assistance: [phone]. Or visit [email or web address]/) [facility] s Smoking Cessation Program The [facility] Smoking Cessation Program is a comprehensive, multifaceted program that can be tailored to your individual needs. We offer a variety of services designed to help you throughout the process, including office visits, distance health visits (virtual or telephone), and the eCoach program or pharmacy consultations. To schedule, call [phone] Appointments: An office visit: This is a one-on-one approach where you go to an office and meet with the provider to discuss your options for quitting. Distance health visits: This type of visit can be completed via virtual visit or telephone visit. Virtual visits require a smartphone, tablet or computer with access to a webcam, microphone and Internet connection. You will need to sign up for [employer] prior to your virtual visit. Telephone visits can be completed via audio only if patient does not have access to the above Pharmacotherapy Nicotine replacement therapy (patches, gum, lozenges, inhalers or nasal spray) Bupropion (Wellbutrin) Chantix Integrative and Lifestyle Medicine Services: Acupuncture Holistic Psychotherapy Meditation Yoga And more The eCoach program Expert tips tailored to you Behavioral replacements Recognizing individual triggers On your schedule Pharmacy consultation You can meet with a pharmacist (either online or in person) to discuss smoking cessation medications, including: Nicotine replacement therapy: gum, patches, lozenges, inhalers or nasal spray Bupropion SR Varenicline (Chantix ) The [place] [employer] (ACS) has a section devoted to quitting tobacco with information on where to get help, interactive tools, the relationship of tobacco and cancer, how to keep your kids smoke-free, smoke-free communities and the ACS s annual [place] Smokeout. Visit this link for more info: https://www.cancer.org/cancer/ri sk-prevention/tobacco/guide-quit ting-smoking.html The [place] [employer] has tools, tips, support and fact sheets to help you stop smoking or to help a loved one quit. There s also more information about [place] From Smoking , the program we use in our smoking classes at [facility]. Visit this link for more info: https://www.lung.org/quit-smokin g/vobf-cfvrnen-dzlj-smoking The National Cancer [place] s site, Smokefree.gov, has an abundance of free and accurate resources to encourage smokers to stop: Smokefree apps for your smartphone offer individualized guidance once you input your information You can sign up for the SmokefreeTXT text messaging program, which sends you daily text messages with encouragement, tips and advice to help making quitting easier Create a personalized Quit Plan by choosing a quit date and answering seven questions Take a quiz on your withdrawal symptoms See how you can prepare to quit 7-517-NRMA-NOW is the national portal to a network of state quitlines. Quitlines offer evidence-based support--like counseling, referrals to local programs, and free medication--to people who want to quit tobacco. SEQUENTIAL SCREENINGS The [facility] offers sequential screenings for women who are interested in screenings for chromosomal abnormalities and certain defects during a . The sequential screen combines ultrasound and blood tests to determine the risk of chromosomal abnormalities, including Down's Syndrome (Trisomy 21) and Trisomy 18, as well as open neural tube defects including spina bifida. Ultrasound examination is performed between 11 weeks and 13 weeks gestational age. Blood tests are drawn after the ultrasound and again later in the between 15 and 21 weeks gestational age. Please let your physician know if you are interested in this testing. It will require an appointment with our theater technician. This is not an ultrasound performed by a physician in our office during a routine visit. SIGNS AND SYMPTOMS OF LABOR 1. Contractions every 10 minutes or more often 2. Clear, pink, or brownish fluid (water) leaking from vagina 3. Feeling that baby is pushing down, pressure 4. Low, dull backache 5. Cramps that feel like a period 6. Cramps with or without diarrhea If you notice any of the above symptoms, contact our office at [phone] and ask to speak with a nurse. After hours, you can call doctors registry at [phone] OR call [facility] at [phone] and ask to have the doctor circulation man paged. If you consider this an emergency, dial 9-1-5 or go to your nearest emergency department. NEED HELP? Are you dealing with a violent or abusive relationship? Are you a victim of rape or sexual assult? Call [facility] [place] ([facility] 24 hour Crisis Hotline: 532.458.5172 or 435-200-7331. MANUAL Your Guide to a Healthy manual is now on-line. Visit [email or web address] ancyGuide to download your free copy documented in this encounter [facility] 11-06-2024 Note Indication Evaluation of growth. Gestational diabetes - diet controlled Impression - Single, live, intrauterine . - presentation is cephalic. - The biometry is consistent with the assigned gestational dating. - The EFW is 2107 g, at the 64%. AC is at the 81%. - The amniotic fluid volume is normal amount with an MVP of 5.4 cm and an KAILEY of 16.5 cm. - The placenta is posterior. - No malformations visualized on a limited survey as detailed below. Recommendations Growth in four weeks Maternal Assessment Height 160 cm Height (ft) 5 ft Height (in) 3 in Physical Exam Initial weight (lb) 150 lb Initial BMI 26.57 kg/m Maternal assessment other: 5 Para 4 Method Transabdominal ultrasound examination, Color Doppler examination. View: Suboptimal view: limited by late gestational age Do . Number of fetuses: 1 Dating LMP on: 03/16/2024 Cycle: LMP date uncertain GA by LMP 33 w + 4 d YESSENIA by LMP: 12/21/2024 GA by prior assessment 32 w + 2 d YESSENIA by prior assessment: 12/30/2024 Ultrasound examination on: 11/06/2024 GA by U/S based upon: AC, BPD, Femur, HC GA by U/S 32 w + 2 d YESSENIA by U/S: 12/30/2024 Assigned: based on stated YESSENIA, selected on 09/07/2024 Assigned GA 32 w + 2 d Assigned YESSENIA: 12/30/2024 General Evaluation Cardiac activity present. FHR 142 bpm. movements: present, present. Presentation: cephalic Placenta: Placental site: posterior Umbilical cord: Cord vessels: 3 vessel cord Amniotic fluid: Amount of AF: normal amount. MVP 5.4 cm. KAILEY 16.5 cm. Q1 4.2 cm, Q2 4.0 cm, Q3 2.9 cm, Q4 5.4 cm Growth Overview Exam date GA BPD (mm) HC (mm) AC (mm) FL (mm) HL (mm) EFW (g) 08/06/2024 19w 1d 41 21% 155.2 27% 163.6 97% 26.5 22% 26.4 22% 306 75% 09/07/2024 23w 5d 55.4 17% 215.1 43% 207.6 87% 38.2 15% 646 53% 11/06/2024 32w 2d 77.9 15% 298 46% 294.3 81% 62.8 69% 2107 64% Biometry Standard BPD 77.9 mm 31w 2d 15% Hadlock OFD 106.8 mm 31w 6d 50% Nicolaides HC 298.0 mm 32w 1d 46% Daniel AC 294.3 mm 33w 3d 81% Hadlock Femur 62.8 mm 32w 2d 69% Daniel EFW 2,107 g 32w 5d 64% Hadlock EFW (lb) 4 lb EFW (oz) 10 oz EFW by: Hadlock (HC-AC-FL) Extended Resource Manager 5.1 mm Extremities / Bony Struc FL / HC 0.21 Other Structures FHR 142 bpm Anatomy Lateral ventricles: normal Cavum septi pellucidi: normal Cerebellum: normal Cisterna magna: normal 4-chamber view: normal RVOT view: normal LVOT view: normal 3-vessel view: normal Heart / Thorax Situs: situs solitus (normal) Diaphragm: normal Stomach: normal Kidneys: normal Bladder: normal sex: male Wants to know sex: yes Performed By: Caron Singh RDMS Read By: Anna Lopes M.D. [facility] 10-25-2024 Telephone encounter Note Patient called back. Unable to come to the office. Needs to wait until her gets off work at 4:30 PM. Patient will go to L&D.Updated H&P faxed to L&D. Tana Garcia RN [facility] 10-25-2024 Miscellaneous Notes Patient called back. Unable to come to the office. Needs to wait until her gets off work at 4:30 PM. Patient will go to L&D.Updated H&P faxed to L&D. Tana Garcia RN 30w4d Pt calls stating she has not felt baby move in 3 days. See Mychart message from 10/25/24. Pt states she has tried walking, laying down, shower, drinking orange juice and has not felt him move once. Advised Pt we can get her in for an NST today to get her on the monitor and to see Dr. Colón after. Pt states she doesn't think that will work as she doesn't have a sitter for her kids and is asking if we have any appointments for tomorrow. This RN advised Pt that it is strongly advised that she come in to office today and if she is unable, then she go to L&D mary to be evaluated & that it would not be recommended for her to wait until tomorrow. This RN asked Pt if she has anyone to watch her children so she can come to office-Pt states she didn't know and would call her [id number] to check. Advised Pt to call office back and let us know. Pt voiced understanding. Mary Maher RN documented in this encounter [facility] 10-25-2024 Telephone encounter Note 30w4d Pt calls stating she has not felt baby move in 3 days. See Mychart message from 10/25/24. Pt states she has tried walking, laying down, shower, drinking orange juice and has not felt him move once. Advised Pt we can get her in for an NST today to get her on the monitor and to see Dr. Colón after. Pt states she doesn't think that will work as she doesn't have a sitter for her kids and is asking if we have any appointments for tomorrow. This RN advised Pt that it is strongly advised that she come in to office today and if she is unable, then she go to L&D mary to be evaluated & that it would not be recommended for her to wait until tomorrow. This RN asked Pt if she has anyone to watch her children so she can come to office-Pt states she didn't know and would call her [id number] to check. Advised Pt to call office back and let us know. Pt voiced understanding. Mary Maehr RN [facility] 10-19-2024 Note HNO ID: [id number] Author: GIN PARIS APRN.CNM Service: ? Author Type: Operations Recruiter Type: Progress Notes Filed: 10/19/2024 16:34 Note Text: CHIN-S: Sugey Helm is a 23 year old female who presents at 29w5d with YESSENIA:12/30/2024, by Ultrasound for a routine visit. Denies headache, visual changes, chest pain, shortness of breath, vaginal bleeding, leakage of fluid, or dysuria. Feeling well, no complaints. GDM diagnosed, did not get approval from insurance for glucometer and supplies but has since been approved and getting it today. O: See flow sheet Gen: No apparent distress Abd: Gravid, nontender ASSESSMENT/PLAN: 1. Supervision of high risk in second trimester -Continue PNV 2. 29 weeks gestation of 3. Late care 4. Insufficient antepartum care 5. History of intrauterine , currently -Declines MFM consultations. Would consider 39wk IOL but may want to await spontaneous labor -History of IUFD at 37 weeks, delivered vaginally -Growth US every 4 weeks starting at 32 weeks -Twice weekly testing starting at 32 weeks 6. Tobacco use during , antepartum -Reviewed recommendation for cessation. 7. History of delivery of macrosomal Daughter was 9lb 13oz, uncomplicated. Growth US at 36wk 8. Diet controlled gestational diabetes mellitus (GDM) in third trimester -Appointments completed with biomass power plant manager and religious educator. -Will start BG testing today four times a day (fasting and 1hr after each meal). -Growth US every 4 weeks and to schedule soonest US appointment Reviewed the diagnosis, management, and risks/implications of GDM in detail. We reviewed the and maternal risks including macrosomia, shoulder dystocia/ injury, delivery, preeclampsia and IUFD. We reviewed risks of hypoglycemia, hyperbilirubinemia, and NICU admission. We reviewed the importance of strict glycemic control to optimize maternal and outcomes. 9. Anemia during in third trimester -Hgb 9.8, blood management referral recommended IV iron infusions and scheduled 10. History of gestational hypertension -Recommend ASA 162mg PO once daily -Baseline labs RTO in 2 weeks PTL precautions reveiwed Gin Paris APRN.CNM [facility] 10-19-2024 History of Presen t illness Narrative LEAHS: Sugey Helm is a 23 year old female who presents at 29w5d with YESSENIA:12/30/2024, by Ultrasound for a routine visit. Denies headache, visual changes, chest pain, shortness of breath, vaginal bleeding, leakage of fluid, or dysuria. Feeling well, no complaints. GDM diagnosed, did not get approval from insurance for glucometer and supplies but has since been approved and getting it today. O: See flow sheet Gen: No apparent distress Abd: Gravid, nontender ASSESSMENT/PLAN: 1. Supervision of high risk in second trimester -Continue PNV 2. 29 weeks gestation of 3. Late care 4. Insufficient antepartum care 5. History of intrauterine , currently -Declines MFM consultations. Would consider 39wk IOL but may want to await spontaneous labor -History of IUFD at 37 weeks, delivered vaginally -Growth US every 4 weeks starting at 32 weeks -Twice weekly testing starting at 32 weeks 6. Tobacco use during , antepartum -Reviewed recommendation for cessation. 7. History of delivery of macrosomal Daughter was 9lb 13oz, uncomplicated. Growth US at 36wk 8. Diet controlled gestational diabetes mellitus (GDM) in third trimester -Appointments completed with biomass power plant manager and religious educator. -Will start BG testing today four times a day (fasting and 1hr after each meal). -Growth US every 4 weeks and to schedule soonest US appointment Reviewed the diagnosis, management, and risks/implications of GDM in detail. We reviewed the and maternal risks including macrosomia, shoulder dystocia/ injury, delivery, preeclampsia and IUFD. We reviewed risks of hypoglycemia, hyperbilirubinemia, and NICU admission. We reviewed the importance of strict glycemic control to optimize maternal and outcomes. 9. Anemia during in third trimester -Hgb 9.8, blood management referral recommended IV iron infusions and scheduled 10. History of gestational hypertension -Recommend ASA 162mg PO once daily -Baseline labs RTO in 2 weeks PTL precautions reveiwed Gin Paris APRN.CNM documented in this encounter [facility] 10-19-2024 Instructions Gin Paris APRN.CNM - 10/19/2024 1:13 PM EDT SIGNS AND SYMPTOMS OF LABOR 1. Contractions every 10 minutes or more often 2. Clear, pink, or brownish fluid (water) leaking from vagina 3. Feeling that baby is pushing down, pressure 4. Low, dull backache 5. Cramps that feel like a period 6. Cramps with or without diarrhea If you notice any of the above symptoms, contact our office at [phone] and ask to speak with a nurse. After hours, you can call doctors registry at [phone] OR call [facility] at [phone] and ask to have the doctor circulation man paged. If you consider this an emergency, dial 9-1-3 or go to your nearest emergency department. NEED HELP? Are you dealing with a violent or abusive relationship? Are you a victim of rape or sexual assult? Call [facility] [place] 24 hour Crisis Hotline: 452.500.3312 or 914-350-3049. MANUAL Your Guide to a Healthy manual is now on-line. Visit [email or web address] to download your free copy documented in this encounter [facility] 10-18-2024 Note HNO ID: [id number] Author: FRANCISCA GROVE RN Service: ? Author Type: Registered Nurse Type: Progress Notes Filed: 10/18/2024 09:01 Note Text: DIABETES SELF-MANAGEMENT EDUCATION AND SUPPORT Location: [place] Type of visit: Virtual (with video) individual I have communicated my name and active licensure. The patient's identity and physical location were verified at the time of this visit. Either the patient or their legal advertising representative has been informed of the risks and benefits of -- and alternatives to -- treatment through a remote evaluation and consents to proceed with the evaluation remotely. 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 Patient states he/she is located at home/work and is the [facility] for duration of this visit. Types of DSMES: Initial/Comprehensive (add to or update ADA spreadsheet) PATIENT'S MAIN CONCERN TODAY: gestational diabetes new diagnosis Support person present for education today: none Cognitive ability: Alert and oriented Motivation to learn: Interested Learning barriers identified by educator: none Method of instruction: written, verbal, and demonstration INTERVENTIONS/TOPICS COVERED: -Diabetes Pathophysiology: gestational diabetes basics -Monitoring: A1c meaning and target <7%, BG targets, rationale for HGM, sharps disposal, testing frequency, and using a home glucose monitor -Healthy Eating: impact of carbs on BG, Plate Method, basic carb counting, foods with carbs, portion sizes, fiber, reading food labels, recommendation for 15-30mg snacks, 30 carb breakfast, 45-60 carbs lunch/dinner, eating out, and carb counting tools (books, Internet, smartphone apps) Patient does not read food labels or count carbs. Focused on plate method, more non starchy veggies, always a protein at meals and snacks with carbs, limit carbs to serving sizes per gestational diabetes booklet. See sample menus and snack list for ideas. 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 Suggested switch to decaf and/or eliminating caffeine for remainder of due to possible impact on elevating blood sugars -Medications: medication safety/timing, medication side effects, insulin storage, site selection/rotation, pen injection instruction, sharps disposal, reviewed home DM meds, taught new DM meds as noted, basal insulin, and injectable insulin discussed: NPH Insulin -Physical Activity: benefits of exercise, impact of exercise on BG, and types of exercise -Acute Complications: hypoglycemia s/sx/tx, hyperglycemia s/sx/tx, and traveling with diabetes -Chronic Complications: importance of BG control to reduce risks and risks to mom and baby with elevated blood sugars during -Healthy Coping and Support: impact of stress on BG, stress management techniques, and benefits of a support system, types of support (ex:family, friends, support groups, diabetes groups on social media) DIABETES ASSESSMENT: Referring Physician: Adelaida Castillo Previous Diabetes Education? No What are you hoping to gain from this visit? What to eat for diabetes in In your words, what is gestational diabetes? Diabetes in and leaves after What concerns you about having gestational diabetes? How to follow diet and size of baby Diabetes History: Type of Diabetes: Gestational ( diabetes in ) How far along is your ? Weeks: 29 Does anyone in your family have diabetes? 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 never How often does someone help you read your pill bottles? never How often does someone have to help you take care of your diabetes? 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 Walk outside Do any of the following things get in the way of managing your diabetes? No self-identified issues Health History: Do you use tobacco? Yes, How much? 6 cigarettes per day Patient aware of risks of smoking during Do you use alcohol? No In the past 12 months have you had any: Hospital Admissions: No ER Visits: No Primary Care Visits: No What are your general feelings about you overall health? Good Medical Issues/Complications: see below To whom are you reporting your blood sugar levels? OB PAST MEDICAL HISTORY Diagnosis Date History of delivery of macrosomal infant 07/16/2024 Hypertension Maternal iron deficiency anemia co (more content not included)... [facility] 10-18-2024 History of Presen t illness Narrative DIABETES SELF-MANAGEMENT EDUCATION AND SUPPORT Location: [place] Type of visit: Virtual (with video) individual I have communicated my name and active licensure. The patient's identity and physical location were verified at the time of this visit. Either the patient or their legal advertising representative has been informed of the risks and benefits of -- and alternatives to -- treatment through a remote evaluation and consents to proceed with the evaluation remotely. 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 Patient states he/she is located at home/work and is the [facility] for duration of this visit. Types of DSMES: Initial/Comprehensive (add to or update ADA spreadsheet) PATIENT'S MAIN CONCERN TODAY: gestational diabetes new diagnosis Support person present for education today: none Cognitive ability: Alert and oriented Motivation to learn: Interested Learning barriers identified by educator: none Method of instruction: written, verbal, and demonstration INTERVENTIONS/TOPICS COVERED: -Diabetes Pathophysiology: gestational diabetes basics -Monitoring: A1c meaning and target <7%, BG targets, rationale for HGM, sharps disposal, testing frequency, and using a home glucose monitor -Healthy Eating: impact of carbs on BG, Plate Method, basic carb counting, foods with carbs, portion sizes, fiber, reading food labels, recommendation for 15-30mg snacks, 30 carb breakfast, 45-60 carbs lunch/dinner, eating out, and carb counting tools (books, Internet, smartphone apps) Patient does not read food labels or count carbs. Focused on plate method, more non starchy veggies, always a protein at meals and snacks with carbs, limit carbs to serving sizes per gestational diabetes booklet. See sample menus and snack list for ideas. 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 Suggested switch to decaf and/or eliminating caffeine for remainder of due to possible impact on elevating blood sugars -Medications: medication safety/timing, medication side effects, insulin storage, site selection/rotation, pen injection instruction, sharps disposal, reviewed home DM meds, taught new DM meds as noted, basal insulin, and injectable insulin discussed: NPH Insulin -Physical Activity: benefits of exercise, impact of exercise on BG, and types of exercise -Acute Complications: hypoglycemia s/sx/tx, hyperglycemia s/sx/tx, and traveling with diabetes -Chronic Complications: importance of BG control to reduce risks and risks to mom and baby with elevated blood sugars during -Healthy Coping and Support: impact of stress on BG, stress management techniques, and benefits of a support system, types of support (ex:family, friends, support groups, diabetes groups on social media) DIABETES ASSESSMENT: Referring Physician: Adelaida Castillo Previous Diabetes Education? No What are you hoping to gain from this visit? What to eat for diabetes in In your words, what is gestational diabetes? Diabetes in and leaves after What concerns you about having gestational diabetes? How to follow diet and size of baby Diabetes History: Type of Diabetes: Gestational ( diabetes in ) How far along is your ? Weeks: 29 Does anyone in your family have diabetes? 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 never How often does someone help you read your pill bottles? never How often does someone have to help you take care of your diabetes? 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 Walk outside Do any of the following things get in the way of managing your diabetes? No self-identified issues Health History: Do you use tobacco? Yes, How much? 6 cigarettes per day Patient aware of risks of smoking during Do you use alcohol? No In the past 12 months have you had any: Hospital Admissions: No ER Visits: No Primary Care Visits: No What are your general feelings about you overall health? Good Medical Issues/Complications: see below To whom are you reporting your blood sugar levels? OB PAST MEDICAL HISTORY Diagnosis Date History of delivery of macrosomal 07/16/2024 Hypertension Maternal iron deficiency anemia complicating , third trimester (HCC) 10/09/2024 Most recent A1C Lab Results Component Value Date HBA1C 4.8 07/16/2024 Physical Activity: Do you do a regular exercise? Yes; how many days per week 5+ How long each day? More than 60 min Type of Exercise: walking Sleep: Do you get at least 7 hrs of sleep most nights? no Current Outpatient Medications Medication Sig blood sugar diagnostic test strip Use as directed to check glucose levels up to seven times daily. Lancets Use as directed to check glucose levels up to seven times daily. aspirin, enteric coated (ASPIRIN, ENTERIC COATED) 81 mg EC tablet Take 2 tablets by mouth once daily. vit/iron fum/folic ac ( PLUS/IRON ORAL) Take by mouth once daily. acetaminophen (TYLENOL ORAL) Take 500 mg by mouth as needed. No current facility-administered medications for this visit. Medications for Diabetes: Name of Medication Dose When taken How often missed reviewed Injections Technique: Do you take insulin or a medication you inject for your diabetes? No Blood Sugar Monitoring: Do you have a blood sugar monitor? No - waiting to pickle maker from pharmacy. Reviewed instructions on how to use, advised to contact educator for questions on setting up meter or use Management of Low Blood Sugar: What has been your lowest blood sugar in the last month? 83 per Fasting GTT What are your symptoms of lows?woozy and tired How do you treat lows? No Do you drive? yes Management of High Blood Sugar: What has been you highest blood sugar in the last month? 196 1 hr GTT What are your symptoms of highs? Other none noted How do you treat your highs? Not sure Meal Planning: Are you currently following any meal plan? Other trying not to eat excessive amounts of food, limiting sugar Who does the cooking in your house? partner Who does the grocery shopping? partner How often do you eat out? 0-1x/week How many meals do you eat per day? Three Which meals do you tend to skip? None Beverages: water and coffee EDUCATION HANDOUTS: Healthy You: Diabetes and and healthy snack/carb list, [email or web address], Pervacio jameson LEARNING RESPONSE: Diabetes pathophysiology: Demonstrated understanding/competency today or at previous visit Healthy eating: Demonstrated understanding/competency today or at previous visit Being active: Demonstrated understanding/competency today or at previous visit Taking medications: Demonstrated understanding/competency today or at previous visit Monitoring glucose: Demonstrated understanding/competency today or at previous visit Acute complications: Demonstrated understanding/competency today or at previous visit Chronic complications: Demonstrated understanding/competency today or at previous visit Healthy coping: Demonstrated understanding/competency today or at previous visit Diabetes distress and support: Demonstrated understanding/competency today or at previous visit PATIENT SELECTED THE FOLLOWING GOALS: -Monitoring goal: track my health status 4: I'm ready to start now and keep blood sugars in target range for remainder of 4: I'm ready to start now POSSIBLE FUTURE TOPICS: 1. The following topics were not assessed due to time limitations, but should be assessed at the next visit: all areas were assessed today or within the last 12 months. 2. The following topics should be taught or reinforced at the next visit: healthy eating and monitoring glucose. DIABETES EDUCATION PLAN: Individual follow-up Individual follow-up for patient selected goal(s) with dietitian and/or clinical educator within 2-4 weeks/months via office visit, [employer] message, email, or phone call. Contact information provided to patient for clinical educator. Time Spent (Minutes): 60 This visit note will be communicated to the healthcare provider via access to shared medical record. SIGNATURE: Francisca Grove RN PATIENT NAME: Sugey Helm DATE: October 18, 2024 TIME: 7:56 AM PAGER: documented in this encounter [facility] 10-16-[address] - 10/16/2024 1:00 PM EDT Patient scheduled incorrectly for gestational diabetes. Number provided to call to schedule: [facility] ([phone]). documented in this encounter [facility] 10-16-2024 Note HNO ID: [id number] Author: JESSE HERNANDEZ RD Service: ? Author Type: Registered Dietitian Type: Progress Notes Filed: 10/16/2024 13:00 Note Text: Patient scheduled incorrectly for gestational diabetes. Number provided to call to schedule: [facility] ([phone]). [facility] 10-16-2024 History of Presen t illness Narrative Patient scheduled incorrectly for gestational diabetes. Number provided to call to schedule: [facility] ([phone]). documented in this encounter [facility] 10-15-2024 Telephone encounter Note Please file pending orders. Thank you. Tana Garcia RN [place] [id number] Miscellaneous Notes Please file pending orders. Thank you. Tana Garcia RN Patient did not pass 3 hr GTT. She has a diagnosis of gestational diabetes. Needs supplies and teaching please. documented in this encounter [facility] 10-15-2024 Telephone encounter Note Patient did not pass 3 hr GTT. She has a diagnosis of gestational diabetes. Needs supplies and teaching please. [facility] 10-11-2024 Telephone encounter Note Patient returned the call and scheduled. Start email sent. Trini Henriquez [facility] 10-11-2024 Miscellaneous Notes Patient returned the call and scheduled. Start email sent. Trini Henriquez Lvm for pt to call back ans schedule. Margoth Sorto Please review and advise Trini Henriquez Josué sandhu plan signed and PA approved. documented in this encounter [facility] 10-11-2024 Telephone encounter Note Lvm for pt to call back ans schedule. Margoth Sorto [facility] 10-11-2024 Telephone encounter Note Please review and advise Trini Henriquez [facility] 10-11-2024 Telephone encounter Note Josué sandhu plan signed and JAMES approved. [facility] 10-09-2024 Note HNO ID: [id number] Author: TRINI DOVER PA-C Service: ? Author Type: Physician Clerk General Office Type: Progress Notes Filed: 10/09/2024 12:29 Note Text: [facility] DEPARTMENT OF BLOOD MANAGEMENT ORDERS ONLY ENCOUNTER PATIENT NAME: Sugey Helm DATE OF SERVICE: October 09, 2024 REFERRING PROVIDER: Gin Paris APRN.CNM Subjective Patient referred to Blood Management for evaluation and treatment of anemia in . Patient's relevant history, recent diagnostic data, and treatment plan as entered by Roberto Us RN were reviewed. Medical/Surgical History: PAST MEDICAL HISTORY Diagnosis Date History of delivery of macrosomal infant 07/16/2024 Hypertension Maternal iron deficiency anemia complicating , third trimester (HCC) 10/09/2024 PAST SURGICAL HISTORY Procedure Laterality Date DENTAL SURGERY HX around 4-5 years of age REMOVAL GALLBLADDER 05/2020 TONSILLECTOMY HX Other significant Medical/Surgical history: - None CURRENT MEDICATIONS: Current Outpatient Medications on File Prior to Visit Medication Sig aspirin, enteric coated (ASPIRIN, ENTERIC COATED) 81 mg EC tablet Take 2 tablets by mouth once daily. vit/iron fum/folic ac ( PLUS/IRON ORAL) Take by mouth once daily. acetaminophen (TYLENOL ORAL) Take 500 mg by mouth as needed. No current facility-administered medications on file prior to visit. Current medications that may affect iron absorption and/or blood loss: - Aspirin Objective Data Reviewed: WBC (k/uL) Date Value 10/05/2024 10.76 RBC (m/uL) Date Value 10/05/2024 3.54 (L) Hemoglobin (g/dL) Date Value 10/05/2024 9.8 (L) Hematocrit (%) Date Value 10/05/2024 29.9 (L) MCV (fL) Date Value 10/05/2024 84.5 MCH (pg) Date Value 10/05/2024 27.7 MCHC (g/dL) Date Value 10/05/2024 32.8 RDW-CV (%) Date Value 10/05/2024 12.3 Platelet Count (k/uL) Date Value 10/05/2024 220 MPV (fL) Date Value 10/05/2024 9.7 Iron Date Value Ref Range Status 10/05/2024 30 (L) 41 - 186 ug/dL Final TIBC Date Value Ref Range Status 10/05/2024 >530 (H) 232 - 386 ug/dL Final Ferritin Date Value Ref Range Status 10/05/2024 8.9 (L) 14.7 - 205.1 ng/mL Final Transferrin Saturation Date Value Ref Range Status 10/05/2024 <5.7 (L) 15.0 - 57.0 % Final Assessment AND Plan Maternal iron deficiency anemia complicating , third trimester - Patient referred to blood management for anemia during in third trimester. - Previously prescribed vitamin including iron supplementation; treatment failure and ongoing iron deficiency anemia. - Most recent labs reviewed from 10/05/24, patient noted to have iron deficiency anemia. - Ferritin 8.9, Iron 30, TIBC >530, TSAT <5.7%, Hgb 9.8 - Recommendations according to Blood Management patient care guidelines: - Per Ganzoni equation, 722 mg iron deficient utilizing pre- weight (77kg) and goal Hgb 11 g/dL - Therapy plan for iron sucrose 200 mg IV infusion x 4 doses was reviewed and signed. - Recommend ongoing monitoring of iron deficiency anemia by referring provider to ensure adequate response to IV iron supplementation. Portions of this note were copied from prior encounter from Roberto Us RN on 10/09/24. The patient's medications, allergies, past medical/surgical hx, and family hx have all been reviewed and updated as appropriate. The interval history and assessment/plan content have been modified and are specific to today's (October 09, 2024) purpose for the visit. Trini Dover PA-C Department of Blood Management October 09, 2024 CC: Referring Provider: Gin Paris APRN.CNM [facility] 10-09-2024 History of Presen t illness Narrative [facility] DEPARTMENT OF BLOOD MANAGEMENT ORDERS ONLY ENCOUNTER PATIENT NAME: Sugey Helm DATE OF SERVICE: October 09, 2024 REFERRING PROVIDER: Gin Paris APRN.CNM Subjective Patient referred to Blood Management for evaluation and treatment of anemia in . Patient's relevant history, recent diagnostic data, and treatment plan as entered by Roberto Us RN were reviewed. Medical/Surgical History: PAST MEDICAL HISTORY Diagnosis Date History of delivery of macrosomal infant 07/16/2024 Hypertension Maternal iron deficiency anemia complicating , third trimester (HCC) 10/09/2024 PAST SURGICAL HISTORY Procedure Laterality Date DENTAL SURGERY HX around 4-5 years of age REMOVAL GALLBLADDER 05/2020 TONSILLECTOMY HX Other significant Medical/Surgical history: - None CURRENT MEDICATIONS: Current Outpatient Medications on File Prior to Visit Medication Sig aspirin, enteric coated (ASPIRIN, ENTERIC COATED) 81 mg EC tablet Take 2 tablets by mouth once daily. vit/iron fum/folic ac ( PLUS/IRON ORAL) Take by mouth once daily. acetaminophen (TYLENOL ORAL) Take 500 mg by mouth as needed. No current facility-administered medications on file prior to visit. Current medications that may affect iron absorption and/or blood loss: - Aspirin Objective Data Reviewed: WBC (k/uL) Date Value 10/05/2024 10.76 RBC (m/uL) Date Value 10/05/2024 3.54 (L) Hemoglobin (g/dL) Date Value 10/05/2024 9.8 (L) Hematocrit (%) Date Value 10/05/2024 29.9 (L) MCV (fL) Date Value 10/05/2024 84.5 MCH (pg) Date Value 10/05/2024 27.7 MCHC (g/dL) Date Value 10/05/2024 32.8 RDW-CV (%) Date Value 10/05/2024 12.3 Platelet Count (k/uL) Date Value 10/05/2024 220 MPV (fL) Date Value 10/05/2024 9.7 Iron Date Value Ref Range Status 10/05/2024 30 (L) 41 - 186 ug/dL Final TIBC Date Value Ref Range Status 10/05/2024 >530 (H) 232 - 386 ug/dL Final Ferritin Date Value Ref Range Status 10/05/2024 8.9 (L) 14.7 - 205.1 ng/mL Final Transferrin Saturation Date Value Ref Range Status 10/05/2024 <5.7 (L) 15.0 - 57.0 % Final Assessment & Plan Maternal iron deficiency anemia complicating , third trimester - Patient referred to blood management for anemia during in third trimester. - Previously prescribed vitamin including iron supplementation; treatment failure and ongoing iron deficiency anemia. - Most recent labs reviewed from 10/05/24, patient noted to have iron deficiency anemia. - Ferritin 8.9, Iron 30, TIBC >530, TSAT <5.7%, Hgb 9.8 - Recommendations according to Blood Management patient care guidelines: - Per Ganzoni equation, 722 mg iron deficient utilizing pre- weight (77kg) and goal Hgb 11 g/dL - Therapy plan for iron sucrose 200 mg IV infusion x 4 doses was reviewed and signed. - Recommend ongoing monitoring of iron deficiency anemia by referring provider to ensure adequate response to IV iron supplementation. Portions of this note were copied from prior encounter from Roberto Us RN on 10/09/24. The patient's medications, allergies, past medical/surgical hx, and family hx have all been reviewed and updated as appropriate. The interval history and assessment/plan content have been modified and are specific to today's (October 09, 2024) purpose for the visit. Trini Dover PA-C Department of Blood Management October 09, 2024 CC: Referring Provider: Gin Paris APRN.CNM documented in this encounter [facility] 10-09-2024 Note HNO ID: [id number] Author: ROBERTO IGLESIAS RN Service: ? Author Type: Registered Nurse Type: Progress Notes Filed: 10/09/2024 10:48 Note Text: Patient referred to Blood Management for evaluation and treatment of pre-surgical anemia and/or iron deficiency. Non-surgical: anemia in Date of surgery: NA Medical/Surgical History: PAST MEDICAL HISTORY Diagnosis Date History of delivery of macrosomal infant 07/16/2024 Hypertension PAST SURGICAL HISTORY Procedure Laterality Date DENTAL SURGERY HX around 4-5 years of age REMOVAL GALLBLADDER 05/2020 TONSILLECTOMY HX Other significant Medical/Surgical history: - None Current Outpatient Medications Medication Sig aspirin, enteric coated (ASPIRIN, ENTERIC COATED) 81 mg EC tablet Take 2 tablets by mouth once daily. vit/iron fum/folic ac ( PLUS/IRON ORAL) Take by mouth once daily. acetaminophen (TYLENOL ORAL) Take 500 mg by mouth as needed. No current facility-administered medications for this visit. Current medications that may affect iron absorption and/or blood loss: - Aspirin Baseline laboratory values: WBC (k/uL) Date Value 10/05/2024 10.76 RBC (m/uL) Date Value 10/05/2024 3.54 (L) Hemoglobin (g/dL) Date Value 10/05/2024 9.8 (L) Hematocrit (%) Date Value 10/05/2024 29.9 (L) MCV (fL) Date Value 10/05/2024 84.5 MCH (pg) Date Value 10/05/2024 27.7 MCHC (g/dL) Date Value 10/05/2024 32.8 RDW-CV (%) Date Value 10/05/2024 12.3 Platelet Count (k/uL) Date Value 10/05/2024 220 MPV (fL) Date Value 10/05/2024 9.7 Iron Date Value Ref Range Status 10/05/2024 30 (L) 41 - 186 ug/dL Final TIBC Date Value Ref Range Status 10/05/2024 >530 (H) 232 - 386 ug/dL Final Ferritin Date Value Ref Range Status 10/05/2024 8.9 (L) 14.7 - 205.1 ng/mL Final Transferrin Saturation Date Value Ref Range Status 10/05/2024 <5.7 (L) 15.0 - 57.0 % Final Assess for the need to augment a patient?s natural red blood cell production: - Blood transfusion avoidance - Iron depletion Recommendations according to Blood Management patient care guidelines: - Iron Sucrose 200 mg, IV push, dose(s) 4 total iron deficit using Ganzoni eqaution= 722 mg (pre- wt 77 kg/goal hgb 11 g/dL) Clinical information is sent to a provider for review and evaluation for treatment. [facility] 10-09-2024 History of Presen t illness Narrative Patient referred to Blood Management for evaluation and treatment of pre-surgical anemia and/or iron deficiency. Non-surgical: anemia in Date of surgery: NA Medical/Surgical History: PAST MEDICAL HISTORY Diagnosis Date History of delivery of macrosomal 07/16/2024 Hypertension PAST SURGICAL HISTORY Procedure Laterality Date DENTAL SURGERY HX around 4-5 years of age REMOVAL GALLBLADDER 05/2020 TONSILLECTOMY HX Other significant Medical/Surgical history: - None Current Outpatient Medications Medication Sig aspirin, enteric coated (ASPIRIN, ENTERIC COATED) 81 mg EC tablet Take 2 tablets by mouth once daily. vit/iron fum/folic ac ( PLUS/IRON ORAL) Take by mouth once daily. acetaminophen (TYLENOL ORAL) Take 500 mg by mouth as needed. No current facility-administered medications for this visit. Current medications that may affect iron absorption and/or blood loss: - Aspirin Baseline laboratory values: WBC (k/uL) Date Value 10/05/2024 10.76 RBC (m/uL) Date Value 10/05/2024 3.54 (L) Hemoglobin (g/dL) Date Value 10/05/2024 9.8 (L) Hematocrit (%) Date Value 10/05/2024 29.9 (L) MCV (fL) Date Value 10/05/2024 84.5 MCH (pg) Date Value 10/05/2024 27.7 MCHC (g/dL) Date Value 10/05/2024 32.8 RDW-CV (%) Date Value 10/05/2024 12.3 Platelet Count (k/uL) Date Value 10/05/2024 220 MPV (fL) Date Value 10/05/2024 9.7 Iron Date Value Ref Range Status 10/05/2024 30 (L) 41 - 186 ug/dL Final TIBC Date Value Ref Range Status 10/05/2024 >530 (H) 232 - 386 ug/dL Final Ferritin Date Value Ref Range Status 10/05/2024 8.9 (L) 14.7 - 205.1 ng/mL Final Transferrin Saturation Date Value Ref Range Status 10/05/2024 <5.7 (L) 15.0 - 57.0 % Final Assess for the need to augment a patient s natural red blood cell production: - Blood transfusion avoidance - Iron depletion Recommendations according to Blood Management patient care guidelines: - Iron Sucrose 200 mg, IV push, dose(s) 4 total iron deficit using Ganzoni eqaution= 722 mg (pre- wt 77 kg/goal hgb 11 g/dL) Clinical information is sent to a provider for review and evaluation for treatment. documented in this encounter [facility] 10-05-2024 Note HNO ID: [id number] Author: MONTY CAROLINA MA Service: ? Author Type: Toddler Caregiver Type: Progress Notes Filed: 10/05/2024 12:09 Note Text: Patient identified by name and date of . Sugey Forte Volodymyr presents today for a vaccination of Tdap. Patient denies an allergy to latex: yes Patient denies a severe (life-threatening) allergy to a previous dose of Tdap, DTP, DTaP, DT or Td vaccine. Yes Patient denies history of epilepsy or neurological problems: Yes Patient is afebrile and denies being moderately or severely ill: Yes Patient denies history of Guillain-Lutz Syndrome (a severe paralytic illness): Yes Tdap Adacel injection was given without incident. See immunizations for details of immunizations administered today. VIS sheet provided: Yes Provider Gin Paris APRN CNM was present in office at time of injection. Monty Carolina MA [facility] 09-14-2024 Telephone encounter Note 2nd risk assessment form submitted 09/14/2024. Tana Saeed RN [facility] 09-14-2024 Miscellaneous Notes 2nd risk assessment form submitted 09/14/2024. Tana Saeed RN documented in this encounter [facility] 09-07-2024 Progress note Formatting of t his note might be different from the original. CHIN-S: Sugey Helm is a 23 year old female who presents at 23w5d with YESSENIA:12/30/2024, by Ultrasound for a routine visit. Denies headache, visual changes, chest pain, shortness of breath, vaginal bleeding, leakage of fluid, or dysuria. Feeling well, no complaints. Follow up US today O: See flow sheet Gen: No apparent distress Abd: Gravid, nontender ASSESSMENT/PLAN: 1. Supervision of high risk in second trimester -Continue PNV and ASA 2. 23 weeks gestation of 3. Late care 4. Insufficient antepartum care 5. History of intrauterine , currently -Declines MFM consultations. Would consider 39wk IOL but may want to await spontaneous labor. Gin Paris APRN.CNM -History of IUFD at 37 weeks, delivered vaginally -No autopsy per patient 6. Tobacco use during , antepartum Smoking 5-10 cigerattes per day. Reviewed recommendation for cessation. 7. Screening for diabetes mellitus -1hr GCT next visit 8. History of delivery of macrosomal Daughter was 9lb 13oz, uncomplicated. Growth US at 36-38 wk. Gin Paris APRN.CNM PTL precautions reviewed RTO in 4 weeks Gin Paris APRN.CNM [facility] 09-07-2024 Miscellaneous Notes CHIN-S: Sugey Helm is a 23 year old female who presents at 23w5d with YESSENIA:12/30/2024, by Ultrasound for a routine visit. Denies headache, visual changes, chest pain, shortness of breath, vaginal bleeding, leakage of fluid, or dysuria. Feeling well, no complaints. Follow up US today O: See flow sheet Gen: No apparent distress Abd: Gravid, nontender ASSESSMENT/PLAN: 1. Supervision of high risk in second trimester -Continue PNV and ASA 2. 23 weeks gestation of 3. Late care 4. Insufficient antepartum care 5. History of intrauterine , currently -Declines MFM consultations. Would consider 39wk IOL but may want to await spontaneous labor. Gin Paris APRN.CNM -History of IUFD at 37 weeks, delivered vaginally -No autopsy per patient 6. Tobacco use during , antepartum Smoking 5-10 cigerattes per day. Reviewed recommendation for cessation. 7. Screening for diabetes mellitus -1hr GCT next visit 8. History of delivery of macrosomal Daughter was 9lb 13oz, uncomplicated. Growth US at 36-38 wk. Gin Paris APRN.CNM PTL precautions reviewed RTO in 4 weeks Gin Paris APRN.CNM documented in this encounter [facility] 09-07-2024 Note Indication Follow-up evaluation to complete anatomic survey Impression REMOTE READ The patient is referred for completion of the anatomic survey. - Single, live, intrauterine . - No malformations were visualized on a follow-up anatomic survey. - Anatomic survey was completed today. - The EFW is 646 g, at the 53%. AC is at the 87%. - The amniotic fluid volume is normal amount. - The placenta is posterior, fundal. - Not all structural malformations can be detected by ultrasound examination. Recommendations Additional follow-up as clinically indicated. Maternal Assessment Height 160 cm Height (ft) 5 ft Height (in) 3 in Physical Exam Initial weight (lb) 150 lb Initial BMI 26.57 kg/m Maternal assessment other: 5 Para 3 Method Transabdominal ultrasound examination Do . Number of fetuses: 1 Dating LMP on: 03/16/2024 Cycle: LMP date uncertain GA by LMP 25 w + 0 d YESSENIA by LMP: 12/21/2024 GA by prior assessment 23 w + 5 d YESSENIA by prior assessment: 12/30/2024 Ultrasound examination on: 09/07/2024 GA by U/S based upon: AC, BPD, Femur, HC GA by U/S 23 w + 4 d YESSENIA by U/S: 12/31/2024 Assigned: based on stated YESSENIA, selected on 09/07/2024 Assigned GA 23 w + 5 d Assigned YESSENIA: 12/30/2024 General Evaluation Cardiac activity present. FHR 149 bpm. movements: present. Presentation: breech Placenta: Placental site: posterior, fundal Umbilical cord: Cord vessels: 3 vessel cord Amniotic fluid: Amount of AF: normal amount. MVP 7.1 cm Growth Overview Exam date GA BPD (mm) HC (mm) AC (mm) FL (mm) HL (mm) EFW (g) 08/06/2024 19w 1d 41 21% 155.2 27% 163.6 97% 26.5 22% 26.4 22% 306 75% 09/07/2024 23w 5d 55.4 17% 215.1 43% 207.6 87% 38.2 15% 646 53% Biometry Standard BPD 55.4 mm 22w 6d 17% Hadlock OFD 78.1 mm 23w 5d 71% Nicolaides HC 215.1 mm 23w 3d 43% Daniel AC 207.6 mm 25w 2d 87% Hadlock Femur 38.2 mm 22w 3d 15% Daniel EFW 646 g 23w 5d 53% Hadlock EFW (lb) 1 lb EFW (oz) 7 oz EFW by: Hadlock (HC-AC-FL) Extended Resource Manager 6.2 mm Extremities / Bony Struc FL / HC 0.18 Other Structures FHR 149 bpm Anatomy Lateral ventricles: normal Cavum septi pellucidi: normal Cerebellum: normal Cisterna magna: normal Head / Neck Rt choroid plexus: normal Lt choroid plexus: abnormal Lt choroid plexus: cyst Neck: normal Lips: normal Profile: normal Nose: normal Face Maxilla: normal Mandible: normal Orbits: normal Lens: normal 4-chamber view: normal RVOT view: normal LVOT view: normal 3-vessel view: normal [id number] view: normal Heart / Thorax Situs: situs solitus (normal) Aortic arch view: normal SVC: normal IVC: normal Diaphragm: normal Cord insertion: normal Stomach: normal Kidneys: normal Bladder: normal Cervical spine: normal Thoracic spine: normal Lumbar spine: normal Sacral spine: normal sex: male Wants to know sex: yes Maternal Structures Uterus / Cervix Cervical length 36.4 mm Performed By: Jacinda Coombs RDMS, RVT Read By: Jose D Calvo D.O. [facility] 09-07-2024 Instructions Monty Carolina MA - 09/07/2024 9:07 AM EDT SEQUENTIAL SCREENINGS The [facility] offers sequential screenings for women who are interested in screenings for chromosomal abnormalities and certain defects during a . The sequential screen combines ultrasound and blood tests to determine the risk of chromosomal abnormalities, including Down's Syndrome (Trisomy 21) and Trisomy 18, as well as open neural tube defects including spina bifida. Ultrasound examination is performed between 11 weeks and 13 weeks gestational age. Blood tests are drawn after the ultrasound and again later in the between 15 and 21 weeks gestational age. Please let your physician know if you are interested in this testing. It will require an appointment with our theater technician. This is not an ultrasound performed by a physician in our office during a routine visit. SIGNS AND SYMPTOMS OF LABOR 1. Contractions every 10 minutes or more often 2. Clear, pink, or brownish fluid (water) leaking from vagina 3. Feeling that baby is pushing down, pressure 4. Low, dull backache 5. Cramps that feel like a period 6. Cramps with or without diarrhea If you notice any of the above symptoms, contact our office at [phone] and ask to speak with a nurse. After hours, you can call doctors registry at [phone] OR call [facility] at [phone] and ask to have the doctor circulation man paged. If you consider this an emergency, dial 9-1-1 or go to your nearest emergency department. NEED HELP? Are you dealing with a violent or abusive relationship? Are you a victim of rape or sexual assult? Call [facility] [place] ([facility] 24 hour Crisis Hotline: 940.716.6627 or 318-843-8256. MANUAL Your Guide to a Healthy manual is now on-line. Visit [email or web address] to download your free copy documented in this encounter [facility] 08-09-2024 Telephone encounter Note Faxed. Tana Garcia RN [facility] 08-09-2024 Miscellaneous Notes Faxed. Tana Garcia RN Breast pump order received from dakick. To CHIN to sign. Tamra Munoz RN documented in this encounter [facility] 08-06-2024 Progress note Formatting of t his note might be different from the original. SW- No pain, vb, lof. Some FM PE: Gen- NAD, well appearing See flowsheet A/p 20 wk gestation - Anatomy US today and final report pending - Discussed upcoming expectations - Tobacco use: Reviewed importance of smoking cessation - H/o gHTN: Baby ASA - RTO 4 wks Mala Kingston DO [facility] 08-06-2024 Miscellaneous Notes SW- No pain, vb, lof. Some FM PE: Gen- NAD, well appearing See flowsheet A/p 20 wk gestation - Anatomy US today and final report pending - Discussed upcoming expectations - Tobacco use: Reviewed importance of smoking cessation - H/o gHTN: Baby ASA - RTO 4 wks Mala Kingston DO documented in this encounter [facility] 08-06-2024 Instructions Leelee Navarrete MA - 08/06/2024 11:16 AM EST SEQUENTIAL SCREENINGS The [facility] offers sequential screenings for women who are interested in screenings for chromosomal abnormalities and certain defects during a . The sequential screen combines ultrasound and blood tests to determine the risk of chromosomal abnormalities, including Down's Syndrome (Trisomy 21) and Trisomy 18, as well as open neural tube defects including spina bifida. Ultrasound examination is performed between 11 weeks and 13 weeks gestational age. Blood tests are drawn after the ultrasound and again later in the between 15 and 21 weeks gestational age. Please let your physician know if you are interested in this testing. It will require an appointment with our theater technician. This is not an ultrasound performed by a physician in our office during a routine visit. SIGNS AND SYMPTOMS OF LABOR 1. Contractions every 10 minutes or more often 2. Clear, pink, or brownish fluid (water) leaking from vagina 3. Feeling that baby is pushing down, pressure 4. Low, dull backache 5. Cramps that feel like a period 6. Cramps with or without diarrhea If you notice any of the above symptoms, contact our office at [phone] and ask to speak with a nurse. After hours, you can call doctors registry at [phone] OR call [facility] at [phone] and ask to have the doctor circulation man paged. If you consider this an emergency, dial 9--1 or go to your nearest emergency department. NEED HELP? Are you dealing with a violent or abusive relationship? Are you a victim of rape or sexual assult? Call [facility] ([place]) 24 hour Crisis Hotline: 582.370.6041 or 200-454-0600. MANUAL Your Guide to a Healthy manual is now on-line. Visit [email or web address] to download your free copy documented in this encounter [facility] 08-06-2024 Telephone encounter Note Breast pump order received from dakick. To CHIN to sign. Tamra Munoz RN [facility] 07-18-2024 Telephone encounter Note 1st risk assessment form submitted 07/18/24 Maya Mejia RN [facility] 07-18-2024 Miscellaneous Notes 1st risk assessment form submitted 07/18/24 Maya Mejia RN documented in this encounter [facility] 07-16-2024 Progress note Formatting of t his note might be different from the original. NOB today. See progress note. Late to care. PN labs and NIPT today. Anatomy/dating US ordered. Gin Paris APRN.CNM [facility] 07-16-2024 Miscellaneous Notes NOB today. See progress note. Late to care. PN labs and NIPT today. Anatomy/dating US ordered. Gin Paris APRN.CNM documented in this encounter [facility] 07-16-2024 Note HNO ID: [id number] Author: MONTY CAROLINA MA Service: ? Author Type: Toddler Caregiver Type: Progress Notes Filed: 07/16/2024 13:56 Note Text: OB point of care ultrasound was performed. See imaging tab for details. Monty Carolina MA [facility] 07-16-2024 History of Presen t illness Narrative OB point of care ultrasound was performed. See imaging tab for details. Monty Carolina MA INITIAL OB ASSESSMENT HPI: Sugey is a 23 year old White Female here to establish Obstetrical Care. Patient's last menstrual period was 03/26/2024. from OB Dating Form. was unplanned but accepted Uncertain LMP, cycles about 28 days apart. Not using control. Same father of other children. Complaints: No OB History T3 L3 SAB1 IAB0 Ectopic0 Multiple0 Live Births3 Previous history: Prior : No History of 4th degree laceration: No Perineal Laceration, 3rd or 4th degree No History of shoulder dystocia: No Shoulder Dystocia No History of Hypertensive disorders including pre-eclampsia or gestational hypertension: Gestational Hypertension Yes Preeclampsia No History of gestational diabetes: Diabetes in No Patient's Risk Screening for delivery: Have you had a prior do between 20w and 36w6d? No How many pregnancies have you had before? 4 Did you have a previous baby with a GBS Infection? No Please select all that apply for any prior : N/A MEDICAL/PSYCHOSOCIAL HISTORY: Severe bleeding with delivery None Thyroid Disease None Gestational Hypertension Yes Diabetes in No ABO/RH(D) Date Value Ref Range Status 11/13/2019 AB POSTIVE Final BMI 29.47 kg/(m^2) Last Pap: History of abnormal pap: Abnormal Pap N/A Prior treatment for cervical dysplasia: none. Last HPV: History of STDs: N/A Partner History of STDs: None Did you have a partner with Herpes? Tobacco use: Yes E-Cigarette/Vaping Use: No Caffeine use: Yes Drug use: No Alcohol use: No Multivitamin with Folic acid: Yes Would refuse blood transfusion if medically necessary: No Social Needs: How often does this describe you? I don't have enough money to pay my bills: Never Within the past 12 months, have you worried that your food would run out before you had money to buy more? Sometimes In the past 12 months, has lack of reliable transportation kept you from going to medical appointments or work, or from getting things needed for daily living? Never In the past 12 months, have you had any concerns about having a place to live, or about the condition or quality of your housing? Never Would you like more information on any of the following (please check all that apply)? Not interested Social History: Do you have any history of depression, anxiety, PTSD, or other mood problems? No Do you have a history of abuse or trauma that may impact your experience? No Are you currently employed? Yes Depression/Anxiety Screening: denies symptoms of depression. OB Depression and Anxiety Screening- This Encounter (since 07/15/2024) Over the past 2 weeks have you felt down, depressed, or hopeless? Negative Over the past two weeks, have you felt little interest or pleasure in doing things? Negative Feeling nervous, anxious or on edge 0-Not at all Not being able to stop or control worrying 0-Not al all Anxiety Pre-Screening Total (If >/= 3 additional questions will be reviewed) 0 Genetic Screening: Partner present: No Patient verbalized knowledge of partner family health history: Yes Do you or your partner have any personal or family history of defects not previously discussed: No Do you have history of a complicated by anomaly, genetic condition, or demise: No Preeclampsia Risk Screening: Screening for prevention of preeclampsia: High risk factors: None Moderate risk ractors: Sociodemographic characteristics ( race, low socioeconomic status) and Personal history factors (e.g., low birthweight or small for gestational age, previous adverse outcome, more than 10-year interval) OB Risk Screening: Completed, no positive findings documented. 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 acetaminophen (TYLENOL ORAL) Take 500 mg by mouth as needed. medroxyPROGESTERone (DEPO-PROVERA) 150 mg/mL injection Inject 1 mL intramuscularly every 12 weeks. (Patient not taking: Reported on 07/13/2024) 1 Vial 3 BABY ASPIRIN ORAL Take 1 tablet by mouth once daily. (Patient not taking: Reported on 07/13/2024) No current facility-administered medications for this visit. Allergies As of Date: 07/16/2024 Allergen Noted Reaction IBUPROFEN 03/07/2020 Hives, Swelling, and Anaphylaxis PENICILLINS 11/13/2019 Diarrhea TRAMADOL 11/13/2019 Mental Status Change Fully Assessed 07/16/2024 Does patient have penicillin allergy: Yes, plan for allergy testing. REVIEW OF SYSTEMS: GENERAL: Negative for: Fever or Chills HEENT: Negative for: Headache, Impaired Vision, Ringing in Ears, Nosebleeds NECK: Negative for: Swelling, Pain, Stiffness RESPIRATORY: Negative for: Cough, Shortness of breath, Wheezing GASTROINTESTINAL: Negative for: Heartburn, Constipation, Diarrhea, Blood in stool, Vomiting MUSCULOSKELETAL: Negative for: Muscle or joint pain, stiffness, Joint swelling NEUROLOGIC/PSYCHIATRIC: Negative for: Weakness, Paralysis, Numbness, Tingling, Tremor, Anxiety, Depression, Memory loss SKIN: Negative for: Rash, Itching GENITOURINARY: Negative for: vaginal itching, vaginal discharge, hematuria or dysuria SENSITIVE EXAM: The sensitive examination was discussed with the Patient or Patient's Authorized Space Planner. As applicable, any other physician, advance practice provider, medical student, or other health professional student that will be observing or involved in the sensitive examination for educational or training purposes was discussed with the Patient or Authorized Space Planner. The Patient or Authorized Space Planner has agreed to proceed with the sensitive examination. (Sensitive examination includes inspection and/or palpation of the breasts, pelvis, prostate and anorectal regions). PHYSICAL EXAM: Ht 5' 3.5 (1.61m) Wt 169 lb (76.7kg) LMP 03/26/2024 BMI 29.46 kg/(m^2). GENERAL: pleasant in no apparent distress DERMATOLOGY: Normal, without lesions, non-icteric, and non-hirsute NECK: Supple, full range of motion, no adenopathy, and thyroid normal CHEST: Normal inspiratory effort BREAST: soft, non-tender, symmetric, no dominant mass, normal nipple-areolar complex, no lymphadenopathy, and no nipple discharge ABDOMEN: soft, non-tender, and no masses NEURO: alert and oriented x3,exam grossly non-focal PELVIS: External genitalia normal without lesions. Perineal body intact. No vaginal or cervical lesions. Cervix closed. Uterus 16 week size. No adnexal masses or tenderness. Clinical Pelvimetry: Pelvimetry clinically assessed as adequate Limited OB ultrasound exam: not performed ASSESSMENT: 23 year old at 16w0d wks gestational age PLAN: 1) Patient oriented to practice. Patient given new OB orientation folder. Discussed nutrition, folic acid supplementation, dietary guidelines, exercise, smoking, alcohol, caffeine, and drug use. Discussed gestational weight gain guidelines. 2) Screening: Hemoglobin A1C: ordered Baby Aspirin: The patient has been counseled about the potential benefits of low dose aspirin in and our recommendation that this be offered to all patients, regardless of whether they meet the high risk criteria specified above. She Accepts Aneuploidy Screening: Discussed aneuploidy screening, nuchal translucency/first trimester early anatomy ultrasound and NIPT. The risks/benefits and limitations of NIPT/aneuploidy screening were reviewed including the potential for false negative and false positive results. The availability of genetic counseling was reviewed. Information on aneuploidy screening was provided. The patient chooses to proceed with NIPT (10 weeks) Myriad Carrier Screening: Discussed myriad carrier screening. We discussed the availability of professional-society guided carrier screening and reviewed the conditions screened and limitations of screening. The availability of genetic counseling was reviewed. Information on carrier screening was provided. The patient Declines 3) Patient offered option of Virtual Visits. Patient prefers in person visits. 4) Baseline pre eclampsia labs. Recommend starting ASA 162mg PO once daily. Uncertain gestational age but if 16 would be beneficial 5) Anatomy and dating US to be completed in 2 weeks Follow up in 2 weeks or sooner prn. Gin Paris APRN.CNM documented in this encounter [facility] 07-13-2024 Note HNO ID: [id number] Author: GIN PARIS APRN.CNM Service: ? Author Type: Operations Recruiter Type: Progress Notes Filed: 07/16/2024 13:56 Note Text: INITIAL OB ASSESSMENT HPI: Sugey is a 23 year old White Female here to establish Obstetrical Care. Patient's last menstrual period was 03/26/2024. from OB Dating Form. was unplanned but accepted Uncertain LMP, cycles about 28 days apart. Not using control. Same father of other children. Complaints: No OB History T3 L3 SAB1 IAB0 Ectopic0 Multiple0 Live Births3 Previous history: Prior : No History of 4th degree laceration: No Perineal Laceration, 3rd or 4th degree No History of shoulder dystocia: No Shoulder Dystocia No History of Hypertensive disorders including pre-eclampsia or gestational hypertension: Gestational Hypertension Yes Preeclampsia No History of gestational diabetes: Diabetes in No Patient's Risk Screening for delivery: Have you had a prior do between 20w and 36w6d? No How many pregnancies have you had before? 4 Did you have a previous baby with a GBS Infection? No Please select all that apply for any prior : N/A MEDICAL/PSYCHOSOCIAL HISTORY: Severe bleeding with delivery None Thyroid Disease None Gestational Hypertension Yes Diabetes in No ABO/RH(D) Date Value Ref Range Status 11/13/2019 AB POSTIVE Final BMI 29.47 kg/(m2) Last Pap: History of abnormal pap: Abnormal Pap N/A Prior treatment for cervical dysplasia: none. Last HPV: History of STDs: N/A Partner History of STDs: None Did you have a partner with Herpes? Tobacco use: Yes E-Cigarette/Vaping Use: No Caffeine use: Yes Drug use: No Alcohol use: No Multivitamin with Folic acid: Yes Would refuse blood transfusion if medically necessary: No Social Needs: How often does this describe you? I don't have enough money to pay my bills: Never Within the past 12 months, have you worried that your food would run out before you had money to buy more? Sometimes In the past 12 months, has lack of reliable transportation kept you from going to medical appointments or work, or from getting things needed for daily living? Never In the past 12 months, have you had any concerns about having a place to live, or about the condition or quality of your housing? Never Would you like more information on any of the following (please check all that apply)? Not interested Social History: Do you have any history of depression, anxiety, PTSD, or other mood problems? No Do you have a history of abuse or trauma that may impact your experience? No Are you currently employed? Yes Depression/Anxiety Screening: denies symptoms of depression. OB Depression and Anxiety Screening- This Encounter (since 07/15/2024) Over the past 2 weeks have you felt down, depressed, or hopeless? Negative Over the past two weeks, have you felt little interest or pleasure in doing things?? Negative Feeling nervous, anxious or on edge 0-Not at all Not being able to stop or control worrying 0-Not al all Anxiety Pre-Screening Total (If >/= 3 additional questions will be reviewed) 0 Genetic Screening: Partner present: No Patient verbalized knowledge of partner family health history: Yes Do you or your partner have any personal or family history of defects not previously discussed: No Do you have history of a complicated by anomaly, genetic condition, or demise: No Preeclampsia Risk Screening: Screening for prevention of preeclampsia: High risk factors: None Moderate risk ractors: Sociodemographic characteristics ( race, low socioeconomic status) and Personal history factors (e.g., low birthweight or small for gestational age, previous adverse outcome, more than 10-year interval) OB Risk Screening: Completed, no positive findings documented. 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 acetaminophen (TYLENOL ORAL) Take 500 mg by mouth as needed. medroxyPROGESTERone (DEPO-PROVERA) 150 mg/mL injection Inject 1 mL intramuscularly every 12 weeks. (Patient not taking: Reported on 07/13/2024) 1 Vial 3 BABY ASPIRIN ORAL Take 1 tablet by mouth once daily. (Patient not taking: Reported on 07/13/2024) No current facility-administered medications for this visit. Allergies As of Date: 07/16/2024 Allergen Noted Reaction IBUPROFEN 03/07/2020 Hives, Swelling, and Anaphyla (more content not included)... [facility] 07-13-2024 Instructions Monty Carolina MA - 07/13/2024 11:26 AM EST Please select the following link to access the [facility] Your Guide to a Healthy . [email or web address] Please select the following link to access the [facility] Your Guide to a Healthy . [email or web address] documented in this encounter [facility] 08-20-2022 Progress note Note Date/Time August 20, 2022 8:06am [facility] Medical Records Department [address] [place] [address] Progress Note - OBGYN 08/20/22 0805 MR#: [id number] Acct: [id number] Name: SUGEY HELM Rep #:[id number] : 2000 21 From: Eduardo Samuels MD PCP: Dr. Jerald Sanchez MD Status:ADM IN Location: [id number] Subjective Subjective No overnight complaint Objective Data Objective Data Vital Signs: Vital Signs Temp Pulse Resp BP Pulse Ox O2 Del Method 98.9 F 70 18 107/66 99 Room Air 08/19/22 23:31 08/20/22 04:52 08/20/22 04:52 08/20/22 04:52 08/19/22 19:22 08/20/22 04:52 Oxygen Delivery Method Room Air Weight: 158 lb 11.725 oz Body Mass Index (BMI) 27.2 Intake & Output: Intake and Output for Last 24 Hours 08/18/22 08/19/22 08/20/22 23:59 23:59 23:59 Intake Total 1390 / 1390 Output Total 750 / 750 Balance 640 / 640 Lab / Micro Data Result Diagrams: 08/19/22 15:40 Labs: Laboratory Results - last 24 hr 08/19/22 11:15: Vag Amniotic Fld Detect Negative 08/19/22 12:20: Vag Amniotic Fld Detect Negative 08/19/22 15:40: WBC 11.3 H, RBC 3.77 L, Hgb 9.7 L, Hct 31.0 L, MCV 82.2, MCH 25.7 L, MCHC 31.3 L, RDW Std Deviation 40.9, RDW Coeff of Shoaib 13.6, Plt Count 197, MPV 10.2, Immature Gran % (Auto) 0.400, Neut % (Auto) 72.4 H, Lymph % (Auto) 20.5, [place] % (Auto) 6.0, Eos % (Auto) 0.6, Baso % (Auto) 0.1, Absolute Neuts (auto) 8.2 H, Absolute Lymphs (auto) 2.31, Nucleated RBC % 0 08/19/22 15:40: Blood Type AB POSITIVE, Antibody Screen NEGATIVE 08/19/22 15:40: Syphilis Total Ab Non-reactive 08/19/22 23:25: Chlam trachomat DNA PCR Negative, N.gonorrhoeae DNA (PCR) Negative Physical Exam Const alert, oriented x3, no apparent distress, average body habitus, healthy appearing and well nourished HEENT normocephalic and moist oral mucous membranes Eyes PERRL Neck full ROM Resp normal respiratory effort, no retractions and no use of accessory muscles GI GI Narrative: Soft, nontender, uterus firm and below umbilicus Extremity normal to inspection, full ROM and no clubbing, cyanosis or edema Neuro moves all extremities and no focal motor deficits Psych mental status grossly normal, affect normal, speech normal and activity/motor behavior normal Assessment & Plan (1) (spontaneous vaginal delivery): PLAN: day 1. Breast-feeding. Pain well controlled. Okay to discharge home today if okay with wellness program administrator 08/20/22805 <Electronically signed by Eduardo Samuels MD> Cosigner Signature (if applicable): CC: ~ Signed [facility] Work Phone: 1(296) 286-134103-10-[address] Samuels [facility] August 20, 2022 8:05am Note Date/Time August 20, 2022 8:0 5am [facility] Medical Records Department [address] [place] [address] Instructions for Home/Discharge Instructions 08/20/22804 MR#: [id number] Acct: [id number] Name: SUGEY HELM Rep #:[id number] : 2000 21 From: Eduardo Samuels MD PCP: Dr. Jerald Sanchez MD Status:ADM IN Discharge Instructions Diet Discharge Diet: No restrictions Activity Discharge Activity: Return to Normal Activity, May Drive and May Shower May resume sexual activity in: 4-6 weeks Weight Bearing Status: Weight bearing as tolerated Dressing / Incision Call your doctor if your incision/area has: Continuous Slow Oozing and Foul Smelling Discharge Call your doctor if you observe: Fever of 101 or Higher, Shortness of breath andChest pain Follow Up Care Please Follow Up With: Eduardo Samuels MD When: 4 to 6 weeks Test Results: Test results from this visit will be discussed in further detail at your follow- up appointment, if applicable. Discharge Plan Admission Admit Date/Time: 08/19/22 15:16 Attending Provider: Eduardo Samuels Primary Care Provider: Jerald Sanchez Discharge Orders/Prescriptions Prescriptions: No Action ondansetron HCl 4 mg tablet 4 mg PO PRN PRN (Reason: Nausea) 1 tab PO/SL DAILY iron 325 mg PO/SL DAILY Referrals / Follow Up: Jerald Sanchez MD [Primary Care Provider] - Disposition Discharge Orders: Discharge Patient (Routine); Ordered 08/20/22 Ordered By: Dr. Eduardo Samuels 08/20/22804<Electronically signed by Eduardo Samuels MD>Eduardo Samuels MD CC: Dr. Jerald Sanchez MD ~ Signed [facility] Work Phone: 1(109) 708-768303-09-2023 History and physical note Author Dr. 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 Jerald Sanchez MD Status:ADM IN Location: [id number] History and Physical Date of Admission: 08/19/22 Chief complaint: Contractions History present illness: 21-year-old at 38 weeks and 4 days with YESSENIA 08/29/2022 arrives with contractions and leakage of fluid. Denies headache, vision changes, chest pain,shortness of breath, nausea vomit, right upper quadrant pain. Patient states good movement. Obstetric history: G1: SAB G2: 39-week male G3: 41-week female G4: Current Past medical history: None Medications: vitamin Allergies: Penicillin Past surgical history: Cholecystectomy, tonsils and adenoids Social history: 1 pack/day smoker, denies alcohol or drug use Family history: Denies history DVT or PE Review of systems: Besides above pertinent positives a full review of systems was performed and found to be negative Physical exam: Vitals: Blood pressure 125/81 pulse 78 SPO2 100% on room air General: Normal-appearing no acute distress HEENT: Normocephalic/atraumatic no cervical lymphadenopathy Cardiac/respiratory: No use accessory muscles, nonlabored breathing Abdomen: Soft, nontender, gravid Pelvic exam: Cervical exam 7-8/80/-1. AROM clear fluid Extremities: No peripheral edema normal peripheral pulses Psych: Normal affect and demeanor nonpressured speech Labs: White blood cell count 11.3 hemoglobin 9.7 hematocrit 31% platelets 197. RPR nonreactive. Blood type AB+ antibody negative. ROM negative Assessment and plan: 21-year-old G4, P2 at 38 weeks and 4 days called by nursing with leakage of fluid initial ROM negative. After ROM test came back called by nursing with again leakage of more fluid ROM test again sent and again negative. Intermittently was checked with cramping and contractions noted to have advancedcervical dilation to be in labor admitted to labor and delivery. Patient was seen and examined as above with above cervix and AROM for clear fluid Admit labor and delivery Routine orders GBS negative 08/19/22 1734 <Electronically signed by Eduardo Samuels MD> Cosigner Signature (if applicable): CC: Dr. Eduardo Samuels MD; Dr. Jerald Sanchez MD~ Signed [facility] Work Phone: 1(251) 530-793403-09-2023 Procedure [facility] Evaluation noteNo assessment information availableK[facility] Work Phone: Evaluation note* Diagnosis Onset Date Resolution Status (spontaneous vaginal delivery) acute [facility] Work Phone: Evaluation note* Diagnosis with uncertain dates, antepartum- Primary state, incidental Screening for cervical cancer Screening for malignant neoplasm of the cervix Screening for human papillomavirus (HPV) Special screening examination for human papillomavirus (HPV) Tobacco use during , antepartum History of delivery of macrosomal infant Poor dental hygiene Other specified disorders of the teeth and supporting structures History of gestational hypertension Late care Insufficient care [facility] [place] [facility] Diagnosis Encounter for anatomic survey- Primary with uncertain dates, antepartum state, incidental 19 weeks gestation of state, incidental Choroid plexus cyst of fetus affecting care of mother, antepartum, single or unspecified fetus documented in this encounter [facility] note* Diagnosis Supervision of other high risk pregnancies, unspecified trimester- Primary 20 weeks gestation of state, incidental Tobacco use disorder Late care Insufficient care [facility] [place] [facility]* Diagnosis 23 weeks gestation of (HCC)- Primary state, incidental Encounter for follow-up ultrasound of anatomy ([facility]) documented in this encounter [facility] note* Diagnosis Supervision of high risk in second trimester (HCC)- Primary Unspecified high-risk 23 weeks gestation of (HCC) state, incidental Late care ([facility]) Insufficient care Insufficient antepartum care ([facility]) History of intrauterine , currently (HCC) with other poor reproductive history Tobacco use during , antepartum ([facility]) Screening for diabetes mellitus History of delivery of macrosomal [facility] [place] [facility]* Diagnosis Encounter for follow-up ultrasound of anatomy ([facility])- Primary 23 weeks gestation of ([facility])- Primary state, incidental Encounter for follow-up ultrasound of anatomy ([facility]) documented in this encounter [facility] note* Diagnosis Maternal iron deficiency anemia complicating , third trimester ([facility])- Primary documented in this encounter [facility] note* Diagnosis Diet controlled gestational diabetes mellitus (GDM) in third trimester ([facility])- Primary documented in this encounter [facility] note* Diagnosis Dietary counseling and surveillance- Primary Dietary surveillance and counseling Diet controlled gestational diabetes mellitus (GDM) in third trimester ([facility]) documented in this encounter [facility] note* Diagnosis Diet controlled gestational diabetes mellitus (GDM) in third trimester ([facility]) documented in this encounter [facility] note* Diagnosis Supervision of high risk in third trimester ([facility])- Primary Unspecified high-risk 29 weeks gestation of ([facility]) state, incidental Late care ([facility]) Insufficient care Insufficient care in third trimester ([facility]) History of intrauterine , currently ([facility]) with other poor reproductive history Tobacco use during , antepartum ([facility]) History of delivery of macrosomal infant Diet controlled gestational diabetes mellitus (GDM) in third trimester ([facility]) Anemia during in third trimester ([facility]) History of gestational hypertension [facility] [place] [facility]* Diagnosis Maternal iron deficiency anemia complicating , third trimester ([facility])- Primary documented in this encounter [facility] note* Diagnosis Maternal iron deficiency anemia complicating , third trimester ([facility])- Primary [facility] [place] [facility]* Diagnosis 31 weeks gestation of ([facility])- Primary state, incidental Gestational diabetes mellitus, class A1 ([facility]) Abnormal maternal glucose tolerance, complicating , childbirth, or the puerperium, unspecified as to episode of care Late care ([facility]) Insufficient care Anemia during in third trimester ([facility]) History of intrauterine , currently ([facility]) with other poor reproductive history Encounter for ultrasound to check growth ([facility])- Primary Encounter for routine screening for malformation using ultrasonics 32 weeks gestation of ([facility]) state, incidental Diet controlled gestational diabetes mellitus (GDM) in third trimester ([facility]) [facility] [place] [facility]* Diagnosis 31 weeks gestation of ([facility])- Primary state, incidental Gestational diabetes mellitus, class A1 ([facility]) Abnormal maternal glucose tolerance, complicating , childbirth, or the puerperium, unspecified as to episode of care Late care ([facility]) Insufficient care Anemia during in third trimester ([facility]) History of intrauterine , currently ([facility]) with other poor reproductive history Encounter for supervision of high risk in third trimester, antepartum ([facility])- Primary 33 weeks gestation of ([facility]) state, incidental Gestational diabetes mellitus, class A1 ([facility]) Abnormal maternal glucose tolerance, complicating , childbirth, or the puerperium, unspecified as to episode of care Late care ([facility]) Insufficient care Anemia during in third trimester ([facility]) Tobacco use during , antepartum ([facility]) History of intrauterine , currently ([facility]) with other poor reproductive history History of delivery of macrosomal infant documented in this encounter [facility] note* Diagnosis 31 weeks gestation of ([facility])- Primary state, incidental Gestational diabetes mellitus, class A1 ([facility]) Abnormal maternal glucose tolerance, complicating , childbirth, or the puerperium, unspecified as to episode of care Late care ([facility]) Insufficient care Anemia during in third trimester ([facility]) History of intrauterine , currently ([facility]) with other poor reproductive history Encounter for supervision of high risk in third trimester, antepartum ([facility])- Primary Gestational diabetes mellitus, class A1 ([facility]) Abnormal maternal glucose tolerance, complicating , childbirth, or the puerperium, unspecified as to episode of care Anemia during in third trimester ([facility]) Tobacco use during , antepartum ([facility]) History of intrauterine , currently ([facility]) with other poor reproductive history History of delivery of macrosomal 36 weeks gestation of ([facility]) state, incidental Penicillin allergy Personal history of allergy to penicillin documented in this encounter [facility] note* Diagnosis 31 weeks gestation of ([facility])- Primary state, incidental Gestational diabetes mellitus, class A1 ([facility]) Abnormal maternal glucose tolerance, complicating , childbirth, or the puerperium, unspecified as to episode of care Late care ([facility]) Insufficient care Anemia during in third trimester ([facility]) History of intrauterine , currently ([facility]) with other poor reproductive history Prior poor obstetrical history in third trimester, antepartum ([facility])- Primary documented in this encounter [facility] note* Diagnosis Anemia during in third trimester ([facility])- Primary Abnormal glucose in , antepartum ([facility]) Abnormal maternal glucose tolerance, antepartum 31 weeks gestation of ([facility])- Primary state, incidental Gestational diabetes mellitus, class A1 ([facility]) Abnormal maternal glucose tolerance, complicating , childbirth, or the puerperium, unspecified as to episode of care Late care ([facility]) Insufficient care Anemia during in third trimester ([facility]) History of intrauterine , currently ([facility]) with other poor reproductive history documented in this encounter [facility] note* Diagnosis 31 weeks gestation of ([facility])- Primary state, incidental Gestational diabetes mellitus, class A1 ([facility]) Abnormal maternal glucose tolerance, complicating , childbirth, or the puerperium, unspecified as to episode of care Late care ([facility]) Insufficient care Anemia during in third trimester ([facility]) History of intrauterine , currently ([facility]) with other poor reproductive history Encounter for supervision of high risk in third trimester, antepartum ([facility])- Primary Gestational diabetes mellitus, class A1 ([facility]) Abnormal maternal glucose tolerance, complicating , childbirth, or the puerperium, unspecified as to episode of care Anemia during in third trimester ([facility]) History of intrauterine , currently ([facility]) with other poor reproductive history 37 weeks gestation of ([facility]) state, incidental [facility] [place] [facility]* Diagnosis Diet controlled gestational diabetes mellitus (GDM) in third trimester ([facility])- Primary 31 weeks gestation of ([facility])- Primary state, incidental Gestational diabetes mellitus, class A1 ([facility]) Abnormal maternal glucose tolerance, complicating , childbirth, or the puerperium, unspecified as to episode of care Late care ([facility]) Insufficient care Anemia during in third trimester ([facility]) History of intrauterine , currently ([facility]) with other poor reproductive history documented in this encounter [facility] note* Diagnosis 31 weeks gestation of ([facility])- Primary state, incidental Gestational diabetes mellitus, class A1 ([facility]) Abnormal maternal glucose tolerance, complicating , childbirth, or the puerperium, unspecified as to episode of care Late care ([facility]) Insufficient care Anemia during in third trimester ([facility]) History of intrauterine , currently ([facility]) with other poor reproductive history 38 weeks gestation of ([facility]CC)- Primary state, incidental Encounter for supervision of high risk in third trimester, antepartum ([facility]) Gestational diabetes mellitus, class A1 ([facility]) Abnormal maternal glucose tolerance, complicating , childbirth, or the puerperium, unspecified as to episode of care History of intrauterine , currently ([facility]) with other poor reproductive history documented in this encounter [facility] note* Diagnosis 31 weeks gestation of ([facility]CC)- Primary state, incidental Gestational diabetes mellitus, class A1 ([facility]CC) Abnormal maternal glucose tolerance, complicating , childbirth, or the puerperium, unspecified as to episode of care Late care ([facility]CC) Insufficient care Anemia during in third trimester ([facility]) History of intrauterine , currently ([facility]CC) with other poor reproductive history 39 weeks gestation of ([facility]CC)- Primary state, incidental Gestational diabetes mellitus, class A1 ([facility]CC) Abnormal maternal glucose tolerance, complicating , childbirth, or the puerperium, unspecified as to episode of care Encounter for supervision of high risk in third trimester, antepartum ([facility]) History of intrauterine , currently ([facility]) with other poor reproductive history documented in this encounter [facility] for referral (narrative)* Diagnostic Procedure Only (Routine) - Authorized Specialty Diagnoses / Procedures Referred By Contac t Referred To Contact [facility] Diagnoses with uncertain dates, antepartum Procedures OBSTETRIC ULTRASOUND WHI US PREG UTERUS AFTER 1ST TRIMEST GESTATION Gin Paris APRN.[address]BE [address] [address] [facility] [address] [place] [address] Referral ID Status Reason Start Date Expiration Date Visits Requested Visits Authorized [id number] Authorized Auto-Generat ed Referral 07/16/2024 07/16/2025 1 1 K [facility] for visit Narrative* Diagnostic Procedure Only (Routine) - Closed Specialty Diagnoses / Procedures Referred By Contbenjamin t Referred To Contact [facility] Diagnoses Multigravida of advanced maternal age in second trimester (HCC) Procedures OBSTETRIC ULTRASOUND WHI US PREG UTERUS AFTER 1ST TRIMEST GESTATION Gin Paris APRN.CNM [address] [place] [address] Phone: tel: fax: [facility] [address] [place] [address] Referral ID Status Reason Start Date Expiration Date V isits Requested Visits Authorized [id number] Closed Auto-Generate d Referral 10/05/2024 10/05/2025 4 1 [facility] Summary Purpose Family History Relationship Condition Age at Onset Recorded Date/T adriane brother Encephalocele Unknown Advance Directives Advance Directive Response Recorded Date/ Time Advance Directives No July 04, 2016 7:11pm Living Will No July 08 4:20am Power of Soil Specialist No July 08, 2021 4:20am Advance Directive Response Recorded Date/ Time Advance Directives No July 04, 2016 7:11pm Living Will No August 19, 2022 3:47pm Power of Soil Specialist No August 19 3:47pm Hospital Course Note HNO ID: [id number] Author: Gabriella Hernandez Service: Obstetrics Author Type: Physician Type: Discharge Summary Filed: 03/09/2020 7:38 AM Note Text: DISCHARGE SUMMARY PATIENT NAME: Sugey Helm ADMISSION DATE: 03/07/2020 DISCHARGE DATE: 03/09/2020 ATTENDING PHYSICIAN: Wilson Miles III Code Status: Not on file Highest Readmission Risk Score: 6 The 30 day readmissions risk score is derived from an internally validated risk model which evaluates patient level characteristics, utilization history, medication orders and lab results up until the day of discharge. Patients with a score of 40 or above are considered highest risk for readmission. Specific patient level drivers will be listed at the bottom of the summary. CONSULTING TEAMS DURING HOSPITALIZATION: None Treatment Team: Attending Provider: Wilson Miles III REASON FOR HOSPITALIZATION: delivery DIAGNOSIS: Principal Problem: Encounter for induction of labor Active Problems: Teen Gestational hypertension His (more content not included)... Note HNO ID: [id number] Author: [facility] Moore Service: Obstetrics Author Type: Operations Recruiter Type: Discharge Summary Filed: 03/10/2020 9:25 AM Note Text: Attestation signed by Vanessa Durán at 03/10/2020 9:55 AM I reviewed the pertinent patient history, HPI, vitals, and hospital course and agree with the [facility]'s recommendation for care and disposition home. 03/09/20 0810 03/09/20 1500 03/09/20 2200 03/10/20 0800 BP: 117/70 130/75 130/76 117/64 Pulse: 89 90 96 84 Resp: 18 16 18 18 Temp: 37.2 ?C (99 ?F) 36.7 ?C (98.1 ?F) 36.7 ?C (98.1 ?F) 36.5 ?C (97.7 ?F) TempSrc: Oral Oral Oral Oral SpO2: 99% 100% 99% Weight: Height: Vanessa Durán, DO DISCHARGE SUMMARY OBSTETRICS PATIENT NAME: Sugey Helm ADMISSION DATE: 03/07/2020 DISCHARGE DATE: 03/10/2020 Attending Physician: Wilson Miles III Code Status: Not on (more content not included)... Note HNO ID: [id number] Author: Wellington Gates Service: Obstetrics Author Type: Resident Type: Procedures Filed: 03/07/2020 7:54 PM Note Text: BEDSIDE PROCEDURE NOTE Cervical Ripening Balloon Procedure Date/Start Time: 03/07/2020 7:45 PM Performed by: Roberto Gates Authorized by: Vasu Pacheco The risks, benefits and alternatives of the procedure were reviewed with the patient/patient advertising representative. The patient/patient advertising representative agreed to proceed. Informed Consent Grannis Protocol Procedure Details: Indications: Patient is a 19 year old year old female, 39w0d here for Induction of labor The cervix was examined and found to be 1.5 cm dilated. During bimanual exam the surgeon's hand was used to guide the christianson into the dilated cervix. A Christianson Catheter was inserted through the cervical os, beyond internal os and approximately 60 cc of sterile saline slowly injected into the intrauterine portion of the balloon The catheter was taped to the inner thigh. Post-procedure Details: (more content not included)... Procedure Findings Note HNO ID: [id number] Author: Wellington Gates Service: Obstetrics Author Type: Resident Type: Procedures Filed: 03/07/2020 7:54 PM Note Text: BEDSIDE PROCEDURE NOTE Cervical Ripening Balloon Procedure Date/Start Time: 03/07/2020 7:45 PM Performed by: Roberto Gates Authorized by: Vasu Pacheco The risks, benefits and alternatives of the procedure were reviewed with the patient/patient advertising representative. The patient/patient advertising representative agreed to proceed. Informed Consent Grannis Protocol Procedure Details: Indications: Patient is a 19 year old year old female, 39w0d here for Induction of labor The cervix was examined and found to be 1.5 cm dilated. During bimanual exam the surgeon's hand was used to guide the christianson into the dilated cervix. A Christianson Catheter was inserted through the cervical os, beyond internal os and approximately 60 cc of sterile saline slowly injected into the intrauterine portion of the balloon The catheter was taped to the inner thigh. Post-procedure Details: (more content not included)... Chief Complaint and Reason for Visit Chief Complaint VAG Reason for Visit (spontaneous vag inal delivery) Additional Source Comments INFORMATION SOURCE (unrecogn ized section and content) DATE CREATED AUTHOR 03/13/2020 [facility] DATE CREATED AUTHOR AUTHOR'S ORGANIZ ATION 05/27/2020 [facility] DATE CREATED AUTHOR AUTHOR'S ORGANIZ ATION 05/27/2020 [facility] DATE CREATED AUTHOR AUTHOR'S ORGANIZ ATION 08/18/2022 [facility] DATE CREATED AUTHOR AUTHOR'S ORGANIZ ATION 08/28/2022 [facility] DATE CREATED AUTHOR AUTHOR'S ORGANIZ ATION 12/25/2024 [facility] Teams (unrecognized sec tion and content) Team Status: Active Member Role Status Dates Dr. Jerald Sanchez MD Family Provider Active Dr. Jerald Sanchez MD Primary Care Provider Active Team Status: Inactive Member Role Status Dates Dr. Jerald Sanchez MD Primary Care Provider Active Dr. Eduardo Samuels MD Attending Provider Active Team Status: Inactive Member Role Status Dates Dr. Jerald Sanchez MD Primary Care Provider Active Dr. Eduardo Samuels MD Admit Provider, At tending Provider, Referring Provider Active Fermenter Relationship Specialty Start Date End Date Jerald Sanchez MD PCP - General Family Medicine 07/05/16 Fermenter Relationship Specialty Start Date End Date Jerald Sanchez MD PCP - General Family Medicine 07/05/16 Fermenter Relationship Specialty Start Date End Date Jerald Sanchez MD PCP - General Family Medicine 07/05/16 Fermenter Relationship Specialty Start Date End Date Jerald Sanchez MD PCP - General Family Medicine 07/05/16 Fermenter Relationship Specialty Start Date End Date Jerald Sanchez MD PCP - General Family Medicine 07/05/16 Fermenter Relationship Specialty Start Date End Date Jerald Sanchez MD PCP - General Family Medicine 07/05/16 Fermenter Relationship Specialty Start Date End Date Jerald Sanchez MD PCP - General Family Medicine 07/05/16 Fermenter Relationship Specialty Start Date End Date Jerald Sanchez MD PCP - General Family Medicine 07/05/16 Fermenter Relationship Specialty Start Date End Date Jerald Sanchez MD PCP - General Family Medicine 07/05/16 Fermenter Relationship Specialty Start Date End Date Jerald Sanchez MD PCP - General Family Medicine 07/05/16 Fermenter Relationship Specialty Start Date End Date Jeradl Sanchez MD PCP - General Family Medicine 07/05/16 Fermenter Relationship Specialty Start Date End Date Jerald Sanchez MD PCP - General Family Medicine 07/05/16 Fermenter Relationship Specialty Start Date End Date Jerald Sanchez MD PCP - General Family Medicine 07/05/16 Fermenter Relationship Specialty Start Date End Date Jerald Sanchez MD PCP - General Family Medicine 07/05/16 Fermenter Relationship Specialty Start Date End Date Jerald Sanchez MD PCP - General Family Medicine 07/05/16 Fermenter Relationship Specialty Start Date End Date Jerald Sanchez MD PCP - General Family Medicine 07/05/16 Fermenter Relationship Specialty Start Date End Date Jerald Sanchez MD PCP - General Family Medicine 07/05/16 Fermenter Relationship Specialty Start Date End Date Jerald Sanchez MD PCP - General Family Medicine 07/05/16 Fermenter Relationship Specialty Start Date End Date Jerald Sanchez MD PCP - General Family Medicine 07/05/16 Fermenter Relationship Specialty Start Date End Date Jerald Sanchez MD PCP - General Family Medicine 07/05/16 Fermenter Relationship Specialty Start Date End Date Jerald Sanchez MD PCP - General Family Medicine 07/05/16 Fermenter Relationship Specialty Start Date End Date Jerald Sanchez MD PCP - General Family Medicine 07/05/16 Fermenter Relationship Specialty Start Date End Date Jerald Sanchez MD PCP - General Family Medicine 07/05/16 Fermenter Relationship Specialty Start Date End Date Jerald Sanchez MD PCP - General Family Medicine 07/05/16 Goals (unrecognized section and content) Goals may be documented in a n alternate section Source Comments (unrecognize d section and content) In the event this informatio n is protected by the Federal Confidentiality of Alcohol and Drug Abuse Patient Records regulations: The Federal rules restrict any use of the information to criminally investigate or prosecute any alcohol or drug abuse patient.[facility] the event this information is protected by the Federal Confidentiality of Alcohol and Drug Abuse Patient Records regulations: The Federal rules restrict any use of the information to criminally investigate or prosecute any alcohol or drug abuse patient.[facility] the event this information is protected by the Federal Confidentiality of Alcohol and Drug Abuse Patient Records regulations: The Federal rules restrict any use of the information to criminally investigate or prosecute any alcohol or drug abuse patient.[facility] the event this information is protected by the Federal Confidentiality of Alcohol and Drug Abuse Patient Records regulations: The Federal rules restrict any use of the information to criminally investigate or prosecute any alcohol or drug abuse patient.[facility] the event this information is protected by the Federal Confidentiality of Alcohol and Drug Abuse Patient Records regulations: The Federal rules restrict any use of the information to criminally investigate or prosecute any alcohol or drug abuse patient.[facility] the event this information is protected by the Federal Confidentiality of Alcohol and Drug Abuse Patient Records regulations: The Federal rules restrict any use of the information to criminally investigate or prosecute any alcohol or drug abuse patient.[facility] the event this information is protected by the Federal Confidentiality of Alcohol and Drug Abuse Patient Records regulations: The Federal rules restrict any use of the information to criminally investigate or prosecute any alcohol or drug abuse patient.[facility] the event this information is protected by the Federal Confidentiality of Alcohol and Drug Abuse Patient Records regulations: The Federal rules restrict any use of the information to criminally investigate or prosecute any alcohol or drug abuse patient.[facility] the event this information is protected by the Federal Confidentiality of Alcohol and Drug Abuse Patient Records regulations: The Federal rules restrict any use of the information to criminally investigate or prosecute any alcohol or drug abuse patient.[facility] the event this information is protected by the Federal Confidentiality of Alcohol and Drug Abuse Patient Records regulations: The Federal rules restrict any use of the information to criminally investigate or prosecute any alcohol or drug abuse patient.[facility] the event this information is protected by the Federal Confidentiality of Alcohol and Drug Abuse Patient Records regulations: The Federal rules restrict any use of the information to criminally investigate or prosecute any alcohol or drug abuse patient.[facility] the event this information is protected by the Federal Confidentiality of Alcohol and Drug Abuse Patient Records regulations: The Federal rules restrict any use of the information to criminally investigate or prosecute any alcohol or drug abuse patient.[facility] the event this information is protected by the Federal Confidentiality of Alcohol and Drug Abuse Patient Records regulations: The Federal rules restrict any use of the information to criminally investigate or prosecute any alcohol or drug abuse patient.[facility] the event this information is protected by the Federal Confidentiality of Alcohol and Drug Abuse Patient Records regulations: The Federal rules restrict any use of the information to criminally investigate or prosecute any alcohol or drug abuse patient.[facility] the event this information is protected by the Federal Confidentiality of Alcohol and Drug Abuse Patient Records regulations: The Federal rules restrict any use of the information to criminally investigate or prosecute any alcohol or drug abuse patient.[facility] the event this information is protected by the Federal Confidentiality of Alcohol and Drug Abuse Patient Records regulations: The Federal rules restrict any use of the information to criminally investigate or prosecute any alcohol or drug abuse patient.[facility] the event this information is protected by the Federal Confidentiality of Alcohol and Drug Abuse Patient Records regulations: The Federal rules restrict any use of the information to criminally investigate or prosecute any alcohol or drug abuse patient.[facility] the event this information is protected by the Federal Confidentiality of Alcohol and Drug Abuse Patient Records regulations: The Federal rules restrict any use of the information to criminally investigate or prosecute any alcohol or drug abuse patient.[facility] the event this information is protected by the Federal Confidentiality of Alcohol and Drug Abuse Patient Records regulations: The Federal rules restrict any use of the information to criminally investigate or prosecute any alcohol or drug abuse patient.[facility] the event this information is protected by the Federal Confidentiality of Alcohol and Drug Abuse Patient Records regulations: The Federal rules restrict any use of the information to criminally investigate or prosecute any alcohol or drug abuse patient.[facility] the event this information is protected by the Federal Confidentiality of Alcohol and Drug Abuse Patient Records regulations: The Federal rules restrict any use of the information to criminally investigate or prosecute any alcohol or drug abuse patient.[facility]In the event this information is protected by the Federal Confidentiality of Alcohol and Drug Abuse Patient Records regulations: The Federal rules restrict any use of the information to criminally investigate or prosecute any alcohol or drug abuse patient.[facility] the event this information is protected by the Federal Confidentiality of Alcohol and Drug Abuse Patient Records regulations: The Federal rules restrict any use of the information to criminally investigate or prosecute any alcohol or drug abuse patient.[facility]In the event this information is protected by the Federal Confidentiality of Alcohol and Drug Abuse Patient Records regulations: The Federal rules restrict any use of the information to criminally investigate or prosecute any alcohol or drug abuse patient.[facility]In the event this information is protected by the Federal Confidentiality of Alcohol and Drug Abuse Patient Records regulations: The Federal rules restrict any use of the information to criminally investigate or prosecute any alcohol or drug abuse patient.[facility]In the event this information is protected by the Federal Confidentiality of Alcohol and Drug Abuse Patient Records regulations: The Federal rules restrict any use of the information to criminally investigate or prosecute any alcohol or drug abuse patient.[facility]In the event this information is protected by the Federal Confidentiality of Alcohol and Drug Abuse Patient Records regulations: The Federal rules restrict any use of the information to criminally investigate or prosecute any alcohol or drug abuse patient.[facility]In the event this information is protected by the Federal Confidentiality of Alcohol and Drug Abuse Patient Records regulations: The Federal rules restrict any use of the information to criminally investigate or prosecute any alcohol or drug abuse patient.[facility] HospitalIn the event this information is protected by the Federal Confidentiality of Alcohol and Drug Abuse Patient Records regulations: The Federal rules restrict any use of the information to criminally investigate or prosecute any alcohol or drug abuse patient.[facility] HospitalIn the event this information is protected by the Federal Confidentiality of Alcohol and Drug Abuse Patient Records regulations: The Federal rules restrict any use of the information to criminally investigate or prosecute any alcohol or drug abuse patient.[facility]In the event this information is protected by the Federal Confidentiality of Alcohol and Drug Abuse Patient Records regulations: The Federal rules restrict any use of the information to criminally investigate or prosecute any alcohol or drug abuse patient.[facility] HospitalIn the event this information is protected by the Federal Confidentiality of Alcohol and Drug Abuse Patient Records regulations: The Federal rules restrict any use of the information to criminally investigate or prosecute any alcohol or drug abuse patient.[facility] HospitalIn the event this information is protected by the Federal Confidentiality of Alcohol and Drug Abuse Patient Records regulations: The Federal rules restrict any use of the information to criminally investigate or prosecute any alcohol or drug abuse patient.[facility] Reason for Visit (unrecogniz ed section and content) Reason Comments Initial OB Visit Reason Comments PRAF Reason Comments US Specialty Diagnoses / Procedures Referred By Alyson t Referred To Contact [facility] Diagnoses with uncertain dates, antepartum Procedures OBSTETRIC ULTRASOUND WHI US PREG UTERUS AFTER 1ST TRIMEST GESTATION Gin Paris APRN.CNM [address] [place] [address] Phone: tel: fax: [facility] [address] [place] [address] Referral ID Status Reason Start Date Expiration Date V isits Requested Visits Authorized [id number] Closed Auto-Generate d Referral 07/16/2024 07/16/2025 1 1 Reason Comments Breast Pump Reason Onset Date Comments Care 08/06/2024 Specialty Diagnoses / Procedures Referred By Alyson rubi Referred To Contact [facility] Diagnoses Encounter for follow-up ultrasound of anatomy (HCC) Procedures OBSTETRIC ULTRASOUND WHI US PREG UTERUS AFTER 1ST TRIMEST GESTATION Gin Paris APRN.CNM [address] 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 Reason Comments Blood Management Reason Comments Hematology Reason Comments Patient Education Assessment Specialty Diagnoses / Procedures Referred By Contac t Referred To Contact Nutrition Diagnoses Diet controlled gestational diabetes mellitus (GDM) in third trimester (HCC) Procedures CONSULT TO NUTRITION THERAPY MEDICAL NUTRITION ASSMT&IVNTJ INDIV EACH 15 [place] Adelaida Castillo APRN.STEEL RULE INSPECTOR [address] [facility] [place] [address] Phone: tel: fax: Referral ID Status Reason Start Date Expiration Date Visits Requested Visits Authorized [id number] Authorized PCP Requested Referral 10/15/2024 10/15/2025 1 4 Reason Comments Gestational Diabetes Specialty Diagnoses / Procedures Referred By Contac t Referred To Contact Diagnoses Diet controlled gestational diabetes mellitus (GDM) in third trimester (HCC) Procedures CONSULT TO DIABETES EDUCATION DSME MEDICAL NUTRITION ASSMT&IVNTJ INDIV EACH 15 [place] MEDICAL NUTRITION ASSMT&IVNTJ INDIV EACH 15 [place] MEDICAL NUTRITION ASSMT&IVNTJ INDIV EACH 15 [place] MEDICAL NUTRITION ASSMT&IVNTJ INDIV EACH 15 [place] Adelaida Castillo APRN.STEEL RULE INSPECTOR [address] [place] [address] Phone: tel: fax: Referral ID Status Reason Start Date Expiration Date V isits Requested Visits Authorized [id number] Closed PCP Requested Referral 10/15/2024 10/15/2025 1 1 Reason Onset Date Comments Care 10/19/2024 Reason Comments Non-Chemotherapy Treatment Specialty Diagnoses / Procedures Referred By Contac t Referred To Contact Diagnoses Maternal iron deficiency anemia complicating , third trimester (HCC) Procedures IRON SUCROSE INJECTION PER 1 MG [facility] [address] [place] [address] Phone: tel: Hematology/Oncology [address] [place] [address] Phone: tel: fax: Referral ID Status Reason Start Date Expiration Date V isits Requested Visits Authorized [id number] Authorized 10/09/2024 06/12/2025 99 99 Reason Comments No movement x3 days Reason Onset Date Comments Care 11/14/2024 Reason Onset Date Comments Care 12/04/2024 Specialty Diagnoses / Procedures Referred By Contac t Referred To Contact [facility] Diagnoses Multigravida of advanced maternal age in second trimester (HCC) Procedures OBSTETRIC ULTRASOUND WHI US PREG UTERUS AFTER 1ST TRIMEST GESTATION Gin Paris APRN.CN [address] [place] [address] Phone: tel: fax: [facility] [address] [place] [address] Referral ID Status Reason Start Date Expiration Date V isits Requested Visits Authorized [id number] Closed Auto-Generate d Referral 10/05/2024 10/05/2025 4 1 Reason Onset Date Comments Care 12/13/2024 Reason Onset Date Comments Care 12/17/2024 Reason Onset Date Comments Population Health Navigation Outreach 12/18/2024 to PCP/OB Reason Onset Date Comments Care 12/24/2024 FOR RECORDS PERTAINING TO PATIENTS WHO ARE OR HAVE BEEN ENROLLED IN A CHEMICAL DEPENDENCY/SUBSTANCEABUSE PROGRAM, SOME INFORMATION MAY BE OMITTED. This clinical summary was aggregated from multiple sources. Caution should be exercised in using it in the provision of clinical care. This summary normalizes information from multiple sources, and as a consequence, information in this document may materially change the coding, format and clinical context of patient data. In addition, data may be omitted in some cases. CLINICAL DECISIONS SHOULD BE BASED ON THE PRIMARY CLINICAL RECORDS. [facility]. provides no warranty or guarantee of the accuracy or completeness of information in this document.
[2024-12-26 08:00] LABS: Hematocrit 34.7 % (37-47); Hemoglobin 11.6 g/dL (12.0-15.0); Immature Granulocytes Count 0.080 X10^3/uL (0.0-0.0); Mean Corp Hgb Conc 33.4 g/dL (32-36); Mean Corpuscular Volume 84.2 fL (81-99); Mean Platelet Vol. 10.6 fl (6.2-12.0); NRBC Flagged by Analyzer 0 % (0-5); Platelet Count 263 K/mm3 (150-450); RBC Distribution Width CV 15.7 % (11.6-14.6); RBC Distribution Width SD 48.1 fl (35.1-43.9); Red Blood Count 4.12 M/mm3 (4.2-5.4); White Blood Count 14.9 K/mm3 (4.4-11.0)
[2024-12-26] MEDS: Lactated Ringers 1,000 ML 50 ML IV (08:00)
[2024-12-26] MEDS: Oxytocin 15 Units/NS 250ml 15 UNITS/250 ML IV.SOLN 2 UNITS IV (08:10)
[2024-12-26] MEDS: 0.9% Normal Saline Single 100 ML IV.SOLN. INTRA-UTER (08:10)
--- NOTE | 2024-12-26 08:30 | PCM.HP.OB ---
HPI - General General Date of Admission: 12/26/24 HPI Narrative ELAINE COREY, is a 24 F @ 39 weeks who presents for elective IOL PFSH PFS Medical History Gestational HTN Home Medications ?Medication ?Instructions ?Recorded ?Last Taken ?Type 1 tab PO/SL DAILY Check with 07/08/21 12/25/24 08:00 History primary doctor 1 tab iron 325 mg PO/SL DAILY anemia 08/19/22 08/19/22 08:00 History Allergy/AdvReac Type Severity Reaction Status Date / Time ibuprofen Allergy Rash Verified 12/26/24 07:26 tramadol Allergy Rash Verified 12/26/24 07:26 Penicillins (PCN) AdvReac Diarrhea Verified 08/19/22 11:02 Family History Brother Cephalocele Surgical History History of cholecystectomy History of tonsillectomy Social History Smoking Status: Current every day smoker tobacco type: cigarettes History 3 Elective abortions Hx Para 4 Spontaneous abortions 1 Hx # Term Pregnancies 1 Ectopic pregnancies Hx # Pregnancies Multiple births # of living children 1 NST FHR Rate Baby A Baseline: 125 Variability:: Moderate Accelerations:: 15 x 15 Decelerations:: None FHR Category:: Category I Uterine Activity:: irregular Vital Signs Vital Signs Vital Signs: 12/26/24 07:24 12/26/24 07:24 12/26/24 07:24 Temperature Pulse Rate 86 Respiratory Rate 16 Blood Pressure 135/73 H BP Systolic 135 BP Diastolic 73 12/26/24 07:24 Temperature 97.1 F L Pulse Rate Respiratory Rate Blood Pressure BP Systolic BP Diastolic Weight Weight: 91 kg Body Mass Index (BMI) 35.5 Physical Exam Narrative Gen: Female in NAD VE: 2-3/60-70/-3 AROM small amount of clear fluid. IUPC placed. Const alert and oriented x3 General Appearance: cooperative HEENT normocephalic GI GI Narrative: Gravid, non tender to palpation. OB / External & Speculum: external exam normal Extremity normal to inspection Skin no rashes or lesions noted Neuro oriented x3 and CN's II-XII intact bilaterally Psych Appearance: grossly normal Labs Labs Labs: Blood Type AB POSITIVE Antibody Screen NEGATIVE Hct 34.7 % (37-47) L Hgb 11.6 g/dL (12.0-15.0) L Syphilis Total Ab Non-reactive VZV IgG Antibody < 135 index (Immune >165) L Rubella IgG Antibody Reactive (Nonreactive) Hep Bs Antigen Non-Reactive (Nonreactive) Hepatitis C Antibody Non-Reactive (Nonreactive) Chlamydia DNA (DEANNA) Negative (Negative) N.gonorrhoeae DNA (DEANNA) Negative (Negative) HIV 1&2 Antibody Non-Reactive (Nonreactive) Glucose 1 Hr 50 gm 115 mg/dL (70-140) Assessment & Plan (1) 39 weeks gestation of : (2) Gestational diabetes: (3) Late care: (4) Iron deficiency anemia during : (5) History of delivery of macrosomal infant: (6) History of gestational hypertension: (7) History of intrauterine in previous : PLAN: Plan Admit to L&D Montior FHR/TOCO Epidural if requested for pain Monitor VS Anticipate Pitocin and AROM
[2024-12-26 08:47] LABS: Syphilis Antibodies Nonreactive (Nonreactive)
[2024-12-26] MEDS: Lactated Ringers 1,000 ML 999 ML IV (11:10)
[2024-12-26] MEDS: fentaNYL-bupivacaine (epidural) 100 ML BAG EPIDURAL (12:40)
--- NOTE | 2024-12-26 14:57 | EX.PCM.OBVAG ---
Vaginal Delivery Maternal Presentation Maternal Presentation: Medically Indicated Induction Type of Induction: Pitocin and Amniotomy Medical Reason for Induction: Other (GDMA1, LGA, H/o intrauterine demise, 39 weeks, Obesity in ) Vaginal Delivery Information Procedure Performed: Spontaneous Vaginal Delivery and Shoulder Dystocia Maneuvers Delivery maneuver performed for shoulder dystocia: Walter maneuver, Suprapubic pressure and Houston maneuver Head to body interval: 00:47 (47 seconds) Surgeon/Practitioner: Nori Loya Date of Procedure: 12/26/24 Pre-Procedure Diagnosis: H/o demise, GDMA1, Obesity in , h/o macrosomal infant Post-Procedure Diagnosis: same, live male Type of anesthesia: Epidural Estimated Blood Loss: 100 Time of Delivery: 14:39 Findings Description of procedure: Patient progressed to fully dilated. Good maternal pushing efforts delivered the head. At this time shoulder dystocia was recognized patient was asked to stop pushing. Regulatory Affairs Manager was called into the room at this time. Legs were placed in the Walter position. Still no disengagement of the anterior shoulder at this time suprapubic pressure was placed followed by a combination of the Levi/Bernard maneuver. The shoulders were rotated anterior and posteriorly to allow for delivery of the anterior shoulder. The anterior shoulder was then delivered followed by the rest the 's body. Nursery team and crusher tender were readily available. The infant was placed on the mother's chest cord was clamped and cut immediately and the was taken to the warmer for evaluation and resuscitation. At this time Pitocin was started cord gases were obtained. Uterine massage was performed and the placenta was delivered without complication intact. The vagina and perineum were intact. Presentation: Vertex Amniotic Membrane Rupture Type: Artificial Amniotic Fluid Description: Clear Placental Delivery Description: Expressed Placenta Disposition: [facility] Specimen collected: No Cord Vessel Description: 3 Vessels Cord Entanglement: None Cord Gases: ABG and VBG Infant A Gender: Male (1 minute): 5 (5 minute): 9 Delayed Cord Clamping: No Business Process Representative tooling engineering tech: No Post Vaginal Deli Medications given after delivery: IV Pitocin Episiotomy Description: None Laceration: None Complication Complications: Yes Complication Details: 47 second shoulder dystocia.
[2024-12-26] MEDS: Oxytocin 15 Units/NS 250ml 15 UNITS/250 ML IV.SOLN 83 UNITS IV (15:22)
[2024-12-27] VITALS (8 sets, daily range): BP systolic 119–132; BP diastolic 63–79; PULSE 67–83; RESP 16–18; TEMP 36.3–36.8; O2SAT 97–98
--- NOTE | 2024-12-27 09:44 | PCM.PROGNOTE ---
Subjective Subjective patient seen at bedside, doing well. Patient reports good pain control. lochia mild. Objective Data Objective Data Vital Signs: Vital Signs Temp Pulse Resp BP Pulse Ox O2 Del Method 97.6 F L 83 16 120/63 98 Room Air 12/27/24 08:30 12/27/24 08:46 12/27/24 08:30 12/27/24 08:46 12/27/24 04:25 12/27/24 04:25 Oxygen Delivery Method Room Air Weight: 91 kg Body Mass Index (BMI) 35.5 Intake & Output: Intake and Output for Last 24 Hours 12/25/24 12/26/24 12/27/24 23:59 23:59 23:59 Intake Total 2285.13 / 2285.13 Output Total 1200 / 1200 Balance 1085.13 / 1085.13 Lab / Micro Data 12/26/24 07:30 Labs: Laboratory Results - last 24 hr 12/26/24 07:30: Blood Type AB POSITIVE, Antibody Screen NEGATIVE 12/26/24 12:37: POC Glucose 77 12/26/24 15:03: POC Glucose 88 12/27/24 05:44: POC Glucose 77 Physical Exam Narrative Abd: fundus firm. Const alert and oriented x3 General Appearance: cooperative HEENT normocephalic Neck General: normal visual inspection GI soft to palpation and non-distended GI Narrative: Fundus firm Extremity normal to inspection and no calf tenderness Skin no rashes or lesions noted Neuro oriented x3 and CN's II-XII intact bilaterally Psych mental status grossly normal Assessment & Plan Assessment/Plan (1) History of intrauterine in previous : (2) History of gestational hypertension: (3) Iron deficiency anemia during : (4) Late care: (5) (spontaneous vaginal delivery): (6) Gestational diabetes: PLAN: Plan PPD#1 , Doing well Routine care pain mgmt ambulation dc home
--- NOTE | 2024-12-27 09:48 | DCINST_ITS ---
Discharge Instructions DC O2, CPAP, BIPAP needs Home O2 Discharge instructions: No Dressing / Incision May resume sexual activity in: 6-8 weeks Dressing / Incision Call your doctor if you observe: Fever of 101 or Higher, Inability to urinate, Using more than 1 pad per hour and Uncontrolled pain Follow Up Care Please Follow Up With: Nori Loya MD When: 1 week post and again at 6 weeks post . [phone]: if you had PREECLAMPSIA or other Blood pressure concerns in labor you should be seen in 48-72 hours in the office. Test Results: Test results from this visit will be discussed in further detail at your follow- up appointment, if applicable. Discharge Plan Admission Admit Date/Time: 12/26/24 07:10 Attending Provider: Nori Loya Primary Care Provider: Jerald Sierra Discharge Orders/Prescriptions Prescriptions: New acetaminophen 500 mg Tablet 1,000 mg PO Q6H PRN PRN (Reason: Pain 1-10 Or Fever) Qty: 0 0RF Discontinued 1 tab PO/SL DAILY iron 325 mg PO/SL DAILY Referrals / Follow Up: Jerald Sierra MD [Primary Care Provider] -
--- NOTE | 2024-12-27 13:09 | CASEMGMT ---
Social Work Assessment Labor and Delivery Unit Patient Address:[address] [place] [address] [address] [place] [address] Phone number: [phone] Date of Referral: 12/27/24 Time of Referral:? 24 Referred By: Dr. Shaquille Sneed Date of Intervention: ??12/27/24 Time of Intervention:? 1220 Reason for Referral:? pt had late care and history of a 37 week demise when she was 19 Sw completed chart review and acknowledges social work consult. Sw presented to bedside and introduced self to mother of baby (MOB- Sugey) and father of baby (FOB-Justyn). Sw explained reason for sw involvement and completed psychosocial assessment. History obtained from: medical records, MOB and FOB Household composition: Currently residing in the family home is LUIS PEARSON, their three older children: Nithin (4), Samara (3), and Don (2). Also residing in the home is paternal grandpa. [place] baby will be included in home when ready for discharge. Parents deny any problems or concerns with housing, stating that it is safe and adequate. Patient's parent/guardian status:?Parents report that they met each other when they were in high school and have been together for 9 years. Parents are not , and now have four children together. No concerns reported of domestic violence or intimate partner violence. ? Medical History: ?LILI is 24 years old female who is 5, para 3- now 4 following labor and delivery of . LILI reports that she did not know she was or she would have sought care from the beginning of . LILI received late care with [facility]. LILI presented to hospital for scheduled induction of labor for gestational diabetes. LILI delivered baby via vaginal delivery at 39 weeks gestation on 12/26/24. Baby boy, named Silvano Gardner was born weighing 8lb 13oz with apgars of 5 and 9 at one and five minutes of life, respectfully. LILI states that she is breast feeding and baby will be followed by Dr. Saravia for pediatrics. Educational Status:? MOB completed 12th grade and FOMaritza states that he completed 11th grade. Parents deny problems or concerns with reading, learning or comprehension Financial Status: Both parents are gainfully employed outside of the home. MOB works as a [employer]ER and FOB works for [employer]. Infant Supplies:?? All necessary baby supplies obtained, including: car seat, safe sleep space, clothes, diapers and wipes. Childcare/Caregiver(s):? LILI states that she will be the primary caregiver to baby along with LUIS when he is not working. Transportation:?? Both parents have their drivers license and reliable means of transportation, no barriers at this time. Programs/Agencies Involved: ?ILLI is connected to medicaid insurance. ?? Children Services/Legal Issues:??? Parents deny history of children services involvement. No issues or concerns warranting referral to be made at this time. Behavioral Health Issues: ??Mental Health History:?Parents deny mental health history. ?? Substance Use History:?Parents deny substance use, aside from daily nicotine use. ? Family History:?Parents deny family history of substance use or significant mental health diagnoses. ? Drug Screens: ?No drug screens observed while completing chart review. ? Family/Social Stressors:? Parents deny any issues, concerns or stressors. Support Systems: LILI states that LUIS is her biggest support person, along with their parents and siblings. Depression/Shaken Baby/Safe Sleeping:? Sw educated parents on signs and symptoms of baby blues and depression and anxiety. LILI states that she is familiar with those terms, and does not believe that she has ever struggled with any of those symptoms. LUIS states that if LILI were to struggle with her mental health during this time he would be able to recognize that and would know how to help her. Sw and parents discussed a prior loss that parents experienced. LILI's first was when she was 19 and LUIS was 19. LILI lost that baby at 5 months gestation. Parents report that they have since gone on to have four children and feel very blessed to have four beautiful and healthy babies. Parents state that they are planning on both FOB getting a vasectomy and LILI is going to have her tubes tied. Sw educated parents on shaken baby prevention and ABCs of safe sleep. Parents express understanding. ASSESSMENT:? MOB and baby admitted following labor and delivery of . MOB and FOB were welcoming of meeting with sw to complete psychosocial assessment. FOB was sitting comfortably on couch and MOB was observed to be laying on bed and holding baby lovingly. Parents deny mental health history, including experiencing symptoms following the deliveries of all of her prior children. Parents were engaging and easy to talk to. Parents have obtained all baby supplies and have natural supports in place. PLAN:? No other services requested or indicated. MOB and baby to be discharged when medically ready. Parents were provided literature regarding: signs and symptoms of baby blues and mood and anxiety disorders, Help Me Grow, shaken baby prevention, ABCs of safe sleep and a list of county resources that are available for them should any needs present themselves. Car Aguiar, FRAME BENDER, LOAN EXPEDITOR
--- NOTE | 2024-12-31 14:23 | NURSING ---
F/up phone call attempted, no ans, LVM.
== END 2024-12-27 15:45 | disposition home or self-care (01) | DRG 560 ==
PROVIDERS: Admitting Provider Obstetrics & Gynecology; PCP Family Medicine; Referring Provider Obstetrics & Gynecology; Visit Provider Obstetrics & Gynecology
DX: O24.429 Gestational diabetes mellitus in childbirth, unspecified control (principal); Z37.0 Single live birth; D50.9 Iron deficiency anemia, unspecified; O99.214 Obesity complicating childbirth; O99.02 Anemia complicating childbirth; O66.0 Obstructed labor due to shoulder dystocia; Z3A.39 39 weeks gestation of pregnancy; Z87.59 Personal history of other complications of pregnancy, childbirth and the puerperium
CPT/HCPCS: 59025; 59050; 82962; 85025; 86780; 86850; 86900; 86901; 99221; G0378